=== PATIENT | female | born 1945 | race Caucasian/White ===

== ENCOUNTER → 2022-08-17 | Outpatient (CLI) | payer MEDICARE, OTHER ==
--- NOTE | 2022-08-17 22:17 | MR ---
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 Performed on a separate workstat ion. MRA neck: Multiplanar, multi-sequence imaging as well as [id number] and phase was performed extra cranial vasculature of the neck. 3-D reformatted images and maximum intensity projection reformatted images were submitted for evaluation, these are performed on a separate workstation. IV Contrast: None Findings: Vertebral arteries: The vertebral arteries are patent. The right vertebral artery is dominant. Basilar artery: The basilar artery is intact. The basilar artery bifurcation is normal. Internal Carotid arteries: The cervical, petrous, cavernous and supraclinoid segments are normal. NAGA: Patent with no evidence of aneurysm. ACOM: Present without evidence of aneurysm. MCA: Patent with no evidence of aneurysm. ANTICHECKING IRON WORKER: origin left posterior cerebral artery. PCOM: Hypoplastic right. RIGHT CAROTID SYSTEM: The common carotid artery is patent. The carotid bifurcations that she no evide nce for hemodynamically significant stenosis. The internal carotid arteries patent. The contours of t he vessels are smooth. LEFT CAROTID SYSTEM: The common carotid artery is patent. Bifurcation plaque of the proximal interna l carotid artery with 25-50% stenosis. There The internal carotid arteries patent. The contours of th e vessels are smooth. The origins of the great vessels and vertebral arteries appear unremarkable. The right vertebral art antonio is dominant. The contours of the vessels are smooth. IMPRESSION: 1. No evidence of intracranial aneurysm or significant stenosis. 2. No evidence of fibromuscular dysplasia.. 3. No evidence aneurysm. 4. 25-50% stenosis of the left carotid bifurcation. The right carotid bifurcation is patent without significant stenosis
== END | disposition home or self-care (01) ==
LOC: RADMRIMAIN 20:30
PROVIDERS: ATTEND Neurological Surgery
DX: I67.1 Cerebral aneurysm, nonruptured (principal); I65.23 Occlusion and stenosis of bilateral carotid arteries; I77.3 Arterial fibromuscular dysplasia
CPT/HCPCS: 70544; 70547

== ENCOUNTER → 2023-07-19 | Outpatient (CLI) | payer MEDICARE, OTHER ==
--- NOTE | 2023-07-19 09:57 | CT ---
EXAMINATION TYPE: CT abdomen wo con DATE OF EXAM: 07/19/2023 COMPARISON: None HISTORY: 77-year-old female R10.84, R42 dizziness, I10 HTN, abdominal pain, gas and bloating. TECHNIQUE: Contiguous axial scanning of the abdomen without IV contrast. Coronal and sagittal reconst ructions performed. CT DLP: 599.80 mGycm Automated exposure control for dose reduction was used. FINDINGS: The heart is normal size without pericardial effusion. Lung bases clear without pleural effusion. Mildly diminished attenuation of the liver parenchyma. A couple punctate calcifications may reflect s equela of prior granulomatous disease. Gallbladder is mildly hydropic at 4.3 cm wide but without any surrounding inflammation. Approximately 5 dependent stones are present measuring up to 9 mm. Adrenal glands, kidneys, spleen, and pancreas within normal limits. There is moderate atherosclerotic calcifications infrarenal abdominal aorta and visualized iliac fili santhosh. There is fusiform dilatation of the infrarenal abdominal aorta up to 2.1 cm and then with decrease in caliber down to 1.3 cm and the lumen possibly narrowed down to 4 mm due to atherosclerotic changes. Suspect segmental moderate stenoses bilateral common iliac arteries. No dilated small bowel, free fluid, or free air. No mesenteric or retroperitoneal lymphadenopathy. Mild stool burden. Left-sided colonic diverticulosis, greatest in the sigmoid colon. Minimal pericolo vandana fat stranding here along the mid sigmoid colon may be due to prominent pericolonic vessels. Uterus partially visualized anteverted. Small bilateral ovaries are still visualized. Pelvis not imaged. Bones: Facet arthropathy lower lumbar spine. IMPRESSION: 1. AT LEAST MILD FATTY INFILTRATION OF THE LIVER. 2. CHOLELITHIASIS. MILDLY HYDROPIC GALLBLADDER LIKELY DUE TO FASTING STATE NO SURROUNDING INFLAMMA TION IS SEEN. 3. LEFT-SIDED COLONIC DIVERTICULOSIS, EXTENSIVE IN THE SIGMOID COLON. FAT STRANDING AROUND THE MID SI GMOID COLON FAVORED TO RELATE TO PROMINENT PERICOLONIC VESSELS RATHER THAN MILD ACUTE DIVERTICULITIS. CLINICALLY CORRELATE. 4. FUSIFORM DILATATION OF THE INFRARENAL ABDOMINAL AORTA UP TO 2.1 CM FOLLOWED BY DECREASE IN CALIBER DOWN TO 1.3 CM. ATHEROSCLEROTIC CALCIFICATIONS MAY FURTHER NARROW THE LUMEN DOWN TO 4 MM. CONSIDER F URTHER ASSESSMENT WITH CTA AND POSSIBLE VASCULAR SURGERY REFERRAL.
== END | disposition home or self-care (01) ==
LOC: RADECHMAIN 07:28
PROVIDERS: ATTEND Family Medicine
DX: K76.0 Fatty (change of) liver, not elsewhere classified (principal); K80.20 Calculus of gallbladder without cholecystitis without obstruction; K57.30 Diverticulosis of large intestine without perforation or abscess without bleeding; R42 Dizziness and giddiness; I71.33 Infrarenal abdominal aortic aneurysm, ruptured
CPT/HCPCS: 74150; 93225; 93226

== ENCOUNTER 2024-02-19 12:56 | Inpatient (IN) | payer MEDICARE, OTHER ==
--- NOTE | 2024-02-19 13:31 | ED ---
Abdominal Pain HPI - General Source: patient, RN notes reviewed Mode of arrival: ambulatory Limitations: no limitations <Lavonne Narvaez - Last Filed: 02/19/24 13:30> - General Source: patient, RN notes reviewed, old records reviewed Mode of arrival: ambulatory Limitations: no limitations - History of Present Illness MD Complaint: other Migration to: other Severity: severe Severity scale (1-10): 8 Consistency: constant Improves With: nothing Worsens With: nothing Associated Symptoms: nausea Treatments Prior to Arrival: other (0) <Sebastián Carrillo - Last Filed: 02/25/24 22:35> - General Chief Complaint: Abdominal Pain Stated Complaint: abd pain Time Seen by Provider: 02/19/24 13:30 - History of Present Illness Initial Comments: Quick note: 78-year-old female presented to the ER with a chief complaint of cough and congestion. Patient also is reporting abdominal pain. Patient admits to chronic abdominal pain but states pain has been worse recently. Patient recently treated with a Z-Louis and Tessalon Perles for cough. She denies fevers or chills. (Lavonne Narvaez) This is a 78-year-old female with cough congestion upper respiratory symptoms inability to take a deep breath and wheezing. Patient states she is unimproved with outpatient treatment (Sebastián Carrillo) - Related Data Home Medications Medication Instructions Recorded Confirmed Aspirin EC [Ecotrin Low Dose] 81 mg PO DAILY 02/19/24 02/19/24 Benzonatate [Tessalon Perle] 200 mg PO BID PRN 02/19/24 02/19/24 Gabapentin 300 mg PO TID 02/19/24 02/19/24 Losartan Potassium 100 mg PO DAILY 02/19/24 02/19/24 Metoprolol Tartrate [Lopressor] 50 mg PO BID 02/19/24 02/19/24 Pantoprazole Sodium [Protonix] 20 mg PO DAILY 02/19/24 02/19/24 Triamcinolone 0.025% Cream 1 applic TOPICAL BID PRN 02/19/24 02/19/24 [Kenalog 0.025% Cream] Previous Rx's Medication Instructions Recorded cloNIDine HCL [Catapres] 0.1 mg PO HS #30 tab 02/24/24 Allergies Allergy/AdvReac Type Severity Reaction Status Date / Time bisoprolol [From Ziac] Allergy Unknown Verified 02/19/24 16:22 erythromycin base Allergy Rash/Hives Verified 02/19/24 16:22 [From Erythrocin] hydrochlorothiazide Allergy Unknown Verified 02/19/24 16:22 [From Ziac] iodine Allergy Confusion Verified 02/19/24 16:22 propoxyphene Allergy Dyspnea Verified 02/19/24 16:22 [From Darvocet-N] acetaminophen [From Lortab] AdvReac Itching Verified 02/19/24 16:22 aloe vera AdvReac Itching Verified 02/19/24 16:22 atorvastatin [From Lipitor] AdvReac Unknown Verified 02/19/24 16:22 hydrocodone [From Lortab] AdvReac Itching Verified 02/19/24 16:22 levofloxacin [From Levaquin] AdvReac Itching Verified 02/19/24 16:22 polyethylene glycol 3350 AdvReac Hallucinati Verified 02/22/24 15:25 [From Miralax] ons rofecoxib [From Vioxx] AdvReac Nausea & Verified 02/19/24 16:22 Vomiting Review of Systems ROS Other: All systems not noted in ROS Statement are negative. <Lavonne Narvaez - Last Filed: 02/19/24 13:30> ROS Other: All systems not noted in ROS Statement are negative. <Sebastián Carrillo - Last Filed: 02/25/24 22:35> ROS Statement: Those systems with pertinent positive or pertinent negative responses have been documented in the HPI. Past Medical History Past Medical History: CVA/TIA, GERD/Reflux, Hyperlipidemia, Hypertension History of Any Multi-Drug Resistant Organisms: None Reported Past Surgical History: Appendectomy, Tubal Ligation Additional Past Surgical History / Comment(s): cataract, carpal tunnel, Past Psychological History: No Psychological Hx Reported Smoking Status: Former smoker Past Alcohol Use History: None Reported Past Drug Use History: None Reported <Lavonne Narvaez - Last Filed: 02/19/24 13:30> General Exam Limitations: no limitations <Lavonne Narvaez - Last Filed: 02/19/24 13:30> General appearance: alert, in no apparent distress, anxious, in distress Head exam: Present: atraumatic, normocephalic, normal inspection Eye exam: Present: normal appearance, PERRL, EOMI. Absent: scleral icterus, conjunctival injection, periorbital swelling ENT exam: Present: normal exam, mucous membranes moist Neck exam: Present: normal inspection. Absent: tenderness, meningismus, lymphadenopathy Respiratory exam: Present: normal lung sounds bilaterally. Absent: respiratory distress, wheezes, rales, rhonchi, stridor Cardiovascular Exam: Present: normal rhythm, tachycardia, normal heart sounds. Absent: systolic murmur, diastolic murmur, rubs, gallop, clicks GI/Abdominal exam: Present: soft, normal bowel sounds. Absent: distended, tenderness, guarding, rebound, rigid Extremities exam: Present: normal inspection, full ROM, normal capillary refill. Absent: tenderness, pedal edema, joint swelling, calf tenderness Back exam: Present: normal inspection Neurological exam: Present: alert, oriented X3, CN II-XII intact Psychiatric exam: Present: normal affect, normal mood Skin exam: Present: warm, dry, intact, normal color. Absent: rash <Sebastián Carrillo - Last Filed: 02/25/24 22:35> - General Exam Comments Initial Comments: Visual Physical Exam Vital signs reviewed General: Well-appearing, nontoxic, no acute distress. Head: Normocephalic, atraumatic Eyes: PERRLA, EOMI ENT: Airway patent Chest: Nonlabored breathing Skin: No visual rash, normal skin tone Neuro: Alert and oriented 3 Musculoskeletal: No gross abnormalities (ClevelandaLavonne) Course <Sebastián Carrillo - Last Filed: 02/25/24 22:35> Vital Signs 02/19/24 02/19/24 02/19/24 13:15 16:11 16:19 Temperature 98.2 F Pulse Rate 129 H 80 Respiratory 18 19 19 Rate Blood Pressure 146/69 145/60 O2 Sat by Pulse 96 94 L Oximetry 02/19/24 02/19/24 02/19/24 21:09 21:50 22:50 Temperature 98.5 F Pulse Rate 89 Respiratory 20 Rate Blood Pressure 142/73 O2 Sat by Pulse 89 L 94 L 92 L Oximetry 02/19/24 02/19/24 23:31 23:37 Temperature 98.1 F Pulse Rate 98 98 Respiratory 20 Rate Blood Pressure 136/71 O2 Sat by Pulse 89 L 94 L Oximetry - Reevaluation(s) Reevaluation #1: 02/19/24 19:05 Records reviewed (Sebastián Carrillo) Reevaluation #2: 02/19/24 19:05 Patient symptoms unchanged (Sebastián Carrillo) Reevaluation #3: 02/19/24 19:06 Patient informed of results and questions answered (Sebastián Carrillo) Reevaluation #4: Was pt. sent in by a medical professional or institution (, [facility], RESIZER OPERATOR, urgent care, hospital, or halfway...) When possible be specific @ -no Did you speak to anyone other than the patient for history (EMS, parent, family, police, friend...)? What history was obtained from this source @ -no Did you review nursing and triage notes (agree or disagree)? Why? @ -agree Are old charts reviewed (outside hosp., previous admission, EMS record, old EKG, old radiological studies, urgent care reports/EKG's, halfway records)? Report findings @ -yes Differential Diagnosis (chest pain, altered mental status, abdominal pain women, abdominal pain men, vaginal bleeding, weakness, fever, dyspnea, syncope, headache, dizziness, GI bleed, back pain, seizure, CVA, palpatations, mental health, musculoskeletal)? @ -prior EKG interpreted by me (3pts min.). @ -yes X-rays interpreted by me (1pt min.). @ -yes n the right upper lobe mass CT interpreted by me (1pt min.). @ -Yes positive for right upper lobe mass, cancer U/S interpreted by me (1pt. min.). @ -no What testing was considered but not performed or refused? (CT, X-rays, U/S, la bs)? Why? @ -none What meds were considered but not given or refused? Why? @ -none Did you discuss the management of the patient with other professionals (professionals i.e. [facility] Alex, RESIZER OPERATOR, lab, RT, psych nurse, social media sr strategy manager, belt back operator, teacher, information security officer, adult protective caseworker)? Give summary @ -no Was smoking cessation discussed for >3mins.? @ -no Was critical care preformed (if so, how long)? @ -no Were there social determinants of health that impacted care today? How? (Homelessness, low income, unemployed, alcoholism, drug addiction, transportation, low edu. Level, literacy, decrease access to med. care, snf, rehab)? @ -none Was there de-escalation of care discussed even if they declined (Discuss DNR or withdrawal of care, Hospice)? DNR status @ -no What co-morbidities impacted this encounter? (DM, HTN, Smoking, COPD, CAD, Cancer, CVA, ARF, Chemo, Hep., AIDS, mental health diagnosis, sleep apnea, morbid obesity)? @ -none Was patient admitted / discharged? Hospital course, mention meds given and route, prescriptions, significant lab abnormalities, going to OR and other pertinent info. @ - 78 female to the ER for evaluation of right upper lobe lung cancer, patient will be admitted for oncology evaluation found to have new diagnosis of cancer Admitted Undiagnosed new problem with uncertain prognosis? @ -no Drug Therapy requiring intensive monitoring for toxicity (Heparin, Nitro, Insulin, Cardizem)? @ -no Were any procedures done? @ -no Diagnosis/symptom? @ -Right upper lobe mass, new lung cancer Acute, or Chronic, or Acute on Chronic? @ -Acute Uncomplicated (without systemic symptoms) or Complicated (systemic symptoms)? @ -Complicated Side effects of treatment? @ -no Exacerbation, Progression, or Severe Exacerbation? @ -exacerbation Poses a threat to life or bodily function? How? (Chest pain, USA, ID, pneumonia, PE, COPD, DKA, ARF, appy, cholecystitis, CVA, Diverticulitis, Homicidal, Suicidal, threat to staff... and all critical care pts) @ -yes female patient who diagnosis cancer (Sebastián Carrillo) Reevaluation #5: 06 differential Dyspnea: Coronary syndrome, arrhythmia, tamponade, asthma, COPD, pulmonary embolism, pneumonia, pneumothorax, pulmonary effusion, anaphylaxis, diabetic ketoacidosis, flailed chest, pulmonary contusion, diaphragmatic rupture, anemia, neuromuscular, this is not meant to be an all-inclusive list. (Sebastián Carrillo) - Consultations Consultation #1: With Dr. Bunch who agrees to admit this patient (Sebastián Carrillo) Medical Decision Making <Lavonne Narvaez - Last Filed: 02/19/24 13:30> - Lab Data Result diagrams: 02/20/24 06:43 02/20/24 06:43 - EKG Data -: EKG Interpreted by Me (EKG is sinus 84 WI 167 QRS 83 QTc 423) - Radiology Data Radiology results: report reviewed (CT soft tissue neck chest abdomen pelvis is positive for right upper lobe cancer mass pneumonia), image reviewed <Sebastián Carrillo - Last Filed: 02/25/24 22:35> - Medical Decision Making I performed the quick note portion of this chart. Electronically signed by Lavonne Narvaez PA-C (Lavonne Narvaez) 78 female to the ER for evaluation of right upper lobe lung cancer, patient will be admitted for oncology evaluation found to have new diagnosis of cancer (Sebastián Carrillo) - Lab Data Lab Results 02/19/24 02/19/24 02/19/24 Range/Units 16:47 16:47 16:47 WBC 11.3 H (3.8-10.6) k/uL RBC 4.13 (3.80-5.40) m/uL Hgb 11.4 (11.4-16.0) gm/dL Hct 35.2 (34.0-46.0) % MCV 85.0 (80.0-100.0) fL MCH 27.6 (25.0-35.0) pg MCHC 32.5 (31.0-37.0) g/dL RDW 15.4 (11.5-15.5) % Plt Count 453 H (150-450) k/uL MPV 7.5 Neutrophils % 81 % Lymphocytes % 8 % Monocytes % 6 % Eosinophils % 1 % Basophils % 1 % Neutrophils # 9.2 H (1.3-7.7) k/uL Lymphocytes # 1.0 (1.0-4.8) k/uL Monocytes # 0.7 (0-1.0) k/uL Eosinophils # 0.2 (0-0.7) k/uL Basophils # 0.1 (0-0.2) k/uL PT 10.5 (10.0-12.5) sec INR 1.0 (<1.2) APTT 26.4 (22.0-30.0) sec Sodium (137-145) mmol/L Potassium (3.5-5.1) mmol/L Chloride (98-107) mmol/L Carbon Dioxide (22-30) mmol/L Anion Gap mmol/L BUN (7-17) mg/dL Creatinine (0.52-1.04) mg/dL Est GFR (CKD-EPI)AfAm (>60 ml/min/1.73 sqM) Est GFR (CKD-EPI)NonAf (>60 ml/min/1.73 sqM) Glucose (74-99) mg/dL Plasma Lactic Acid Eusebio 1.3 (0.7-2.0) mmol/L Calcium (8.4-10.2) mg/dL Phosphorus (2.5-4.5) mg/dL Magnesium (1.6-2.3) mg/dL Total Bilirubin (0.2-1.3) mg/dL AST (14-36) U/L ALT (4-34) U/L Alkaline Phosphatase (38-126) U/L Troponin I (0.000-0.034) ng/mL Total Protein (6.3-8.2) g/dL Albumin (3.5-5.0) g/dL 02/19/24 02/19/24 Range/Units 16:47 17:42 WBC (3.8-10.6) k/uL RBC (3.80-5.40) m/uL Hgb (11.4-16.0) gm/dL Hct (34.0-46.0) % MCV (80.0-100.0) fL MCH (25.0-35.0) pg MCHC (31.0-37.0) g/dL RDW (11.5-15.5) % Plt Count (150-450) k/uL MPV Neutrophils % % Lymphocytes % % Monocytes % % Eosinophils % % Basophils % % Neutrophils # (1.3-7.7) k/uL Lymphocytes # (1.0-4.8) k/uL Monocytes # (0-1.0) k/uL Eosinophils # (0-0.7) k/uL Basophils # (0-0.2) k/uL PT (10.0-12.5) sec INR (<1.2) APTT (22.0-30.0) sec Sodium 136 L (137-145) mmol/L Potassium 4.1 (3.5-5.1) mmol/L Chloride 101 (98-107) mmol/L Carbon Dioxide 28 (22-30) mmol/L Anion Gap 7 mmol/L BUN 20 H (7-17) mg/dL Creatinine 0.75 (0.52-1.04) mg/dL Est GFR (CKD-EPI)AfAm 88 (>60 ml/min/1.73 sqM) Est GFR (CKD-EPI)NonAf 77 (>60 ml/min/1.73 sqM) Glucose 102 H (74-99) mg/dL Plasma Lactic Acid Eusebio (0.7-2.0) mmol/L Calcium 9.4 (8.4-10.2) mg/dL Phosphorus 4.5 (2.5-4.5) mg/dL Magnesium 2.1 (1.6-2.3) mg/dL Total Bilirubin 0.7 (0.2-1.3) mg/dL AST 24 (14-36) U/L ALT 11 (4-34) U/L Alkaline Phosphatase 114 (38-126) U/L Troponin I <0.012 (0.000-0.034) ng/mL Total Protein 7.0 (6.3-8.2) g/dL Albumin 3.9 (3.5-5.0) g/dL Critical Care Time Critical Care Time: Yes Total Critical Care Time: 31 <Sebastián Carrillo - Last Filed: 02/25/24 22:35> Disposition <Lavonne Narvaez - Last Filed: 02/19/24 13:30> Is patient prescribed a controlled substance at d/c from ED?: No Time of Disposition: 19:00 <Sebastián Carrillo - Last Filed: 02/25/24 22:35> Clinical Impression: Abdominal pain, Cancer of right lung, Stridor, Dyspnea, Mass of right lung Disposition: ADMITTED IP TO THIS HOSP Condition: Serious
--- NOTE | 2024-02-19 14:05 | XR ---
EXAMINATION TYPE: XR chest 2V DATE OF EXAM: 02/19/2024 COMPARISON: NONE TECHNIQUE: PA and lateral views submitted. HISTORY: Cough FINDINGS: There is a large left upper lobe mass measuring 7 cm. Suspected right suprahilar and left hilar lymph adenopathy. Underlying COPD. No pleural effusion or pneumothorax. Degenerative changes of the spine. IMPRESSION: 1. Large 7 cm left upper lobe mass suspicious for malignancy. Suspect mediastinal and hilar adenopath y.
--- NOTE | 2024-02-19 14:06 | XR ---
EXAMINATION TYPE: XR KUB DATE OF EXAM: 02/19/2024 COMPARISON: NONE HISTORY: Pain TECHNIQUE: One view abdominal series FINDINGS: The osseous structures are intact. The bowel gas pattern is nonspecific. Large left upper lobe lung mass see dictation of chest x-ray report. Underlying COPD. Bilateral hip arthropathy. Degenerative ch anges of the spine.. IMPRESSION: 1. Nonspecific abdomen. No obstruction. 2. Large left upper lobe lung mass with suspected mediastinal and hilar adenopathy.
[2024-02-19 17:08] LABS: Basophils # (A) 0.1 k/uL (0-0.2); Basophils % (A) 1 %; Eosinophils # (A) 0.2 k/uL (0-0.7); Eosinophils % (A) 1 %; HCT 35.2 % (34.0-46.0); HGB 11.4 gm/dL (11.4-16.0); Lymphocytes % (A) 8 %; MCH 27.6 pg (25.0-35.0); MCHC 32.5 g/dL (31.0-37.0); Mean Platelet Volume 7.5; Monocytes # (A) 0.7 k/uL (0-1.0); Monocytes % (A) 6 %; Neutrophils # (A) 9.2 k/uL (1.3-7.7); Neutrophils % (A) 81 %; Platelet Count 453 k/uL (150-450); RBC 4.13 m/uL (3.80-5.40); RDW 15.4 % (11.5-15.5); WBC 11.3 k/uL (3.8-10.6)
[2024-02-19 17:24] LABS: Partial Thromboplastin Time 26.4 sec (22.0-30.0); Prothrombin Time 10.5 sec (10.0-12.5)
[2024-02-19] MEDS: methylPREDNISolone SOD SUCCI 125 MG/2 ML VIAL IV STA (17:57)
[2024-02-19] MEDS: SODIUM CHLORIDE 0.9% 1,000 ML IV STA (17:57)
[2024-02-19] MEDS: FAMOTIDINE 20 MG/2 ML VIAL IV STA (17:58)
[2024-02-19] MEDS: MORPHINE SULFATE 4 MG/ML SYRINGE IV STA (17:58)
[2024-02-19] MEDS: diphenhydrAMINE 50 MG/ML 1 ML VIAL IVP STA (17:58)
[2024-02-19] MEDS: HYDROmorphone 1 MG/ML 1 ML SYRINGE IVP STA (18:07)
[2024-02-19 18:12] LABS: ALT 11 U/L (4-34); AST 24 U/L (14-36); African American GFR (CKD) 88 (>60 ml/min/1.73 sqM); Albumin 3.9 g/dL (3.5-5.0); Alkaline Phosphatase 114 U/L (38-126); Anion Gap 7 mmol/L; Blood Urea Nitrogen 20 mg/dL (7-17); Calcium 9.4 mg/dL (8.4-10.2); Carbon Dioxide 28 mmol/L (22-30); Chloride 101 mmol/L (98-107); Glucose 102 mg/dL (74-99); Magnesium 2.1 mg/dL (1.6-2.3); Non-African American GFR(CKD) 77 (>60 ml/min/1.73 sqM); Phosphorus 4.5 mg/dL (2.5-4.5); Potassium 4.1 mmol/L (3.5-5.1); Sodium 136 mmol/L (137-145); Total Bilirubin 0.7 mg/dL (0.2-1.3)
[2024-02-19] MEDS ORDERED: HYDROmorphone 1 MG/ML 1 ML SYRINGE IVP PRN (18:50)
[2024-02-19] MEDS ORDERED: NALOXONE 0.4 MG/ML 1 ML VIAL IV PRN (18:50)
--- NOTE | 2024-02-19 18:55 | CT ---
EXAMINATION TYPE: CT angio chest DATE OF EXAM: 02/19/2024 COMPARISON: Prior CT chest June 29, 2016 HISTORY: abdominal pain, cough and congestion CT DLP: 1582.8 mGycm. Automated Exposure Control for Dose Reduction was Utilized. CONTRAST: CTA scan of the thorax is performed with IV Contrast, patient injected with 100ml mL of Isovue 370, p ulmonary embolism protocol. MIP Images are created on CT scanner and reviewed. FINDINGS: LUNGS: There is new suspicious 5.8 x 5.1 cm posterior left upper lobe mass concerning for neoplasm ax ial image 75. Some groundglass opacity in the central lingula and left lower lobe is present. Right l jose shows some faint small areas of groundglass opacity with slight nodularity in the periphery of th e right middle lobe. Mild bibasilar linear scarring and/or atelectasis. No pleural effusion or pneumo thorax seen bilaterally.. MEDIASTINUM: There is confluent adenopathy in the mediastinum encasing the ru and central bronchi . Hilar adenopathy extends into the bilateral hilar region and AP window. There are additional enlarg ed lymph nodes in the prevascular space and in the anterior superior mediastinum. Patency of the pulm onary arteries and branches without pulmonary embolism but narrowing from neoplasm or adenopathy in t he left hilar region is noted. Tiny pericardial effusion. No cardiomegaly. OTHER: Please refer to same day CT abdomen and pelvis report for complete details on the upper abdome n. IMPRESSION: 1. There is near 6.0 cm left upper lobe mass strongly suggestive of neoplasm with marked central thor acic adenopathy. 2. Some areas of groundglass opacity and slight nodularity bilaterally could reflect developing acute infectious process. Correlate clinically.
--- NOTE | 2024-02-19 19:00 | CT ---
EXAMINATION TYPE: CT abdomen pelvis w con DATE OF EXAM: 02/19/2024 HISTORY: abdominal pain, cough and congestion CT DLP: 1582.8mGycm Automated Exposure Control for Dose Reduction was Utilized. CONTRAST: CT scan of the abdomen and pelvis is performed with IV Contrast, patient injected with abdominal pain , cough and congestion mL of Isovue 370. COMPARISON: CT abdomen July 19, 2023 FINDINGS: LUNG BASES: Please refer to same-day CT chest report for complete details on the lung bases. LIVER/GB: Internal dependent gallstones redemonstrated. Liver is diffusely low dense consistent with fatty infiltrative hepatocellular disease PANCREAS: No significant abnormality is seen. SPLEEN: No significant abnormality is seen. ADRENALS: No suspicious adrenal masses. KIDNEYS: No significant abnormality is seen. BOWEL: Sigmoid colonic diverticulosis. No CT evidence for acute diverticulitis. A few additional prox imal colonic diverticula. No abnormal small or large bowel dilatation. UTERUS/ADNEXA: Small size anteverted uterus correlates with postmenopausal age. Central hypodense str ipe somewhat prominent for patient of postmenopausal age. LYMPH NODES: No greater than 1cm abdominal or pelvic lymph nodes are appreciated. OSSEOUS STRUCTURES: No significant abnormality is seen. OTHER: Moderate calcified plaque of the abdominal aorta extends into iliac branch vessels. Moderate t o severe narrowing and spurring in both hip joints. IMPRESSION: 1. No acute findings seen to account for patient's symptoms of abdominal pain. Gallstones without CT evidence for acute cholecystitis redemonstrated. Diverticulosis without CT evidence for acute diverti culitis redemonstrated. 2. Some prominence of the central endometrial stripe on CT for postmenopausal female. Advise nonemerg ent pelvic ultrasound follow-up to exclude abnormal endometrial thickening.
--- NOTE | 2024-02-19 19:06 | CT ---
EXAMINATION TYPE: CT soft tissue neck w con DATE OF EXAM: 02/19/2024 HISTORY: abdominal pain, cough and congestion COMPARISON: CT neck June 08, 2014 CT DLP: 1582.8 mGycm. Automated Exposure Control for Dose Reduction was Utilized. TECHNIQUE: CT scan of the neck is performed with IV Contrast, patient injected with 100ml mL of Isov ue 370, axial images are obtained, coronal and sagittal reformatted images are reviewed. FINDINGS: Airway: Abnormal adenopathy in the anterior superior mediastinum extends to the left supraclavicular region. Parotid/submandibular glands: No gross abnormality seen. Carotid/Vascular Structures: Mild plaque right carotid bulb level. More severe plaque left carotid bu lb . Significant stenosis at origin of left internal carotid artery is difficult to exclude. Osseous Structures: Straightening of cervical spine with [id number] multilevel spurring and dis c space narrowing. Other: Apei-gw-txyxintk mucosal thickening inferior left maxillary sinus. Bilateral aphakia is redemo nstrated. Aneurysm clip in the region of the distal right internal carotid artery is noted. Ischemic change in the right brain is of indeterminate age. Correlate clinically. IMPRESSION: 1. Severe focal plaque left carotid bulb. Cannot exclude significant stenosis at origin of the left i nternal carotid artery. Advise carotid ultrasound follow-up to further evaluate. 2. Aneurysm clip at the level of the right anterior aspect [place]. There is age indetermina te ischemia in the right brain. Correlate clinically to determine further investigation with CT or MR I of the brain.
--- NOTE | 2024-02-20 06:12 | P.CNPUL ---
History of Present Illness Consult date: 02/20/24 Requesting physician: Sebastián Carrillo Reason for consult: lung mass Chief complaint: Abdominal discomfort and back pain History of present illness: Patient is a 78-year-old white female with past medical history significant for previous heavy tobacco dependence, smoking 1 to 2 packs/day up until about 5 years ago. Her primary care provider is a Siobhan Samuel, nurse practitioner and out of Dr. Bunch's office. She has been struggling with a persistent cough and wheezing for the last 6 weeks. She was treated outpatient 3 weeks ago for presumptive bronchitis with a Z-Louis and Tessalon Perles. Denies any fevers, chest pain, purulent sputum production, hemoptysis. Also, complains of right- sided thoracic level back pain. No relief with outpatient treatment. She is also had issues with abdominal bloating, flatulence and burping. This has reportedly limited her eating. No significant abdominal pain. She reports a 20 pound, otherwise unexplained weight loss over the last month. Prior personal history of malignancies. Her father may have had lung cancer. Chest x-ray done on arrival to the emergency department identified a large left upper lobe mass, and associated mediastinal and hilar lymphadenopathy suspicious for malignancy. A follow-up chest CTA identified a 6 cm left upper lobe mass, strongly suggestive of neoplasm with marked central thoracic adenopathy. There are some areas of ground glass opacity and slight nodularity bilaterally, which could reflect a superimposed acute infectious process. CT of the abdomen did not show any acute findings explaining the patient's abdominal pain or symptoms. There was gallstones without acute cholecystitis. Some prominence of the central endometrial stripe, recommending follow-up pelvic ultrasound to exclude e ndometrial thickening. Patient also underwent a CT of the soft tissues of the neck with contrast which showed severe focal plaque left carotid bulb. There is an aneurysm clip at the level of the right anterior aspect of the [place]. Age-indeterminate ischemia in the right brain. CBC: WBC count 11.3, hemoglobin 11.4, hematocrit 35.2, platelets 453. Coagulation profile unremarkable. BMP unremarkable. Troponin less than 0.012. She is currently sitting up in bed, on room air, in no acute distress. She well-nourished and seems functional at baseline. She does not have her son for support system. CT scan results discussed with her at length. Review of Systems REVIEW OF SYSTEMS: CONSTITUTIONAL: Reports a unintentional 20 pound weight loss over the last month or so EYES: Denies change in vision. EARS, NOSE, MOUTH, THROAT: Denies headaches, denies sore throat. CARDIOVASCULAR: Denies chest pain, palpitations or syncopal episodes. RESPIRATORY: See HPI. GASTROINTESTINAL: Admits abdominal bloating and increase flatulence and burping. Reduced appetite. Denies nausea and vomiting, or diarrhea. Endorses occasional intermittent constipation GENITOURINARY: Denies hematuria, denies infections. MUSKULOSKELETAL: Denies pain, denies swelling. INTEGUMENTARY: Denies rash, denies eczema. NEUROLOGICAL: Denies recent memory loss, no recent seizure activity. PSYCHIATRIC: Denies anxiety, denies depression. 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, ovarian cysts History of Any Multi-Drug Resistant Organisms: None Reported Past Surgical History: Appendectomy, Tonsillectomy, Tubal Ligation Additional Past Surgical History / Comment(s): cataracts, carpal tunnel, laser e ye surgery, metal coil for brain aneurysm Past Anesthesia/Blood Transfusion Reactions: Postoperative Nausea & Vomiting (PONV) Past Psychological History: No Psychological Hx Reported Smoking Status: Former smoker Past Alcohol Use History: None Reported Past Drug Use History: None Reported Medications and Allergies Home Medications Medication Instructions Recorded Confirmed Type Aspirin EC [Ecotrin Low Dose] 81 mg PO DAILY 02/19/24 02/19/24 History Benzonatate [Tessalon Perle] 200 mg PO BID PRN 02/19/24 02/19/24 History Gabapentin 300 mg PO TID 02/19/24 02/19/24 History Losartan Potassium 100 mg PO DAILY 02/19/24 02/19/24 History Metoprolol Tartrate [Lopressor] 50 mg PO BID 02/19/24 02/19/24 History Pantoprazole Sodium [Protonix] 20 mg PO DAILY 02/19/24 02/19/24 History Triamcinolone 0.025% Cream 1 applic TOPICAL BID PRN 02/19/24 02/19/24 History [Kenalog 0.025% Cream] Allergies Allergy/AdvReac Type Severity Reaction Status Date / Time bisoprolol [From Ziac] Allergy Unknown Verified 02/19/24 16:22 erythromycin base Allergy Rash/Hives Verified 02/19/24 16:22 [From Erythrocin] hydrochlorothiazide Allergy Unknown Verified 02/19/24 16:22 [From Ziac] iodine Allergy Confusion Verified 02/19/24 16:22 propoxyphene Allergy Dyspnea Verified 02/19/24 16:22 [From Darvocet-N] acetaminophen [From Lortab] AdvReac Itching Verified 02/19/24 16:22 aloe vera AdvReac Itching Verified 02/19/24 16:22 atorvastatin [From Lipitor] AdvReac Unknown Verified 02/19/24 16:22 hydrocodone [From Lortab] AdvReac Itching Verified 02/19/24 16:22 levofloxacin [From Levaquin] AdvReac Itching Verified 02/19/24 16:22 rofecoxib [From Vioxx] AdvReac Nausea & Verified 02/19/24 16:22 Vomiting Physical Exam Vitals: Vital Signs Temp Pulse Pulse Resp BP BP Pulse Ox 02/20/24 02:48 18 02/20/24 00:12 98.0 F 100 18 173/93 96 02/19/24 23:37 98.1 F 98 20 136/71 94 L 02/19/24 23:31 98 89 L 02/19/24 22:50 92 L 02/19/24 21:50 94 L 02/19/24 21:09 98.5 F 89 20 142/73 89 L 02/19/24 16:19 19 02/19/24 16:11 80 19 145/60 94 L 02/19/24 13:15 98.2 F 129 H 18 146/69 96 Intake and Output 02/19/24 02/19/24 02/20/24 14:59 22:59 06:59 Other: Voiding Method Toilet Diaper # Voids 1 Weight 73.028 kg 73.028 kg GENERAL EXAM: Alert, 78-year-old white female, sitting at the edge of the bed, comfortable in no apparent distress. HEAD: Normocephalic and atraumatic EYES: Normal reaction of pupils, equal size. NOSE: Clear with pink turbinates. THROAT: No erythema or exudates. NECK: No masses, no JVD. CHEST: No chest wall deformity. LUNGS: Equal air entry with no crackles, wheeze, rhonchi or dullness. On room air. No conversational dyspnea or accessory muscle use.. CVS: S1 and S2 normal with no audible murmur, regular rhythm. No extra heart sounds ABDOMEN: No hepatosplenomegaly, active bowel sounds, no guarding or rigidity. SPINE: No scoliosis or deformity SKIN: No rashes CENTRAL NERVOUS SYSTEM: No focal deficits, tone is normal in all 4 extremities. EXTREMITIES: There is no peripheral edema, clubbing, or cyanosis. Peripheral p ulses are intact. Results - Laboratory Findings CBC and BMP: 02/20/24 06:43 02/20/24 06:43 PT/INR, D-dimer PT 10.5 sec (10.0-12.5) 02/19/24 16:47 INR 1.0 (<1.2) 02/19/24 16:47 Abnormal lab findings: Abnormal Labs 02/19/24 02/19/24 16:47 17:42 WBC 11.3 H Plt Count 453 H Neutrophils # 9.2 H Sodium 136 L BUN 20 H Glucose 102 H - Diagnostic Findings Chest x-ray: image reviewed CT scan - chest: image reviewed Assessment and Plan Assessment: New left upper lobe mass, measuring 5.8 x 5.1 cm in the posterior left upper lobe, concerning for neoplasm. There is associated mediastinal adenopathy including confluent adenopathy in the mediastinum encasing the ru and central bronchi, as well as hilar adenopathy extending into the bilateral hilar region and AP window. Additional enlarged lymph nodes in the prevascular space and anterior superior mediastinum. There are some faint groundglass opacities with slight nodularity in the periphery of the right middle lobe and mild bibasilar linear scarring and/or atelectasis. No definitive infectious process. Recent unexplained 20 pound weight loss Subacute cough History of heavy tobacco dependence, quitting 5 years ago, formally smoking 1 to 2 pack/day for most of her adult life. Abdominal discomfort, no acute intra-abdominal process seen with CT of the abdomen History of hypertension History of hyperlipidemia History of CVA/TIA History of brain aneurysm with previous coiling History of GERD without esophagitis Plan: CT of the chest results discussed with the patient at length. Findings are very concerning for malignancy I have discussed the case with Dr. Licona Patient is currently n.p.o. for possible bronchoscopy with transbronchial biopsies later today. Not on any anticoagulants. Takes an 81 mg strength Aspirin daily. Oncology also asked to see this patient. Will need follow-up outpatient PET scan We will continue to follow, and additional recommendations are forthcoming. I have personally seen and examined the patient, performed the documentation and the assessment and plan as written. Number of minutes spent on the visit:20 This is a joint evaluation that was done along with the nurse practitioner. This patient has been experiencing shortness of breath and cough along with significant weight loss. She is an ex-smoker. She presented to the hospital and chest x-ray was abnormal and showed a lung mass and this was followed up by a CT of the chest that showed extensive bulky mediastinal lymphadenopathy and a 6 cm mass in the left upper lobe highly suggestive of malignancy. Some areas of groundglass opacities and slight nodularity bilaterally was also noted. CAT scan of the abdomen was also completed and it showed no acute intra-abdominal abnormalities. There was evidence of diverticulosis. Labs are stable. Normal renal function. Normal electrolytes. Normal LFTs. The patient is currently on 2 L of oxygen by nasal cannula. Discussed the findings with the patient at length. She understands that this may be potentially a malignant process and the patient has been kept n.p.o. and the patient was agreed. This evaluation was done in >30 min Time with Patient: Greater than 30
[2024-02-20 10:42] LABS: Basophils # (A) 0.04 X 10*3/uL (0.00-0.10); Basophils % (A) 0.4 %; Eosinophils # (A) 0 X 10*3/uL (0.04-0.35); Eosinophils % (A) 0 %; HCT 33.9 % (37.2-46.3); HGB 10.4 g/dL (12.0-15.0); Lymphocytes # (A) 0.64 X 10*3/uL (0.90-5.00); Lymphocytes % (A) 6.9 %; MCH 27.2 pg (27.0-32.0); MCHC 30.7 g/dL (32.0-37.0); MCV 88.7 FL (80.0-97.0); Mean Platelet Volume 9.6 FL (9.5-12.2); Monocytes % (A) 3.2 %; NRBC Per 100 WBC 0 X 10*3/uL (0.00-0.01); Neutrophils # (A) 8.26 X 10*3/uL (1.80-7.70); Neutrophils % (A) 88.9 %; Platelet Count 389 X 10*3/uL (140-440); RBC 3.82 X 10*6/uL (4.10-5.20); RDW 15.1 % (11.5-14.5)
[2024-02-20 10:51] LABS: ALT 9 U/L (8-44); AST 20 U/L (13-35); Albumin 3.8 g/dL (3.8-4.9); Albumin/Globulin Ratio 1.31 Ratio (1.60-3.17); Alkaline Phosphatase 106 U/L (41-126); BUN/Creat Ratio 19.38 Ratio (12.00-20.00); Blood Urea Nitrogen 15.5 mg/dL (9.0-27.0); Calcium 9.3 mg/dL (8.7-10.3); Carbon Dioxide 24.5 mmol/L (21.6-31.8); Chloride 102 mmol/L (96-109); Globulin 2.9 g/dL (1.6-3.3); Glucose 153 mg/dL (70-110); Magnesium 2.2 mg/dL (1.5-2.4); Phosphorus 3.6 mg/dL (2.4-5.1); Potassium 4.8 mmol/L (3.5-5.5); Sodium 139 mmol/L (135-145); Total Bilirubin 0.2 mg/dL (0.3-1.2); Total Protein 6.7 g/dL (6.2-8.2)
[2024-02-20] MEDS: IV FLUID CONTINUATION 1,000 ML IV ONE (14:08)
[2024-02-20] MEDS: ONDANSETRON 4 MG/2 ML VIAL IVP PRN (14:26)
[2024-02-20] MEDS: DEXAMETHASONE SOD PHOSPHATE 4 MG/ML 1 ML VIAL IVP STA (14:28)
[2024-02-20] MEDS ORDERED: MIDAZOLAM 2 MG/2 ML VIAL ONE (14:41)
[2024-02-20] MEDS ORDERED: fentaNYL (PF) 50 MCG/ML 2 ML AMP ONE (14:41)
[2024-02-20] MEDS ORDERED: SUCCINYLCHOLINE CHLORIDE 200 MG/10 ML VIAL IV ONE (14:41)
[2024-02-20] MEDS ORDERED: LIDOCAINE 1% INJ 10MG/ML (20 ML MDV) ONE (14:41)
[2024-02-20] MEDS ORDERED: SUGAMMADEX SODIUM 200 MG/2 ML SDV IV ONE (14:41)
[2024-02-20] MEDS ORDERED: ROCURONIUM 10 MG/ML (5 ML VIAL) IV ONE (14:41)
[2024-02-20] MEDS ORDERED: PROPOFOL 10 MG/ML 20 ML VIAL IV ONE (14:41)
--- NOTE | 2024-02-20 16:52 | P.CONS ---
History of Present Illness - Reason for Consult Consult date: 02/20/24 malignancy Requesting physician: Sebastián Carrillo - Chief Complaint SVC syndrome - History of Present Illness Ms. Davidson is a 78-year-old female patient who we have been asked to see because of a finding of a 6 cm left upper lobe mass, concerns for malignancy. This is associated with mediastinal lymphadenopathy. Patient was complaining of a nagging cough, clear sputum production and some wheezing that started about 4 to 6 weeks ago. She was initially treated for bronchitis with antibiotics and cough suppressants. Patient did not have any fevers. Despite treatment, her symptoms did not improve. She had additional complaints of epigastric discomfort and bloating after eating with excessive eructation and flatulence, this was associated with gas pains that began under the breasts and wraps around to her back. This has caused her to lose about 20 pounds in the past month. She denies any vomiting. Patient denies any personal history of malignancy. She states that her father had cancer, spots in his lung and in his colon. She has a history of smoking, approximately [id number] history, quitting about 4 5 years ago. She has psoriasis, tried treatment with Humira but this was stopped due to intolerance. She is currently admitted because of lack of improvement of her respiratory symptoms despite antibiotic treatment. CXR on admit showed a large left upper lobe mass, mediastinal and hide liver lymphadenopathy. CTA reports 5.8 x 5.1 cm posterior left upper lobe mass, right lung small areas of ground "glass opacities, slight nodularity in the periphery of the right middle lobe. Confluent adenopathy in the mediastinum encasing the ru and the central bronchi. Hilar adenopathy extends into the bilateral hilar region and AP window. Additional enlarged lymph nodes in the prevascular space and in the anterior superior mediastinum. No pulmonary embolism but narrowing from the adenopathy is noted. CT of the abdomen and pelvis reports no significant abnormality, gallstones without evidence for acute cholecystitis, diverticulosis without diverticulitis, prominence of the central endometrial stripe soft tissue neck CT reports abnormal adenopathy in the anterior superior mediastinum extend to the left supraclavicular region plaques are in the carotids, aneurysm clip at the right anterior aspect of the [place] age-indeterminate ischemia in the right brain. Laboratory workup overall unremarkable other then mild anemia. Patient's son lives with her. 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, ovarian cysts History of Any Multi-Drug Resistant Organisms: None Reported Past Surgical History: Appendectomy, Tonsillectomy, Tubal Ligation Additional Past Surgical History / Comment(s): cataracts, carpal tunnel, laser eye surgery, metal coil for brain aneurysm Past Anesthesia/Blood Transfusion Reactions: Postoperative Nausea & Vomiting (PONV) Past Psychological History: No Psychological Hx Reported Smoking Status: Former smoker Past Alcohol Use History: None Reported Past Drug Use History: None Reported Medications and Allergies Home Medications Medication Instructions Recorded Confirmed Type Aspirin EC [Ecotrin Low Dose] 81 mg PO DAILY 02/19/24 02/19/24 History Benzonatate [Tessalon Perle] 200 mg PO BID PRN 02/19/24 02/19/24 History Gabapentin 300 mg PO TID 02/19/24 02/19/24 History Losartan Potassium 100 mg PO DAILY 02/19/24 02/19/24 History Metoprolol Tartrate [Lopressor] 50 mg PO BID 02/19/24 02/19/24 History Pantoprazole Sodium [Protonix] 20 mg PO DAILY 02/19/24 02/19/24 History Triamcinolone 0.025% Cream 1 applic TOPICAL BID PRN 02/19/24 02/19/24 History [Kenalog 0.025% Cream] Allergies Allergy/AdvReac Type Severity Reaction Status Date / Time bisoprolol [From Ziac] Allergy Unknown Verified 02/19/24 16:22 erythromycin base Allergy Rash/Hives Verified 02/19/24 16:22 [From Erythrocin] hydrochlorothiazide Allergy Unknown Verified 02/19/24 16:22 [From Ziac] iodine Allergy Confusion Verified 02/19/24 16:22 propoxyphene Allergy Dyspnea Verified 02/19/24 16:22 [From Darvocet-N] acetaminophen [From Lortab] AdvReac Itching Verified 02/19/24 16:22 aloe vera AdvReac Itching Verified 02/19/24 16:22 atorvastatin [From Lipitor] AdvReac Unknown Verified 02/19/24 16:22 hydrocodone [From Lortab] AdvReac Itching Verified 02/19/24 16:22 levofloxacin [From Levaquin] AdvReac Itching Verified 02/19/24 16:22 rofecoxib [From Vioxx] AdvReac Nausea & Verified 02/19/24 16:22 Vomiting Physical Exam Vitals: Vital Signs Temp Pulse Pulse Resp BP BP Pulse Ox 02/20/24 07:14 98.3 F 96 16 155/76 94 L 02/20/24 02:48 18 02/20/24 00:12 98.0 F 100 18 173/93 96 02/19/24 23:37 98.1 F 98 20 136/71 94 L 02/19/24 23:31 98 89 L 02/19/24 22:50 92 L 02/19/24 21:50 94 L 02/19/24 21:09 98.5 F 89 20 142/73 89 L 02/19/24 16:19 19 02/19/24 16:11 80 19 145/60 94 L 02/19/24 13:15 98.2 F 129 H 18 146/69 96 Intake and Output 02/19/24 02/20/24 02/20/24 22:59 06:59 14:59 Other: Voiding Method Toilet Diaper # Voids 1 Weight 73.028 kg - Constitutional General appearance: average body habitus, cooperative, no acute distress - EENT Eyes: anicteric sclerae, EOMI ENT: hearing grossly normal, normal oropharynx - Neck bilateral anterior cervical, left cervial LAD, no supraclavicular LAD, maybe some fullness, no axillary LN palpated Neck: lymphadenopathy - Respiratory Respiratory: bilateral: CTA - Cardiovascular Rhythm: regular Heart sounds: normal: S1, S2 Abnormal Heart Sounds: no systolic murmur, no diastolic murmur, no rub, no S3 Gallop, no S4 Gallop, no click, no other leg Peripheral Edema: bilateral: None - Gastrointestinal General gastrointestinal: no absent bowel sounds, no decreased bowel sounds, no distended, no hepatomegaly, no hyperactive bowel sounds, normal bowel sounds, no organomegaly, no rigid, no scaphoid, soft, no splenomegaly, no tenderness, no umbilical hernia, no ventral hernia - Integumentary Integumentary: normal - Neurologic Neurologic: CNII-XII intact - Musculoskeletal Musculoskeletal: strength equal bilaterally - Psychiatric Psychiatric: A&O x's 3, appropriate affect, intact judgment & insight Results CBC & Chem 7: 02/20/24 06:43 02/20/24 06:43 Labs: Abnormal Lab Results - Last 24 Hours (Table) 02/19/24 02/19/24 Range/Units 16:47 17:42 WBC 11.3 H (3.8-10.6) k/uL Plt Count 453 H (150-450) k/uL Neutrophils # 9.2 H (1.3-7.7) k/uL Sodium 136 L (137-145) mmol/L BUN 20 H (7-17) mg/dL Glucose 102 H (74-99) mg/dL Comments: CT neck report reviewed Chest x-ray: report reviewed Abdominal x-ray: report reviewed CT scan - abdomen: report reviewed CT scan - chest: report reviewed CT scan - pelvis: report reviewed Assessment and Plan (1) Mass of right lung Current Visit: Yes Status: Acute Priority: High Code(s): R91.8 - OTHER NONSPECIFIC ABNORMAL FINDING OF LUNG FIELD SNOMED Code(s): 013441508 Plan: Mass of the left lung -Presentation and diagnostics as reported in HPI. -Pulmonary is seeing patient, plans for bronchoscopy and biopsy tomorrow. Agree with plan of care. Pending pathology -Imaging is most consistent with at least locally advanced disease. MRI of the brain ordered for staging. PET outpt to complete staging and to clarify nodules in right lung -Discussed with pt concerning findings. She is agreeable to additional work up. All questions answered to the best of my ability at this time -Codeine cough syrup for cough per pt request
[2024-02-20] MEDS ORDERED: TRIAMCINOLONE 0.1% CREAM 80 GM TUBE TOPICAL PRN (19:26)
[2024-02-20] MEDS: METOPROLOL TARTRATE 50 MG TAB PO SCH (21:03)
[2024-02-20] MEDS: GABAPENTIN 300 MG CAP PO SCH (21:03)
--- NOTE | 2024-02-21 00:08 | P.PCN ---
Date of Procedure: 02/20/24 Preoperative Diagnosis: Left upper lobe mass, mediastinal lymphadenopathy Postoperative Diagnosis: Extensive mediastinal lymphadenopathy Extrinsic compression of the distal trachea, ru/main, and bilateral mainstem bronchi with reduction of the lumen of those airways by around 50% Procedure(s) Performed: Flexible bronchoscopy Endobronchial ultrasound Endobronchial ultrasound-guided transbronchial needle aspirate of anterior tracheal and subcarinal and station 7 lymph node. Anesthesia: KTA Surgeon: Valery Licona Estimated Blood Loss (ml): 0 Condition: stable Disposition: floor Operative Findings: This procedure was done in the endoscopy suite. The patient was intubated with a #8 orotracheal tube and placed on mechanical ventilation. Adequate oxygenation and ventilation was established and the intubation process was done by [facility] [employer] Following intubation, the flexor bronchoscope was introduced for airway inspection. Distal trachea was within normal limits. There was some tapering of the distal trachea with some extrinsic compression of the anterior tracheal wall and the bilateral mainstem bronchi were extensively and extrinsically compressed with the lumen of those airways or reduced by around 50% of its normal caliber. Suspect extrinsic compression secondary to extensive media stinal lymphadenopathy. There were inspection was completed and the patient was noted to bilateral mainstem bronchi, right upper lobe bronchus, bronchus intermedius, right middle lobe bronchus and the right lower lobe bronchus and adjacent segments of the right and examination of the left side included the left upper lobe bronchus to the left lower lobe bronchus and the various 8 segments on the left. At this point, the flexor bronchoscope was removed and endobronchial ultrasound was introduced. Examination of the mediastinal adenopathy by endobronchial ultrasound showed extensive mediastinal lymphadenopathy throughout the mediastinum with various stations including the anterior tracheal, right paratracheal, left paratracheal, subcarinal and left hilar regions. The lymph nodes were bulky and the largest lymph nodes were in the subcarinal and the paratracheal area all measuring more than 4 cm in size. Using a 22-gauge VISI shot needle, transbronchial needle aspirates of the anterior tracheal lymph node and subcarinal lymph nodes were obtained and a total of 3 passes were obtained from each side. No complications. No bleeding. The endobronchial ultrasound was removed and the flexible bronchoscope was reintroduced for therapeutic airway suctioning. The flex bronchoscope was removed and the procedure was terminated and the patient was extubated without any complications and transferred to recovery in stable condition.
[2024-02-21] MEDS: LOSARTAN 50 MG TAB PO SCH (07:47)
[2024-02-21] MEDS: PANTOPRAZOLE 40 MG TABLET PO SCH (07:47)
[2024-02-21] MEDS: BENZONATATE 100 MG CAP PO PRN (08:57)
[2024-02-21] MEDS: LORazepam 0.5 MG TAB PO ONE (12:10)
--- NOTE | 2024-02-21 23:22 | PN ---
PROGRESS NOTE DATE OF SERVICE: 02/20/2024 CHIEF COMPLAINT: Left upper lobe lung mass. HISTORY OF PRESENT ILLNESS: This lady is doing well and feels comfortable. She has a slight cough, but no other symptoms. PHYSICAL EXAMINATION: CHEST: Clear. CARDIAC: Normal. ABDOMEN: Soft, nontender. IMPRESSION: Left upper lobe lung mass. PLAN: Continue workup. MMODL / IJN: [id number] /
--- NOTE | 2024-02-21 23:31 | PN ---
PROGRESS NOTE DATE OF SERVICE: 02/21/2024 CHIEF COMPLAINT: Left upper lobe mass. HISTORY OF PRESENT ILLNESS: This lady is doing well. She went for bronchoscopy and biopsy today. Apparently, narrowing of the left mainstem bronchus was seen. Biopsies were obtained. PHYSICAL EXAMINATION: CHEST: Clear. CARDIAC: Normal. ABDOMEN: Soft, nontender. She has a slight cough since the bronchoscopy. IMPRESSION: Left upper lobe lung mass. PLAN: Await results of biopsy. MMODL / IJN: [id number] /
--- NOTE | 2024-02-22 00:01 | HP ---
HISTORY AND PHYSICAL CHIEF COMPLAINT: HISTORY OF PRESENT ILLNESS: This lady presents to the emergency room after having been at the office complaining of symptoms of "bronchitis." She was feeling a discomfort in the anterior chest as well. She has been healthy otherwise. She is also complaining of upper abdominal bloating and discomfort. She came to emergency room where her chest x-ray demonstrated large left upper lobe mass. She has been very healthy and she is a nonsmoker, but did smoke in the past, adding up to about a pack a day for 40 years and quitting in December 2019. She had a hemorrhagic stroke in the past. Otherwise, she has been fairly healthy. She has had no hemoptysis. REVIEW OF SYSTEMS: She denies any headaches, visual changes, nausea, vomiting, hematemesis, melena, jaundice, kidney disease, hematuria, frequency, urgency and dysuria, arthralgias, diabetes, etc. ALLERGIES: Reveal that she is allergic to erythromycin, calcium channel blockers, statins, Levaquin, and Lortab. CURRENT MEDICATIONS: 1. Protonix. 2. Gabapentin. 3. Metoprolol. 4. Systane ophthalmic solution. 5. 81 mg of aspirin. PAST MEDICAL HISTORY, FAMILY HISTORY, AND PERSONAL AND SOCIAL HISTORY: Otherwise essentially unremarkable except as already mentioned. PHYSICAL EXAMINATION: Vital Signs: Normal. HEENT: Head, ears, eyes, nose, mouth and throat are normal. CHEST: Clear. CARDIAC: Normal. ABDOMEN: Soft and nontender. There is no fullness in the upper abdomen or masses. There is no visceromegaly. Bowel sounds are present. EXTREMITIES: Normal. NEUROLOGICAL: She is intact. DIAGNOSIS: She is admitted to the hospital with diagnosis, 1. Left upper lobe lung mass. PLAN: 1. Bedrest. 2. IV fluids. 3. Pulmonology consult. MMODL / IJN: [id number] /
--- NOTE | 2024-02-22 00:13 | P.PN ---
Subjective Progress Note Date: 02/21/24 Patient is a 78-year-old white female with past medical history significant for previous heavy tobacco dependence, smoking 1 to 2 packs/day up until about 5 years ago. Her primary care provider is a Siobhan Samuel, nurse practitioner and out of Dr. Bunch's office. She has been struggling with a persistent cough and wheezing for the last 6 weeks. She was treated outpatient 3 weeks ago for presumptive bronchitis with a Z-Louis and Tessalon Perles. Denies any fevers, chest pain, purulent sputum production, hemoptysis. Also, complains of right- sided thoracic level back pain. No relief with outpatient treatment. She is also had issues with abdominal bloating, flatulence and burping. This has reportedly limited her eating. No significant abdominal pain. She reports a 20 pound, otherwise unexplained weight loss over the last month. Prior personal history of malignancies. Her father may have had lung cancer. Chest x-ray done on arrival to the emergency department identified a large left upper lobe mass, and associated mediastinal and hilar lymphadenopathy suspicious for malignancy. A follow-up chest CTA identified a 6 cm left upper lobe mass, strongly marcano ggestive of neoplasm with marked central thoracic adenopathy. There are some areas of ground glass opacity and slight nodularity bilaterally, which could reflect a superimposed acute infectious process. CT of the abdomen did not show any acute findings explaining the patient's abdominal pain or symptoms. There was gallstones without acute cholecystitis. Some prominence of the central endometrial stripe, recommending follow-up pelvic ultrasound to exclude endometrial thickening. Patient also underwent a CT of the soft tissues of the neck with contrast which showed severe focal plaque left carotid bulb. There is an aneurysm clip at the level of the right anterior aspect of the [place]. Age-indeterminate ischemia in the right brain. CBC: WBC count 11.3, hemoglobin 11.4, hematocrit 35.2, platelets 453. Coagulation profile unremarkable. BMP unremarkable. Troponin less than 0.012. She is currently sitting up in bed, on room air, in no acute distress. She well-nourished and seems functional at baseline. She does not have her son for support system. CT scan results discussed with her at length. 02/22/2024, the patient is being seen for a follow-up. The patient underwent a bronchoscopy yesterday and the patient was found to have extensive mediastinal lymphadenopathy and biopsies were obtained pending further pathologic evaluation. The patient today underwent an MRI of the brain. She is having some swelling in the neck area. No arm swelling. No headaches. No altered mentation. The white cell count is at 9.3. Electrolytes are all stable. No new labs are available from today. The patient is currently on 2 L of oxygen by nasal cannula with a pulse ox of 93%. She is having exertional dyspnea. She is also having cough. No hemoptysis this point in time. Objective - Vital Signs Vital signs: Vital Signs Temp 99.0 F 02/21/24 12:49 Pulse 74 02/21/24 12:49 Resp 20 02/21/24 12:49 BP 145/76 02/21/24 12:49 Pulse Ox 95 02/21/24 12:49 FiO2 Intake & Output 02/20/24 02/21/24 02/21/24 18:59 06:59 18:59 Intake Total 950 Balance 950 Intake: IV 950 Other: Voiding Method Toilet Diaper # Voids 1 1 4 - Exam GENERAL EXAM: Alert, 78-year-old white female, sitting at the edge of the bed, comfortable in no apparent distress. HEAD: Normocephalic and atraumatic EYES: Normal reaction of pupils, equal size. NOSE: Clear with pink turbinates. THROAT: No erythema or exudates. NECK: No masses, no JVD. CHEST: No chest wall deformity. LUNGS: Equal air entry with no crackles, wheeze, rhonchi or dullness. On room air. No conversational dyspnea or accessory muscle use.. CVS: S1 and S2 normal with no audible murmur, regular rhythm. No extra heart sounds ABDOMEN: No hepatosplenomegaly, active bowel sounds, no guarding or rigidity. SPINE: No scoliosis or deformity SKIN: No rashes CENTRAL NERVOUS SYSTEM: No focal deficits, tone is normal in all 4 extremities. EXTREMITIES: There is no peripheral edema, clubbing, or cyanosis. Peripheral pulses are intact. - Labs CBC & Chem 7: 02/20/24 06:43 02/20/24 06:43 Assessment and Plan Assessment: New left upper lobe mass, measuring 5.8 x 5.1 cm in the posterior left upper lobe, concerning for neoplasm. There is associated mediastinal adenopathy including confluent adenopathy in the mediastinum encasing the ru and central bronchi, as well as hilar adenopathy extending into the bilateral hilar region and AP window. Additional enlarged lymph nodes in the prevascular space and anterior superior mediastinum. There are some faint groundglass opacities with slight nodularity in the periphery of the right middle lobe and mild bibasilar linear scarring and/or atelectasis. No definitive infectious process. The patient underwent bronchoscopy, EBUS with transbronchial needle aspirates of the mediastinal lymph nodes/masses. MRI of the brain was ordered as part of metastatic workup. Recent unexplained 20 pound weight loss Subacute cough History of heavy tobacco dependence, quitting 5 years ago, formally smoking 1 to 2 pack/day for most of her adult life. Abdominal discomfort, no acute intra-abdominal process seen with CT of the abdomen History of hypertension History of hyperlipidemia History of CVA/TIA History of brain aneurysm with previous coiling History of GERD without esophagitis Plan: Oncology consultation MRI of the brain Endobronchial ultrasound and biopsy were obtained and pathology is pending Supplement with oxygen to maintain saturation above 90% Will need follow-up outpatient PET scan We will continue to follow, and additional recommendations are forthcoming.
[2024-02-22] MEDS ORDERED: NON FORMULARY DRUG PO SCH (13:00)
[2024-02-22] MEDS: polyethylene glycoL 3350 17 GM POWD.PACK PO SCH (15:21)
--- NOTE | 2024-02-22 18:06 | MR ---
EXAMINATION TYPE: MR brain wo/w con DATE OF EXAM: 02/21/2024 1:38 PM CLINICAL INDICATION:Female, 78 years old with history of lung mass, mediastinal LAD; PHH, Lung cancer , initial staging. COMPARISON: None TECHNIQUE: Multi planar, multi sequence imaging was performed through the brain including: T1, T2, In version recovery, susceptibility weighted imaging and gradient echo imaging and Diffusion weighted im aging. The patient was then given intravenous contrast and multi planar, T1 fat-saturation images wer e obtained. IV Contrast: 7.5 cc Gadavist FINDINGS: Encephalomalacia right occipital lobe. Mild cerebral atrophy with proportional dilation of ventricular system. Diffusion-weighted imaging s hows no evidence of restricted diffusion to suggest acute/subacute infarct. Intracranial arterial rhiannon w voids are maintained. Midline structures show no abnormality. Scattered foci of high T2 signal inte nsity are seen within the periventricular white matter. The susceptibility weighted images do not rev eal any evidence for micro-hemorrhage. After administration of gadolinium, no abnormal enhancement is seen. The bone marrow signal is within normal limits. Paranasal sinuses and mastoid air cells: No significant paranasal sinus disease. Visualized orbits: Orbital contents are intact. IMPRESSION: 1. No evidence of intracranial mass, acute/subacute infarct, or abnormal enhancement. 2. Nonspecific white matter changes, likely related to small vessel ischemic disease. 3. Right occipital lobe remote injury with encephalomalacia.
--- NOTE | 2024-02-22 20:26 | P.PN ---
Subjective Progress Note Date: 02/22/24 Patient is a 78-year-old white female with past medical history significant for previous heavy tobacco dependence, smoking 1 to 2 packs/day up until about 5 years ago. Her primary care provider is a Siobhan Samuel, nurse practitioner and out of Dr. Bunch's office. She has been struggling with a persistent cough and wheezing for the last 6 weeks. She was treated outpatient 3 weeks ago for presumptive bronchitis with a Z-Louis and Tessalon Perles. Denies any fevers, chest pain, purulent sputum production, hemoptysis. Also, complains of right- sided thoracic level back pain. No relief with outpatient treatment. She is also had issues with abdominal bloating, flatulence and burping. This has reportedly limited her eating. No significant abdominal pain. She reports a 20 pound, otherwise unexplained weight loss over the last month. Prior personal history of malignancies. Her father may have had lung cancer. Chest x-ray done on arrival to the emergency department identified a large left upper lobe mass, and associated mediastinal and hilar lymphadenopathy suspicious for malignancy. A follow-up chest CTA identified a 6 cm left upper lobe mass, strongly marcano ggestive of neoplasm with marked central thoracic adenopathy. There are some areas of ground glass opacity and slight nodularity bilaterally, which could reflect a superimposed acute infectious process. CT of the abdomen did not show any acute findings explaining the patient's abdominal pain or symptoms. There was gallstones without acute cholecystitis. Some prominence of the central endometrial stripe, recommending follow-up pelvic ultrasound to exclude endometrial thickening. Patient also underwent a CT of the soft tissues of the neck with contrast which showed severe focal plaque left carotid bulb. There is an aneurysm clip at the level of the right anterior aspect of the [place]. Age-indeterminate ischemia in the right brain. CBC: WBC count 11.3, hemoglobin 11.4, hematocrit 35.2, platelets 453. Coagulation profile unremarkable. BMP unremarkable. Troponin less than 0.012. She is currently sitting up in bed, on room air, in no acute distress. She well-nourished and seems functional at baseline. She does not have her son for support system. CT scan results discussed with her at length. 02/22/2024, the patient is being seen for a follow-up. The patient underwent a bronchoscopy yesterday and the patient was found to have extensive mediastinal lymphadenopathy and biopsies were obtained pending further pathologic evaluation. The patient today underwent an MRI of the brain. She is having some swelling in the neck area. No arm swelling. No headaches. No altered mentation. The white cell count is at 9.3. Electrolytes are all stable. No new labs are available from today. The patient is currently on 2 L of oxygen by nasal cannula with a pulse ox of 93%. She is having exertional dyspnea. She is also having cough. No hemoptysis this point in time. On today's evaluation of 02/22/2024, the patient is having cough and ongoing difficulties with shortness of breath and some neck swelling. She remains on oxygen 3 L/min nasal cannula. Awaiting results of the bronchoscopy and endobronchial ultrasound and transbronchial needle aspirates. MRI of the brain was done and it showed right occipital lobe remote injury/encephalomalacia along with chronic small vessel ischemic changes. No other acute abnormalities. No evidence of any metastatic disease. No new labs are available from today. The patient is resting comfortably in bed. She is on Tessalon Perles and her home medications have been resumed. Medical oncology is on the case. Objective - Vital Signs Vital signs: Vital Signs Temp 99.2 F 02/22/24 07:24 Pulse 77 02/22/24 08:40 Resp 24 02/22/24 08:40 BP 165/79 02/22/24 07:24 Pulse Ox 2 L 02/22/24 07:51 FiO2 Intake & Output 02/21/24 02/22/24 02/22/24 18:59 06:59 18:59 Intake Total 600 Balance 600 Intake: Oral 600 Other: Voiding Method Toilet Toilet Diaper Diaper # Voids 4 2 1 # Bowel Movements 1 - Exam GENERAL EXAM: Alert, 78-year-old white female, sitting at the edge of the bed, comfortable in no apparent distress. HEAD: Normocephalic and atraumatic EYES: Normal reaction of pupils, equal size. NOSE: Clear with pink turbinates. THROAT: No erythema or exudates. NECK: No masses, no JVD. CHEST: No chest wall deformity. LUNGS: Equal air entry with no crackles, wheeze, rhonchi or dullness. On room air. No conversational dyspnea or accessory muscle use.. CVS: S1 and S2 normal with no audible murmur, regular rhythm. No extra heart sounds ABDOMEN: No hepatosplenomegaly, active bowel sounds, no guarding or rigidity. SPINE: No scoliosis or deformity SKIN: No rashes CENTRAL NERVOUS SYSTEM: No focal deficits, tone is normal in all 4 extremities. EXTREMITIES: There is no peripheral edema, clubbing, or cyanosis. Peripheral pulses are intact. - Labs CBC & Chem 7: 02/20/24 06:43 02/20/24 06:43 Assessment and Plan Assessment: New left upper lobe mass, measuring 5.8 x 5.1 cm in the posterior left upper lobe, concerning for neoplasm. There is associated mediastinal adenopathy including confluent adenopathy in the mediastinum encasing the ru and c entral bronchi, as well as hilar adenopathy extending into the bilateral hilar region and AP window. Additional enlarged lymph nodes in the prevascular space and anterior superior mediastinum. There are some faint groundglass opacities with slight nodularity in the periphery of the right middle lobe and mild bibasilar linear scarring and/or atelectasis. No definitive infectious process. The patient underwent bronchoscopy, EBUS with transbronchial needle aspirates of the mediastinal lymph nodes/masses. MRI of the brain showed no evidence of any metastases. No evidence of any altered mentation. Acute hypoxic respiratory failure currently on 2 L of oxygen by nasal cannula Neck swelling, could be related to the bulky mediastinal masses. No clear indication for SVC syndrome. Recent unexplained 20 pound weight loss Subacute cough History of heavy tobacco dependence, quitting 5 years ago, formally smoking 1 to 2 pack/day for most of her adult life. Abdominal discomfort, no acute intra-abdominal process seen with CT of the abdomen History of hypertension History of hyperlipidemia History of CVA/TIA History of brain aneurysm with previous coiling History of GERD without esophagitis Plan: Oncology consultation MRI of the brain was negative for metastases. Endobronchial ultrasound and biopsy were obtained and pathology is pending Supplement with oxygen to maintain saturation above 90% Will need follow-up outpatient PET scan We will continue to follow, and additional recommendations are forthcoming.
[2024-02-22] MEDS: cloNIDine HCL 0.1 MG TAB PO SCH (21:27)
[2024-02-22] MEDS: PSYLLIUM HUSK 100% 6 GM PACKET PO SCH (21:27)
--- NOTE | 2024-02-23 13:46 | P.PN ---
Subjective Progress Note Date: 02/23/24 Patient is a 78-year-old white female with past medical history significant for previous heavy tobacco dependence, smoking 1 to 2 packs/day up until about 5 years ago. Her primary care provider is a Siobhan Samuel, nurse practitioner and out of Dr. Bunch's office. She has been struggling with a persistent cough and wheezing for the last 6 weeks. She was treated outpatient 3 weeks ago for presumptive bronchitis with a Z-Louis and Tessalon Perles. Denies any fevers, chest pain, purulent sputum production, hemoptysis. Also, complains of right- sided thoracic level back pain. No relief with outpatient treatment. She is also had issues with abdominal bloating, flatulence and burping. This has reportedly limited her eating. No significant abdominal pain. She reports a 20 pound, otherwise unexplained weight loss over the last month. Prior personal history of malignancies. Her father may have had lung cancer. Chest x-ray done on arrival to the emergency department identified a large left upper lobe mass, and associated mediastinal and hilar lymphadenopathy suspicious for malignancy. A follow-up chest CTA identified a 6 cm left upper lobe mass, strongly marcano ggestive of neoplasm with marked central thoracic adenopathy. There are some areas of ground glass opacity and slight nodularity bilaterally, which could reflect a superimposed acute infectious process. CT of the abdomen did not show any acute findings explaining the patient's abdominal pain or symptoms. There was gallstones without acute cholecystitis. Some prominence of the central endometrial stripe, recommending follow-up pelvic ultrasound to exclude endometrial thickening. Patient also underwent a CT of the soft tissues of the neck with contrast which showed severe focal plaque left carotid bulb. There is an aneurysm clip at the level of the right anterior aspect of the [place]. Age-indeterminate ischemia in the right brain. CBC: WBC count 11.3, hemoglobin 11.4, hematocrit 35.2, platelets 453. Coagulation profile unremarkable. BMP unremarkable. Troponin less than 0.012. She is currently sitting up in bed, on room air, in no acute distress. She well-nourished and seems functional at baseline. She does not have her son for support system. CT scan results discussed with her at length. 02/22/2024, the patient is being seen for a follow-up. The patient underwent a bronchoscopy yesterday and the patient was found to have extensive mediastinal lymphadenopathy and biopsies were obtained pending further pathologic evaluation. The patient today underwent an MRI of the brain. She is having some swelling in the neck area. No arm swelling. No headaches. No altered mentation. The white cell count is at 9.3. Electrolytes are all stable. No new labs are available from today. The patient is currently on 2 L of oxygen by nasal cannula with a pulse ox of 93%. She is having exertional dyspnea. She is also having cough. No hemoptysis this point in time. On today's evaluation of 02/22/2024, the patient is having cough and ongoing difficulties with shortness of breath and some neck swelling. She remains on oxygen 3 L/min nasal cannula. Awaiting results of the bronchoscopy and endobronchial ultrasound and transbronchial needle aspirates. MRI of the brain was done and it showed right occipital lobe remote injury/encephalomalacia along with chronic small vessel ischemic changes. No other acute abnormalities. No evidence of any metastatic disease. No new labs are available from today. The patient is resting comfortably in bed. She is on Tessalon Perles and her home medications have been resumed. Medical oncology is on the case. On 02/23/2024, resting comfortably in bed and the condition is unchanged. No new labs unavailable from today. The patient remains on oxygen she is currently on 2 L. No headaches. No altered mentation. MRI of the brain was negative for metastases. Medication remains unchanged. Awaiting final pathology. Medical oncology is on the case. Objective - Vital Signs Vital signs: Vital Signs Temp 98.4 F 02/23/24 07:00 Pulse 59 L 02/23/24 08:20 Resp 18 02/23/24 08:20 BP 126/60 02/23/24 07:00 Pulse Ox 93 L 02/23/24 07:00 FiO2 Intake & Output 02/22/24 02/23/24 02/23/24 18:59 06:59 18:59 Other: Voiding Method Toilet Toilet Toilet Diaper # Voids 3 2 1 # Bowel Movements 1 - Exam GENERAL EXAM: Alert, 78-year-old white female, sitting at the edge of the bed, comfortable in no apparent distress. HEAD: Normocephalic and atraumatic EYES: Normal reaction of pupils, equal size. NOSE: Clear with pink turbinates. THROAT: No erythema or exudates. NECK: No masses, no JVD. CHEST: No chest wall deformity. LUNGS: Equal air entry with no crackles, wheeze, rhonchi or dullness. On room air. No conversational dyspnea or accessory muscle use.. CVS: S1 and S2 normal with no audible murmur, regular rhythm. No extra heart sounds ABDOMEN: No hepatosplenomegaly, active bowel sounds, no guarding or rigidity. SPINE: No scoliosis or deformity SKIN: No rashes CENTRAL NERVOUS SYSTEM: No focal deficits, tone is normal in all 4 extremities. EXTREMITIES: There is no peripheral edema, clubbing, or cyanosis. Peripheral pulses are intact. - Labs CBC & Chem 7: 02/20/24 06:43 02/20/24 06:43 Assessment and Plan Assessment: New left upper lobe mass, measuring 5.8 x 5.1 cm in the posterior left upper lobe, concerning for neoplasm. There is associated mediastinal adenopathy including confluent adenopathy in the mediastinum encasing the ru and central bronchi, as well as hilar adenopathy extending into the bilateral hilar region and AP window. Additional enlarged lymph nodes in the prevascular space and anterior superior mediastinum. There are some faint groundglass opacities with slight nodularity in the periphery of the right middle lobe and mild bibasilar linear scarring and/or atelectasis. No definitive infectious process. The patient underwent bronchoscopy, EBUS with transbronchial needle aspirates of the mediastinal lymph nodes/masses. MRI of the brain showed no evidence of any metastases. No evidence of any altered mentation. Acute hypoxic respiratory failure currently on 2 L of oxygen by nasal cannula Neck swelling, could be related to the bulky mediastinal masses. No clear indication for SVC syndrome. Recent unexplained 20 pound weight loss Subacute cough History of heavy tobacco dependence, quitting 5 years ago, formally smoking 1 to 2 pack/day for most of her adult life. Abdominal discomfort, no acute intra-abdominal process seen with CT of the abdomen History of hypertension History of hyperlipidemia History of CVA/TIA History of brain aneurysm with previous coiling History of GERD without esophagitis Plan: No change in condition compared to yesterday the patient remains on oxygen at 2 L/min nasal cannula. Awaiting results of the biopsy. Oncology consultation MRI of the brain was negative for metastases. Endobronchial ultrasound and biopsy were obtained and pathology is pending Supplement with oxygen to maintain saturation above 90% Will need follow-up outpatient PET scan We will continue to follow, and additional recommendations are forthcoming.
--- NOTE | 2024-02-23 22:43 | PN ---
PROGRESS NOTE DATE OF SERVICE: 02/22/2024 CHIEF COMPLAINT: Left lung mass. HISTORY OF PRESENT ILLNESS: This lady is having a little bit of discomfort in the left anterior chest. We await the results of the biopsy taken at her bronchoscopy. Her blood pressure is slightly high. She has noticed a nodule in the base of the neck on the left. PHYSICAL EXAMINATION: HEENT: Head ears, eyes, nose, mouth and throat are normal. CHEST: Clear. CARDIAC: Normal. ABDOMEN: Soft, nontender. LYMPHATICS: There is a palpable node just above the clavicle in the left. IMPRESSION: 1. 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 2. Hypertension. PLAN: Add 0.1 mg of Catapres h.s. MMODL / IJN: [id number] /
--- NOTE | 2024-02-23 23:04 | PN ---
PROGRESS NOTE DATE OF SERVICE: 02/23/2024 CHIEF COMPLAINT: CA of the left lung. HISTORY OF PRESENT ILLNESS: This lady is aggravated by the hep lock in her left wrist and this will be removed. She has apparently had trouble with stool softeners and cathartics. PHYSICAL EXAMINATION: CHEST: Clear. CARDIAC: Normal. ABDOMEN: Soft, nontender. IMPRESSION: Left upper lung mass with probable metastases to the mediastinum and cervical nodes. PLAN: 1. Remove the hep well from the left wrist. 2. Await tissue diagnosis for treatment. MMODL / IJN: [id number] /
[2024-02-24 13:33] VITALS: BP 107/63; PULSE 71; RESP 18; TEMP 99.1
[2024-02-24 13:40] VITALS: BMI 27.6
--- NOTE | 2024-02-24 13:50 | P.PN ---
Subjective Progress Note Date: 02/24/24 Patient is a 78-year-old white female with past medical history significant for previous heavy tobacco dependence, smoking 1 to 2 packs/day up until about 5 years ago. Her primary care provider is a Siobhan Samuel, nurse practitioner and out of Dr. Bunch's office. She has been struggling with a persistent cough and wheezing for the last 6 weeks. She was treated outpatient 3 weeks ago for presumptive bronchitis with a Z-Louis and Tessalon Perles. Denies any fevers, chest pain, purulent sputum production, hemoptysis. Also, complains of right- sided thoracic level back pain. No relief with outpatient treatment. She is also had issues with abdominal bloating, flatulence and burping. This has reportedly limited her eating. No significant abdominal pain. She reports a 20 pound, otherwise unexplained weight loss over the last month. Prior personal history of malignancies. Her father may have had lung cancer. Chest x-ray done on arrival to the emergency department identified a large left upper lobe mass, and associated mediastinal and hilar lymphadenopathy suspicious for malignancy. A follow-up chest CTA identified a 6 cm left upper lobe mass, strongly suggestive of neoplasm with marked central thoracic adenopathy. There are some areas of ground glass opacity and slight nodularity bilaterally, which could reflect a superimposed acute infectious process. CT of the abdomen did not show any acute findings explaining the patient's abdominal pain or symptoms. There was gallstones without acute cholecystitis. Some prominence of the central endometrial stripe, recommending follow-up pelvic ultrasound to exclude endometrial thickening. Patient also underwent a CT of the soft tissues of the neck with contrast which showed severe focal plaque left carotid bulb. There is an aneurysm clip at the level of the right anterior aspect of the burns paiute of Melo. Age-indeterminate ischemia in the right brain. CBC: WBC count 11.3, hemoglobin 11.4, hematocrit 35.2, platelets 453. Coagulation profile unremarkable. BMP unremarkable. Troponin less than 0.012. She is currently si tting up in bed, on room air, in no acute distress. She well-nourished and seems functional at baseline. She does not have her son for support system. CT scan results discussed with her at length. 02/22/2024, the patient is being seen for a follow-up. The patient underwent a bronchoscopy yesterday and the patient was found to have extensive mediastinal lymphadenopathy and biopsies were obtained pending further pathologic evaluation. The patient today underwent an MRI of the brain. She is having some swelling in the neck area. No arm swelling. No headaches. No altered mentation. The white cell count is at 9.3. Electrolytes are all stable. No new labs are available from today. The patient is currently on 2 L of oxygen by nasal cannula with a pulse ox of 93%. She is having exertional dyspnea. She is also having cough. No hemoptysis this point in time. On today's evaluation of 02/22/2024, the patient is having cough and ongoing difficulties with shortness of breath and some neck swelling. She remains on oxygen 3 L/min nasal cannula. Awaiting results of the bronchoscopy and endobronchial ultrasound and transbronchial needle aspirates. MRI of the brain was done and it showed right occipital lobe remote injury/encephalomalacia along with chronic small vessel ischemic changes. No other acute abnormalities. No evidence of any metastatic disease. No new labs are available from today. The patient is resting comfortably in bed. She is on Tessalon Perles and her home medications have been resumed. Medical oncology is on the case. On 02/23/2024, resting comfortably in bed and the condition is unchanged. No new labs unavailable from today. The patient remains on oxygen she is currently on 2 L. No headaches. No altered mentation. MRI of the brain was negative for metastases. Medication remains unchanged. Awaiting final pathology. Medical oncology is on the case. The patient is seen today February 24, 2024 in follow-up on the regular medical floor. She is currently resting in bed. Awake and alert in no acute distress. Maintaining O2 saturations in the 90s on 2 L/min per nasal cannula. She denies any worsening shortness of breath, cough or congestion. She does have flecks of blood in her sputum but no hemoptysis. Biopsy results are pending. MRI of the brain revealed no evidence of mass, infarct or abnormal enhancement. Objective - Vital Signs Vital signs: Vital Signs Temp 99.1 F 02/24/24 13:32 Pulse 71 02/24/24 13:32 Resp 18 02/24/24 13:32 BP 107/63 02/24/24 13:32 Pulse Ox 94 L 02/24/24 13:32 FiO2 Intake & Output 02/23/24 02/24/24 02/24/24 18:59 06:59 18:59 Weight 73.028 kg Other: Voiding Method Toilet Toilet # Voids 1 2 - Exam GENERAL EXAM: Alert, pleasant 78-year-old female, resting in bed, on 2 L nasal cannula, comfortable in no apparent distress. HEAD: Normocephalic. EYES: Normal reaction of pupils, equal size. NOSE: Clear with pink turbinates. THROAT: No erythema or exudates. NECK: No masses, no JVD. CHEST: No chest wall deformity. LUNGS: Equal air entry with bilateral scattered rhonchi left greater than right. CVS: S1 and S2 normal with no audible murmur, regular rhythm. ABDOMEN: No hepatosplenomegaly, normal bowel sounds, no guarding or rigidity. SPINE: No scoliosis or deformity SKIN: No rashes CENTRAL NERVOUS SYSTEM: No focal deficits, tone is normal in all 4 extremities. EXTREMITIES: There is no peripheral edema. No clubbing, no cyanosis. Peripheral pulses are intact. - Labs CBC & Chem 7: 02/20/24 06:43 02/20/24 06:43 Assessment and Plan Assessment: New left upper lobe mass, measuring 5.8 x 5.1 cm in the posterior left upper lobe, concerning for neoplasm. There is associated mediastinal adenopathy including confluent adenopathy in the mediastinum encasing the ru and central bronchi, as well as hilar adenopathy extending into the bilateral hilar region and AP window. Additional enlarged lymph nodes in the prevascular space and anterior superior mediastinum. There are some faint groundglass opacities with slight nodularity in the periphery of the right middle lobe and mild bibasilar linear scarring and/or atelectasis. No definitive infectious process. The patient underwent bronchoscopy with biopsies of the mediastinal lymph nodes/masses. MRI of the brain showed no evidence of any metastases. No evidence of any altered mentation. Acute hypoxic respiratory failure secondary to above currently on 2 L of oxygen by nasal cannula Neck swelling, could be related to the bulky mediastinal masses. No clear indication for SVC syndrome. Recent unexplained 20 pound weight loss Subacute cough History of heavy tobacco dependence, quitting 5 years ago, formally smoking 1 to 2 pack/day for most of her adult life Abdominal discomfort, no acute intra-abdominal process seen with CT of the abdomen History of hypertension History of hyperlipidemia History of CVA/TIA History of brain aneurysm with previous coiling History of GERD without esophagitis Plan: The patient was seen and evaluated Medications reviewed Biopsy results pending Could be discharged to home Evaluate for possible home oxygen To follow up closely with medical oncology I have personally seen and examined the patient, performed the documentation and the assessment and plan as written. Number of minutes spent on the visit: 10.
--- NOTE | 2024-02-24 23:40 | DS ---
DISCHARGE SUMMARY CHIEF COMPLAINT: Shortness of breath, left upper anterior chest discomfort. HISTORY OF PRESENT ILLNESS AND PHYSICAL EXAMINATION: Details of this lady's history and physical can be found in the initial workup. LABORATORY STUDIES: While she is in the hospital, she had laboratory studies, details of which can be found in the laboratory section of her chart. COURSE IN THE HOSPITAL: After admission, she was placed on bedrest, started on intravenous fluids and she was found to have a large left upper lobe lung mass with mediastinal adenopathy. Workup was begun and she underwent bronchoscopy, which demonstrated a collapse of the left mainstem bronchus. Biopsies were obtained, but were not back at the time of this dictation. She is doing fairly well and it was felt that nothing further would be done while she was in the hospital and arrangements were made for her to go home. She was set up with home O2 and hospital bed. Once the reports were back, Oncology will attempt a line-up treatment program. FINAL DIAGNOSIS: Left upper lobe lung mass with metastases to mediastinal nodes. OPERATIONS: Bronchoscopy. CONSULTATIONS: Pulmonology and Oncology. MMODL / IJN: [id number] /
--- NOTE | 2024-02-27 15:23 | CDI ---
Documentation Clarification Form Date: 02/27/2024 02:54:59 PM From: Silvia Cain RN, CCDS Phone: [phone] Admit Date: 02/19/2024 06:50:00 PM Patient Name: Yanet Davidson Visit Number: [id number] Discharge Date: 02/24/2024 07:31:00 PM ATTENTION: The Clinical Documentation Specialists (CDI) and [facility] Coding Staff appreciate your assistance in clarifying documentation. Please respond to the clarification below the line at the bottom and electronically sign. The CDI & [facility] Coding staff will review the response and follow-up if needed. Please note: Queries are made part of the Legal Health Record. If you have any questions, please contact the author of this message via ITS. Dr. Mil Bunch The final diagnosis of the pathology report slides examined from parts A and B show fragments of a high-grade malignant neoplasm comprised of discohesive basophilic cells with crush artifact. Coding guidelines do not allow coding professionals to code based on pathology results; therefore, clarification is requested. History/risk factors: Clinical Indicators: Lung mass, mediastinal adenopathy. Bronchoscopy. Per EMR: 5.8 x 5.1 cm posterior left upper lobe mass, adenopathy. Pathology report: A. 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 B. Station 7, fine needle aspirate: features consistent with poorly differentiated neuroendocrine carcinoma (small cell carcinoma). Treatment: Monitor O2 Sat"s (titrate) Tessalon Perles 200 MG PO BID, Decadron 4 MG IVP Once, Solu-Medrol 125 MG IVP Once Please clarify if you agree with the pathology report diagnosis of positive results, poorly differentiated neuroendocrine carcinoma (small cell carcinoma: [ ] Yes [ ] No [ ] Other (please specify) [ ] Unable to determine (Template Last Revised: November 2020) MTDD
--- NOTE | 2024-03-23 10:39 | CDI ---
Documentation Clarification Form Date: 02/27/2024 02:54:00 PM From: Silvia Cain RN, CCDS Phone: [phone] Admit Date: 02/19/2024 06:50:00 PM Patient Name: Yanet Davidson Visit Number: [id number] Discharge Date: 02/24/2024 07:31:00 PM ATTENTION: The Clinical Documentation Specialists (CDI) and [facility] Coding Staff appreciate your assistance in clarifying documentation. Please respond to the clarification below the line at the bottom and electronically sign. The CDI & [facility] Coding staff will review the response and follow-up if needed. Please note: Queries are made part of the Legal Health Record. If you have any questions, please contact the author of this message via ITS. Dr. Mil Bunch The final diagnosis of the pathology report slides examined from parts A and B show fragments of a high-grade malignant neoplasm comprised of discohesive basophilic cells with crush artifact. Coding guidelines do not allow coding professionals to code based on pathology results; therefore, clarification is requested. History/risk factors: Clinical Indicators: Lung mass, mediastinal adenopathy. Bronchoscopy. Per EMR: 5.8 x 5.1 cm posterior left upper lobe mass, adenopathy. Pathology report: A. 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 B. 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
--- NOTE | 2024-03-30 01:46 | MISC ---
MISCELLANOUS REPORT small cell carcinoma, the answer is yes. MMODL / IJN: [id number] /
== END 2024-02-24 19:31 | disposition home health service (06) | DRG 166 ==
LOC: EC 12:56 → 5NMEDONC 18:50
PROVIDERS: ADMIT Family Medicine; ATTEND Family Medicine
PROC: 0BBG8ZX Excision of Left Upper Lung Lobe, Via Natural or Artificial Opening Endoscopic, Diagnostic (ICD-10-PCS; principal; 2024-02-21)
PROC: 07974ZX Drainage of Thorax Lymphatic, Percutaneous Endoscopic Approach, Diagnostic (ICD-10-PCS; 2024-02-21)
DX: C34.12 Malignant neoplasm of upper lobe, left bronchus or lung (principal); J96.01 Acute respiratory failure with hypoxia; C77.1 Secondary and unspecified malignant neoplasm of intrathoracic lymph nodes; R10.9 Unspecified abdominal pain; E78.5 Hyperlipidemia, unspecified; G89.29 Other chronic pain; I10 Essential (primary) hypertension; K80.20 Calculus of gallbladder without cholecystitis without obstruction; Z88.1 Allergy status to other antibiotic agents; Z88.8 Allergy status to other drugs, medicaments and biological substances; Z91.041 Radiographic dye allergy status; Z86.73 Personal history of transient ischemic attack (TIA), and cerebral infarction without residual deficits; K21.9 Gastro-esophageal reflux disease without esophagitis; Z87.891 Personal history of nicotine dependence
CPT/HCPCS: 31629; 31652; 36415; 70491; 70553; 71046; 71275; 74018; 74177; 80053; 83605; 83735; 84100; 84484; 85025; 85610; 85730; 88305; 88341; 88342; 93005; 94760; 96361; 96374; 96375; 99285

== ENCOUNTER 2024-03-06 18:32 | Inpatient (IN) | payer MEDICARE, OTHER ==
--- NOTE | 2024-03-06 18:52 | ED ---
Allergic Reaction HPI - General Chief complaint: Allergic Reaction Stated complaint: Allergic reaction Time Seen by Provider: 03/06/24 18:51 Source: patient, RN notes reviewed, old records reviewed Mode of arrival: ambulatory Limitations: no limitations - History of Present Illness Initial Comments: This is a 78-year-old female who presents today for evaluation regards to significant dyspnea, patient comes from outpatient testing as she was unable to complete PET scan secondary to tachycardia low oxygen level and inability to lay down flat. Patient's symptoms have progressed MD Complaint: other (There was concern. Patient may have had allergic reaction although that does not appear to be the case here in the emergency department) -: days(s) Severity: severe Treatment Prior to Arrival: none Previous Allergy History: none - Related Data Home Medications Medication Instructions Recorded Confirmed Aspirin EC [Ecotrin Low Dose] 81 mg PO DAILY 02/19/24 03/07/24 Benzonatate [Tessalon Perle] 200 mg PO BID PRN 02/19/24 03/07/24 Gabapentin 300 mg PO TID 02/19/24 03/07/24 Losartan Potassium 100 mg PO DAILY 02/19/24 03/07/24 Metoprolol Tartrate [Lopressor] 50 mg PO BID 02/19/24 03/07/24 Pantoprazole Sodium [Protonix] 20 mg PO DAILY 02/19/24 03/07/24 Triamcinolone 0.025% Cream 1 applic TOPICAL BID PRN 02/19/24 03/07/24 [Kenalog 0.025% Cream] Previous Rx's Medication Instructions Recorded cloNIDine HCL [Catapres] 0.1 mg PO HS #30 tab 02/24/24 Metoclopramide [Reglan] 5 mg PO ACHS #90 tab 03/11/24 Allergies Allergy/AdvReac Type Severity Reaction Status Date / Time bisoprolol [From Ziac] Allergy Unknown Verified 03/07/24 09:22 erythromycin base Allergy Rash/Hives Verified 03/07/24 09:22 [From Erythrocin] hydrochlorothiazide Allergy Unknown Verified 03/07/24 09:22 [From Ziac] iodine Allergy Confusion Verified 03/07/24 09:22 propoxyphene Allergy Dyspnea Verified 03/07/24 09:22 [From Darvocet-N] acetaminophen [From Lortab] AdvReac Itching Verified 03/07/24 09:22 aloe vera AdvReac Itching Verified 03/07/24 09:22 atorvastatin [From Lipitor] AdvReac Unknown Verified 03/07/24 09:22 hydrocodone [From Lortab] AdvReac Itching Verified 03/07/24 09:22 levofloxacin [From Levaquin] AdvReac Itching Verified 03/07/24 09:22 polyethylene glycol 3350 AdvReac Hallucinati Verified 03/07/24 09:22 [From Miralax] ons rofecoxib [From Vioxx] AdvReac Nausea & Verified 03/07/24 09:22 Vomiting Review of Systems ROS Statement: Those systems with pertinent positive or pertinent negative responses have been documented in the HPI. ROS Other: All systems not noted in ROS Statement are negative. 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, ovarian cysts History of Any Multi-Drug Resistant Organisms: None Reported Past Surgical History: Appendectomy, Tonsillectomy, Tubal Ligation Additional Past Surgical History / Comment(s): cataracts, carpal tunnel, laser eye surgery, metal coil for brain aneurysm, lung cancer Past Anesthesia/Blood Transfusion Reactions: Postoperative Nausea & Vomiting (PONV) Past Psychological History: No Psychological Hx Reported Smoking Status: Former smoker Past Alcohol Use History: None Reported Past Drug Use History: None Reported General Exam Limitations: no limitations General appearance: alert, in no apparent distress, anxious Head exam: Present: atraumatic, normocephalic, normal inspection Eye exam: Present: normal appearance, PERRL, EOMI. Absent: scleral icterus, conjunctival injection, periorbital swelling ENT exam: Present: normal exam, mucous membranes moist Neck exam: Present: normal inspection. Absent: tenderness, meningismus, lymphadenopathy Respiratory exam: Present: respiratory distress, wheezes, decreased breath sounds, prolonged expiratory. Absent: rales, rhonchi, stridor Cardiovascular Exam: Present: normal rhythm, tachycardia, normal heart sounds. Absent: systolic murmur, diastolic murmur, rubs, gallop, clicks GI/Abdominal exam: Present: soft, normal bowel sounds. Absent: distended, tenderness, guarding, rebound, rigid Extremities exam: Present: normal inspection, full ROM, normal capillary refill. Absent: tenderness, pedal edema, joint swelling, calf tenderness Back exam: Present: normal inspection Neurological exam: Present: alert, oriented X3, CN II-XII intact Psychiatric exam: Present: normal affect, normal mood Skin exam: Present: warm, dry, intact, normal color. Absent: rash Course Vital Signs 03/06/24 03/06/24 03/06/24 18:40 19:36 19:57 Temperature 97.4 F L Pulse Rate 104 H 100 98 Respiratory 20 23 23 Rate Blood Pressure 129/71 132/68 O2 Sat by Pulse 95 95 94 L Oximetry 03/06/24 03/06/24 03/06/24 20:10 20:19 21:10 Temperature Pulse Rate 92 91 95 Respiratory 26 H 22 Rate Blood Pressure 118/66 125/65 O2 Sat by Pulse 93 L 92 L Oximetry 03/06/24 22:40 Temperature Pulse Rate 91 Respiratory 21 Rate Blood Pressure 141/70 O2 Sat by Pulse 96 Oximetry - Reevaluation(s) Reevaluation #1: 03/06/24 21:31 Medical records reviewed Reevaluation #2: 03/06/24 21:31 Patient symptoms unchanged Reevaluation #3: 03/06/24 21:31 Patient informed of results questions answered Reevaluation #4: Was pt. sent in by a medical professional or institution (Dr. PA, MANAGER MATERIAL, urgent care, hospital, or custodial...) When possible be specific @ -no Did you speak to anyone other than the patient for history (EMS, parent, family, police, friend...)? What history was obtained from this source @ -no Did you review nursing and triage notes (agree or disagree)? Why? @ -agree Are old charts reviewed (outside hosp., previous admission, EMS record, old EKG, old radiological studies, urgent care reports/EKG's, custodial records)? Report findings @ -yes Differential Diagnosis (chest pain, altered mental status, abdominal pain women, abdominal pain men, vaginal bleeding, weakness, fever, dyspnea, syncope, headache, dizziness, GI bleed, back pain, seizure, CVA, palpatations, mental health, musculoskeletal)? @ -prior EKG interpreted by me (3pts min.). @ -yes X-rays interpreted by me (1pt min.). @ -yes negative for acute disease CT interpreted by me (1pt min.). @ -no U/S interpreted by me (1pt. min.). @ -no What testing was considered but not performed or refused? (CT, X-rays, U/S, labs)? Why? @ -none What meds were considered but not given or refused? Why? @ -none Did you discuss the management of the patient with other professionals (professionals i.e. DrJen, PA, MANAGER MATERIAL, lab, RT, psych nurse, social work instructor, general ledger accountant, teacher, digital marketing officer, case management social worker)? Give summary @ -no Was smoking cessation discussed for >3mins.? @ -no Was critical care preformed (if so, how long)? @ -yes31 Were there social determinants of health that impacted care today? How? (Homelessness, low income, unemployed, alcoholism, drug addiction, trans portation, low edu. Level, literacy, decrease access to med. care, usp, rehab)? @ -none Was there de-escalation of care discussed even if they declined (Discuss DNR or withdrawal of care, Hospice)? DNR status @ -no What co-morbidities impacted this encounter? (DM, HTN, Smoking, COPD, CAD, Cancer, CVA, ARF, Chemo, Hep., AIDS, mental health diagnosis, sleep apnea, morbid obesity)? @ -none Was patient admitted / discharged? Hospital course, mention meds given and route, prescriptions, significant lab abnormalities, going to OR and other pertinent info. @ - 78 female to the ER for evaluation today. Patient presents today for evaluation of significant shortness of breath dyspnea especially with lying down flat. History of lung cancer and stridor, patient will admit for breathing treatments and need for further evaluation of hypoxia Admitted Undiagnosed new problem with uncertain prognosis? @ -no Drug Therapy requiring intensive monitoring for toxicity (Heparin, Nitro, Insulin, Cardizem)? @ -no Were any procedures done? @ -no Diagnosis/symptom? @ -Dyspnea lung cancer hypoxia and stridor Acute, or Chronic, or Acute on Chronic? @ -Acute Uncomplicated (without systemic symptoms) or Complicated (systemic symptoms)? @ -Complicated Side effects of treatment? @ -no Exacerbation, Progression, or Severe Exacerbation? @ -exacerbation Poses a threat to life or bodily function? How? (Chest pain, [place], [place], pneumonia, PE, COPD, DKA, ARF, appy, cholecystitis, CVA, Diverticulitis, Homicidal, Suicidal, threat to staff... and all critical care pts) @ -yes extremes of age, cancer Reevaluation #5: Differential Dyspnea: Coronary syndrome, arrhythmia, tamponade, asthma, COPD, pulmonary embolism, pneumonia, pneumothorax, pulmonary effusion, anaphylaxis, diabetic ketoacidosis, flailed chest, pulmonary contusion, diaphragmatic rupture, anemia, neuromuscular , this is not meant to be an all-inclusive list. - Consultations Consultation #1: Spoke with Dr. Bunch who is aware of this patient Medical Decision Making - Medical Decision Making 78 female to the ER for evaluation today. Patient presents today for evaluation of significant shortness of breath dyspnea especially with lying down flat. History of lung cancer and stridor, patient will admit for breathing treatments and need for further evaluation of hypoxia - Lab Data Result diagrams: 03/13/24 04:00 03/13/24 04:10 Lab Results 03/06/24 03/06/24 03/06/24 Range/Units 19:17 19:17 19:17 WBC 13.6 H (3.8-10.6) k/uL RBC 4.32 (3.80-5.40) m/uL Hgb 11.8 (11.4-16.0) gm/dL Hct 37.8 (34.0-46.0) % MCV 87.6 (80.0-100.0) fL MCH 27.4 (25.0-35.0) pg MCHC 31.2 (31.0-37.0) g/dL RDW 15.9 H (11.5-15.5) % Plt Count 428 (150-450) k/uL MPV 7.6 Neutrophils % 92 % Lymphocytes % 3 % Monocytes % 4 % Eosinophils % 0 % Basophils % 0 % Neutrophils # 12.5 H (1.3-7.7) k/uL Lymphocytes # 0.4 L (1.0-4.8) k/uL Monocytes # 0.6 (0-1.0) k/uL Eosinophils # 0.1 (0-0.7) k/uL Basophils # 0.0 (0-0.2) k/uL Hypochromasia Slight PT 11.7 (10.0-12.5) sec INR 1.1 (<1.2) APTT 24.8 (22.0-30.0) sec Sodium 137 (137-145) mmol/L Potassium 4.0 (3.5-5.1) mmol/L Chloride 99 (98-107) mmol/L Carbon Dioxide 29 (22-30) mmol/L Anion Gap 9 mmol/L BUN 19 H (7-17) mg/dL Creatinine 0.77 (0.52-1.04) mg/dL Est GFR (CKD-EPI)AfAm 86 (>60 ml/min/1.73 sqM) Est GFR (CKD-EPI)NonAf 74 (>60 ml/min/1.73 sqM) Glucose 147 H (74-99) mg/dL Lactic Ac Sepsis Rflx Plasma Lactic Acid Eusebio (0.7-2.0) mmol/L Calcium 9.6 (8.4-10.2) mg/dL Phosphorus 4.2 (2.5-4.5) mg/dL Magnesium 1.9 (1.6-2.3) mg/dL Total Bilirubin 1.4 H (0.2-1.3) mg/dL AST 41 H (14-36) U/L ALT 24 (4-34) U/L Alkaline Phosphatase 121 (38-126) U/L Troponin I (0.000-0.034) ng/mL NT-Pro-B Natriuret Pep 1250 pg/mL Total Protein 6.8 (6.3-8.2) g/dL Albumin 4.0 (3.5-5.0) g/dL 03/06/24 03/06/24 03/06/24 Range/Units 19:17 19:17 19:43 WBC (3.8-10.6) k/uL RBC (3.80-5.40) m/uL Hgb (11.4-16.0) gm/dL Hct (34.0-46.0) % MCV (80.0-100.0) fL MCH (25.0-35.0) pg MCHC (31.0-37.0) g/dL RDW (11.5-15.5) % Plt Count (150-450) k/uL MPV Neutrophils % % Lymphocytes % % Monocytes % % Eosinophils % % Basophils % % Neutrophils # (1.3-7.7) k/uL Lymphocytes # (1.0-4.8) k/uL Monocytes # (0-1.0) k/uL Eosinophils # (0-0.7) k/uL Basophils # (0-0.2) k/uL Hypochromasia PT (10.0-12.5) sec INR (<1.2) APTT (22.0-30.0) sec Sodium (137-145) mmol/L Potassium (3.5-5.1) mmol/L Chloride (98-107) mmol/L Carbon Dioxide (22-30) mmol/L Anion Gap mmol/L BUN (7-17) mg/dL Creatinine (0.52-1.04) mg/dL Est GFR (CKD-EPI)AfAm (>60 ml/min/1.73 sqM) Est GFR (CKD-EPI)NonAf (>60 ml/min/1.73 sqM) Glucose (74-99) mg/dL Lactic Ac Sepsis Rflx Y Plasma Lactic Acid Eusebio 2.1 H* (0.7-2.0) mmol/L Calcium (8.4-10.2) mg/dL Phosphorus (2.5-4.5) mg/dL Magnesium (1.6-2.3) mg/dL Total Bilirubin (0.2-1.3) mg/dL AST (14-36) U/L ALT (4-34) U/L Alkaline Phosphatase (38-126) U/L Troponin I 0.017 (0.000-0.034) ng/mL NT-Pro-B Natriuret Pep pg/mL Total Protein (6.3-8.2) g/dL Albumin (3.5-5.0) g/dL - EKG Data -: EKG Interpreted by Me (EKG sinus 97 AR 167 QRS 86 QTc 417) - Radiology Data Radiology results: report reviewed (Chest x-ray is negative for acute changes), image reviewed Critical Care Time Critical Care Time: Yes Total Critical Care Time: 31 Disposition Clinical Impression: Allergic reaction, Hypoxia, Cancer of right lung, Stridor, Mass of right lung, Dyspnea Disposition: ADMITTED IP TO THIS HOSP Condition: Fair Is patient prescribed a controlled substance at d/c from ED?: No Time of Disposition: 21:30
[2024-03-06 19:28] LABS: Basophils % (A) 0 %; Eosinophils # (A) 0.1 k/uL (0-0.7); Eosinophils % (A) 0 %; HCT 37.8 % (34.0-46.0); HGB 11.8 gm/dL (11.4-16.0); Hypochromasia Slight; Lymphocytes # (A) 0.4 k/uL (1.0-4.8); Lymphocytes % (A) 3 %; MCH 27.4 pg (25.0-35.0); MCHC 31.2 g/dL (31.0-37.0); MCV 87.6 fL (80.0-100.0); Mean Platelet Volume 7.6; Monocytes # (A) 0.6 k/uL (0-1.0); Monocytes % (A) 4 %; Neutrophils # (A) 12.5 k/uL (1.3-7.7); Neutrophils % (A) 92 %; Platelet Count 428 k/uL (150-450); RBC 4.32 m/uL (3.80-5.40); RDW 15.9 % (11.5-15.5); WBC 13.6 k/uL (3.8-10.6)
[2024-03-06 19:35] LABS: Carbon Dioxide 29 mmol/L (22-30); Chloride 99 mmol/L (98-107); Glucose 147 mg/dL (74-99); INR 1.1 (<1.2); Partial Thromboplastin Time 24.8 sec (22.0-30.0); Prothrombin Time 11.7 sec (10.0-12.5); Sodium 137 mmol/L (137-145)
[2024-03-06 19:36] LABS: ALT 24 U/L (4-34); AST 41 U/L (14-36); African American GFR (CKD) 86 (>60 ml/min/1.73 sqM); Alkaline Phosphatase 121 U/L (38-126); Anion Gap 9 mmol/L; Blood Urea Nitrogen 19 mg/dL (7-17); Calcium 9.6 mg/dL (8.4-10.2); Magnesium 1.9 mg/dL (1.6-2.3); Non-African American GFR(CKD) 74 (>60 ml/min/1.73 sqM); Phosphorus 4.2 mg/dL (2.5-4.5); Total Bilirubin 1.4 mg/dL (0.2-1.3); Total Protein 6.8 g/dL (6.3-8.2)
[2024-03-06 19:43] LABS: NT-Pro-B-Type Natriuretic Pept 1250 pg/mL
[2024-03-06] MEDS: diphenhydrAMINE 50 MG/ML 1 ML VIAL IVP STA (19:43)
[2024-03-06] MEDS: SODIUM CHLORIDE 0.9% 1,000 ML IV STA (19:44)
[2024-03-06] MEDS: FAMOTIDINE 20 MG/2 ML VIAL IV STA (19:50)
[2024-03-06] MEDS: methylPREDNISolone SOD SUCCI 125 MG/2 ML VIAL IV STA (19:53)
[2024-03-06] MEDS: IPRATROPIUM-ALBUTEROL 3 ML NEB INHALATION STA (20:10)
--- NOTE | 2024-03-06 20:29 | XR ---
EXAMINATION TYPE: XR chest 2V DATE OF EXAM: 03/06/2024 7:38 PM CLINICAL INDICATION:Female, 78 years old with history of sob; [facility] COMPARISON: Chest x-ray 03/02/2024 and earlier studies TECHNIQUE: XR chest 2V. Frontal and lateral views of the chest.. FINDINGS: Lines/Tubes/Devices: EKG leads overlie the chest. No indwelling lines are seen. Heart/mediastinum: Heart appears mildly enlarged. Stable configuration of the cardiomediastinal cont our, consistent with known adenopathy and hilar region masses/metastatic adenopathy. Some narrowing o f the distal trachea and mainstem bronchi, was better seen on CT. Partially calcified aorta. Pulmonary vascularity: Not increased, Lungs/Pleura: Large mass of the left upper lobe measuring up to at least 6 cm redemonstrated, without apparent radiographic change. Atelectatic change of the RML again suggested. No new or worsening con solidation. Stable blunting of the right costophrenic angle, could indicate small effusion or atelect atic changes. No visualized pneumothorax. Musculoskeletal: No acute osseous abnormality demonstrated in the limits of the exam. Degenerative c hanges of the spine and shoulders. Other findings: Similar mild asymmetric elevation right hemidiaphragm. IMPRESSION: 1. Overall similar lung findings compared to prior, with no acute superimposed process. 2. Left upper lobe lung mass with mediastinal and hilar adenopathy.
[2024-03-06] MEDS ORDERED: MORPHINE SULFATE 4 MG/ML SYRINGE IV PRN (21:27)
[2024-03-06] MEDS ORDERED: NALOXONE 0.4 MG/ML 1 ML VIAL IV PRN (21:27)
[2024-03-06] MEDS ORDERED: ONDANSETRON 4 MG/2 ML VIAL IVP PRN (21:27)
[2024-03-07 05:34] LABS: Anisocytosis Slight; Basophils # (A) 0.1 k/uL (0-0.2); Basophils % (A) 1 %; Eosinophils % (A) 0 %; HCT 32.1 % (34.0-46.0); HGB 10.1 gm/dL (11.4-16.0); Hypochromasia Slight; Lymphocytes # (A) 0.3 k/uL (1.0-4.8); Lymphocytes % (A) 4 %; MCHC 31.4 g/dL (31.0-37.0); MCV 89.3 fL (80.0-100.0); Mean Platelet Volume 7.4; Monocytes # (A) 0.3 k/uL (0-1.0); Monocytes % (A) 3 %; Neutrophils # (A) 8.3 k/uL (1.3-7.7); Neutrophils % (A) 93 %; Platelet Count 348 k/uL (150-450); RBC 3.59 m/uL (3.80-5.40); WBC 8.9 k/uL (3.8-10.6)
[2024-03-07 05:51] LABS: ALT 20 U/L (4-34); AST 30 U/L (14-36); African American GFR (CKD) >90 (>60 ml/min/1.73 sqM); Albumin 3.3 g/dL (3.5-5.0); Alkaline Phosphatase 95 U/L (38-126); Anion Gap 9 mmol/L; Blood Urea Nitrogen 17 mg/dL (7-17); Calcium 8.9 mg/dL (8.4-10.2); Carbon Dioxide 25 mmol/L (22-30); Chloride 103 mmol/L (98-107); Glucose 146 mg/dL (74-99); Non-African American GFR(CKD) 89 (>60 ml/min/1.73 sqM); Phosphorus 4.3 mg/dL (2.5-4.5); Potassium 4.1 mmol/L (3.5-5.1); Sodium 137 mmol/L (137-145); Total Bilirubin 0.5 mg/dL (0.2-1.3); Total Protein 5.8 g/dL (6.3-8.2)
--- NOTE | 2024-03-07 08:29 | P.CNPUL ---
History of Present Illness Consult date: 03/07/24 Requesting physician: Mil Bunch Reason for consult: dyspnea, hypoxemia, lung mass, abnormal CXR/CT, other Chief complaint: Allergic reaction. History of present illness: Pulmonary consult dated March 07, 2024. 78-year-old female with a recent diagnosis of small cell lung cancer. The patient had a biopsy in mid February, by my partner, and was discovered to have small cell lung cancer. She has thoracic and mediastinal adenopathy, as well as a large mass in the left upper lobe. The patient has not started chemotherapy as yet. The patient apparently was sent for a PET scan. She apparently had a reaction to the dye given at the time of the PET scan, and developed chills, and fever, and generally just not feeling well. For that reason she came into the emergency room to be evaluated. She was seen there and admitted to the hospital. We are seeing her today, and 523. She is currently on 4 L of oxygen. No IV fluids. Currently, she is feeling back to baseline. Her white count is 8.9, hemoglobin 10.1, hematocrit 32.1, and a platelet count of 348,000. Coagulation studies were normal. Electrolyte profile was essentially normal. Glucose was 146. Albumin 3.3. She was tested for influenza, RSV and coronavirus, and tested negative. Chest x-ray shows a left upper lobe lung mass, with Mediastinal Adenopathy. Brain MRI, was negative for intracranial metastasis. Review of Systems REVIEW OF SYSTEMS: CONSTITUTIONAL: Chills. NEUROLOGIC: Dizziness. HEENT: [ Negative.] CARDIAC: Tachycardia. PULMONARY: Shortness of breath. GI: [Negative.] : [Negative.] RHEUMATOLOGIC: [ Negative.] IMMUNOLOGIC: [ Negative.] ENDOCRINE: [Negative. 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, ovarian cysts History of Any Multi-Drug Resistant Organisms: None Reported Past Surgical History: Appendectomy, Tonsillectomy, Tubal Ligation Additional Past Surgical History / Comment(s): cataracts, carpal tunnel, laser eye surgery, metal coil for brain aneurysm, lung cancer Past Anesthesia/Blood Transfusion Reactions: Postoperative Nausea & Vomiting (PONV) Past Psychological History: No Psychological Hx Reported Smoking Status: Former smoker Past Alcohol Use History: None Reported Past Drug Use History: None Reported Medications and Allergies Home Medications Medication Instructions Recorded Confirmed Type Aspirin EC [Ecotrin Low Dose] 81 mg PO DAILY 02/19/24 02/19/24 History Benzonatate [Tessalon Perle] 200 mg PO BID PRN 02/19/24 02/19/24 History Gabapentin 300 mg PO TID 02/19/24 02/19/24 History Losartan Potassium 100 mg PO DAILY 02/19/24 02/19/24 History Metoprolol Tartrate [Lopressor] 50 mg PO BID 02/19/24 02/19/24 History Pantoprazole Sodium [Protonix] 20 mg PO DAILY 02/19/24 02/19/24 History Triamcinolone 0.025% Cream 1 applic TOPICAL BID PRN 02/19/24 02/19/24 History [Kenalog 0.025% Cream] cloNIDine HCL [Catapres] 0.1 mg PO HS #30 tab 02/24/24 Rx Allergies Allergy/AdvReac Type Severity Reaction Status Date / Time bisoprolol [From Ziac] Allergy Unknown Verified 03/06/24 18:43 erythromycin base Allergy Rash/Hives Verified 03/06/24 18:43 [From Erythrocin] hydrochlorothiazide Allergy Unknown Verified 03/06/24 18:43 [From Ziac] iodine Allergy Confusion Verified 03/06/24 18:43 propoxyphene Allergy Dyspnea Verified 03/06/24 18:43 [From Darvocet-N] acetaminophen [From Lortab] AdvReac Itching Verified 03/06/24 18:43 aloe vera AdvReac Itching Verified 03/06/24 18:43 atorvastatin [From Lipitor] AdvReac Unknown Verified 03/06/24 18:43 hydrocodone [From Lortab] AdvReac Itching Verified 03/06/24 18:43 levofloxacin [From Levaquin] AdvReac Itching Verified 03/06/24 18:43 polyethylene glycol 3350 AdvReac Hallucinati Verified 03/06/24 18:43 [From Miralax] ons rofecoxib [From Vioxx] AdvReac Nausea & Verified 03/06/24 18:43 Vomiting Physical Exam Osteopathic Statement: *. No significant issues noted on an osteopathic structural exam other than those noted in the History and Physical/Consult. Vitals: Vital Signs Temp Pulse Pulse Resp BP BP Pulse Ox 03/07/24 01:42 98.0 F 89 28 H 137/83 90 L 03/06/24 23:24 97.7 F 90 16 155/81 96 03/06/24 22:40 91 21 141/70 96 03/06/24 21:10 95 22 125/65 92 L 03/06/24 20:19 91 03/06/24 20:10 92 26 H 118/66 93 L 03/06/24 19:57 98 23 94 L 03/06/24 19:36 100 23 132/68 95 03/06/24 18:40 97.4 F L 104 H 20 129/71 95 Intake and Output 03/06/24 03/07/24 03/07/24 22:59 06:59 14:59 Intake Total 590 Balance 590 Intake: Oral 590 Other: # Voids 3 Weight 71.214 kg 71.214 kg No acute distress, oriented 3. Currently on 4 L of oxygen. Saturations are 96%. HEENT examination is grossly unremarkable. Mucous membranes are moist. No oral lesions. Neck supple. Full range of motion. No adenopathy thyromegaly or neck vein distention. Cardiovascular examination reveals regular rhythm rate. S1-S2 normal. No S3 or S4. No discernible murmur noted. Heart rate 89 bpm. Lungs reveal clear breath sounds. Breath sounds are equal bilaterally. No adventitious lung sounds including wheezes rhonchi or crackles. Abdomen soft bowel sounds are heard. No masses or tenderness. Extremities are intact. No cyanosis clubbing or edema. Skin is without rash or lesion. Neurologic examination is brief but nonfocal. Results - Laboratory Findings CBC and BMP: 03/07/24 05:03 03/07/24 05:03 PT/INR, D-dimer PT 11.7 sec (10.0-12.5) 03/06/24 19:17 INR 1.1 (<1.2) 03/06/24 19:17 Abnormal lab findings: Abnormal Labs 03/06/24 03/06/24 03/06/24 19:17 19:17 19:17 WBC 13.6 H RBC Hgb Hct RDW 15.9 H Neutrophils # 12.5 H Lymphocytes # 0.4 L BUN 19 H Glucose 147 H Plasma Lactic Acid Eusebio 2.1 H* Total Bilirubin 1.4 H AST 41 H Total Protein Albumin 03/07/24 03/07/24 05:03 05:03 WBC RBC 3.59 L Hgb 10.1 L Hct 32.1 L RDW 16.0 H Neutrophils # 8.3 H Lymphocytes # 0.3 L BUN Glucose 146 H Plasma Lactic Acid Eusebio Total Bilirubin AST Total Protein 5.8 L Albumin 3.3 L - Diagnostic Findings Chest x-ray: image reviewed Assessment and Plan Assessment: Allergic reaction, apparently to dye, given to her, at the time of PET scan. Recent diagnosis of small cell lung cancer. Left upper lobe mass. History of hypertension. History of hyperlipidemia. History of CVA/TIA. History of gastroesophageal reflux disease. Previous history of tobacco use. Plan: Plan dated March 07, 2024. The patient was admitted to the hospital, after being seen in the emergency department. She apparently went for a PET scan, could not lay flat, and apparently developed allergic reaction to the dye. The patient is currently back to baseline. She is currently on 4 L. Saturations are in the mid to low 90s. The patient was recently diagnosed as having small cell lung cancer. The patient has not started treatment as yet. She had a biopsy, here, from my partner, in mid February. Labs, x-rays, medications are reviewed. Prognosis is guarded. Time with Patient: Greater than 30
--- NOTE | 2024-03-07 12:25 | P.CONS ---
History of Present Illness - Reason for Consult Consult date: 03/07/24 Small Cell Lung Cancer - History of Present Illness The patient is a 78-year-old white female, recently seen in consult on 02/20/2024, during her prior admission. She had been admitted with progressive shortness of breath, cough and wheezing. She was found to have a large left upper lobe mass, as well as mediastinal adenopathy. She had a bronchoscopy during that admission, with pathology positive for small cell lung cancer. She had been complaining of upper abdominal pain, but CT abdomen pelvis was negative for any abdominal findings. MRI of the brain was negative. The patient was then seen in the office, and was recommended a PET scan, as it was felt that she could be a candidate for concurrent chemoradiation, if PET was negative for evidence of distant disease. She was supposed to have the PET scan done on 03/06/2024, but apparently could not lay flat for it. She subsequently developed symptoms of nausea, dizziness and chills, apparently concerning for a reaction to the PET scan dye. She therefore came into the emergency room, and was admitted for further management. Since admission, nausea and chills have resolved. She is still quite short of breath, with some mild improvement. Review of Systems Constitutional: Reports poor appetite, Reports weakness, Reports weight loss Eyes: denies blurred vision, denies pain Ears: deny: decreased hearing, ear discharge, earache, tinnitus Ears, nose, mouth and throat: Denies headache, Denies sore throat Cardiovascular: Reports shortness of breath Respiratory: Reports cough with sputum, Reports dyspnea Gastrointestinal: Reports abdominal pain, Reports constipation Genitourinary: Denies dysuria, Denies hematuria Menstruation: Reports postmenopausal Musculoskeletal: Reports muscle weakness Integumentary: Denies pruritus, Denies rash Neurological: Reports weakness Psychiatric: Reports anxiety Endocrine: Reports fatigue, Reports weight change Hematologic/Lymphatic: Reports as per HPI 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, ovarian cysts History of Any Multi-Drug Resistant Organisms: None Reported Past Surgical History: Appendectomy, Tonsillectomy, Tubal Ligation Additional Past Surgical History / Comment(s): cataracts, carpal tunnel, laser eye surgery, metal coil for brain aneurysm, lung cancer Past Anesthesia/Blood Transfusion Reactions: Postoperative Nausea & Vomiting (PONV) Past Psychological History: No Psychological Hx Reported Smoking Status: Former smoker Past Alcohol Use History: None Reported Past Drug Use History: None Reported Medications and Allergies Home Medications Medication Instructions Recorded Confirmed Type Aspirin EC [Ecotrin Low Dose] 81 mg PO DAILY 02/19/24 03/07/24 History Benzonatate [Tessalon Perle] 200 mg PO BID PRN 02/19/24 03/07/24 History Gabapentin 300 mg PO TID 02/19/24 03/07/24 History Losartan Potassium 100 mg PO DAILY 02/19/24 03/07/24 History Metoprolol Tartrate [Lopressor] 50 mg PO BID 02/19/24 03/07/24 History Pantoprazole Sodium [Protonix] 20 mg PO DAILY 02/19/24 03/07/24 History Triamcinolone 0.025% Cream 1 applic TOPICAL BID PRN 02/19/24 03/07/24 History [Kenalog 0.025% Cream] cloNIDine HCL [Catapres] 0.1 mg PO HS #30 tab 02/24/24 03/07/24 Rx Allergies Allergy/AdvReac Type Severity Reaction Status Date / Time bisoprolol [From Ziac] Allergy Unknown Verified 03/07/24 09:22 erythromycin base Allergy Rash/Hives Verified 03/07/24 09:22 [From Erythrocin] hydrochlorothiazide Allergy Unknown Verified 03/07/24 09:22 [From Ziac] iodine Allergy Confusion Verified 03/07/24 09:22 propoxyphene Allergy Dyspnea Verified 03/07/24 09:22 [From Darvocet-N] acetaminophen [From Lortab] AdvReac Itching Verified 03/07/24 09:22 aloe vera AdvReac Itching Verified 03/07/24 09:22 atorvastatin [From Lipitor] AdvReac Unknown Verified 03/07/24 09:22 hydrocodone [From Lortab] AdvReac Itching Verified 03/07/24 09:22 levofloxacin [From Levaquin] AdvReac Itching Verified 03/07/24 09:22 polyethylene glycol 3350 AdvReac Hallucinati Verified 03/07/24 09:22 [From Miralax] ons rofecoxib [From Vioxx] AdvReac Nausea & Verified 03/07/24 09:22 Vomiting Physical Exam Vitals: Vital Signs Temp Pulse Pulse Resp BP BP Pulse Ox 03/07/24 08:40 80 16 03/07/24 07:44 97.4 F L 80 16 143/80 93 L 03/07/24 01:42 98.0 F 89 28 H 137/83 90 L 03/06/24 23:24 97.7 F 90 16 155/81 96 03/06/24 22:40 91 21 141/70 96 03/06/24 21:10 95 22 125/65 92 L 03/06/24 20:19 91 03/06/24 20:10 92 26 H 118/66 93 L 03/06/24 19:57 98 23 94 L 03/06/24 19:36 100 23 132/68 95 03/06/24 18:40 97.4 F L 104 H 20 129/71 95 Intake and Output 03/06/24 03/07/24 03/07/24 22:59 06:59 14:59 Intake Total 590 Balance 590 Intake: Oral 590 Other: Voiding Method Toilet # Voids 3 Weight 71.214 kg 71.214 kg - Constitutional General appearance: mild distress - EENT Eyes: EOMI, PERRLA ENT: hearing grossly normal, normal oropharynx - Neck Neck: no lymphadenopathy Thyroid: bilateral: normal size - Respiratory Respiratory: left: diminished - Cardiovascular Rhythm: regular Heart sounds: normal: S1, S2 - Gastrointestinal General gastrointestinal: normal bowel sounds, soft - Integumentary Integumentary: normal - Neurologic Neurologic: CNII-XII intact - Musculoskeletal Musculoskeletal: generalized weakness, strength equal bilaterally - Psychiatric Psychiatric: A&O x's 3 Results CBC & Chem 7: 03/07/24 05:03 03/07/24 05:03 Labs: Abnormal Lab Results - Last 24 Hours (Table) 03/06/24 03/06/24 03/06/24 Range/Units 19:17 19:17 19:17 WBC 13.6 H (3.8-10.6) k/uL RBC (3.80-5.40) m/uL Hgb (11.4-16.0) gm/dL Hct (34.0-46.0) % RDW 15.9 H (11.5-15.5) % Neutrophils # 12.5 H (1.3-7.7) k/uL Lymphocytes # 0.4 L (1.0-4.8) k/uL BUN 19 H (7-17) mg/dL Glucose 147 H (74-99) mg/dL Plasma Lactic Acid Eusebio 2.1 H* (0.7-2.0) mmol/L Total Bilirubin 1.4 H (0.2-1.3) mg/dL AST 41 H (14-36) U/L Total Protein (6.3-8.2) g/dL Albumin (3.5-5.0) g/dL 03/07/24 03/07/24 Range/Units 05:03 05:03 WBC (3.8-10.6) k/uL RBC 3.59 L (3.80-5.40) m/uL Hgb 10.1 L (11.4-16.0) gm/dL Hct 32.1 L (34.0-46.0) % RDW 16.0 H (11.5-15.5) % Neutrophils # 8.3 H (1.3-7.7) k/uL Lymphocytes # 0.3 L (1.0-4.8) k/uL BUN (7-17) mg/dL Glucose 146 H (74-99) mg/dL Plasma Lactic Acid Eusebio (0.7-2.0) mmol/L Total Bilirubin (0.2-1.3) mg/dL AST (14-36) U/L Total Protein 5.8 L (6.3-8.2) g/dL Albumin 3.3 L (3.5-5.0) g/dL Comments: EKG image reviewed Chest x-ray: report reviewed Assessment and Plan (1) Small cell lung cancer, left upper lobe Narrative/Plan: Based on the CT scan, the patient appears to have just limited disease, with large left upper lobe mass, and mediastinal adenopathy. She was seen in the office last week, and PET scan was scheduled to see if she could be treated curatively. However she was unable to have the scan, as detailed. -The patient feels that she would be unable to lay down for the PET scan, even if we reattempted. I will therefore order a bone scan. If the bone scan is negative, then the plan would be to treat her as first as limited disease, on the CT results. The limitations of this approach were discussed with her. She is willing for the same. Current Visit: Yes Status: Acute Code(s): C34.12 - MALIGNANT NEOPLASM OF UPPER LOBE, LEFT BRONCHUS OR LUNG SNOMED Code(s): 392535462 (2) Dyspnea Narrative/Plan: The patient's dyspnea has been slowly progressive. There was significant worsening with attempts to lay flat. She has improved partially. Case has been discussed with pulmonary medicine, Dr. Licona. He has been concerned about aggressive volume loss in the lung due to the tumor. Therefore if the patient is not showing significant improvement during this admission, to be able to be discharged home, we will tentatively plan on starting chemotherapy in the hospital itself for cycle 1. Current Visit: Yes Status: Acute Code(s): R06.00 - DYSPNEA, UNSPECIFIED SNOMED Code(s): 245764971 Plan: From the symptoms described, I do not feel that she had a reaction to the PET scan dye. Most likely this was a vasovagal type reaction due to mass effect of the tumor, when she was attempting to lay down.
[2024-03-07] MEDS ORDERED: TRIAMCINOLONE 0.1% CREAM 80 GM TUBE TOPICAL PRN (12:53)
[2024-03-07] MEDS ORDERED: BENZONATATE 100 MG CAP PO PRN (12:53)
[2024-03-07] MEDS: GABAPENTIN 300 MG CAP PO SCH (13:23)
[2024-03-07] MEDS: METOPROLOL TARTRATE 50 MG TAB PO SCH (20:24)
[2024-03-07] MEDS: cloNIDine HCL 0.1 MG TAB PO SCH (20:24)
[2024-03-08] MEDS: PANTOPRAZOLE 40 MG TABLET PO SCH (08:22)
[2024-03-08] MEDS: ASPIRIN 81 MG PO SCH (08:22)
[2024-03-08] MEDS: LOSARTAN 50 MG TAB PO SCH (08:22)
--- NOTE | 2024-03-08 10:11 | P.PN ---
Subjective Progress Note Date: 03/08/24 78-year-old female with a recent diagnosis of small cell lung cancer. The patient had a biopsy in mid February, by my partner, and was discovered to have small cell lung cancer. She has thoracic and mediastinal adenopathy, as well as a large mass in the left upper lobe. The patient has not started chemotherapy as yet. The patient apparently was sent for a PET scan. She apparently had a reaction to the dye given at the time of the PET scan, and developed chills, and fever, and generally just not feeling well. For that reason she came into the emergency room to be evaluated. She was seen there and admitted to the hospital. We are seeing her today, and 523. She is currently on 4 L of oxygen. No IV fluids. Currently, she is feeling back to baseline. Her white count is 8.9, hemoglobin 10.1, hematocrit 32.1, and a platelet count of 348,000. Coagulation studies were normal. Electrolyte profile was essentially normal. Glucose was 146. Albumin 3.3. She was tested for influenza, RSV and c oronavirus, and tested negative. Chest x-ray shows a left upper lobe lung mass, with Mediastinal Adenopathy. Brain MRI, was negative for intracranial metastasis. The patient is seen today March 08, 2024 in follow-up on the regular medical floor. She is currently sitting up in the bedside. Awake and alert in no acute distress. Maintaining O2 saturations in the 90s on 4 L/min per nasal cannula. She denies any worsening shortness of breath, cough or congestion. She did have an episode of dizziness last evening. She has been seen by medical oncology. Bone scan is pending. May initiate chemotherapy while here. Objective - Vital Signs Vital signs: Vital Signs Temp 98.1 F 03/08/24 07:31 Pulse 85 03/08/24 08:15 Resp 16 03/08/24 08:15 BP 151/72 03/08/24 07:31 Pulse Ox 95 03/08/24 07:31 FiO2 Intake & Output 03/07/24 03/08/24 03/08/24 18:59 06:59 18:59 Intake Total 1080 710 240 Balance 1080 710 240 Weight 71.214 kg Intake: Oral 1080 710 240 Other: Voiding Method Toilet Toilet Toilet # Voids 5 2 2 - Exam GENERAL EXAM: Alert, pleasant 78-year-old female, on 4 L nasal cannula, fairly comfortable in no apparent distress. HEAD: Normocephalic. EYES: Normal reaction of pupils, equal size. NOSE: Clear with pink turbinates. THROAT: No erythema or exudates. NECK: No masses, no JVD. CHEST: No chest wall deformity. LUNGS: Equal air entry with few scattered rhonchi. CVS: S1 and S2 normal with no audible murmur, regular rhythm. ABDOMEN: No hepatosplenomegaly, normal bowel sounds, no guarding or rigidity. SPINE: No scoliosis or deformity SKIN: No rashes CENTRAL NERVOUS SYSTEM: No focal deficits, tone is normal in all 4 extremities. EXTREMITIES: There is no peripheral edema. No clubbing, no cyanosis. Peripheral pulses are intact. - Labs CBC & Chem 7: 03/07/24 05:03 03/07/24 05:03 Assessment and Plan Assessment: Allergic reaction, apparently to dye, given to her, at the time of PET scan. Recent diagnosis of small cell lung cancer. Left upper lobe mass. History of hypertension. History of hyperlipidemia. History of CVA/TIA. History of gastroesophageal reflux disease. Previous history of tobacco use. Plan: The patient was seen and evaluated Medications reviewed Currently on 4 L nasal cannula Bone scan pending Oncology may initiate inpatient chemotherapy We will continue to follow I have personally seen and examined the patient, performed the documentation and the assessment and plan as written. Number of minutes spent on the visit: 10.
[2024-03-08] MEDS: MAG HYDROX/AL HYDROX/SIMETH 30 ML CUP PO SCH (12:58)
[2024-03-08] MEDS: IPRATROPIUM-ALBUTEROL 3 ML NEB INHALATION PRN (22:11)
--- NOTE | 2024-03-09 11:29 | NM ---
EXAMINATION TYPE: NM bone scan whole body DATE OF EXAM: 03/09/2024 COMPARISON: None CLINICAL INDICATION: Female, 78 years old with history of Staging small cell lung cancer; TECHNIQUE: Delayed whole-body scanning was performed following the injection of 21.3 mCi Tc 99m MDP. Images acquired 3 hours post injection. FINDINGS: There is some mild degenerative change at the shoulders and left hip. No suspicious distribution of a ctivity to suggest osseous metastatic disease. IMPRESSION: No scintigraphic evidence for osseous metastatic disease.
--- NOTE | 2024-03-09 19:53 | P.PN ---
Subjective Progress Note Date: 03/09/24 Principal diagnosis: SCLC, limited stage disease In follow-up today patient is sitting at the bedside. She does have orthopnea, she cannot lay flat, she cannot lay back for sleep either. She is short of breath currently and requesting a respiratory treatment. Objective - Vital Signs Vital signs: Vital Signs Temp 97.5 F L 03/09/24 12:23 Pulse 72 03/09/24 12:23 Resp 18 03/09/24 12:23 BP 117/73 03/09/24 12:23 Pulse Ox 96 03/09/24 12:23 FiO2 Intake & Output 03/08/24 03/09/24 03/09/24 18:59 06:59 18:59 Intake Total 240 240 Balance 240 240 Intake: Oral 240 240 Other: Voiding Method Toilet Toilet # Voids 1 2 1 # Bowel Movements 2 - Constitutional General appearance: Present: average body habitus, cooperative, mild distress - EENT Eyes: Present: anicteric sclerae, EOMI ENT: Present: hearing grossly normal - Respiratory Respiratory: bilateral: wheezing - Cardiovascular Rhythm: regular - Peripheral edema leg Peripheral Edema: bilateral: None - Integumentary Integumentary: Present: normal - Neurologic Neurologic: Present: CNII-XII intact - Musculoskeletal Musculoskeletal: Present: generalized weakness, strength equal bilaterally - Psychiatric Psychiatric: Present: A&O x's 3, appropriate affect, intact judgment & insight - Labs CBC & Chem 7: 03/07/24 05:03 03/07/24 05:03 - Imaging and Cardiology Nuclear medicine bone scan report reviewed Assessment and Plan Plan: Small cell lung cancer, limited stage disease -Patient unable to tolerate staging PET scan. -Dr. Castañeda and the patient had a conversation about moving forward with treatment because of patient's symptoms. Without the staging PET scan she is aware of the limitations on treatment decision making. -Nuclear medicine bone scan was done. Reviewed the results with pt, no evidence of bony lesions. MRI of the brain previously was negative. [id number] SOB, orthopnea -2/2 SCLC -Progressive -Case previously disussed with pulmonary medicine, Dr. Licona. He has been concerned about aggressive volume loss in the lung due to the tumor. -Pt has not shown much improvements -Plan is to start chemo inpt -This was discussed with pt and she is agreeable. We did discuss common side effects and self care. All questions answered to her satisfaction at this time. -Chemo orders sent -Treatment tomorrow -Plan to sched pt to see Rad Onc for definitive treatment and add XRT with cycle 2 Time with Patient: Greater than 30
[2024-03-09] MEDS ORDERED: ONDANSETRON 4 MG/2 ML VIAL IVP PRN (19:54)
[2024-03-09] MEDS: SALT AND SODA MOUTHWASH 1,000 ML PO SCH (21:09)
[2024-03-09] MEDS: ZINC OXIDE PASTE (Z-GUARD) 1 APPLIC TOPICAL PRN (21:09)
--- NOTE | 2024-03-09 22:20 | P.PN ---
Subjective Progress Note Date: 03/09/24 78-year-old female with a recent diagnosis of small cell lung cancer. The patient had a biopsy in mid February, by my partner, and was discovered to have small cell lung cancer. She has thoracic and mediastinal adenopathy, as well as a large mass in the left upper lobe. The patient has not started chemotherapy as yet. The patient apparently was sent for a PET scan. She apparently had a reaction to the dye given at the time of the PET scan, and developed chills, and fever, and generally just not feeling well. For that reason she came into the emergency room to be evaluated. She was seen there and admitted to the hospital. We are seeing her today, and 523. She is currently on 4 L of oxygen. No IV fluids. Currently, she is feeling back to baseline. Her white count is 8.9, hemoglobin 10.1, hematocrit 32.1, and a platelet count of 348,000. Coagulation studies were normal. Electrolyte profile was essentially normal. Glucose was 146. Albumin 3.3. She was tested for influenza, RSV and coronavirus, and tested negative. Chest x-ray shows a left upper lobe lung mass, with Mediastinal Adenopathy. Brain MRI, was negative for intracranial metastasis. The patient is seen today March 08, 2024 in follow-up on the regular medical floor. She is currently sitting up in the bedside. Awake and alert in no acute distress. Maintaining O2 saturations in the 90s on 4 L/min per nasal cannula. She denies any worsening shortness of breath, cough or congestion. She did have an episode of dizziness last evening. She has been seen by medical oncology. Bone scan is pending. May initiate chemotherapy while here. 03/09/2024, the patient is experiencing shortness of breath and the patient is unable to lay down flat because of increased dyspnea. As mentioned, the patient has small cell lung cancer likely extensive stage. Unable to complete the PET scan because of shortness of breath and unable to lay down flat. The patient panic and she also experienced some nausea and dizziness and she was unable to complete the study. Discussed the case with medical oncology. The patient will be starting a systemic chemotherapy during her hospital stay. No hemoptysis. No pleurisy. Labs from the time of admission was noted. Objective - Vital Signs Vital signs: Vital Signs Temp 97.5 F L 03/09/24 12:23 Pulse 72 03/09/24 12:23 Resp 18 03/09/24 12:23 BP 117/73 03/09/24 12:23 Pulse Ox 96 03/09/24 12:23 FiO2 Intake & Output 03/08/24 03/09/24 03/09/24 18:59 06:59 18:59 Intake Total 240 240 Balance 240 240 Intake: Oral 240 240 Other: Voiding Method Toilet Toilet # Voids 1 2 1 # Bowel Movements 2 - Exam GENERAL EXAM: Alert, pleasant 78-year-old female, on 4 L nasal cannula, fairly comfortable in no apparent distress. HEAD: Normocephalic. EYES: Normal reaction of pupils, equal size. NOSE: Clear with pink turbinates. THROAT: No erythema or exudates. NECK: No masses, no JVD. CHEST: No chest wall deformity. LUNGS: Equal air entry with few scattered rhonchi. CVS: S1 and S2 normal with no audible murmur, regular rhythm. ABDOMEN: No hepatosplenomegaly, normal bowel sounds, no guarding or rigidity. SPINE: No scoliosis or deformity SKIN: No rashes CENTRAL NERVOUS SYSTEM: No focal deficits, tone is normal in all 4 extremities. EXTREMITIES: There is no peripheral edema. No clubbing, no cyanosis. Peripheral pulses are intact. - Labs CBC & Chem 7: 03/07/24 05:03 03/07/24 05:03 Assessment and Plan Plan: small cell lung cancer likely extensive stage with bulky disease involving the mediastinum and a large left upper lobe mass. Awaiting systemic chemotherapy. Unable to complete the PET scan because of increased shortness of breath and inability to lay down flat. Bone scan is negative for skeletal metastases. Left upper lobe mass. History of hypertension. History of hyperlipidemia. History of CVA/TIA. History of gastroesophageal reflux disease. Previous history of tobacco use. Plan: Currently on 4 L nasal cannula Bone scan is negative Oncology will initiate inpatient chemotherapy We will continue to follow
--- NOTE | 2024-03-10 01:37 | HP ---
HISTORY AND PHYSICAL CHIEF COMPLAINT: Acute shortness of breath. HISTORY OF PRESENT ILLNESS: This is another recent admission for this 78-year-old white female who was just found to have a large small cell neoplasm in the left lung. She was apparently given dye for her PET scan when she became acutely dyspneic and was brought to the hospital. She denies any chest pain, hemoptysis, fever, chills, etc. She is feeling better now. REVIEW OF SYSTEMS: Otherwise unremarkable. PAST MEDICAL HISTORY, FAMILY HISTORY, PERSONAL AND SOCIAL HISTORY: Otherwise unremarkable or noncontributory or unchanged. PHYSICAL EXAMINATION: VITAL SIGNS: Normal. HEENT: Head, ears, eyes, nose, mouth, and throat are normal. CHEST: Demonstrates decreased breath sounds in the left posterior upper chest. CARDIAC: Normal. ABDOMEN: Soft, nontender. EXTREMITIES: Normal. IMPRESSION: 1. Left upper lobe small cell carcinoma. 2. Acute shortness of breath, possibly related to reaction to PET scan dye. PLAN: 1. Bed rest. 2. IV fluids. 3. Nasal O2. 4. Consult with pulmonology and Oncology. MMODL / IJN: [id number] /
--- NOTE | 2024-03-10 01:45 | PN ---
PROGRESS NOTE DATE OF SERVICE: 03/08/2024 CHIEF COMPLAINT: Small cell neoplasm of the lung. HISTORY OF PRESENT ILLNESS: This lady is doing a little bit better. She is complaining of some indigestion. PHYSICAL EXAMINATION: CHEST: Demonstrates good breath sounds bilaterally. CARDIAC: Normal. ABDOMEN: Soft, nontender. IMPRESSION: 1. Acute dyspnea secondary to contrast material. 2. Carcinoma of the left lung. 3. Gastritis or esophagitis. PLAN: 1. Maalox. 2. Change her diet to regular diet at her request. 3. Continue workup and await for proposed treatment from Oncology. MMODL / IJN: [id number] /
--- NOTE | 2024-03-10 06:22 | PN ---
PROGRESS NOTE DATE OF SERVICE: 03/09/2024 CHIEF COMPLAINT: Small cell carcinoma of the left lung. HISTORY OF PRESENT ILLNESS: This lady is doing a little bit better. She is still short of breath, but she feels like she is improving. PHYSICAL EXAMINATION: LUNGS: Breath sounds are somewhat diminished in the left upper, anterior, and posterior chest. CARDIAC: Normal. ABDOMEN: Soft, nontender. IMPRESSION: Small cell carcinoma of the left lung. PLAN: Progress her activity and diet and await for management by Oncology. MMODL / IJN: [id number] /
[2024-03-10 07:39] LABS: Basophils % (A) 0 %; Eosinophils % (A) 0 %; HCT 35.4 % (34.0-46.0); HGB 10.6 gm/dL (11.4-16.0); Hypochromasia Marked; Lymphocytes # (A) 0.7 k/uL (1.0-4.8); Lymphocytes % (A) 5 %; MCH 27.6 pg (25.0-35.0); MCHC 29.9 g/dL (31.0-37.0); MCV 92.2 fL (80.0-100.0); Mean Platelet Volume 7.6; Monocytes # (A) 0.9 k/uL (0-1.0); Monocytes % (A) 6 %; Neutrophils # (A) 12.7 k/uL (1.3-7.7); Neutrophils % (A) 87 %; Platelet Count 402 k/uL (150-450); RBC 3.84 m/uL (3.80-5.40); RDW 15.7 % (11.5-15.5); WBC 14.7 k/uL (3.8-10.6)
[2024-03-10 07:59] LABS: ALT 23 U/L (4-34); AST 31 U/L (14-36); African American GFR (CKD) >90 (>60 ml/min/1.73 sqM); Albumin 3.4 g/dL (3.5-5.0); Albumin/Globulin Ratio 1.3; Alkaline Phosphatase 112 U/L (38-126); Anion Gap 4 mmol/L; Blood Urea Nitrogen 16 mg/dL (7-17); Calcium 8.8 mg/dL (8.4-10.2); Carbon Dioxide 35 mmol/L (22-30); Chloride 99 mmol/L (98-107); Globulin 2.6 g/dL; Glucose 122 mg/dL (74-99); Non-African American GFR(CKD) 89 (>60 ml/min/1.73 sqM); Potassium 4.1 mmol/L (3.5-5.1); Sodium 138 mmol/L (137-145); Total Bilirubin 0.7 mg/dL (0.2-1.3)
[2024-03-10] MEDS ORDERED: ZOLPIDEM 5 MG TAB PO PRN (10:35)
--- NOTE | 2024-03-10 11:33 | P.PN ---
Subjective Progress Note Date: 03/10/24 Principal diagnosis: SCLC, limited stage disease In follow-up today patient is sitting up, c/o significant gas after any oral intake, not heartburn but feels indigestion like, not nausea, denies vomiting- this is why she is not eating. She remains severely orthopneic. She feels like she has to have a BM but cannot, no abd cramping at this time. Due to start 1st cycle of chemo today. Objective - Vital Signs Vital signs: Vital Signs Temp 98.4 F 03/10/24 07:32 Pulse 92 03/10/24 11:17 Resp 20 03/10/24 07:32 BP 137/75 03/10/24 07:32 Pulse Ox 90 L 03/10/24 07:49 FiO2 Intake & Output 03/09/24 03/10/24 03/10/24 18:59 06:59 18:59 Other: Voiding Method Toilet # Voids 1 1 - Constitutional General appearance: Present: average body habitus, cooperative, mild distress - EENT Eyes: Present: anicteric sclerae, EOMI ENT: Present: hearing grossly normal - Respiratory Respiratory: bilateral: other (bronchial breath sounds in periphery, increased RR) - Cardiovascular Rhythm: regular Heart sounds: normal: S1, S2 Abnormal Heart Sounds: Absent: systolic murmur, diastolic murmur, rub, S3 Gallop, S4 Gallop, click, other - Peripheral edema leg Peripheral Edema: bilateral: 1+ - Gastrointestinal General gastrointestinal: Present: normal bowel sounds, soft. Absent: absent bowel sounds, decreased bowel sounds, distended, hepatomegaly, hyperactive bowel sounds, organomegaly, rigid, scaphoid, splenomegaly, tenderness, umbilical h ernia, ventral hernia - Neurologic Neurologic: Present: CNII-XII intact - Musculoskeletal Musculoskeletal: Present: generalized weakness - Psychiatric Psychiatric: Present: A&O x's 3, appropriate affect, intact judgment & insight - Labs CBC & Chem 7: 03/10/24 06:49 03/10/24 06:49 Labs: Abnormal Lab Results - Last 24 Hours (Table) 03/10/24 03/10/24 Range/Units 06:49 06:49 WBC 14.7 H (3.8-10.6) k/uL Hgb 10.6 L (11.4-16.0) gm/dL MCHC 29.9 L (31.0-37.0) g/dL RDW 15.7 H (11.5-15.5) % Neutrophils # 12.7 H (1.3-7.7) k/uL Lymphocytes # 0.7 L (1.0-4.8) k/uL Carbon Dioxide 35 H (22-30) mmol/L Glucose 122 H (74-99) mg/dL Total Protein 6.0 L (6.3-8.2) g/dL Albumin 3.4 L (3.5-5.0) g/dL Assessment and Plan (1) Dyspnea Current Visit: Yes Status: Acute Priority: High Code(s): R06.00 - DYSPNEA, UNSPECIFIED SNOMED Code(s): 051251667 (2) Small cell lung cancer, left upper lobe Current Visit: Yes Status: Acute Priority: High Code(s): C34.12 - MALIGNANT NEOPLASM OF UPPER LOBE, LEFT BRONCHUS OR LUNG SNOMED Code(s): 032983988 Plan: Small cell lung cancer, limited stage disease -Patient unable to tolerate staging PET scan. -Dr. Castañeda and the patient had a conversation about moving forward with treatment because of patient's symptoms. Without the staging PET scan she is aware of the limitations on treatment decision making. -Nuclear medicine bone scan was done. Reviewed the results with pt, no evidence of bony lesions. MRI of the brain previously was negative. -1st cycle of chemo to start today. Resp symptoms are progressive -Consult Rad Onc for definitive treatment and add XRT with cycle 2 SOB, orthopnea -2/2 SCLC -Progressive -Case previously discussed with pulmonary medicine, Dr. Licona. He has been concerned about aggressive volume loss in the lung due to the tumor. -Pt has not shown much improvements -Plan is to start chemo inpt. This was discussed with pt and she is agreeable. We did discuss common side effects and self care. All questions answered to her satisfaction at this time. Medications for treatment of gas and constipation ordered. Will reevaluate tomorrow.
[2024-03-10] MEDS: METOCLOPRAMIDE 5 MG TAB PO SCH (12:20)
[2024-03-10] MEDS: GLYCERIN ADULT SUPPOSITORY 1 EACH RECTAL STA (12:21)
[2024-03-10] MEDS: SODIUM CHLORIDE 0.9% 1,000 ML IV SCH (12:21)
[2024-03-10] MEDS: ALPRAZolam 0.25 MG TAB PO PRN (13:35)
[2024-03-10] MEDS: FAMOTIDINE 20 MG/2 ML VIAL IV SCH (13:36)
[2024-03-10] MEDS: DEXAMETHASONE SOD PHOSPHATE 10 MG/ML 1 ML VIAL IV SCH (13:36)
[2024-03-10] MEDS: ONDANSETRON 16 MG in SODIUM CHLORIDE 0.9% 50 ML IVPB SCH (13:36)
[2024-03-10] MEDS: CARBOPLATIN IV ONE (14:04)
[2024-03-10] MEDS: SODIUM CHLORIDE 0.9% IV ONE (14:04)
[2024-03-10] MEDS: ETOPOSIDE 180 MG in SODIUM CHLORIDE 0.9% 500 ML 500 ML IV SCH (15:43)
--- NOTE | 2024-03-10 18:42 | P.PN ---
Subjective Progress Note Date: 03/10/24 78-year-old female with a recent diagnosis of small cell lung cancer. The patient had a biopsy in mid February, by my partner, and was discovered to have small cell lung cancer. She has thoracic and mediastinal adenopathy, as well as a large mass in the left upper lobe. The patient has not started chemotherapy as yet. The patient apparently was sent for a PET scan. She apparently had a reaction to the dye given at the time of the PET scan, and developed chills, and fever, and generally just not feeling well. For that reason she came into the emergency room to be evaluated. She was seen there and admitted to the hospital. We are seeing her today, and 523. She is currently on 4 L of oxygen. No IV fluids. Currently, she is feeling back to baseline. Her white count is 8.9, hemoglobin 10.1, hematocrit 32.1, and a platelet count of 348,000. Coagulation studies were normal. Electrolyte profile was essentially normal. Glucose was 146. Albumin 3.3. She was tested for influenza, RSV and coronavirus, and tested negative. Chest x-ray shows a left upper lobe lung mass, with Mediastinal Adenopathy. Brain MRI, was negative for intracranial metastasis. The patient is seen today March 08, 2024 in follow-up on the regular medical floor. She is currently sitting up in the bedside. Awake and alert in no acute distress. Maintaining O2 saturations in the 90s on 4 L/min per nasal cannula. She denies any worsening shortness of breath, cough or congestion. She did have an episode of dizziness last evening. She has been seen by medical oncology. Bone scan is pending. May initiate chemotherapy while here. 03/09/2024, the patient is experiencing shortness of breath and the patient is unable to lay down flat because of increased dyspnea. As mentioned, the patient has small cell lung cancer likely extensive stage. Unable to complete the PET scan because of shortness of breath and unable to lay down flat. The patient panic and she also experienced some nausea and dizziness and she was unable to complete the study. Discussed the case with medical oncology. The patient will be starting a systemic chemotherapy during her hospital stay. No hemoptysis. No pleurisy. Labs from the time of admission was noted. 03/10/2024, no complaints and the patient was started onPrimary chemotherapyThe patient is receivingCarboplatin and COUNTER SERVER-16.She is resting comfortably in bed. No significant complaints otherwise for now.Hemoglobin is 14.7 with a white cell count of 10.610.6 with a hemoglobin of 14.7.Electrolytes are stable. The patient has no specific complaints.Remains on oxygenAnd she is currently on4 L with a pulse ox of 92%. Objective - Vital Signs Vital signs: Vital Signs Temp 98.4 F 03/10/24 07:32 Pulse 92 03/10/24 11:17 Resp 20 03/10/24 07:32 BP 137/75 03/10/24 07:32 Pulse Ox 90 L 03/10/24 07:49 FiO2 Intake & Output 03/09/24 03/10/24 03/10/24 18:59 06:59 18:59 Other: Voiding Method Toilet # Voids 1 1 - Exam GENERAL EXAM: Alert, pleasant 78-year-old female, on 4 L nasal cannula, fairly comfortable in no apparent distress. HEAD: Normocephalic. EYES: Normal reaction of pupils, equal size. NOSE: Clear with pink turbinates. THROAT: No erythema or exudates. NECK: No masses, no JVD. CHEST: No chest wall deformity. LUNGS: Equal air entry with few scattered rhonchi. CVS: S1 and S2 normal with no audible murmur, regular rhythm. ABDOMEN: No hepatosplenomegaly, normal bowel sounds, no guarding or rigidity. SPINE: No scoliosis or deformity SKIN: No rashes CENTRAL NERVOUS SYSTEM: No focal deficits, tone is normal in all 4 extremities. EXTREMITIES: There is no peripheral edema. No clubbing, no cyanosis. Anabelle pheral pulses are intact. - Labs CBC & Chem 7: 03/10/24 06:49 03/10/24 06:49 Labs: Abnormal Lab Results - Last 24 Hours (Table) 03/10/24 03/10/24 Range/Units 06:49 06:49 WBC 14.7 H (3.8-10.6) k/uL Hgb 10.6 L (11.4-16.0) gm/dL MCHC 29.9 L (31.0-37.0) g/dL RDW 15.7 H (11.5-15.5) % Neutrophils # 12.7 H (1.3-7.7) k/uL Lymphocytes # 0.7 L (1.0-4.8) k/uL Carbon Dioxide 35 H (22-30) mmol/L Glucose 122 H (74-99) mg/dL Total Protein 6.0 L (6.3-8.2) g/dL Albumin 3.4 L (3.5-5.0) g/dL Assessment and Plan Plan: small cell lung cancer likely extensive stage with bulky disease involving the mediastinum and a large left upper lobe mass. Awaiting systemic chemotherapy. Unable to complete the PET scan because of increased shortness of breath and inability to lay down flat. Bone scan is negative for skeletal metastases. The patient was started on systemic chemotherapy with carboplatinum and 2016. Left upper lobe mass. History of hypertension. History of hyperlipidemia. History of CVA/TIA. History of gastroesophageal reflux disease. Previous history of tobacco use. Plan: Currently on 4 L nasal cannula Bone scan is negative Systemic chemotherapy has been started. Monitor hematologic profile Respiratory status is stable We will continue to follow
[2024-03-11] MEDS: FUROSEMIDE 10 MG/ML 4 ML VIAL IV STA (05:43)
--- NOTE | 2024-03-11 06:28 | PN ---
PROGRESS NOTE DATE OF SERVICE: 03/10/2024 CHIEF COMPLAINT: Chest pain and shortness of breath. HISTORY OF PRESENT ILLNESS: This lady is doing fairly well, but she is complaining of constipation. She is also quite anxious. PHYSICAL EXAMINATION: Breath sounds are diminished on the left side. Cardiac exam is normal. Abdomen is soft, nontender. IMPRESSION: 1. Small cell carcinoma of the left lung. 2. Constipation. 3. Gastroesophageal reflux disease. 4. Anxiety. PLAN: 1. Start her on senna and MiraLAX. 2. Start p.r.n. She is waiting for her chemotherapy to be started. MMODL / IJN: [id number] /
--- NOTE | 2024-03-11 07:34 | XR ---
EXAM: XR Chest, 1 View CLINICAL HISTORY: Shortness of breath TECHNIQUE: Frontal view of the chest. COMPARISON: 03/06/24 FINDINGS: Lungs: Left upper lung mass again seen, not significant changed in appearance when compared to the prior exam. There is increased atelectasis or consolidation in both lower lobes. Mildly prominent interstitial markings may be associated with mild pulmonary edema as well. Pleural space: No evidence of pneumothorax. There are small bilateral pleural effusions, right greater than left. Heart: Stable cardiac silhouette. Mediastinum: No mediastinal shift. Bones/joints: No acute osseous abnormality. IMPRESSION: Increased atelectasis or consolidation in both lung bases, with possible underlying bilateral lower lobe pneumonia. Bilateral pleural effusions, right greater than left. Questionable mild pulmonary edema. Again seen is a left upper lobe lung mass, grossly unchanged. .
[2024-03-11 08:46] LABS: AST 52 U/L (14-36); African American GFR (CKD) >90 (>60 ml/min/1.73 sqM); Albumin 3.5 g/dL (3.5-5.0); Albumin/Globulin Ratio 1.3; Blood Urea Nitrogen 20 mg/dL (7-17); Carbon Dioxide 34 mmol/L (22-30); Globulin 2.6 g/dL; Glucose 108 mg/dL (74-99); Non-African American GFR(CKD) 86 (>60 ml/min/1.73 sqM); Total Bilirubin 0.5 mg/dL (0.2-1.3); Total Protein 6.1 g/dL (6.3-8.2)
[2024-03-11 08:47] LABS: Basophils % (A) 0 %; Eosinophils % (A) 0 %; HCT 31.9 % (34.0-46.0); HGB 10.1 gm/dL (11.4-16.0); Hypochromasia Marked; Lymphocytes # (A) 0.4 k/uL (1.0-4.8); Lymphocytes % (A) 3 %; MCH 28.7 pg (25.0-35.0); MCHC 31.6 g/dL (31.0-37.0); MCV 90.8 fL (80.0-100.0); Monocytes # (A) 0.9 k/uL (0-1.0); Monocytes % (A) 5 %; Neutrophils # (A) 14.8 k/uL (1.3-7.7); Neutrophils % (A) 90 %; Platelet Count 365 k/uL (150-450); RBC 3.52 m/uL (3.80-5.40); RDW 15.9 % (11.5-15.5); WBC 16.4 k/uL (3.8-10.6)
[2024-03-11 08:49] LABS: ALT 37 U/L (4-34); Alkaline Phosphatase 119 U/L (38-126); Anion Gap 5 mmol/L; Calcium 8.8 mg/dL (8.4-10.2); Chloride 100 mmol/L (98-107); Potassium 4.5 mmol/L (3.5-5.1); Sodium 139 mmol/L (137-145)
--- NOTE | 2024-03-11 15:03 | PN ---
PROGRESS NOTE DATE OF SERVICE: 03/11/2024 SUBJECTIVE: This is a 78-year-old woman, who was admitted after a small cell lung cancer with the left upper lobe lesion, also complaining of shortness of breath. No chest pain. No palpitation. Chest x-ray was reviewed, showed bilateral pleural effusion and increased atelectasis and consolidation of the right lung base. PAST MEDICAL HISTORY: Reviewed. REVIEW OF SYSTEMS: A 14-point review is negative except as mentioned earlier. CURRENT MEDICATIONS: Reviewed include DuoNeb. Rest of medications noted. PHYSICAL EXAMINATION: VITAL SIGNS: Pulse is 78, blood pressure 160/84, respirations 18. CHEST: Bilateral scattered rhonchi and expiratory wheezing. ABDOMEN: Soft. NERVOUS SYSTEM: Nonfocal. LABORATORY DATA: WBC 16.4. ASSESSMENT: 1. Small-cell lung cancer with the left upper lobe lesion. 2. Chronic obstructive pulmonary disease acute exacerbation. 3. Elevated WBC. 4. On chemotherapy. 5. Hypertension. 6. Hyperlipidemia. 7. History of stroke. 8. Multiple complex medical issues. RECOMMENDATIONS AND DISCUSSION: This 78-year-old woman presented with multiple complex medical issues. At this time, I recommend to continue with intensive bronchodilators, steroids, and chemotherapy per Oncology. Closely follow. I would recommend repeat labs and further recommendations to follow. See orders for details. COVID-19 is negative. MMODL / IJN: [id number] /
[2024-03-11] MEDS: IPRATROPIUM-ALBUTEROL 3 ML NEB INHALATION SCH (15:59)
--- NOTE | 2024-03-11 16:29 | P.CONS ---
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 She was hospitalized after having difficulty lying flat for her PET/CT. The patient was initially hospitalized on 02/19/2024. At the time, she was concerned about having a bronchitis. However, chest x-ray was suspicious for underlying mass. A CTA of the chest performed on February 18 revealed a 5.8 x 5.1 cm left upper lobe mass with confluence mediastinal adenopathy including the bilateral hilum, subcarinal, AP window and superior mediastinum. CT of the abdomen and pelvis was read as unremarkable. CT of the neck similarly. On February 20, the patient underwent bronchoscopy with EBUS. This did reveal extrinsic compression along the bilateral mainstem bronchi from the patient's adenopathy. No airway disease was appreciated. However, there was at least 50% compression of the bilateral mainstem bronchi. EBUS showed bulky mediastinal disease, and biopsy was consistent with small cell lung cancer. The patient underwent an MRI of the brain on February 20 was also unremarkable. The patient was discharged for outpatient workup. Unfortunately, the patient was unable to undergo her PET/CT on March 06. She had become increasingly dyspneic and was unable to lie flat. She re-presented to the hospital, and is currently requiring 6 L of oxygen. She reports still feeling dyspneic and tired. She was started on Cis/VP16 yesterday and will finish the 3 day cycle on March 12. Of note, the patient also had a bone scan on March 09 which was unremarkable. Review of Systems Constitutional: Denies chills, Denies fever Eyes: denies decreased vision Ears, nose, mouth and throat: Denies headache Cardiovascular: Reports dyspnea on exertion, Reports edema Respiratory: Reports as per HPI Gastrointestinal: Reports bloating, Reports dyspepsia Genitourinary: Denies flank pain Musculoskeletal: Denies fractures Integumentary: Denies rash Neurological: Denies aphasia, Denies confusion Psychiatric: Denies anxiety 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, ovarian cysts History of Any Multi-Drug Resistant Organisms: None Reported Past Surgical History: Appendectomy, Tonsillectomy, Tubal Ligation Additional Past Surgical History / Comment(s): cataracts, carpal tunnel, laser eye surgery, metal coil for brain aneurysm, lung cancer Past Anesthesia/Blood Transfusion Reactions: Postoperative Nausea & Vomiting (PONV) Past Psychological History: No Psychological Hx Reported Smoking Status: Former smoker Past Alcohol Use History: None Reported Past Drug Use History: None Reported Medications and Allergies Home Medications Medication Instructions Recorded Confirmed Type Aspirin EC [Ecotrin Low Dose] 81 mg PO DAILY 02/19/24 03/07/24 History Benzonatate [Tessalon Perle] 200 mg PO BID PRN 02/19/24 03/07/24 History Gabapentin 300 mg PO TID 02/19/24 03/07/24 History Losartan Potassium 100 mg PO DAILY 02/19/24 03/07/24 History Metoprolol Tartrate [Lopressor] 50 mg PO BID 02/19/24 03/07/24 History Pantoprazole Sodium [Protonix] 20 mg PO DAILY 02/19/24 03/07/24 History Triamcinolone 0.025% Cream 1 applic TOPICAL BID PRN 02/19/24 03/07/24 History [Kenalog 0.025% Cream] cloNIDine HCL [Catapres] 0.1 mg PO HS #30 tab 02/24/24 03/07/24 Rx Metoclopramide [Reglan] 5 mg PO ACHS #90 tab 03/11/24 Rx Allergies Allergy/AdvReac Type Severity Reaction Status Date / Time bisoprolol [From Ziac] Allergy Unknown Verified 03/07/24 09:22 erythromycin base Allergy Rash/Hives Verified 03/07/24 09:22 [From Erythrocin] hydrochlorothiazide Allergy Unknown Verified 03/07/24 09:22 [From Ziac] iodine Allergy Confusion Verified 03/07/24 09:22 propoxyphene Allergy Dyspnea Verified 03/07/24 09:22 [From Darvocet-N] acetaminophen [From Lortab] AdvReac Itching Verified 03/07/24 09:22 aloe vera AdvReac Itching Verified 03/07/24 09:22 atorvastatin [From Lipitor] AdvReac Unknown Verified 03/07/24 09:22 hydrocodone [From Lortab] AdvReac Itching Verified 03/07/24 09:22 levofloxacin [From Levaquin] AdvReac Itching Verified 03/07/24 09:22 polyethylene glycol 3350 AdvReac Hallucinati Verified 03/07/24 09:22 [From Miralax] ons rofecoxib [From Vioxx] AdvReac Nausea & Verified 03/07/24 09:22 Vomiting Physical Exam Vitals: Vital Signs Temp Pulse Pulse Resp BP BP Pulse Ox 03/11/24 15:51 98.1 F 84 18 141/79 93 L 03/11/24 15:27 84 03/11/24 15:17 88 03/11/24 14:11 97.6 F 85 17 138/78 94 L 03/11/24 11:20 82 03/11/24 11:11 86 03/11/24 08:40 78 18 03/11/24 08:00 98.4 F 78 18 165/84 91 L 03/11/24 07:40 92 03/11/24 07:35 80 98 03/11/24 07:28 96.4 F L 81 16 169/80 98 03/11/24 04:00 98.1 F 81 16 131/70 92 L 03/11/24 00:47 98.1 F 84 16 137/67 91 L 03/10/24 20:00 98.3 F 106 H 18 170/72 90 L 03/10/24 19:57 87 03/10/24 19:46 87 03/10/24 16:39 86 03/10/24 16:27 90 Intake and Output 03/11/24 03/11/24 03/11/24 06:59 14:59 22:59 Other: Voiding Method Toilet # Voids 3 Weight 28.5 kg - Constitutional General appearance: no acute distress - EENT Eyes: EOMI, PERRLA ENT: hearing grossly normal - Neck Neck: no lymphadenopathy - Respiratory Respiratory: right: diminished, left: CTA - Cardiovascular Rhythm: regular - Gastrointestinal General gastrointestinal: no distended, no tenderness - Integumentary Integumentary: no cyanotic - Neurologic Neurologic: CNII-XII intact - Psychiatric Psychiatric: A&O x's 3, appropriate affect Results CBC & Chem 7: 03/11/24 08:07 03/11/24 08:07 Labs: Abnormal Lab Results - Last 24 Hours (Table) 03/11/24 03/11/24 Range/Units 08:07 08:07 WBC 16.4 H (3.8-10.6) k/uL RBC 3.52 L (3.80-5.40) m/uL Hgb 10.1 L (11.4-16.0) gm/dL Hct 31.9 L (34.0-46.0) % RDW 15.9 H (11.5-15.5) % Neutrophils # 14.8 H (1.3-7.7) k/uL Lymphocytes # 0.4 L (1.0-4.8) k/uL Carbon Dioxide 34 H (22-30) mmol/L BUN 20 H (7-17) mg/dL Glucose 108 H (74-99) mg/dL AST 52 H (14-36) U/L ALT 37 H (4-34) U/L Total Protein 6.1 L (6.3-8.2) g/dL CT scan - abdomen: report reviewed, image reviewed CT scan - chest: report reviewed, image reviewed CT scan - pelvis: report reviewed, image reviewed MRI - head: report reviewed, image reviewed Assessment and Plan Assessment: The patient is a 78-year-old female with a history of a 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 She was hospitalized after having difficulty lying flat for her PET/CT. Plan: 1. New diagnosis of small-cell lung cancer: As detailed above, the patient was undergoing workup for her diagnosis but unfortunately was unable to complete her PET/CT. She has since initiated chemotherapy secondary to her worsening dyspnea. I have reviewed the patient's imaging. Although her radiology reports do not show clear evidence of metastatic disease, I had her CT of the pelvis reviewed with Dr. Barajas. She does appear to have a suspicious area involving the right sacrum. This did not seem to have abnormal activity on the bone scan. I would consider IR biopsy of this if possible, may consider MRI if radiology thinks this would be helpful. However, the lesion appeared fairly suspicious on PET CT. If positive, this would make her disease extensive stage. I discussed with the patient that there was no role for radiotherapy in her care at this time. We will await to see if she improved symptomatically from chemo. If she is not found to have elsewhere disease, we could consider initiating radiotherapy with her second cycle of chemotherapy. At this time, the patient is unable to lie flat and would struggle even with palliative radiation. 2. Dyspnea: Secondary to the above - mass effect on the airways from adenopathy. We are hoping the patient will have a robust chemotherapy response and hopefully improved breathing. Time with Patient: Greater than 30
[2024-03-11] MEDS: HEPARIN SODIUM,PORCINE 5,000 UNIT/ML 1 ML VIAL SQ SCH (16:42)
--- NOTE | 2024-03-11 17:16 | P.PN ---
Subjective Progress Note Date: 03/11/24 Principal diagnosis: SCLC, limited stage disease In follow-up today patient is sitting up at the bedside. Nursing reports that patient was combative and confused this morning. About 11:00 when I saw patient she was pleasant, she knew that she was getting chemo for cancer, she did not have any terrible side effects to report, she even reported that she might be breathing a little bit easier. She still has gas and early satiety with oral intake, after starting Reglan she thinks this might be a little bit better. Patient also ended up having a bowel movement yesterday. She remains moderate to severely orthopneic. She requires the head of bed to be in high Fowlers pos ition to sleep. She feels strangulated, SOB if the head of bed is not >45 degrees. Objective - Vital Signs Vital signs: Vital Signs Temp 98.1 F 03/11/24 15:51 Pulse 84 03/11/24 15:51 Resp 18 03/11/24 15:51 BP 141/79 03/11/24 15:51 Pulse Ox 93 L 03/11/24 15:51 FiO2 Intake & Output 03/10/24 03/11/24 03/11/24 18:59 06:59 18:59 Weight 71.214 kg 28.5 kg Other: Voiding Method Toilet # Voids 1 3 # Bowel Movements 1 - Constitutional General appearance: Present: average body habitus, cooperative, mild distress - EENT Eyes: Present: anicteric sclerae, EOMI ENT: Present: hearing grossly normal - Respiratory Respiratory: bilateral: other (Harsh air entry throughout consistent with COPD) - Cardiovascular Rhythm: regular Heart sounds: normal: S1, S2 Abnormal Heart Sounds: Absent: systolic murmur, diastolic murmur, rub, S3 Gallop, S4 Gallop, click, other - Peripheral edema leg Peripheral Edema: bilateral: 1+, Pitting - Gastrointestinal General gastrointestinal: Present: normal bowel sounds, soft - Neurologic Neurologic: Present: CNII-XII intact - Musculoskeletal Musculoskeletal: Present: generalized weakness, strength equal bilaterally - Psychiatric Psychiatric: Present: A&O x's 3, appropriate affect, intact judgment & insight - Labs CBC & Chem 7: 03/11/24 08:07 03/11/24 08:07 Labs: Abnormal Lab Results - Last 24 Hours (Table) 03/11/24 03/11/24 Range/Units 08:07 08:07 WBC 16.4 H (3.8-10.6) k/uL RBC 3.52 L (3.80-5.40) m/uL Hgb 10.1 L (11.4-16.0) gm/dL Hct 31.9 L (34.0-46.0) % RDW 15.9 H (11.5-15.5) % Neutrophils # 14.8 H (1.3-7.7) k/uL Lymphocytes # 0.4 L (1.0-4.8) k/uL Carbon Dioxide 34 H (22-30) mmol/L BUN 20 H (7-17) mg/dL Glucose 108 H (74-99) mg/dL AST 52 H (14-36) U/L ALT 37 H (4-34) U/L Total Protein 6.1 L (6.3-8.2) g/dL - Imaging and Cardiology Chest x-ray: report reviewed Assessment and Plan (1) Dyspnea Current Visit: Yes Status: Acute Priority: High Code(s): R06.00 - DYSPNEA, UNSPECIFIED SNOMED Code(s): 127614072 (2) Small cell lung cancer, left upper lobe Current Visit: Yes Status: Acute Priority: High Code(s): C34.12 - MALIGNANT NEOPLASM OF UPPER LOBE, LEFT BRONCHUS OR LUNG SNOMED Code(s): 193906185 Plan: Small cell lung cancer, limited stage disease -Patient unable to tolerate staging PET scan. -Dr. Castañeda and the patient had a conversation about moving forward with treatment because of patient's symptoms. Without the staging PET scan she is aware of the limitations on treatment decision making. -Nuclear medicine bone scan was done. Reviewed the results with pt, no evidence of bony lesions. MRI of the brain previously was negative. Consulted Rad Onc for definitive treatment to add XRT with cycle 2Case discussed with Rad Onc. Concerns for a sacral lesion. He will see pt today and talk with her. May consider biopsy to confirm. Will await his assessment and recommendations -1st cycle of chemo, carbo/PHARMACOLOGY PROFESSOR, continues, day 2/3. SOB, orthopnea -2/2 SCLC -Stable at this time. Pt cannot sleep with head of bed lower then 45 degrees, if it is lower she becomes hypoxic, panicked and severely SOB. She has to sit at near 90 degree angle to sleep. She will need an adjustable bed to get any rest. Discussed with manager stylist -Case previously discussed with pulmonary medicine, Dr. Licona. He has been concerned about aggressive volume loss in the lung due to the tumor. -Pt has not shown much improvements, not progressive at this time Medications for treatment of gas helped some-reglan. Rx sent. She did not need meds for constipation as she had a BM on her own. Ordered compression socks for 1-2+ pedal edema, 2/2 large fluid volumes from chemo. Daily weights. May consider a dose of lasix if wt increases too much.
[2024-03-11] MEDS: FUROSEMIDE 10 MG/ML 4 ML VIAL IV SCH (17:28)
--- NOTE | 2024-03-11 18:57 | P.PN ---
Subjective Progress Note Date: 03/11/24 78-year-old female with a recent diagnosis of small cell lung cancer. The patient had a biopsy in mid February, by my partner, and was discovered to have small cell lung cancer. She has thoracic and mediastinal adenopathy, as well as a large mass in the left upper lobe. The patient has not started chemotherapy as yet. The patient apparently was sent for a PET scan. She apparently had a reaction to the dye given at the time of the PET scan, and developed chills, and fever, and generally just not feeling well. For that reason she came into the emergency room to be evaluated. She was seen there and admitted to the hospital. We are seeing her today, and 523. She is currently on 4 L of oxygen. No IV fluids. Currently, she is feeling back to baseline. Her white count is 8.9, hemoglobin 10.1, hematocrit 32.1, and a platelet count of 348,000. Coagulation studies were normal. Electrolyte profile was essentially normal. Glucose was 146. Albumin 3.3. She was tested for influenza, RSV and coronavirus, and tested negative. Chest x-ray shows a left upper lobe lung mass, with Mediastinal Adenopathy. Brain MRI, was negative for intracranial metastasis. The patient is seen today March 08, 2024 in follow-up on the regular medical floor. She is currently sitting up in the bedside. Awake and alert in no acute distress. Maintaining O2 saturations in the 90s on 4 L/min per nasal cannula. She denies any worsening shortness of breath, cough or congestion. She did have an episode of dizziness last evening. She has been seen by medical oncology. Bone scan is pending. May initiate chemotherapy while here. 03/09/2024, the patient is experiencing shortness of breath and the patient is unable to lay down flat because of increased dyspnea. As mentioned, the patient has small cell lung cancer likely extensive stage. Unable to complete the PET scan because of shortness of breath and unable to lay down flat. The patient panic and she also experienced some nausea and dizziness and she was unable to complete the study. Discussed the case with medical oncology. The patient will be starting a systemic chemotherapy during her hospital stay. No hemoptysis. No pleurisy. Labs from the time of admission was noted. 03/10/2024, no complaints and the patient was started onPrimary chemotherapyThe patient is receivingCarboplatin and CREDIT ANALYSIS MANAGER-16.She is resting comfortably in bed. No significant complaints otherwise for now.Hemoglobin is 14.7 with a white cell count of 10.610.6 with a hemoglobin of 14.7.Electrolytes are stable. The patient has no specific complaints.Remains on oxygenAnd she is currently on4 L with a pulse ox of 92%. On 03/11/2024, the patient is being seen for a follow-up. Continue to have difficulty in breathing and the patient is having difficulty laying down flat. Overnight, the patient became more short of breath. Chest x-ray was done which showed increased atelectatic changes in the lung bases and possibly a component of pulm vascular congestion/edema. There is also development of pleural effusion suspected bilaterally right more than left with mild pulmonary edema. Based on that, the patient was given Lasix and she has responded and she seems to be less short of breath. Suggest continuing the Lasix for now. Meanwhile, the patient is completing her systemic chemotherapy and the patient is currently on etoposide per protocol regarding her small cell lung cancer. No other new complaints otherwise for now. She is weak. Mental status is appropriate. The white cell count is 16.4 with a hemoglobin of 10.1 and a platelet count of 365. Electrolytes are stable with a BUN of 20 and a creatinine of 0.6. Currently she is on 40s of oxygen by nasal cannula. She is also on Decadron. She is to be Decadron IV 10 mg every 24 hours. Rest of the medications are essentially unchanged. Oncology is on the case. Objective - Vital Signs Vital signs: Vital Signs Temp 98.1 F 03/11/24 15:51 Pulse 84 03/11/24 15:51 Resp 18 03/11/24 15:51 BP 141/79 03/11/24 15:51 Pulse Ox 93 L 03/11/24 15:51 FiO2 Intake & Output 03/10/24 03/11/24 03/11/24 18:59 06:59 18:59 Weight 71.214 kg 28.5 kg Other: Voiding Method Toilet # Voids 1 3 # Bowel Movements 1 - Exam GENERAL EXAM: Alert, pleasant 78-year-old female, on 4 L nasal cannula, fairly comfortable in no apparent distress. HEAD: Normocephalic. EYES: Normal reaction of pupils, equal size. NOSE: Clear with pink turbinates. THROAT: No erythema or exudates. NECK: No masses, no JVD. CHEST: No chest wall deformity. LUNGS: Equal air entry with few scattered rhonchi. CVS: S1 and S2 normal with no audible murmur, regular rhythm. ABDOMEN: No hepatosplenomegaly, normal bowel sounds, no guarding or rigidity. SPINE: No scoliosis or deformity SKIN: No rashes CENTRAL NERVOUS SYSTEM: No focal deficits, tone is normal in all 4 extremities. EXTREMITIES: There is no peripheral edema. No clubbing, no cyanosis. Peripheral pulses are intact. - Labs CBC & Chem 7: 03/11/24 08:07 03/11/24 08:07 Labs: Abnormal Lab Results - Last 24 Hours (Table) 03/11/24 03/11/24 Range/Units 08:07 08:07 WBC 16.4 H (3.8-10.6) k/uL RBC 3.52 L (3.80-5.40) m/uL Hgb 10.1 L (11.4-16.0) gm/dL Hct 31.9 L (34.0-46.0) % RDW 15.9 H (11.5-15.5) % Neutrophils # 14.8 H (1.3-7.7) k/uL Lymphocytes # 0.4 L (1.0-4.8) k/uL Carbon Dioxide 34 H (22-30) mmol/L BUN 20 H (7-17) mg/dL Glucose 108 H (74-99) mg/dL AST 52 H (14-36) U/L ALT 37 H (4-34) U/L Total Protein 6.1 L (6.3-8.2) g/dL Assessment and Plan Plan: small cell lung cancer likely extensive stage with bulky disease involving the mediastinum and a large left upper lobe mass. Awaiting systemic chemotherapy. Unable to complete the PET scan because of increased shortness of breath and inability to lay down flat. Bone scan is negative for skeletal metastases. The patient was started on systemic chemotherapy with carboplatinum and etoposide and the patient is completing her treatment course. Acute on chronic hypoxic respiratory failure, chronic, related to her extensive small cell lung cancer the patient has bulky disease and atelectatic changes and may have a component of pulmonary edema and the patient was started on diuretics with adequate response Lower extremity edema History of hypertension. History of hyperlipidemia. History of CVA/TIA. History of gastroesophageal reflux disease. Previous history of tobacco use. Plan: Currently on 4 L nasal cannula Bone scan is negative Systemic chemotherapy has been started. Continue the course of systemic chemotherapy and the patient is currently on carboplatin and etoposide Give the patient additional dose of Lasix 40 mg IV every 12 hours x 2 more doses. Monitor hematologic profile Respiratory status is stable We will continue to follow
[2024-03-12 10:06] LABS: ALT 33 U/L (8-44); AST 28 U/L (13-35); Albumin 3.5 g/dL (3.8-4.9); Alkaline Phosphatase 111 U/L (41-126); BUN/Creat Ratio 30.78 Ratio (12.00-20.00); Blood Urea Nitrogen 27.7 mg/dL (9.0-27.0); Calcium 8.9 mg/dL (8.7-10.3); Carbon Dioxide 34.6 mmol/L (21.6-31.8); Chloride 96 mmol/L (96-109); Globulin 2.5 g/dL (1.6-3.3); Glucose 110 mg/dL (70-110); Potassium 4.8 mmol/L (3.5-5.5); Sodium 142 mmol/L (135-145); Total Bilirubin 0.2 mg/dL (0.3-1.2)
[2024-03-12 11:05] LABS: Basophils # (A) 0.01 X 10*3/uL (0.00-0.10); Basophils % (A) 0.1 %; Eosinophils # (A) 0.01 X 10*3/uL (0.04-0.35); Eosinophils % (A) 0.1 %; HCT 32.8 % (37.2-46.3); HGB 9.8 g/dL (12.0-15.0); Lymphocytes # (A) 0.59 X 10*3/uL (0.90-5.00); Lymphocytes % (A) 4.5 %; MCH 27.5 pg (27.0-32.0); MCHC 29.9 g/dL (32.0-37.0); MCV 91.9 FL (80.0-97.0); Mean Platelet Volume 10.2 FL (9.5-12.2); Monocytes # (A) 0.39 X 10*3/uL (0.20-1.00); NRBC Per 100 WBC 0 X 10*3/uL (0.00-0.01); Neutrophils # (A) 11.94 X 10*3/uL (1.80-7.70); Neutrophils % (A) 91.8 %; Platelet Count 438 X 10*3/uL (140-440); RBC 3.57 X 10*6/uL (4.10-5.20); RDW 16.1 % (11.5-14.5)
[2024-03-12] MEDS: PANTOPRAZOLE 40 MG/10 ML VIAL IVP SCH (13:24)
--- NOTE | 2024-03-12 17:28 | PN ---
PROGRESS NOTE DATE OF SERVICE: 03/12/2024 SUBJECTIVE: This is a 78-year-old woman, who was admitted with small cell lung cancer, is on chemotherapy. The patient has some vomiting. No chest pain. No palpitation. PHYSICAL EXAMINATION: VITAL SIGNS: Pulse 87 and blood pressure 112/70. RESPIRATION: Few scattered rhonchi and rales. ABDOMEN: Soft. NERVOUS SYSTEM: Nonfocal. LABORATORY DATA: WBC 13. The rest of the labs are noted. ASSESSMENT: 1. Small cell lung cancer with left upper lobe lesion. 2. Vomiting, possible acute gastritis. 3. Chronic obstructive pulmonary disease acute exacerbation. 4. Elevated WBC. 5. On chemotherapy. 6. Hypertension. 7. Hyperlipidemia. 8. Multiple medical issues. RECOMMENDATIONS: I recommend to continue current medical management and symptomatic treatment. Continue with etoposide per Hematology/Oncology. Guarded prognosis. Further recommendations to follow. [id number] / AN: [id number] /
--- NOTE | 2024-03-12 17:36 | P.PN ---
Subjective Progress Note Date: 03/12/24 78-year-old female with a recent diagnosis of small cell lung cancer. The patient had a biopsy in mid February, by my partner, and was discovered to have small cell lung cancer. She has thoracic and mediastinal adenopathy, as well as a large mass in the left upper lobe. The patient has not started chemotherapy as yet. The patient apparently was sent for a PET scan. She apparently had a reaction to the dye given at the time of the PET scan, and developed chills, and fever, and generally just not feeling well. For that reason she came into the emergency room to be evaluated. She was seen there and admitted to the hospital. We are seeing her today, and 523. She is currently on 4 L of oxygen. No IV fluids. Currently, she is feeling back to baseline. Her white count is 8.9, hemoglobin 10.1, hematocrit 32.1, and a platelet count of 348,000. Coagulation studies were normal. Electrolyte profile was essentially normal. Glucose was 146. Albumin 3.3. She was tested for influenza, RSV and coronavirus, and tested negative. Chest x-ray shows a left upper lobe lung mass, with Mediastinal Adenopathy. Brain MRI, was negative for intracranial metastasis. The patient is seen today March 08, 2024 in follow-up on the regular medical floor. She is currently sitting up in the bedside. Awake and alert in no acute distress. Maintaining O2 saturations in the 90s on 4 L/min per nasal cannula. She denies any worsening shortness of breath, cough or congestion. She did have an episode of dizziness last evening. She has been seen by medical oncology. Bone scan is pending. May initiate chemotherapy while here. 03/09/2024, the patient is experiencing shortness of breath and the patient is unable to lay down flat because of increased dyspnea. As mentioned, the patient has small cell lung cancer likely extensive stage. Unable to complete the PET scan because of shortness of breath and unable to lay down flat. The patient panic and she also experienced some nausea and dizziness and she was unable to complete the study. Discussed the case with medical oncology. The patient will be starting a systemic chemotherapy during her hospital stay. No hemoptysis. No pleurisy. Labs from the time of admission was noted. 03/10/2024, no complaints and the patient was started onPrimary chemotherapyThe patient is receivingCarboplatin and READING RECOVERY TEACHER-16.She is resting comfortably in bed. No significant complaints otherwise for now.Hemoglobin is 14.7 with a white cell count of 10.610.6 with a hemoglobin of 14.7.Electrolytes are stable. The patient has no specific complaints.Remains on oxygenAnd she is currently on4 L with a pulse ox of 92%. On 03/11/2024, the patient is being seen for a follow-up. Continue to have difficulty in breathing and the patient is having difficulty laying down flat. Overnight, the patient became more short of breath. Chest x-ray was done which showed increased atelectatic changes in the lung bases and possibly a component of pulm vascular congestion/edema. There is also development of pleural effusion suspected bilaterally right more than left with mild pulmonary edema. Based on that, the patient was given Lasix and she has responded and she seems to be less short of breath. Suggest continuing the Lasix for now. Meanwhile, the patient is completing her systemic chemotherapy and the patient is currently on etoposide per protocol regarding her small cell lung cancer. No other new complaints otherwise for now. She is weak. Mental status is appropriate. The white cell count is 16.4 with a hemoglobin of 10.1 and a platelet count of 365. Electrolytes are stable with a BUN of 20 and a creatinine of 0.6. Currently she is on 40s of oxygen by nasal cannula. She is also on Decadron. She is to be Decadron IV 10 mg every 24 hours. Rest of the medications are essentially unchanged. Oncology is on the case. On 03/12/2024, no new complaints and the patient is completing her etoposide regimen for small cell lung cancer. Remains on oxygen at 4 L/min nasal cannula. No new complaints for now. White cell count is at 13 with a hemoglobin 9.8 and a platelet count of 438. BUN is 27 with a creatinine of 0.9 and sodium is at 142. No altered mentation. Medications remain unchanged. She is diuresing well with IV Lasix and the patient is still having edema lower extremities bilaterally. Objective - Vital Signs Vital signs: Vital Signs Temp 97.7 F 03/12/24 16:06 Pulse 99 03/12/24 16:06 Resp 20 03/12/24 16:06 BP 108/61 03/12/24 16:06 Pulse Ox 93 L 03/12/24 16:06 FiO2 Intake & Output 03/11/24 03/12/24 03/12/24 18:59 06:59 18:59 Weight 73.6 kg 71.8 kg Other: Voiding Method Toilet Bedside Commode Bedside Commode # Voids 1 3 1 - Exam GENERAL EXAM: Alert, pleasant 78-year-old female, on 4 L nasal cannula, fairly comfortable in no apparent distress. HEAD: Normocephalic. EYES: Normal reaction of pupils, equal size. NOSE: Clear with pink turbinates. THROAT: No erythema or exudates. NECK: No masses, no JVD. CHEST: No chest wall deformity. LUNGS: Equal air entry with few scattered rhonchi. CVS: S1 and S2 normal with no audible murmur, regular rhythm. ABDOMEN: No hepatosplenomegaly, normal bowel sounds, no guarding or rigidity. SPINE: No scoliosis or deformity SKIN: No rashes CENTRAL NERVOUS SYSTEM: No focal deficits, tone is normal in all 4 extremities. EXTREMITIES: There is no peripheral edema. No clubbing, no cyanosis. Peripheral pulses are intact. - Labs CBC & Chem 7: 03/12/24 06:35 03/12/24 06:35 Labs: Abnormal Lab Results - Last 24 Hours (Table) 03/12/24 03/12/24 Range/Units 06:35 06:35 WBC 13.00 H (4.50-10.00) X 10*3/uL RBC 3.57 L (4.10-5.20) X 10*6/uL Hgb 9.8 L (12.0-15.0) g/dL Hct 32.8 L (37.2-46.3) % MCHC 29.9 L (32.0-37.0) g/dL RDW 16.1 H (11.5-14.5) % Immature Gran # 0.06 H (0.00-0.04) X 10*3/uL Neutrophils # 11.94 H (1.80-7.70) X 10*3/uL Lymphocytes # 0.59 L (0.90-5.00) X 10*3/uL Eosinophils # 0.01 L (0.04-0.35) X 10*3/uL Carbon Dioxide 34.6 H (21.6-31.8) mmol/L BUN 27.7 H (9.0-27.0) mg/dL BUN/Creatinine Ratio 30.78 H (12.00-20.00) Ratio Total Bilirubin 0.2 L (0.3-1.2) mg/dL Total Protein 6.0 L (6.2-8.2) g/dL Albumin 3.5 L (3.8-4.9) g/dL Albumin/Globulin Ratio 1.40 L (1.60-3.17) Ratio Assessment and Plan Plan: small cell lung cancer likely extensive stage with bulky disease involving the mediastinum and a large left upper lobe mass. Awaiting systemic chemotherapy. Unable to complete the PET scan because of increased shortness of breath and inability to lay down flat. Bone scan is negative for skeletal metastases. The patient was started on systemic chemotherapy with carboplatinum and etoposide and the patient is completing her treatment course. Acute on chronic hypoxic respiratory failure, chronic, related to her extensive small cell lung cancer the patient has bulky disease and atelectatic changes and may have a component of pulmonary edema and the patient was started on diuretics with adequate response, currently diuresed with IV Lasix Lower extremity edema History of hypertension. History of hyperlipidemia. History of CVA/TIA. History of gastroesophageal reflux disease. Previous history of tobacco use. Plan: Condition is stable as the patient is completing her systemic chemotherapy Currently on 4 L nasal cannula Bone scan is negative Systemic chemotherapy has been started. Continue the course of systemic chemotherapy and the patient is currently on carboplatin and etoposide Will continue IV Lasix 20 mg every 12 hours Monitor hematologic profile Respiratory status is stable We will continue to follow
[2024-03-12] MEDS: FUROSEMIDE 10 MG/ML 2 ML VIAL IV SCH (20:59)
[2024-03-13 04:35] LABS: Basophils % (A) 0 %; Eosinophils # (A) 0.1 k/uL (0-0.7); Eosinophils % (A) 1 %; HCT 34.3 % (34.0-46.0); HGB 10.5 gm/dL (11.4-16.0); Hypochromasia Moderate; Lymphocytes # (A) 0.6 k/uL (1.0-4.8); Lymphocytes % (A) 7 %; MCH 27.4 pg (25.0-35.0); MCHC 30.5 g/dL (31.0-37.0); MCV 89.8 fL (80.0-100.0); Mean Platelet Volume 8.6; Monocytes # (A) 0.6 k/uL (0-1.0); Monocytes % (A) 6 %; Neutrophils # (A) 7.6 k/uL (1.3-7.7); Neutrophils % (A) 85 %; Platelet Count 418 k/uL (150-450); RBC 3.83 m/uL (3.80-5.40); RDW 15.8 % (11.5-15.5)
[2024-03-13 10:32] LABS: Blood Urea Nitrogen 27.6 mg/dL (9.0-27.0); Calcium 8.9 mg/dL (8.7-10.3); Carbon Dioxide 27.8 mmol/L (21.6-31.8); Chloride 92 mmol/L (96-109); Glucose 134 mg/dL (70-110); Potassium 4.5 mmol/L (3.5-5.5); Sodium 138 mmol/L (135-145)
--- NOTE | 2024-03-13 15:02 | P.PN ---
Subjective Progress Note Date: 03/13/24 78-year-old female with a recent diagnosis of small cell lung cancer. The patient had a biopsy in mid February, by my partner, and was discovered to have small cell lung cancer. She has thoracic and mediastinal adenopathy, as well as a large mass in the left upper lobe. The patient has not started chemotherapy as yet. The patient apparently was sent for a PET scan. She apparently had a reaction to the dye given at the time of the PET scan, and developed chills, and fever, and generally just not feeling well. For that reason she came into the emergency room to be evaluated. She was seen there and admitted to the hospital. We are seeing her today, and 523. She is currently on 4 L of oxygen. No IV fluids. Currently, she is feeling back to baseline. Her white count is 8.9, hemoglobin 10.1, hematocrit 32.1, and a platelet count of 348,000. Coagulation studies were normal. Electrolyte profile was essentially normal. Glucose was 146. Albumin 3.3. She was tested for influenza, RSV and coronavirus, and tested negative. Chest x-ray shows a left upper lobe lung mass, with Mediastinal Adenopathy. Brain MRI, was negative for intracranial metastasis. The patient is seen today March 08, 2024 in follow-up on the regular medical floor. She is currently sitting up in the bedside. Awake and alert in no acute distress. Maintaining O2 saturations in the 90s on 4 L/min per nasal cannula. She denies any worsening shortness of breath, cough or congestion. She did have an episode of dizziness last evening. She has been seen by medical oncology. Bone scan is pending. May initiate chemotherapy while here. 03/09/2024, the patient is experiencing shortness of breath and the patient is unable to lay down flat because of increased dyspnea. As mentioned, the patient has small cell lung cancer likely extensive stage. Unable to complete the PET scan because of shortness of breath and unable to lay down flat. The patient panic and she also experienced some nausea and dizziness and she was unable to complete the study. Discussed the case with medical oncology. The patient will be starting a systemic chemotherapy during her hospital stay. No hemoptysis. No pleurisy. Labs from the time of admission was noted. 03/10/2024, no complaints and the patient was started onPrimary chemotherapyThe patient is receivingCarboplatin and SMALL ENGINE TRAINER-16.She is resting comfortably in bed. No significant complaints otherwise for now.Hemoglobin is 14.7 with a white cell count of 10.610.6 with a hemoglobin of 14.7.Electrolytes are stable. The patient has no specific complaints.Remains on oxygenAnd she is currently on4 L with a pulse ox of 92%. On 03/11/2024, the patient is being seen for a follow-up. Continue to have difficulty in breathing and the patient is having difficulty laying down flat. Overnight, the patient became more short of breath. Chest x-ray was done which showed increased atelectatic changes in the lung bases and possibly a component of pulm vascular congestion/edema. There is also development of pleural effusion suspected bilaterally right more than left with mild pulmonary edema. Based on that, the patient was given Lasix and she has responded and she seems to be less short of breath. Suggest continuing the Lasix for now. Meanwhile, the patient is completing her systemic chemotherapy and the patient is currently on etoposide per protocol regarding her small cell lung cancer. No other new complaints otherwise for now. She is weak. Mental status is appropriate. The white cell count is 16.4 with a hemoglobin of 10.1 and a platelet count of 365. Electrolytes are stable with a BUN of 20 and a creatinine of 0.6. Currently she is on 40s of oxygen by nasal cannula. She is also on Decadron. She is to be Decadron IV 10 mg every 24 hours. Rest of the medications are essentially unchanged. Oncology is on the case. On 03/12/2024, no new complaints and the patient is completing her etoposide regimen for small cell lung cancer. Remains on oxygen at 4 L/min nasal cannula. No new complaints for now. White cell count is at 13 with a hemoglobin 9.8 and a platelet count of 438. BUN is 27 with a creatinine of 0.9 and sodium is at 142. No altered mentation. Medications remain unchanged. She is diuresing well with IV Lasix and the patient is still having edema lower extremities bilaterally. On 03/13/2024, the patient has completed his systemic chemotherapy. Overall respiratory status is unchanged. She continues to have difficulty with monica athing especially when she lays down flat. No facial swelling. No arm swelling. No feve. She remains on 4l oxygen nasal cannula and the patient remains on Lasix 20 mg IV every 12 hours. She is in a negative fluid balance as the patient is diuresing well and the lower extremity edema seems to be improving for now. The bone scan was negative for any bony metastases. Radiation oncology has also evaluated the patient and their input is appreciated. Objective - Vital Signs Vital signs: Vital Signs Temp 97.9 F 03/13/24 12:28 Pulse 83 03/13/24 12:28 Resp 18 03/13/24 12:28 BP 107/66 03/13/24 12:28 Pulse Ox 97 03/13/24 12:28 FiO2 Intake & Output 03/12/24 03/13/24 03/13/24 18:59 06:59 18:59 Weight 71.8 kg 71.7 kg Other: Voiding Method Bedside Commode Bedside Commode Bedside Commode # Voids 1 2 1 # Bowel Movements 1 - Exam GENERAL EXAM: Alert, pleasant 78-year-old female, on 4 L nasal cannula, fairly comfortable in no apparent distress. HEAD: Normocephalic. EYES: Normal reaction of pupils, equal size. NOSE: Clear with pink turbinates. THROAT: No erythema or exudates. NECK: No masses, no JVD. CHEST: No chest wall deformity. LUNGS: Equal air entry with few scattered rhonchi. CVS: S1 and S2 normal with no audible murmur, regular rhythm. ABDOMEN: No hepatosplenomegaly, normal bowel sounds, no guarding or rigidity. SPINE: No scoliosis or deformity SKIN: No rashes CENTRAL NERVOUS SYSTEM: No focal deficits, tone is normal in all 4 extremities. EXTREMITIES: There is no peripheral edema. No clubbing, no cyanosis. Periph eral pulses are intact. - Labs CBC & Chem 7: 03/13/24 04:00 03/13/24 04:10 Labs: Abnormal Lab Results - Last 24 Hours (Table) 03/13/24 03/13/24 Range/Units 04:00 04:10 Hgb 10.5 L (11.4-16.0) gm/dL MCHC 30.5 L (31.0-37.0) g/dL RDW 15.8 H (11.5-15.5) % Lymphocytes # 0.6 L (1.0-4.8) k/uL Chloride 92 L (96-109) mmol/L Anion Gap 18.20 H (4.00-12.00) mmol/L BUN 27.6 H (9.0-27.0) mg/dL Est GFR (CKD-EPI) 58 L (>=60) BUN/Creatinine Ratio 27.60 H (12.00-20.00) Ratio Glucose 134 H (70-110) mg/dL Assessment and Plan Plan: small cell lung cancer likely extensive stage with bulky disease involving the mediastinum and a large left upper lobe mass. Awaiting systemic chemotherapy. Unable to complete the PET scan because of increased shortness of breath and inability to lay down flat. Bone scan is negative for skeletal metastases. The patient completed systemic chemotherapy with carboplatinum and etoposide. Bone scan is negative. Acute on chronic hypoxic respiratory failure, chronic, related to her extensive small cell lung cancer the patient has bulky disease and atelectatic changes and may have a component of pulmonary edema and the patient was started on diuretics with adequate response, currently diuresed with IV Lasix, responding well to diuresis Lower extremity edema, improving History of hypertension. History of hyperlipidemia. History of CVA/TIA. History of gastroesophageal reflux disease. Previous history of tobacco use. Plan: Condition is stable Currently on 4 L nasal cannula Bone scan is negative Systemic chemotherapy carboplatin and etoposide, completed for another 24 hours Will continue IV Lasix 20 mg every 12 hours Monitor hematologic profile Respiratory status is stable We will continue to follow
[2024-03-14 11:22] LABS: Basophils % (A) 0 %; Eosinophils # (A) 0.1 k/uL (0-0.7); Eosinophils % (A) 1 %; HCT 34.9 % (34.0-46.0); HGB 10.6 gm/dL (11.4-16.0); Hypochromasia Moderate; Lymphocytes # (A) 0.6 k/uL (1.0-4.8); Lymphocytes % (A) 9 %; MCH 27.5 pg (25.0-35.0); MCHC 30.3 g/dL (31.0-37.0); MCV 90.9 fL (80.0-100.0); Monocytes # (A) 0.1 k/uL (0-1.0); Monocytes % (A) 1 %; Neutrophils # (A) 5.7 k/uL (1.3-7.7); Neutrophils % (A) 88 %; Platelet Count 450 k/uL (150-450); RBC 3.84 m/uL (3.80-5.40); RDW 15.9 % (11.5-15.5); WBC 6.5 k/uL (3.8-10.6)
[2024-03-14 11:33] LABS: African American GFR (CKD) 65 (>60 ml/min/1.73 sqM); Blood Urea Nitrogen 27 mg/dL (7-17); Calcium 8.2 mg/dL (8.4-10.2); Chloride 93 mmol/L (98-107); Glucose 112 mg/dL (74-99); Non-African American GFR(CKD) 56 (>60 ml/min/1.73 sqM); Potassium 3.8 mmol/L (3.5-5.1); Sodium 138 mmol/L (137-145)
[2024-03-14 11:39] LABS: Anion Gap 6 mmol/L
[2024-03-14 11:47] LABS: Carbon Dioxide 39 mmol/L (22-30)
--- NOTE | 2024-03-14 12:53 | P.PN ---
Subjective Progress Note Date: 03/14/24 78-year-old female with a recent diagnosis of small cell lung cancer. The patient had a biopsy in mid February, by my partner, and was discovered to have small cell lung cancer. She has thoracic and mediastinal adenopathy, as well as a large mass in the left upper lobe. The patient has not started chemotherapy as yet. The patient apparently was sent for a PET scan. She apparently had a reaction to the dye given at the time of the PET scan, and developed chills, and fever, and generally just not feeling well. For that reason she came into the emergency room to be evaluated. She was seen there and admitted to the hospital. We are seeing her today, and 523. She is currently on 4 L of oxygen. No IV fluids. Currently, she is feeling back to baseline. Her white count is 8.9, hemoglobin 10.1, hematocrit 32.1, and a platelet count of 348,000. Coagulation studies were normal. Electrolyte profile was essentially normal. Glucose was 146. Albumin 3.3. She was tested for influenza, RSV and coronavirus, and tested negative. Chest x-ray shows a left upper lobe lung mass, with Mediastinal Adenopathy. Brain MRI, was negative for intracranial metastasis. The patient is seen today March 08, 2024 in follow-up on the regular medical floor. She is currently sitting up in the bedside. Awake and alert in no acute distress. Maintaining O2 saturations in the 90s on 4 L/min per nasal cannula. She denies any worsening shortness of breath, cough or congestion. She did have an episode of dizziness last evening. She has been seen by medical oncology. Bone scan is pending. May initiate chemotherapy while here. 03/09/2024, the patient is experiencing shortness of breath and the patient is unable to lay down flat because of increased dyspnea. As mentioned, the patient has small cell lung cancer likely extensive stage. Unable to complete the PET scan because of shortness of breath and unable to lay down flat. The patient panic and she also experienced some nausea and dizziness and she was unable to complete the study. Discussed the case with medical oncology. The patient will be starting a systemic chemotherapy during her hospital stay. No hemoptysis. No pleurisy. Labs from the time of admission was noted. 03/10/2024, no complaints and the patient was started onPrimary chemotherapyThe patient is receivingCarboplatin and BACTERIOLOGIST FISHERY-16.She is resting comfortably in bed. No significant complaints otherwise for now.Hemoglobin is 14.7 with a white cell count of 10.610.6 with a hemoglobin of 14.7.Electrolytes are stable. The patient has no specific complaints.Remains on oxygenAnd she is currently on4 L with a pulse ox of 92%. On 03/11/2024, the patient is being seen for a follow-up. Continue to have difficulty in breathing and the patient is having difficulty laying down flat. Overnight, the patient became more short of breath. Chest x-ray was done which showed increased atelectatic changes in the lung bases and possibly a component of pulm vascular congestion/edema. There is also development of pleural effusion suspected bilaterally right more than left with mild pulmonary edema. Based on that, the patient was given Lasix and she has responded and she seems to be less short of breath. Suggest continuing the Lasix for now. Meanwhile, the patient is completing her systemic chemotherapy and the patient is currently on etoposide per protocol regarding her small cell lung cancer. No other new complaints otherwise for now. She is weak. Mental status is appropriate. The white cell count is 16.4 with a hemoglobin of 10.1 and a platelet count of 365. Electrolytes are stable with a BUN of 20 and a creatinine of 0.6. Currently she is on 40s of oxygen by nasal cannula. She is also on Decadron. She is to be Decadron IV 10 mg every 24 hours. Rest of the medications are essentially unchanged. Oncology is on the case. On 03/12/2024, no new complaints and the patient is completing her etoposide regimen for small cell lung cancer. Remains on oxygen at 4 L/min nasal cannula. No new complaints for now. White cell count is at 13 with a hemoglobin 9.8 and a platelet count of 438. BUN is 27 with a creatinine of 0.9 and sodium is at 142. No altered mentation. Medications remain unchanged. She is diuresing well with IV Lasix and the patient is still having edema lower extremities bilaterally. On 03/13/2024, the patient has completed his systemic chemotherapy. Overall respiratory status is unchanged. She continues to have difficulty with monica athing especially when she lays down flat. No facial swelling. No arm swelling. No feve. She remains on 4l oxygen nasal cannula and the patient remains on Lasix 20 mg IV every 12 hours. She is in a negative fluid balance as the patient is diuresing well and the lower extremity edema seems to be improving for now. The bone scan was negative for any bony metastases. Radiation oncology has also evaluated the patient and their input is appreciated. 03/14/2024, the patient is stable. No new complaints on 40s of oxygen by nasal cannula. Completed systemic chemotherapy. Remains on IV Lasix. Weight is stable. Limited lower extremity edema. No other complaints otherwise for now. She is on Lasix 20 mg IV every 12 hours. No interval worsening shortness of breath. Condition is stable. Objective - Vital Signs Vital signs: Vital Signs Temp 98.3 F 03/14/24 07:59 Pulse 91 03/14/24 07:59 Resp 20 03/14/24 07:59 BP 127/67 03/14/24 07:59 Pulse Ox 94 L 03/14/24 07:59 FiO2 Intake & Output 03/13/24 03/14/24 03/14/24 18:59 06:59 18:59 Weight 72.1 kg Other: Voiding Method Bedside Commode Bedside Commode # Voids 5 1 # Bowel Movements 1 0 - Exam GENERAL EXAM: Alert, pleasant 78-year-old female, on 4 L nasal cannula, fairly comfortable in no apparent distress. HEAD: Normocephalic. EYES: Normal reaction of pupils, equal size. NOSE: Clear with pink turbinates. THROAT: No erythema or exudates. NECK: No masses, no JVD. CHEST: No chest wall deformity. LUNGS: Equal air entry with few scattered rhonchi. CVS: S1 and S2 normal with no audible murmur, regular rhythm. ABDOMEN: No hepatosplenomegaly, normal bowel sounds, no guarding or rigidity. SPINE: No scoliosis or deformity SKIN: No rashes CENTRAL NERVOUS SYSTEM: No focal deficits, tone is normal in all 4 extremities. EXTREMITIES: There is no peripheral edema. No clubbing, no cyanosis. Peripheral pulses are intact. - Labs CBC & Chem 7: 03/14/24 11:07 03/14/24 11:07 Assessment and Plan Plan: small cell lung cancer likely extensive stage with bulky disease involving the mediastinum and a large left upper lobe mass. Awaiting systemic chemotherapy. Unable to complete the PET scan because of increased shortness of breath and inability to lay down flat. Bone scan is negative for skeletal metastases. The patient completed systemic chemotherapy with carboplatinum and etoposide. Bone scan is negative. Acute on chronic hypoxic respiratory failure, chronic, related to her extensive small cell lung cancer the patient has bulky disease and atelectatic changes and may have a component of pulmonary edema and the patient was started on diuretics with adequate response, currently diuresed with IV Lasix, responding well to diuresis Lower extremity edema, improving History of hypertension. History of hyperlipidemia. History of CVA/TIA. History of gastroesophageal reflux disease. Previous history of tobacco use. Plan: Condition is stable Currently on 4 L nasal cannula Bone scan is negative Systemic chemotherapy carboplatin and etoposide, completed for another 24 hours Will switch this patient to oral Lasix, discharge. Monitor hematologic profile Respiratory status is stable We will continue to follow Discharge planning his progress. Prognosis poor based on above comorbidities in addition to the bulky lung cancer/small cell lung cancer.
--- NOTE | 2024-03-14 14:08 | P.PN ---
Subjective Progress Note Date: 03/14/24 Principal diagnosis: Small cell lung cancer -Afebrile, no acute events overnight -Sitting up and eating lunch today with improved breathing -She denies any nausea, vomiting, diarrhea, or constipation -She feels she has come to terms with her diagnosis Objective - Vital Signs Vital signs: Vital Signs Temp 98.3 F 03/14/24 07:59 Pulse 88 03/14/24 11:23 Resp 20 03/14/24 08:30 BP 127/67 03/14/24 07:59 Pulse Ox 94 L 03/14/24 07:59 FiO2 Intake & Output 03/13/24 03/14/24 03/14/24 18:59 06:59 18:59 Weight 72.1 kg Other: Voiding Method Bedside Commode Bedside Commode Bedside Commode # Voids 5 1 # Bowel Movements 1 0 - Constitutional General appearance: Present: cooperative, no acute distress - EENT Eyes: Present: EOMI - Respiratory Respiratory: bilateral: wheezing (Mild and expiratory wheezing heard in the bilateral upper and mid right lung saleh) - Cardiovascular Rhythm: regular - Gastrointestinal General gastrointestinal: Present: soft. Absent: distended - Integumentary Integumentary Comment(s): Ecchymosis on the arms bilaterally Integumentary: Absent: rash - Neurologic Neurologic: Present: CNII-XII intact. Absent: focal deficits - Psychiatric Psychiatric: Present: A&O x's 3, appropriate affect - Labs CBC & Chem 7: 03/14/24 11:07 03/14/24 11:07 Labs: Abnormal Lab Results - Last 24 Hours (Table) 03/14/24 03/14/24 Range/Units 11:07 11:07 Hgb 10.6 L (11.4-16.0) gm/dL MCHC 30.3 L (31.0-37.0) g/dL RDW 15.9 H (11.5-15.5) % Lymphocytes # 0.6 L (1.0-4.8) k/uL Chloride 93 L (98-107) mmol/L Carbon Dioxide 39 H (22-30) mmol/L BUN 27 H (7-17) mg/dL Glucose 112 H (74-99) mg/dL Calcium 8.2 L (8.4-10.2) mg/dL Assessment and Plan (1) Anemia associated with chemotherapy Current Visit: Yes Status: Acute Code(s): D64.81 - ANEMIA DUE TO ANTINEOPLASTIC CHEMOTHERAPY; T45.1X5A - ADVERSE EFFECT OF ANTINEOPLASTIC AND IMMUNOSUP DRUGS, INIT SNOMED Code(s): 572001016623684 (2) Dyspnea Current Visit: Yes Status: Acute Priority: High Code(s): R06.00 - DYSPNEA, UNSPECIFIED SNOMED Code(s): 235032931 (3) Hypoxia Current Visit: Yes Status: Acute Code(s): R09.02 - HYPOXEMIA SNOMED Code(s): 941872953 (4) Small cell lung cancer, left upper lobe Current Visit: Yes Status: Acute Priority: High Code(s): C34.12 - MALIGNANT NEOPLASM OF UPPER LOBE, LEFT BRONCHUS OR LUNG SNOMED Code(s): 293794528 Plan: #Small cell lung cancer, limited stage disease -Patient unable to tolerate staging PET scan. -Dr. Castañeda and the patient had a conversation about moving forward with treatment because of patient's symptoms. Without the staging PET scan she is aware of the limitations on treatment decision making. -Nuclear medicine bone scan was done. Reviewed the results with pt, no evidence of bony lesions. MRI of the brain previously was negative. Consulted Rad Onc for definitive treatment to add XRT with cycle 2Case discussed with Rad Onc. Concerns for a sacral lesion. He will see pt today and talk with her. May consider biopsy to confirm. Will further discuss this with radiation oncology -Completed cycle 1 of carboplatin/etoposide on 03/12/2024 and is currently at day 5 of cycle 1 -I did discuss with her that she appears to have limited stage disease -In addition to adding radiation therapy to second cycle of treatment, I did discuss the potential of maintenance immunotherapy per the recent ADRIATIC trial presented at [facility] 2023 if there was no evidence of disease progression after 4 rounds of concurrent chemoradiotherapy #Anemia -Secondary to treatment with carboplatin/etoposide chemotherapy -CBC on today's blood draw is stable at 10.6 -Continue CBC daily while inpatient -Transfuse for hemoglobin less than 7 #SOB, orthopnea -2/2 SCLC -She is currently on 3 L nasal cannula with significant symptomatic improvement in her breathing -She may need home oxygen on discharge #Disposition -Notes she would like to be discharged home and [facility] -It does not appear she would be amenable to discharge to subacute rehab facility -Will continue to discuss this with the case management team as well as other providers taking care for Lilibeth Clay MD
--- NOTE | 2024-03-15 08:41 | P.PN ---
Subjective Progress Note Date: 03/13/24 78-year-old female with a recent diagnosis of small cell lung cancer. The patient had a biopsy in mid February, by my partner, and was discovered to have small cell lung cancer. She has thoracic and mediastinal adenopathy, as well as a large mass in the left upper lobe. The patient has not started chemotherapy as yet. The patient apparently was sent for a PET scan. She apparently had a reaction to the dye given at the time of the PET scan, and developed chills, and fever, and generally just not feeling well. For that reason she came into the emergency room to be evaluated. She was seen there and admitted to the hospital. We are seeing her today, and 523. She is currently on 4 L of oxygen. No IV fluids. Currently, she is feeling back to baseline. Her white count is 8.9, hemoglobin 10.1, hematocrit 32.1, and a platelet count of 348,000. Coagulation studies were normal. Electrolyte profile was essentially normal. Glucose was 146. Albumin 3.3. She was tested for influenza, RSV and c oronavirus, and tested negative. Chest x-ray shows a left upper lobe lung mass, with Mediastinal Adenopathy. Brain MRI, was negative for intracranial metastasis. Objective - Vital Signs Vital signs: Vital Signs Temp 97.9 F 03/13/24 12:28 Pulse 83 03/13/24 12:28 Resp 18 03/13/24 12:28 BP 107/66 03/13/24 12:28 Pulse Ox 97 03/13/24 12:28 FiO2 Intake & Output 03/12/24 03/13/24 03/13/24 18:59 06:59 18:59 Weight 71.8 kg 71.7 kg Other: Voiding Method Bedside Commode Bedside Commode Bedside Commode # Voids 1 2 1 # Bowel Movements 1 - Exam GENERAL EXAM: Alert, pleasant 78-year-old female, on 4 L nasal cannula, fairly comfortable in no apparent distress. HEAD: Normocephalic. EYES: Normal reaction of pupils, equal size. CHEST: No chest wall deformity. LUNGS: Equal air entry with few scattered rhonchi. CVS: S1 and S2 normal with no audible murmur, regular rhythm. ABDOMEN: No hepatosplenomegaly, normal bowel sounds, no guarding or rigidity. CENTRAL NERVOUS SYSTEM: No focal deficits, tone is normal in all 4 extremities. EXTREMITIES: There is no peripheral edema. No clubbing, no cyanosis. Peripheral pulses are intact. - Labs CBC & Chem 7: 03/14/24 11:07 03/14/24 11:07 Labs: Abnormal Lab Results - Last 24 Hours (Table) 03/13/24 03/13/24 Range/Units 04:00 04:10 Hgb 10.5 L (11.4-16.0) gm/dL MCHC 30.5 L (31.0-37.0) g/dL RDW 15.8 H (11.5-15.5) % Lymphocytes # 0.6 L (1.0-4.8) k/uL Chloride 92 L (96-109) mmol/L Anion Gap 18.20 H (4.00-12.00) mmol/L BUN 27.6 H (9.0-27.0) mg/dL Est GFR (CKD-EPI) 58 L (>=60) BUN/Creatinine Ratio 27.60 H (12.00-20.00) Ratio Glucose 134 H (70-110) mg/dL Assessment and Plan Assessment: 1. Small cell lung cancer likely extensive stage with bulky disease involving the mediastinum and a large left upper lobe mass. -- Patient has been initiated on systemic chemotherapy. Unable to complete the PET scan because of increased shortness of breath and inability to lay down flat. Bone scan is negative for skeletal metastases. The patient was started on systemic chemotherapy with carboplatinum and etoposide and the patient is completing her treatment course. 2. Acute on chronic hypoxic respiratory failure, chronic, related to her extensive small cell lung cancer the patient has bulky disease and atelectatic changes and may have a component of pulmonary edema and the patient was started on diuretics with adequate response, currently diuresed with IV Lasix 3. Hypertension 4. Hyperlipidemia 5. History of CVA/TIA. 6. History of gastroesophageal reflux disease.
--- NOTE | 2024-03-15 08:44 | P.PN ---
Subjective Progress Note Date: 03/14/24 78-year-old female with a recent diagnosis of small cell lung cancer. The patient had a biopsy in mid February, by my partner, and was discovered to have small cell lung cancer. She has thoracic and mediastinal adenopathy, as well as a large mass in the left upper lobe. The patient has not started chemotherapy as yet. The patient apparently was sent for a PET scan. She apparently had a reaction to the dye given at the time of the PET scan, and developed chills, and fever, and generally just not feeling well. For that reason she came into the emergency room to be evaluated. She was seen there and admitted to the hospital. We are seeing her today, and 523. She is currently on 4 L of oxygen. No IV fluids. Currently, she is feeling back to baseline. Her white count is 8.9, hemoglobin 10.1, hematocrit 32.1, and a platelet count of 348,000. Coagulation studies were normal. Electrolyte profile was essentially normal. Glucose was 146. Albumin 3.3. She was tested for influenza, RSV and c oronavirus, and tested negative. Chest x-ray shows a left upper lobe lung mass, with Mediastinal Adenopathy. Brain MRI, was negative for intracranial metastasis. 24-hour interval change 03/14/2024; patient indicated that she might not proceed with chemotherapy anymore; patient encouraged to discuss with primary oncologist the patient is seen and evaluated in room at bedside; remains stable. No new complaints on 40s of oxygen by nasal cannula. Completed systemic chemotherapy. Remains on IV Lasix. Weight is stable. Limited lower extremity edema. No other complaints otherwise for now. She is on Lasix 20 mg IV every 12 hours. No interval worsening shortness of breath. Condition is stable. Bone scan is negative Systemic chemotherapy carboplatin and etoposide, completed for another 24 hours Will switch this patient to oral Lasix, discharge. Monitor hematologic profile Respiratory status is stable Objective - Vital Signs Vital signs: Vital Signs Temp 96.8 F L 03/14/24 15:03 Pulse 84 03/14/24 15:08 Resp 18 03/14/24 15:03 BP 95/57 03/14/24 15:03 Pulse Ox 99 03/14/24 15:03 FiO2 Intake & Output 03/13/24 03/14/24 03/14/24 18:59 06:59 18:59 Weight 72.1 kg Other: Voiding Method Bedside Commode Bedside Commode Bedside Commode # Voids 5 1 # Bowel Movements 1 0 - Exam GENERAL EXAM: Alert, pleasant 78-year-old female, on 4 L nasal cannula, fairly comfortable in no apparent distress. HEAD: Normocephalic. EYES: Normal reaction of pupils, equal size. CHEST: No chest wall deformity. LUNGS: Equal air entry with few scattered rhonchi. CVS: S1 and S2 normal with no audible murmur, regular rhythm. ABDOMEN: No hepatosplenomegaly, normal bowel sounds, no guarding or rigidity. CENTRAL NERVOUS SYSTEM: No focal deficits, tone is normal in all 4 extremities. EXTREMITIES: There is no peripheral edema. No clubbing, no cyanosis. Peripheral pulses are intact. - Labs CBC & Chem 7: 03/14/24 11:07 03/14/24 11:07 Labs: Abnormal Lab Results - Last 24 Hours (Table) 03/14/24 03/14/24 Range/Units 11:07 11:07 Hgb 10.6 L (11.4-16.0) gm/dL MCHC 30.3 L (31.0-37.0) g/dL RDW 15.9 H (11.5-15.5) % Lymphocytes # 0.6 L (1.0-4.8) k/uL Chloride 93 L (98-107) mmol/L Carbon Dioxide 39 H (22-30) mmol/L BUN 27 H (7-17) mg/dL Glucose 112 H (74-99) mg/dL Calcium 8.2 L (8.4-10.2) mg/dL Assessment and Plan Assessment: 1. Small cell lung cancer likely extensive stage with bulky disease involving the mediastinum and a large left upper lobe mass. -- Patient has been initiated on systemic chemotherapy. Unable to complete the PET scan because of increased shortness of breath and inability to lay down flat. Bone scan is negative for skeletal metastases. The patient was started on systemic chemotherapy with carboplatinum and etoposide and the patient is completing her treatment course. 2. Acute on chronic hypoxic respiratory failure, chronic, related to her extensive small cell lung cancer the patient has bulky disease and atelectatic changes and may have a component of pulmonary edema and the patient was started on diuretics with adequate response, currently diuresed with IV Lasix 3. Hypertension 4. Hyperlipidemia 5. History of CVA/TIA. 6. History of gastroesophageal reflux disease.
[2024-03-15 09:56] LABS: Basophils # (A) 0.03 X 10*3/uL (0.00-0.10); Basophils % (A) 0.5 %; Eosinophils # (A) 0.04 X 10*3/uL (0.04-0.35); Eosinophils % (A) 0.6 %; HCT 31.4 % (37.2-46.3); HGB 9.5 g/dL (12.0-15.0); Lymphocytes # (A) 0.85 X 10*3/uL (0.90-5.00); Lymphocytes % (A) 12.9 %; MCH 27.5 pg (27.0-32.0); MCHC 30.3 g/dL (32.0-37.0); MCV 90.8 FL (80.0-97.0); Mean Platelet Volume 9.7 FL (9.5-12.2); Monocytes # (A) 0.05 X 10*3/uL (0.20-1.00); Monocytes % (A) 0.8 %; NRBC Per 100 WBC 0 X 10*3/uL (0.00-0.01); Neutrophils # (A) 5.56 X 10*3/uL (1.80-7.70); Neutrophils % (A) 84.6 %; Platelet Count 353 X 10*3/uL (140-440); RBC 3.46 X 10*6/uL (4.10-5.20); RDW 16.3 % (11.5-14.5); WBC 6.57 X 10*3/uL (4.50-10.00)
[2024-03-15 10:26] LABS: BUN/Creat Ratio 22.88 Ratio (12.00-20.00); Blood Urea Nitrogen 18.3 mg/dL (9.0-27.0); Carbon Dioxide 33.4 mmol/L (21.6-31.8); Chloride 95 mmol/L (96-109); Glucose 104 mg/dL (70-110); Sodium 140 mmol/L (135-145)
[2024-03-15 10:27] LABS: Calcium 8.4 mg/dL (8.7-10.3)
--- NOTE | 2024-03-15 13:10 | P.PN ---
Subjective Progress Note Date: 03/15/24 78-year-old female with a recent diagnosis of small cell lung cancer. The patient had a biopsy in mid February, by my partner, and was discovered to have small cell lung cancer. She has thoracic and mediastinal adenopathy, as well as a large mass in the left upper lobe. The patient has not started chemotherapy as yet. The patient apparently was sent for a PET scan. She apparently had a reaction to the dye given at the time of the PET scan, and developed chills, and fever, and generally just not feeling well. For that reason she came into the emergency room to be evaluated. She was seen there and admitted to the hospital. We are seeing her today, and 523. She is currently on 4 L of oxygen. No IV fluids. Currently, she is feeling back to baseline. Her white count is 8.9, hemoglobin 10.1, hematocrit 32.1, and a platelet count of 348,000. Coagulation studies were normal. Electrolyte profile was essentially normal. Glucose was 146. Albumin 3.3. She was tested for influenza, RSV and coronavirus, and tested negative. Chest x-ray shows a left upper lobe lung mass, with Mediastinal Adenopathy. Brain MRI, was negative for intracranial metastasis. The patient is seen today March 08, 2024 in follow-up on the regular medical floor. She is currently sitting up in the bedside. Awake and alert in no acute distress. Maintaining O2 saturations in the 90s on 4 L/min per nasal cannula. She denies any worsening shortness of breath, cough or congestion. She did have an episode of dizziness last evening. She has been seen by medical oncology. Bone scan is pending. May initiate chemotherapy while here. 03/09/2024, the patient is experiencing shortness of breath and the patient is unable to lay down flat because of increased dyspnea. As mentioned, the patient has small cell lung cancer likely extensive stage. Unable to complete the PET scan because of shortness of breath and unable to lay down flat. The patient panic and she also experienced some nausea and dizziness and she was unable to complete the study. Discussed the case with medical oncology. The patient will be starting a systemic chemotherapy during her hospital stay. No hemoptysis. No pleurisy. Labs from the time of admission was noted. 03/10/2024, no complaints and the patient was started onPrimary chemotherapyThe patient is receivingCarboplatin and SCI[employer] CONSULTANT-16.She is resting comfortably in bed. No significant complaints otherwise for now.Hemoglobin is 14.7 with a white cell count of 10.610.6 with a hemoglobin of 14.7.Electrolytes are stable. The patient has no specific complaints.Remains on oxygenAnd she is currently on4 L with a pulse ox of 92%. On 03/11/2024, the patient is being seen for a follow-up. Continue to have difficulty in breathing and the patient is having difficulty laying down flat. Overnight, the patient became more short of breath. Chest x-ray was done which showed increased atelectatic changes in the lung bases and possibly a component of pulm vascular congestion/edema. There is also development of pleural effusion suspected bilaterally right more than left with mild pulmonary edema. Based on that, the patient was given Lasix and she has responded and she seems to be less short of breath. Suggest continuing the Lasix for now. Meanwhile, the patient is completing her systemic chemotherapy and the patient is currently on etoposide per protocol regarding her small cell lung cancer. No other new complaints otherwise for now. She is weak. Mental status is appropriate. The white cell count is 16.4 with a hemoglobin of 10.1 and a platelet count of 365. Electrolytes are stable with a BUN of 20 and a creatinine of 0.6. Currently she is on 40s of oxygen by nasal cannula. She is also on Decadron. She is to be Decadron IV 10 mg every 24 hours. Rest of the medications are essentially unchanged. Oncology is on the case. On 03/12/2024, no new complaints and the patient is completing her etoposide regimen for small cell lung cancer. Remains on oxygen at 4 L/min nasal cannula. No new complaints for now. White cell count is at 13 with a hemoglobin 9.8 and a platelet count of 438. BUN is 27 with a creatinine of 0.9 and sodium is at 142. No altered mentation. Medications remain unchanged. She is diuresing well with IV Lasix and the patient is still having edema lower extremities bilaterally. On 03/13/2024, the patient has completed his systemic chemotherapy. Overall respiratory status is unchanged. She continues to have difficulty with monica athing especially when she lays down flat. No facial swelling. No arm swelling. No feve. She remains on 4l oxygen nasal cannula and the patient remains on Lasix 20 mg IV every 12 hours. She is in a negative fluid balance as the patient is diuresing well and the lower extremity edema seems to be improving for now. The bone scan was negative for any bony metastases. Radiation oncology has also evaluated the patient and their input is appreciated. 03/14/2024, the patient is stable. No new complaints on 40s of oxygen by nasal cannula. Completed systemic chemotherapy. Remains on IV Lasix. Weight is stable. Limited lower extremity edema. No other complaints otherwise for now. She is on Lasix 20 mg IV every 12 hours. No interval worsening shortness of breath. Condition is stable. On 03/15/2024, no new complaints and the patient's condition essentially unchanged and the patient is completing her systemic chemotherapy, first round. She is currently on 3 to the electrolyte nasal cannula. She remains on Lasix 20 mg IV every 12 hours. Lower extremity edema improving. The white cell count at 6.5 with a hemoglobin 9.5 with a platelet count of 353. Electrolytes are all stable . Objective - Vital Signs Vital signs: Vital Signs Temp 98.3 F 03/15/24 07:14 Pulse 92 03/15/24 09:00 Resp 16 03/15/24 07:14 BP 127/73 03/15/24 07:14 Pulse Ox 98 03/15/24 08:52 FiO2 Intake & Output 03/14/24 03/15/24 03/15/24 18:59 06:59 18:59 Weight 71.4 kg Other: Voiding Method Bedside Commode Bedside Commode # Voids 3 6 1 # Bowel Movements 1 5 1 - Exam GENERAL EXAM: Alert, pleasant 78-year-old female, on 4 L nasal cannula, fairly comfortable in no apparent distress. HEAD: Normocephalic. EYES: Normal reaction of pupils, equal size. NOSE: Clear with pink turbinates. THROAT: No erythema or exudates. NECK: No masses, no JVD. CHEST: No chest wall deformity. LUNGS: Equal air entry with few scattered rhonchi. CVS: S1 and S2 normal with no audible murmur, regular rhythm. ABDOMEN: No hepatosplenomegaly, normal bowel sounds, no guarding or rigidity. SPINE: No scoliosis or deformity SKIN: No rashes CENTRAL NERVOUS SYSTEM: No focal deficits, tone is normal in all 4 extremities. EXTREMITIES: There is no peripheral edema. No clubbing, no cyanosis. Peripheral pulses are intact. - Labs CBC & Chem 7: 03/15/24 05:55 03/15/24 05:55 Labs: Abnormal Lab Results - Last 24 Hours (Table) 03/14/24 03/14/24 03/15/24 Range/Units 11:07 11:07 05:55 RBC 3.46 L (4.10-5.20) X 10*6/uL Hgb 10.6 L 9.5 L (11.4-16.0) gm/dL Hct 31.4 L (37.2-46.3) % MCHC 30.3 L 30.3 L (31.0-37.0) g/dL RDW 15.9 H 16.3 H (11.5-15.5) % Lymphocytes # 0.6 L 0.85 L (1.0-4.8) k/uL Monocytes # 0.05 L (0.20-1.00) X 10*3/uL Chloride 93 L (98-107) mmol/L Carbon Dioxide 39 H (22-30) mmol/L BUN 27 H (7-17) mg/dL BUN/Creatinine Ratio (12.00-20.00) Ratio Glucose 112 H (74-99) mg/dL Calcium 8.2 L (8.4-10.2) mg/dL 03/15/24 Range/Units 05:55 RBC (4.10-5.20) X 10*6/uL Hgb (11.4-16.0) gm/dL Hct (37.2-46.3) % MCHC (31.0-37.0) g/dL RDW (11.5-15.5) % Lymphocytes # (1.0-4.8) k/uL Monocytes # (0.20-1.00) X 10*3/uL Chloride 95 L (98-107) mmol/L Carbon Dioxide 33.4 H (22-30) mmol/L BUN (7-17) mg/dL BUN/Creatinine Ratio 22.88 H (12.00-20.00) Ratio Glucose (74-99) mg/dL Calcium 8.4 L (8.4-10.2) mg/dL Assessment and Plan Plan: small cell lung cancer likely extensive stage with bulky disease involving the mediastinum and a large left upper lobe mass. Awaiting systemic chemotherapy. Unable to complete the PET scan because of increased shortness of breath and inability to lay down flat. Bone scan is negative for skeletal metastases. The patient completed systemic chemotherapy with carboplatinum and etoposide. Bone scan is negative. Acute on chronic hypoxic respiratory failure, chronic, related to her extensive small cell lung cancer the patient has bulky disease and atelectatic changes and may have a component of pulmonary edema and the patient was started on diuretics with adequate response, currently diuresed with IV Lasix, responding well to diuresis Lower extremity edema, improving History of hypertension. History of hyperlipidemia. History of CVA/TIA. History of gastroesophageal reflux disease. Previous history of tobacco use. Plan: Condition is stable Currently on 3 L nasal cannula Bone scan is negative Systemic chemotherapy carboplatin and etoposide, completed, first cycle Will switch this patient to oral Lasix Monitor hematologic profile Respiratory status is stable We will continue to follow Discharge planning his progress. Prognosis poor based on above comorbidities in addition to the bulky lung cancer/small cell lung cancer.
[2024-03-15] MEDS: FUROSEMIDE 40 MG TAB PO SCH (14:02)
--- NOTE | 2024-03-16 05:36 | P.PN ---
Subjective Progress Note Date: 03/15/24 78-year-old female with a recent diagnosis of small cell lung cancer. The patient had a biopsy in mid February, by my partner, and was discovered to have small cell lung cancer. She has thoracic and mediastinal adenopathy, as well as a large mass in the left upper lobe. The patient has not started chemotherapy as yet. The patient apparently was sent for a PET scan. She apparently had a reaction to the dye given at the time of the PET scan, and developed chills, and fever, and generally just not feeling well. For that reason she came into the emergency room to be evaluated. She was seen there and admitted to the hospital. We are seeing her today, and 523. She is currently on 4 L of oxygen. No IV fluids. Currently, she is feeling back to baseline. Her white count is 8.9, hemoglobin 10.1, hematocrit 32.1, and a platelet count of 348,000. Coagulation studies were normal. Electrolyte profile was essentially normal. Glucose was 146. Albumin 3.3. She was tested for influenza, RSV and c oronavirus, and tested negative. Chest x-ray shows a left upper lobe lung mass, with Mediastinal Adenopathy. Brain MRI, was negative for intracranial metastasis. 24-hour interval change 03/14/2024; patient indicated that she might not proceed with chemotherapy anymore; patient encouraged to discuss with primary oncologist the patient is seen and evaluated in room at bedside; remains stable. No new complaints on 40s of oxygen by nasal cannula. Completed systemic chemotherapy. Remains on IV Lasix. Weight is stable. Limited lower extremity edema. No other complaints otherwise for now. She is on Lasix 20 mg IV every 12 hours. No interval worsening shortness of breath. Condition is stable. Bone scan is negative Systemic chemotherapy carboplatin and etoposide, completed for another 24 hours Will switch this patient to oral Lasix, discharge. Monitor hematologic profile Respiratory status is stable 03/15/2024 Patient is seen and evaluated sitting up in bed eating breakfast; no new complaints and the patient's condition essentially unchanged and the patient is completing her systemic chemotherapy, first round. Patient reports she wants to stop chemotherapy what her family wants to keep, --she is currently on 3 to the electrolyte nasal cannula. -She remains on Lasix 20 mg IV every 12 hours. Lower extremity edema improving. - The white cell count at 6.5 with a hemoglobin 9.5 with a platelet count of 353. Electrolytes are all stable. Objective - Vital Signs Vital signs: Vital Signs Temp 98.3 F 03/15/24 07:14 Pulse 88 03/15/24 07:14 Resp 16 03/15/24 07:14 BP 127/73 03/15/24 07:14 Pulse Ox 99 03/15/24 02:17 FiO2 Intake & Output 03/14/24 03/15/24 03/15/24 18:59 06:59 18:59 Weight 71.4 kg Other: Voiding Method Bedside Commode Bedside Commode # Voids 3 6 # Bowel Movements 1 5 - Exam GENERAL EXAM: Alert, pleasant 78-year-old female, on 4 L nasal cannula, fairly comfortable in no apparent distress. HEAD: Normocephalic. EYES: Normal reaction of pupils, equal size. CHEST: No chest wall deformity. LUNGS: Equal air entry with few scattered rhonchi. CVS: S1 and S2 normal with no audible murmur, regular rhythm. ABDOMEN: No hepatosplenomegaly, normal bowel sounds, no guarding or rigidity. CENTRAL NERVOUS SYSTEM: No focal deficits, tone is normal in all 4 extremities. EXTREMITIES: There is no peripheral edema. No clubbing, no cyanosis. Peripheral pulses are intact. - Labs CBC & Chem 7: 03/15/24 05:55 03/15/24 05:55 Labs: Abnormal Lab Results - Last 24 Hours (Table) 03/14/24 03/14/24 Range/Units 11:07 11:07 Hgb 10.6 L (11.4-16.0) gm/dL MCHC 30.3 L (31.0-37.0) g/dL RDW 15.9 H (11.5-15.5) % Lymphocytes # 0.6 L (1.0-4.8) k/uL Chloride 93 L (98-107) mmol/L Carbon Dioxide 39 H (22-30) mmol/L BUN 27 H (7-17) mg/dL Glucose 112 H (74-99) mg/dL Calcium 8.2 L (8.4-10.2) mg/dL Assessment and Plan Assessment: 1. Small cell lung cancer likely extensive stage with bulky disease involving the mediastinum and a large left upper lobe mass. -- Patient has been initiated on systemic chemotherapy. Unable to complete the PET scan because of increased shortness of breath and inability to lay down flat. Bone scan is negative for skeletal metastases. The patient was started o n systemic chemotherapy with carboplatinum and etoposide and the patient is completing her treatment course. 2. Acute on chronic hypoxic respiratory failure, chronic, related to her extensive small cell lung cancer the patient has bulky disease and atelectatic changes and may have a component of pulmonary edema and the patient was started on diuretics with adequate response, currently diuresed with IV Lasix 3. Hypertension 4. Hyperlipidemia 5. History of CVA/TIA. 6. History of gastroesophageal reflux disease.
[2024-03-16 09:29] LABS: African American GFR (CKD) >90 (>60 ml/min/1.73 sqM); Anion Gap 4 mmol/L; Blood Urea Nitrogen 13 mg/dL (7-17); Calcium 8.1 mg/dL (8.4-10.2); Carbon Dioxide 37 mmol/L (22-30); Chloride 94 mmol/L (98-107); Glucose 137 mg/dL (74-99); Non-African American GFR(CKD) 88 (>60 ml/min/1.73 sqM); Potassium 3.7 mmol/L (3.5-5.1); Sodium 135 mmol/L (137-145)
[2024-03-16 10:18] LABS: Basophils % (A) 0 %; Eosinophils % (A) 1 %; HCT 30.7 % (34.0-46.0); Hypochromasia Moderate; Lymphocytes # (A) 0.6 k/uL (1.0-4.8); Lymphocytes % (A) 15 %; MCHC 29.7 g/dL (31.0-37.0); MCV 90.9 fL (80.0-100.0); Mean Platelet Volume 7.2; Monocytes % (A) 1 %; Neutrophils % (A) 82 %; Platelet Count 275 k/uL (150-450); RBC 3.37 m/uL (3.80-5.40); RDW 15.8 % (11.5-15.5); WBC 3.6 k/uL (3.8-10.6)
[2024-03-16 10:35] LABS: HGB 9.1 gm/dL (11.4-16.0)
[2024-03-16] MEDS: POTASSIUM CHLORIDE ER 10 MEQ TAB.ER.PRT PO STA (12:47)
--- NOTE | 2024-03-16 13:16 | P.PN ---
Subjective Progress Note Date: 03/16/24 78-year-old female with a recent diagnosis of small cell lung cancer. The patient had a biopsy in mid February, by my partner, and was discovered to have small cell lung cancer. She has thoracic and mediastinal adenopathy, as well as a large mass in the left upper lobe. The patient has not started chemotherapy as yet. The patient apparently was sent for a PET scan. She apparently had a reaction to the dye given at the time of the PET scan, and developed chills, and fever, and generally just not feeling well. For that reason she came into the emergency room to be evaluated. She was seen there and admitted to the hospital. We are seeing her today, and 523. She is currently on 4 L of oxygen. No IV fluids. Currently, she is feeling back to baseline. Her white count is 8.9, hemoglobin 10.1, hematocrit 32.1, and a platelet count of 348,000. Coagulation studies were normal. Electrolyte profile was essentially normal. Glucose was 146. Albumin 3.3. She was tested for influenza, RSV and c oronavirus, and tested negative. Chest x-ray shows a left upper lobe lung mass, with Mediastinal Adenopathy. Brain MRI, was negative for intracranial metastasis. The patient is seen today March 08, 2024 in follow-up on the regular medical floor. She is currently sitting up in the bedside. Awake and alert in no acute distress. Maintaining O2 saturations in the 90s on 4 L/min per nasal cannula. She denies any worsening shortness of breath, cough or congestion. She did have an episode of dizziness last evening. She has been seen by medical oncology. Bone scan is pending. May initiate chemotherapy while here. 03/09/2024, the patient is experiencing shortness of breath and the patient is unable to lay down flat because of increased dyspnea. As mentioned, the patient has small cell lung cancer likely extensive stage. Unable to complete the PET scan because of shortness of breath and unable to lay down flat. The patient panic and she also experienced some nausea and dizziness and she was unable to complete the study. Discussed the case with medical oncology. The patient will be starting a systemic chemotherapy during her hospital stay. No hemoptysis. No pleurisy. Labs from the time of admission was noted. 03/10/2024, no complaints and the patient was started onPrimary chemotherapyThe patient is receivingCarboplatin and [employer]NAGER-16.She is resting comfortably in bed. No significant complaints otherwise for now.Hemoglobin is 14.7 with a white cell count of 10.610.6 with a hemoglobin of 14.7.Electrolytes are stable. The patient has no specific complaints.Remains on oxygenAnd she is currently on4 L with a pulse ox of 92%. On 03/11/2024, the patient is being seen for a follow-up. Continue to have difficulty in breathing and the patient is having difficulty laying down flat. Overnight, the patient became more short of breath. Chest x-ray was done which showed increased atelectatic changes in the lung bases and possibly a component of pulm vascular congestion/edema. There is also development of pleural effusion suspected bilaterally right more than left with mild pulmonary edema. Based on that, the patient was given Lasix and she has responded and she seems to be less short of breath. Suggest continuing the Lasix for now. Meanwhile, the patient is completing her systemic chemotherapy and the patient is currently on etoposide per protocol regarding her small cell lung cancer. No other new complaints otherwise for now. She is weak. Mental status is appropriate. The white cell count is 16.4 with a hemoglobin of 10.1 and a platelet count of 365. Electrolytes are stable with a BUN of 20 and a creatinine of 0.6. Currently she is on 40s of oxygen by nasal cannula. She is also on Decadron. She is to be Decadron IV 10 mg every 24 hours. Rest of the medications are essentially unchanged. Oncology is on the case. On 03/12/2024, no new complaints and the patient is completing her etoposide regimen for small cell lung cancer. Remains on oxygen at 4 L/min nasal cannula. No new complaints for now. White cell count is at 13 with a hemoglobin 9.8 and a platelet count of 438. BUN is 27 with a creatinine of 0.9 and sodium is at 142. No altered mentation. Medications remain unchanged. She is diuresing well with IV Lasix and the patient is still having edema lower extremities bilaterally. On 03/13/2024, the patient has completed his systemic chemotherapy. Overall respiratory status is unchanged. She continues to have difficulty with dave thing especially when she lays down flat. No facial swelling. No arm swelling. No feve. She remains on 4l oxygen nasal cannula and the patient remains on Lasix 20 mg IV every 12 hours. She is in a negative fluid balance as the patient is diuresing well and the lower extremity edema seems to be improving for now. The bone scan was negative for any bony metastases. Radiation oncology has also evaluated the patient and their input is appreciated. 03/14/2024, the patient is stable. No new complaints on 40s of oxygen by nasal cannula. Completed systemic chemotherapy. Remains on IV Lasix. Weight is stable. Limited lower extremity edema. No other complaints otherwise for now. She is on Lasix 20 mg IV every 12 hours. No interval worsening shortness of breath. Condition is stable. On 03/15/2024, no new complaints and the patient's condition essentially unchanged and the patient is completing her systemic chemotherapy, first round. She is currently on 3 to the electrolyte nasal cannula. She remains on Lasix 20 mg IV every 12 hours. Lower extremity edema improving. The white cell count at 6.5 with a hemoglobin 9.5 with a platelet count of 353. Electrolytes are all stable. The patient is seen today March 16, 2024 in follow-up on the regular medical floor. She is currently sitting up at the bedside. Awake and alert in no acute distress. She is maintaining O2 saturations up to 100% on oxygen at 4 L/min per nasal cannula. White count 3.6. Hemoglobin 9.1. Platelets 275. Sodium 135. Potassium 3.7. Bicarb 37. BUN 13. Creatinine 0.60. Glucose 137. She remains on bronchodilators. Oral diuretics. Heparin for DVT prophylaxis. Objective - Vital Signs Vital signs: Vital Signs Temp 98.4 F 03/16/24 11:51 Pulse 76 03/16/24 11:51 Resp 16 03/16/24 11:51 BP 106/69 03/16/24 11:51 Pulse Ox 98 03/16/24 11:51 FiO2 Intake & Output 03/15/24 03/16/24 03/16/24 18:59 06:59 18:59 Intake Total 240 Balance 240 Weight 71.1 kg Intake: Oral 240 Other: Voiding Method Bedside Commode Bedside Commode # Voids 2 1 # Bowel Movements 2 1 1 - Exam GENERAL EXAM: Alert, 78-year-old female, on 4 L nasal cannula, comfortable in no apparent distress. HEAD: Normocephalic. EYES: Normal reaction of pupils, equal size. NOSE: Clear with pink turbinates. THROAT: No erythema or exudates. NECK: No masses, no JVD. CHEST: No chest wall deformity. LUNGS: Equal air entry with few scattered rhonchi. CVS: S1 and S2 normal with no audible murmur, regular rhythm. ABDOMEN: No hepatosplenomegaly, normal bowel sounds, no guarding or rigidity. SPINE: No scoliosis or deformity SKIN: No rashes CENTRAL NERVOUS SYSTEM: No focal deficits, tone is normal in all 4 extremities. EXTREMITIES: There is no peripheral edema. No clubbing, no cyanosis. Peripheral pulses are intact. - Labs CBC & Chem 7: 03/16/24 08:03/16/24 08:01 Labs: Abnormal Lab Results - Last 24 Hours (Table) 03/16/24 03/16/24 Range/Units 08:01 08:01 WBC 3.6 L (3.8-10.6) k/uL RBC 3.37 L (3.80-5.40) m/uL Hgb 9.1 L D (11.4-16.0) gm/dL Hct 30.7 L (34.0-46.0) % MCHC 29.7 L (31.0-37.0) g/dL RDW 15.8 H (11.5-15.5) % Lymphocytes # 0.6 L (1.0-4.8) k/uL Sodium 135 L (137-145) mmol/L Chloride 94 L (98-107) mmol/L Carbon Dioxide 37 H (22-30) mmol/L Glucose 137 H (74-99) mg/dL Calcium 8.1 L (8.4-10.2) mg/dL Assessment and Plan Assessment: Allergic reaction, apparently to dye, given to her at the time of PET scan Recent diagnosis of small cell lung cancer likely extensive stage with bulky disease involving the mediastinum and a large left upper lobe mass. Completed the first cycle of systemic chemotherapy with carboplatin and etoposide Left upper lobe mass History of hypertension History of hyperlipidemia History of CVA/TIA History of gastroesophageal reflux disease Previous history of tobacco use Plan: The patient was seen and evaluated Medications and labs reviewed Completed the first cycle of systemic chemotherapy with carboplatin and etoposide Currently on 4 L nasal cannula Plan is for home with home care I have personally seen and examined the patient, performed the documentation and the assessment and plan as written. Number of minutes spent on the visit: 10.
[2024-03-16] MEDS ORDERED: ONDANSETRON 4 MG/2 ML VIAL IVP PRN (14:32)
--- NOTE | 2024-03-16 21:13 | P.PN ---
Subjective Progress Note Date: 03/16/24 Patient is evaluated today in follow up on the medical floor. Has completed chemotherapy. Continues to report feelings of indigestion and also reports having multiple loose bowel movements overnight x 6 and has multiple x 2 already today. She has not been able to tolerate much oral intake. We will check her for C.Dif otherwise she can be considered for discharge once her diarrhea slows down. Review of Systems Constitutional: Denied any fatigue denied any fever. Cardio vascular: denied any chest pain, palpitations Gastrointestinal: denied any nausea, vomiting. Reports diarrhea and indigestion. Pulmonary: Denied any shortness of breath cough Neurologic denied any new focal deficits All inpatient medications were reviewed and appropriate changes in these medications as dictated in the interval history and assessment and plan. PHYSICAL EXAMINATION: GENERAL: The patient is alert and oriented x3, not in any acute distress. Well developed, well nourished. HEENT: Pupils are round and equally reacting to light. EOMI. No scleral icterus. No conjunctival pallor. Normocephalic, atraumatic. No pharyngeal erythema. No thyromegaly. CARDIOVASCULAR: S1 and S2 present. No murmurs, rubs, or gallops. PULMONARY: Chest is clear to auscultation, no wheezing or crackles. ABDOMEN: Soft, nontender, nondistended, normoactive bowel sounds. No palpable organomegaly. MUSCULOSKELETAL: No joint swelling or deformity. EXTREMITIES: No cyanosis, clubbing, or pedal edema. NEUROLOGICAL: Gross neurological examination did not reveal any focal deficits. Generalized weakness SKIN: No rashes. Assessment and plan -Small cell lung cancer likely extensive stage with bulky disease involving the mediastinum and a large left upper lobe mass. -- Patient has been initiated on systemic chemotherapy. Unable to complete the PET scan because of increased shortness of breath and inability to lay down flat. Bone scan is negative for skeletal metastases. The patient was started on systemic chemotherapy with carboplatinum and etoposide and has completed the 5 day course. -Diarrhea likely chemotherapy related we will check the patient for C.Dif if negative can be started on questran and considered for DC once her diarrhea improves. -Nausea and poor oral intake. continue protonix and zofran PRN. -Acute on chronic hypoxic respiratory failure, chronic, related to her extensive small cell lung cancer the patient has bulky disease and atelectatic changes and may have a component of pulmonary edema and the patient was started on diuretics with adequate response, has been transitioned from IV lasix to oral lasix. -Hypertension -Hyperlipidemia -History of CVA/TIA. -History of gastroesophageal reflux disease. GI prophylaxis DVT prophylaxis Full Code The impression and plan of care has been dictated by Tessy Joaquin, Nurse Practitioner as directed. Dr. Erin MD I have performed a history and physical examination and medical decision making of this patient, discussed the same with the dictator, and agree with the dictators assessment and plan as written, documented as a scribe. Based on total visit time, I have performed more than 50% of this visit. Objective - Vital Signs Vital signs: Vital Signs Temp 98.5 F 03/16/24 19:20 Pulse 76 03/16/24 20:48 Resp 19 03/16/24 19:20 BP 113/68 03/16/24 19:20 Pulse Ox 97 03/16/24 19:20 FiO2 Intake & Output 03/16/24 03/16/24 03/17/24 06:59 18:59 06:59 Weight 71.1 kg Other: Voiding Method Bedside Commode # Voids 1 1 1 # Bowel Movements 1 1 - Labs CBC & Chem 7: 03/16/24 08:01 03/16/24 08:01 Labs: Abnormal Lab Results - Last 24 Hours (Table) 03/16/24 03/16/24 Range/Units 08:01 08:01 WBC 3.6 L (3.8-10.6) k/uL RBC 3.37 L (3.80-5.40) m/uL Hgb 9.1 L D (11.4-16.0) gm/dL Hct 30.7 L (34.0-46.0) % MCHC 29.7 L (31.0-37.0) g/dL RDW 15.8 H (11.5-15.5) % Lymphocytes # 0.6 L (1.0-4.8) k/uL Sodium 135 L (137-145) mmol/L Chloride 94 L (98-107) mmol/L Carbon Dioxide 37 H (22-30) mmol/L Glucose 137 H (74-99) mg/dL Calcium 8.1 L (8.4-10.2) mg/dL Assessment and Plan Time with Patient: Less than 30
--- NOTE | 2024-03-16 22:31 | P.PN ---
Subjective Progress Note Date: 03/16/24 Patient reporting increased diarrhea, 9 episodes of diarrhea over the last 24 hours. C. difficile has been ordered. Counts stable, pt afebrile. Objective - Vital Signs Vital signs: Vital Signs Temp 98.4 F 03/16/24 11:51 Pulse 76 03/16/24 11:51 Resp 16 03/16/24 11:51 BP 106/69 03/16/24 11:51 Pulse Ox 98 03/16/24 11:51 FiO2 Intake & Output 03/15/24 03/16/24 03/16/24 18:59 06:59 18:59 Intake Total 240 Balance 240 Weight 71.1 kg Intake: Oral 240 Other: Voiding Method Bedside Commode Bedside Commode # Voids 2 1 # Bowel Movements 2 1 1 - Constitutional General appearance: Present: no acute distress - EENT Eyes: Present: anicteric sclerae, EOMI ENT: Present: hearing grossly normal - Respiratory Details: breathing is even and unlabored - Cardiovascular Details: skin warm and dry - Gastrointestinal General gastrointestinal: Present: soft. Absent: tenderness - Musculoskeletal Musculoskeletal: Present: strength equal bilaterally - Psychiatric Psychiatric: Present: A&O x's 3 - Labs CBC & Chem 7: 03/16/24 08:01 03/16/24 08:01 Labs: Abnormal Lab Results - Last 24 Hours (Table) 03/16/24 03/16/24 Range/Units 08:01 08:01 WBC 3.6 L (3.8-10.6) k/uL RBC 3.37 L (3.80-5.40) m/uL Hgb 9.1 L D (11.4-16.0) gm/dL Hct 30.7 L (34.0-46.0) % MCHC 29.7 L (31.0-37.0) g/dL RDW 15.8 H (11.5-15.5) % Lymphocytes # 0.6 L (1.0-4.8) k/uL Sodium 135 L (137-145) mmol/L Chloride 94 L (98-107) mmol/L Carbon Dioxide 37 H (22-30) mmol/L Glucose 137 H (74-99) mg/dL Calcium 8.1 L (8.4-10.2) mg/dL Assessment and Plan (1) Anemia associated with chemotherapy Current Visit: Yes Status: Acute Priority: High Code(s): D64.81 - ANEMIA DUE TO ANTINEOPLASTIC CHEMOTHERAPY; T45.1X5A - ADVERSE EFFECT OF ANTINEOPLASTIC AND IMMUNOSUP DRUGS, INIT SNOMED Code(s): 219632810712583 (2) Dyspnea Current Visit: Yes Status: Acute Priority: High Code(s): R06.00 - DYSPNEA, UNSPECIFIED SNOMED Code(s): 899160308 (3) Small cell lung cancer, left upper lobe Current Visit: Yes Status: Acute Priority: High Code(s): C34.12 - MALIGNANT NEOPLASM OF UPPER LOBE, LEFT BRONCHUS OR LUNG SNOMED Code(s): 726248807 Plan: #Small cell lung cancer, limited stage disease -Patient unable to tolerate staging PET scan. -Dr. Castañeda and the patient had a conversation about moving forward with treatment because of patient's symptoms. Without the staging PET scan she is aware of the limitations on treatment decision making. -Nuclear medicine bone scan was done. Reviewed the results with pt, no evidence of bony lesions. MRI of the brain previously was negative. Consulted Rad Onc for definitive treatment to add XRT with cycle 2Case discussed with Rad Onc. Concerns for a sacral lesion. He will see pt today and talk with her. May consider biopsy to confirm. Will further discuss this with radiation oncology -Completed cycle 1 of carboplatin/etoposide on 03/12/2024 -I did discuss with her that she appears to have limited stage disease -In addition to adding radiation therapy to second cycle of treatment, I did discuss the potential of maintenance immunotherapy per the recent ADRIATIC trial presented at [facility] 2023 if there was no evidence of disease progression after 4 rounds of concurrent chemoradiotherapy -Clinic f/u will be scheduled upon discharge #Anemia -Secondary to treatment with carboplatin/etoposide chemotherapy -CBC on today's blood draw is stable at 9.1 -Continue CBC daily while inpatient -Transfuse for hemoglobin less than 7 #SOB, orthopnea -2/2 SCLC -She is currently on 4 L nasal cannula with significant symptomatic improvement in her breathing -She may need home oxygen on discharge #Disposition -Notes she would like to be discharged home and has assistance with multiple family members -It does not appear she would be amenable to discharge to subacute rehab facility -Will continue to discuss this with the case management team as well with other providers
[2024-03-17] MEDS: LOSARTAN 50 MG TAB PO SCH (08:56)
[2024-03-17 10:32] LABS: HCT 29.5 % (37.2-46.3); HGB 8.9 g/dL (12.0-15.0); MCH 27.3 pg (27.0-32.0); MCHC 30.2 g/dL (32.0-37.0); MCV 90.5 FL (80.0-97.0); Mean Platelet Volume 9.7 FL (9.5-12.2); NRBC Per 100 WBC 0 X 10*3/uL (0.00-0.01); Platelet Count 237 X 10*3/uL (140-440); RBC 3.26 X 10*6/uL (4.10-5.20); RDW 16.1 % (11.5-14.5); WBC 2.08 X 10*3/uL (4.50-10.00)
[2024-03-17 10:54] LABS: BUN/Creat Ratio 16.43 Ratio (12.00-20.00); Blood Urea Nitrogen 11.5 mg/dL (9.0-27.0); Calcium 8.1 mg/dL (8.7-10.3); Chloride 96 mmol/L (96-109); Glucose 75 mg/dL (70-110); Potassium 3.8 mmol/L (3.5-5.5); Sodium 137 mmol/L (135-145)
[2024-03-17 11:14] LABS: Basophils # (M) 0 X 10*3/uL (0.00-0.10); Eosinophils # (M) 0 X 10*3/uL (0.04-0.35); Lymphocytes # (M) 0.96 X 10*3/uL (0.90-5.00); Monocytes # (M) 0 X 10*3/uL (0.20-1.00); Neutrophils # (M) 1.12 X 10*3/uL (1.80-7.70); Neutrophils % (M) 54 %; RBC Morphology Normal (Normal)
[2024-03-17 11:45] VITALS: BMI 26.6
[2024-03-17] MEDS: SUCRALFATE 1 GM TAB PO SCH (12:52)
--- NOTE | 2024-03-17 13:30 | P.PN ---
Subjective Progress Note Date: 03/17/24 78-year-old female with a recent diagnosis of small cell lung cancer. The patient had a biopsy in mid February, by my partner, and was discovered to have small cell lung cancer. She has thoracic and mediastinal adenopathy, as well as a large mass in the left upper lobe. The patient has not started chemotherapy as yet. The patient apparently was sent for a PET scan. She apparently had a reaction to the dye given at the time of the PET scan, and developed chills, and fever, and generally just not feeling well. For that reason she came into the emergency room to be evaluated. She was seen there and admitted to the hospital. We are seeing her today, and 523. She is currently on 4 L of oxygen. No IV fluids. Currently, she is feeling back to baseline. Her white count is 8.9, hemoglobin 10.1, hematocrit 32.1, and a platelet count of 348,000. Coagulation studies were normal. Electrolyte profile was essentially normal. Glucose was 146. Albumin 3.3. She was tested for influenza, RSV and c oronavirus, and tested negative. Chest x-ray shows a left upper lobe lung mass, with Mediastinal Adenopathy. Brain MRI, was negative for intracranial metastasis. The patient is seen today March 08, 2024 in follow-up on the regular medical floor. She is currently sitting up in the bedside. Awake and alert in no acute distress. Maintaining O2 saturations in the 90s on 4 L/min per nasal cannula. She denies any worsening shortness of breath, cough or congestion. She did have an episode of dizziness last evening. She has been seen by medical oncology. Bone scan is pending. May initiate chemotherapy while here. 03/09/2024, the patient is experiencing shortness of breath and the patient is unable to lay down flat because of increased dyspnea. As mentioned, the patient has small cell lung cancer likely extensive stage. Unable to complete the PET scan because of shortness of breath and unable to lay down flat. The patient panic and she also experienced some nausea and dizziness and she was unable to complete the study. Discussed the case with medical oncology. The patient will be starting a systemic chemotherapy during her hospital stay. No hemoptysis. No pleurisy. Labs from the time of admission was noted. 03/10/2024, no complaints and the patient was started onPrimary chemotherapyThe patient is receivingCarboplatin and HOSPITALITY INTERN-16.She is resting comfortably in bed. No significant complaints otherwise for now.Hemoglobin is 14.7 with a white cell count of 10.610.6 with a hemoglobin of 14.7.Electrolytes are stable. The patient has no specific complaints.Remains on oxygenAnd she is currently on4 L with a pulse ox of 92%. On 03/11/2024, the patient is being seen for a follow-up. Continue to have difficulty in breathing and the patient is having difficulty laying down flat. Overnight, the patient became more short of breath. Chest x-ray was done which showed increased atelectatic changes in the lung bases and possibly a component of pulm vascular congestion/edema. There is also development of pleural effusion suspected bilaterally right more than left with mild pulmonary edema. Based on that, the patient was given Lasix and she has responded and she seems to be less short of breath. Suggest continuing the Lasix for now. Meanwhile, the patient is completing her systemic chemotherapy and the patient is currently on etoposide per protocol regarding her small cell lung cancer. No other new complaints otherwise for now. She is weak. Mental status is appropriate. The white cell count is 16.4 with a hemoglobin of 10.1 and a platelet count of 365. Electrolytes are stable with a BUN of 20 and a creatinine of 0.6. Currently she is on 40s of oxygen by nasal cannula. She is also on Decadron. She is to be Decadron IV 10 mg every 24 hours. Rest of the medications are essentially unchanged. Oncology is on the case. On 03/12/2024, no new complaints and the patient is completing her etoposide regimen for small cell lung cancer. Remains on oxygen at 4 L/min nasal cannula. No new complaints for now. White cell count is at 13 with a hemoglobin 9.8 and a platelet count of 438. BUN is 27 with a creatinine of 0.9 and sodium is at 142. No altered mentation. Medications remain unchanged. She is diuresing well with IV Lasix and the patient is still having edema lower extremities bilaterally. On 03/13/2024, the patient has completed his systemic chemotherapy. Overall respiratory status is unchanged. She continues to have difficulty with dave thing especially when she lays down flat. No facial swelling. No arm swelling. No feve. She remains on 4l oxygen nasal cannula and the patient remains on Lasix 20 mg IV every 12 hours. She is in a negative fluid balance as the patient is diuresing well and the lower extremity edema seems to be improving for now. The bone scan was negative for any bony metastases. Radiation oncology has also evaluated the patient and their input is appreciated. 03/14/2024, the patient is stable. No new complaints on 40s of oxygen by nasal cannula. Completed systemic chemotherapy. Remains on IV Lasix. Weight is stable. Limited lower extremity edema. No other complaints otherwise for now. She is on Lasix 20 mg IV every 12 hours. No interval worsening shortness of breath. Condition is stable. On 03/15/2024, no new complaints and the patient's condition essentially unchanged and the patient is completing her systemic chemotherapy, first round. She is currently on 3 to the electrolyte nasal cannula. She remains on Lasix 20 mg IV every 12 hours. Lower extremity edema improving. The white cell count at 6.5 with a hemoglobin 9.5 with a platelet count of 353. Electrolytes are all stable. The patient is seen today March 16, 2024 in follow-up on the regular medical floor. She is currently sitting up at the bedside. Awake and alert in no acute distress. She is maintaining O2 saturations up to 100% on oxygen at 4 L/min per nasal cannula. White count 3.6. Hemoglobin 9.1. Platelets 275. Sodium 135. Potassium 3.7. Bicarb 37. BUN 13. Creatinine 0.60. Glucose 137. She remains on bronchodilators. Oral diuretics. Heparin for DVT prophylaxis. The patient is seen today March 17, 2024 in follow-up on the regular medical floor. She is currently sitting up in a chair. Awake and alert in no acute distress. She remains quite weak however. She denies any worsening shortness o f breath, cough or congestion. She is maintaining O2 saturation in the high 90s on 4 L/min per nasal cannula. She remains on DuoNeb inhalations. Heparin for DVT prophylaxis. On oral diuretics. Tessalon Perles for her cough.. Hemoglobin 8.9. Platelets 237. Sodium 137. Potassium 3.8. Bicarb 31. BUN 12. Creatinine 0.7. Glucose 75. Objective - Vital Signs Vital signs: Vital Signs Temp 98.4 F 03/17/24 07:44 Pulse 80 07/09/24 12:07 Resp 20 03/17/24 07:44 BP 115/70 03/17/24 07:44 Pulse Ox 99 03/17/24 07:44 FiO2 Intake & Output 03/16/24 03/17/24 03/17/24 18:59 06:59 18:59 Weight 70.5 kg 70.5 kg Other: Voiding Method Bedside Commode Bedside Commode # Voids 1 2 1 # Bowel Movements 1 1 - Exam GENERAL EXAM: Alert, weak 78-year-old female, up in a chair, on 4 L nasal cannula, in no apparent distress. HEAD: Normocephalic. EYES: Normal reaction of pupils, equal size. NOSE: Clear with pink turbinates. THROAT: No erythema or exudates. NECK: No masses, no JVD. CHEST: No chest wall deformity. LUNGS: Equal air entry with few scattered rhonchi. CVS: S1 and S2 normal with no audible murmur, regular rhythm. ABDOMEN: No hepatosplenomegaly, normal bowel sounds, no guarding or rigidity. SPINE: No scoliosis or deformity SKIN: No rashes CENTRAL NERVOUS SYSTEM: No focal deficits, tone is normal in all 4 extremities. EXTREMITIES: There is no peripheral edema. No clubbing, no cyanosis. Peripheral pulses are intact. - Labs CBC & Chem 7: 03/17/24 06:39 03/17/24 06:39 Labs: Abnormal Lab Results - Last 24 Hours (Table) 03/17/24 03/17/24 Range/Units 06:39 06:39 WBC 2.08 L (4.50-10.00) X 10*3/uL RBC 3.26 L (4.10-5.20) X 10*6/uL Hgb 8.9 L (12.0-15.0) g/dL Hct 29.5 L (37.2-46.3) % MCHC 30.2 L (32.0-37.0) g/dL RDW 16.1 H (11.5-14.5) % Neutrophils # (Manual) 1.12 L (1.80-7.70) X 10*3/uL Monocytes # (Manual) 0 L (0.20-1.00) X 10*3/uL Eosinophils # (Manual) 0 L (0.04-0.35) X 10*3/uL Calcium 8.1 L (8.7-10.3) mg/dL Assessment and Plan Assessment: Allergic reaction, apparently to contrast, given to her at the time of PET scan Recent diagnosis of small cell lung cancer likely extensive stage with bulky disease involving the mediastinum and a large left upper lobe mass. Completed the first cycle of systemic chemotherapy with carboplatin and etoposide Left upper lobe mass History of hypertension History of hyperlipidemia History of CVA/TIA History of gastroesophageal reflux disease Previous history of tobacco use Plan: The patient was seen and evaluated Medications and labs reviewed Evaluate for possible home oxygen Plan is for home with home care at discharge I have personally seen and examined the patient, performed the documentation and the assessment and plan as written. Number of minutes spent on the visit: 10.
--- NOTE | 2024-03-17 17:41 | P.PN ---
Subjective Progress Note Date: 03/17/24 Principal diagnosis: SCLC, limited stage disease, with possible oligometastatic dz (1 bone lesion) In follow-up today patient is sitting up in the chair, she continues on oxygen but is no longer mouth breathing, does not have to position herself when sitting up to breathe comfortably. Patient reports that she feels her breathing is more comfortable though she still requires the head of the bed to be in high Fowlers position for her to rest and not experience significant orthopnea. She feels strangulated, SOB if the head of bed is not >45 degrees. She is tolerating oral intake, mild nausea no documented vomiting she is still having significant belching and flatus, her symptoms are described as burning in the middle of the chest. Bilateral lower extremity edema is now limited to just the feet. Patient's counts are good considering recent chemotherapy. Patient's daughter was on the phone and we had a long discussion about patient diagnosis, prognosis, treatment plans. Objective - Vital Signs Vital signs: Vital Signs Temp 98.4 F 03/17/24 07:44 Pulse 80 03/17/24 12:07 Resp 20 03/17/24 07:44 BP 115/70 03/17/24 07:44 Pulse Ox 99 03/17/24 07:44 FiO2 Intake & Output 03/16/24 03/17/24 03/17/24 18:59 06:59 18:59 Weight 70.5 kg 70.5 kg Other: Voiding Method Bedside Commode Bedside Commode # Voids 1 2 1 # Bowel Movements 1 1 - Constitutional General appearance: Present: average body habitus, cooperative, no acute distress - EENT Eyes: Present: anicteric sclerae, EOMI ENT: Present: hearing grossly normal, normal oropharynx - Respiratory Respiratory: bilateral: CTA, diminished - Cardiovascular Rhythm: regular Heart sounds: normal: S1, S2 Abnormal Heart Sounds: Absent: systolic murmur, diastolic murmur, rub, S3 Gallop, S4 Gallop, click, other - Peripheral edema foot Peripheral Edema: bilateral: 1+, Pitting - Gastrointestinal General gastrointestinal: Present: normal bowel sounds, soft - Integumentary Integumentary: Present: normal - Neurologic Neurologic: Present: CNII-XII intact - Musculoskeletal Musculoskeletal: Present: generalized weakness, strength equal bilaterally - Psychiatric Psychiatric: Present: A&O x's 3, appropriate affect, intact judgment & insight - Labs CBC & Chem 7: 03/17/24 06:39 03/17/24 06:39 Labs: Abnormal Lab Results - Last 24 Hours (Table) 03/17/24 03/17/24 Range/Units 06:39 06:39 WBC 2.08 L (4.50-10.00) X 10*3/uL RBC 3.26 L (4.10-5.20) X 10*6/uL Hgb 8.9 L (12.0-15.0) g/dL Hct 29.5 L (37.2-46.3) % MCHC 30.2 L (32.0-37.0) g/dL RDW 16.1 H (11.5-14.5) % Neutrophils # (Manual) 1.12 L (1.80-7.70) X 10*3/uL Monocytes # (Manual) 0 L (0.20-1.00) X 10*3/uL Eosinophils # (Manual) 0 L (0.04-0.35) X 10*3/uL Calcium 8.1 L (8.7-10.3) mg/dL Assessment and Plan (1) Dyspnea Current Visit: Yes Status: Acute Priority: High Code(s): R06.00 - DYSPNEA, UNSPECIFIED SNOMED Code(s): 535742294 (2) Small cell lung cancer, left upper lobe Current Visit: Yes Status: Acute Priority: High Code(s): C34.12 - MALIGNANT NEOPLASM OF UPPER LOBE, LEFT BRONCHUS OR LUNG SNOMED Code(s): 188249813 Plan: Small cell lung cancer, limited stage disease -Patient unable to tolerate staging PET scan. -Dr. Castañeda and the patient had a conversation about moving forward with treatment because of patient's symptoms. Without the staging PET scan she is aware of the limitations on treatment decision making. -Nuclear medicine bone scan was done. Reviewed the results with pt, no evidence of bony lesions. MRI of the brain previously was negative. Consulted Rad Onc for definitive treatment to add XRT with cycle 2. -Rad Onc has concerns for a sacral lesion. Asymptomatic. 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 -Patient overall did well with treatment. SOB, orthopnea -2/2 SCLC -Slightly better at this time. Patient is able to sit up and speak without significant dyspnea. Unfortunately, pt cannot sleep with head of bed lower then 45 degrees, if it is lower she becomes hypoxic, panicked and severely SOB. She has to sit at near 90 degree angle to sleep. She will need an adjustable bed to get any rest. Discussed with jewelry store manager Medications for treatment of gas helped some but, then patient began to experience diarrhea. This has been discontinued. Carafate added today Patient is no longer needing her compression socks. Fluid overload from treatment is nearly resolved, she only has some mild pedal edema at this time. All of the patient and her daughter's questions about treatment were answered to the best of my ability and to their satisfaction Time with Patient: Greater than 30
--- NOTE | 2024-03-17 23:18 | PN ---
PROGRESS NOTE DATE OF SERVICE: 03/17/2024 CHIEF COMPLAINT: Carcinoma of the left lung. HISTORY OF PRESENT ILLNESS: This lady is about the same. She still feels quite weak. Apparently, chemotherapy was started and stopped for reasons that she does not know. PHYSICAL EXAMINATION: GENERAL: She does appear to be chronically ill. CHEST: Breath sounds are diminished in the left anterior chest. CARDIAC: Normal. IMPRESSION: Carcinoma of the left lung. PLAN: Await recommendations from Oncology regarding treatment and discharge. MMODL / IJN: [id number] /
--- NOTE | 2024-03-18 12:53 | P.PN ---
Subjective Progress Note Date: 03/18/24 78-year-old female with a recent diagnosis of small cell lung cancer. The patient had a biopsy in mid February, by my partner, and was discovered to have small cell lung cancer. She has thoracic and mediastinal adenopathy, as well as a large mass in the left upper lobe. The patient has not started chemotherapy as yet. The patient apparently was sent for a PET scan. She apparently had a reaction to the dye given at the time of the PET scan, and developed chills, and fever, and generally just not feeling well. For that reason she came into the emergency room to be evaluated. She was seen there and admitted to the hospital. We are seeing her today, and 523. She is currently on 4 L of oxygen. No IV fluids. Currently, she is feeling back to baseline. Her white count is 8.9, hemoglobin 10.1, hematocrit 32.1, and a platelet count of 348,000. Coagulation studies were normal. Electrolyte profile was essentially normal. Glucose was 146. Albumin 3.3. She was tested for influenza, RSV and c oronavirus, and tested negative. Chest x-ray shows a left upper lobe lung mass, with Mediastinal Adenopathy. Brain MRI, was negative for intracranial metastasis. The patient is seen today March 08, 2024 in follow-up on the regular medical floor. She is currently sitting up in the bedside. Awake and alert in no acute distress. Maintaining O2 saturations in the 90s on 4 L/min per nasal cannula. She denies any worsening shortness of breath, cough or congestion. She did have an episode of dizziness last evening. She has been seen by medical oncology. Bone scan is pending. May initiate chemotherapy while here. 03/09/2024, the patient is experiencing shortness of breath and the patient is unable to lay down flat because of increased dyspnea. As mentioned, the patient has small cell lung cancer likely extensive stage. Unable to complete the PET scan because of shortness of breath and unable to lay down flat. The patient panic and she also experienced some nausea and dizziness and she was unable to complete the study. Discussed the case with medical oncology. The patient will be starting a systemic chemotherapy during her hospital stay. No hemoptysis. No pleurisy. Labs from the time of admission was noted. 03/10/2024, no complaints and the patient was started onPrimary chemotherapyThe patient is receivingCarboplatin and WEATHER STRIPPER-16.She is resting comfortably in bed. No significant complaints otherwise for now.Hemoglobin is 14.7 with a white cell count of 10.610.6 with a hemoglobin of 14.7.Electrolytes are stable. The patient has no specific complaints.Remains on oxygenAnd she is currently on4 L with a pulse ox of 92%. On 03/11/2024, the patient is being seen for a follow-up. Continue to have difficulty in breathing and the patient is having difficulty laying down flat. Overnight, the patient became more short of breath. Chest x-ray was done which showed increased atelectatic changes in the lung bases and possibly a component of pulm vascular congestion/edema. There is also development of pleural effusion suspected bilaterally right more than left with mild pulmonary edema. Based on that, the patient was given Lasix and she has responded and she seems to be less short of breath. Suggest continuing the Lasix for now. Meanwhile, the patient is completing her systemic chemotherapy and the patient is currently on etoposide per protocol regarding her small cell lung cancer. No other new complaints otherwise for now. She is weak. Mental status is appropriate. The white cell count is 16.4 with a hemoglobin of 10.1 and a platelet count of 365. Electrolytes are stable with a BUN of 20 and a creatinine of 0.6. Currently she is on 40s of oxygen by nasal cannula. She is also on Decadron. She is to be Decadron IV 10 mg every 24 hours. Rest of the medications are essentially unchanged. Oncology is on the case. On 03/12/2024, no new complaints and the patient is completing her etoposide regimen for small cell lung cancer. Remains on oxygen at 4 L/min nasal cannula. No new complaints for now. White cell count is at 13 with a hemoglobin 9.8 and a platelet count of 438. BUN is 27 with a creatinine of 0.9 and sodium is at 142. No altered mentation. Medications remain unchanged. She is diuresing well with IV Lasix and the patient is still having edema lower extremities bilaterally. On 03/13/2024, the patient has completed his systemic chemotherapy. Overall respiratory status is unchanged. She continues to have difficulty with dave thing especially when she lays down flat. No facial swelling. No arm swelling. No feve. She remains on 4l oxygen nasal cannula and the patient remains on Lasix 20 mg IV every 12 hours. She is in a negative fluid balance as the patient is diuresing well and the lower extremity edema seems to be improving for now. The bone scan was negative for any bony metastases. Radiation oncology has also evaluated the patient and their input is appreciated. 03/14/2024, the patient is stable. No new complaints on 40s of oxygen by nasal cannula. Completed systemic chemotherapy. Remains on IV Lasix. Weight is stable. Limited lower extremity edema. No other complaints otherwise for now. She is on Lasix 20 mg IV every 12 hours. No interval worsening shortness of breath. Condition is stable. On 03/15/2024, no new complaints and the patient's condition essentially unchanged and the patient is completing her systemic chemotherapy, first round. She is currently on 3 to the electrolyte nasal cannula. She remains on Lasix 20 mg IV every 12 hours. Lower extremity edema improving. The white cell count at 6.5 with a hemoglobin 9.5 with a platelet count of 353. Electrolytes are all stable. The patient is seen today March 16, 2024 in follow-up on the regular medical floor. She is currently sitting up at the bedside. Awake and alert in no acute distress. She is maintaining O2 saturations up to 100% on oxygen at 4 L/min per nasal cannula. White count 3.6. Hemoglobin 9.1. Platelets 275. Sodium 135. Potassium 3.7. Bicarb 37. BUN 13. Creatinine 0.60. Glucose 137. She remains on bronchodilators. Oral diuretics. Heparin for DVT prophylaxis. The patient is seen today March 17, 2024 in follow-up on the regular medical floor. She is currently sitting up in a chair. Awake and alert in no acute distress. She remains quite weak however. She denies any worsening shortness o f breath, cough or congestion. She is maintaining O2 saturation in the high 90s on 4 L/min per nasal cannula. She remains on DuoNeb inhalations. Heparin for DVT prophylaxis. On oral diuretics. Tessalon Perles for her cough.. Hemoglobin 8.9. Platelets 237. Sodium 137. Potassium 3.8. Bicarb 31. BUN 12. Creatinine 0.7. Glucose 75. The patient is seen today March 18, 2024 in follow-up on the regular medical floor. She is sitting up in bed. Awake and alert in no acute distress. Feelin g stronger each day. No worsening shortness of breath, cough or congestion. She is maintaining good O2 saturations in the 90s on 4 L nasal cannula. She did qualify for home oxygen. She remains on DuoNeb inhalations. Heparin for DVT prophylaxis. On oral diuretics. Objective - Vital Signs Vital signs: Vital Signs Temp 98.7 F 03/18/24 07:28 Pulse 89 03/18/24 11:30 Resp 17 03/18/24 08:40 BP 123/73 03/18/24 07:28 Pulse Ox 99 03/18/24 08:07 FiO2 Intake & Output 03/17/24 03/18/24 03/18/24 18:59 06:59 18:59 Weight 70.5 kg 71.4 kg Other: Voiding Method Bedside Commode Bedside Commode Bedside Commode # Voids 1 # Bowel Movements 1 1 - Exam GENERAL EXAM: Alert, pleasant 78-year-old female, sitting up in bed, on 4 L nasal cannula, in no apparent distress. HEAD: Normocephalic. EYES: Normal reaction of pupils, equal size. NOSE: Clear with pink turbinates. THROAT: No erythema or exudates. NECK: No masses, no JVD. CHEST: No chest wall deformity. LUNGS: Equal air entry with few scattered rhonchi. CVS: S1 and S2 normal with no audible murmur, regular rhythm. ABDOMEN: No hepatosplenomegaly, normal bowel sounds, no guarding or rigidity. SPINE: No scoliosis or deformity SKIN: No rashes CENTRAL NERVOUS SYSTEM: No focal deficits, tone is normal in all 4 extremities. EXTREMITIES: There is no peripheral edema. No clubbing, no cyanosis. Peripheral pulses are intact. - Labs CBC & Chem 7: 03/17/24 06:39 03/17/24 06:39 Assessment and Plan Assessment: Allergic reaction, apparently to the contrast given to her at the time of PET scan Recent diagnosis of small cell lung cancer likely extensive stage with bulky disease involving the mediastinum and a large left upper lobe mass. Completed the first cycle of systemic chemotherapy with carboplatin and etoposide Left upper lobe mass History of hypertension History of hyperlipidemia History of CVA/TIA History of gastroesophageal reflux disease Previous history of tobacco use Plan: The patient was seen and evaluated Medications reviewed Patient is now requesting subacute rehabilitation banking management consulting manager is working on placement Did qualify for home oxygen Continued on bronchodilators This patient was seen independently by the pulmonary nurse practitioner addressing pulmonary issues I have personally seen and examined the patient, performed the documentation and the assessment and plan as written. Number of minutes spent on the visit: 23.
--- NOTE | 2024-03-18 16:42 | P.PN ---
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 Breathing is stable, her belching, indigestion, c/o "burning" in the middle of chest is better after starting carafate. No fevers, N,V, she is reporting that she has an appetite today. She still requires the head of the bed to be in high Fowlers position for her to rest and not experience significant orthopnea. Bilateral lower extremity edema is now limited to just the feet and is mild. Plans for rehab Objective - Vital Signs Vital signs: Vital Signs Temp 97.5 F L 03/18/24 12:38 Pulse 90 03/18/24 15:32 Resp 19 03/18/24 12:38 BP 95/57 03/18/24 12:38 Pulse Ox 98 03/18/24 12:38 FiO2 Intake & Output 03/17/24 03/18/24 03/18/24 18:59 06:59 18:59 Weight 70.5 kg 71.4 kg Other: Voiding Method Bedside Commode Bedside Commode Bedside Commode # Voids 1 # Bowel Movements 1 1 - Constitutional General appearance: Present: average body habitus, cooperative, no acute distress - EENT Eyes: Present: anicteric sclerae, EOMI ENT: Present: hearing grossly normal, normal oropharynx - Respiratory Respiratory: bilateral: diminished - Cardiovascular Rhythm: regular Heart sounds: normal: S1, S2 Abnormal Heart Sounds: Absent: systolic murmur, diastolic murmur, rub, S3 Gallop, S4 Gallop, click, other - Peripheral edema foot Peripheral Edema: bilateral: Trace - Gastrointestinal General gastrointestinal: Present: soft - Integumentary Integumentary: Present: normal - Neurologic Neurologic: Present: CNII-XII intact - Musculoskeletal Musculoskeletal: Present: generalized weakness - Psychiatric Psychiatric: Present: A&O x's 3, appropriate affect, intact judgment & insight - Labs CBC & Chem 7: 03/17/24 06:39 03/17/24 06:39 Assessment and Plan (1) Dyspnea Current Visit: Yes Status: Acute Priority: High Code(s): R06.00 - DYSPNEA, UNSPECIFIED SNOMED Code(s): 404958341 (2) Small cell lung cancer, left upper lobe Current Visit: Yes Status: Acute Priority: High Code(s): C34.12 - MAL IGNANT NEOPLASM OF UPPER LOBE, LEFT BRONCHUS OR LUNG SNOMED Code(s): 010500273 Plan: Small cell lung cancer, limited stage disease -Patient unable to tolerate staging PET scan. -Dr. Castañeda and the patient had a conversation about moving forward with treatment because of patient's symptoms. Without the staging PET scan she is aware of the limitations on treatment decision making. -Nuclear medicine bone scan was done. Reviewed the results with pt, no evidence of bony lesions. MRI of the brain previously was negative. Consulted Rad Onc for definitive treatment to add XRT with cycle 2. -Rad Onc has concerns for a sacral lesion. Asymptomatic. This is going to be monitored for now -S/P 1st cycle of chemo, carbo/COTTON BALL BAGGER, minimal SE reported, mild heme toxicities at this time. -Patient overall did well with treatment. -Treatment will be on hold until pt is released from rehab and back home SOB, orthopnea -2/2 SCLC -Much better last 2 days. Patient is able to sit up and speak without SOB. She still is unable to sleep with head of bed lower then 45 degrees, if it is lower she becomes hypoxic, panicked and severely SOB. She has to sit at near 90 degree angle to sleep. She will need an adjustable bed to get any rest. Discussed with linen manager Medications for treatment of gas helped some but, then patient began to experience diarrhea. This has been discontinued. Carafate added yesterday and pt has done will with this. Will send Rx and continue Patient is no longer needing her compression socks. Fluid overload from treatment is nearly resolved, she only has some mild pedal edema at this time.
[2024-03-18] MEDS: PANTOPRAZOLE 40 MG TABLET PO SCH (17:45)
--- NOTE | 2024-03-19 01:39 | PN ---
PROGRESS NOTE DATE OF SERVICE: 03/18/2024 CHIEF COMPLAINT: Small cell carcinoma. HISTORY OF PRESENT ILLNESS: This lady is doing fairly well and awaits treatment plan. Apparently, they may go ahead with radiation therapy. She feels that she can manage things at home. Her son lives with her. Laboratory studies reveal white count to be just over 2000. Hemoglobin is 8.9. PHYSICAL EXAMINATION: HEENT: Head, ears, eyes, nose, mouth, and throat are normal. CHEST: Clear. CARDIAC: Normal. ABDOMEN: Soft, nontender. IMPRESSION: 1. Small cell carcinoma of the left lung. 2. Bone marrow suppression. PLAN: Await chemo and/or radiation and then discharge home. MMODL / IJN: [id number] /
[2024-03-19 08:04] VITALS: RESP 16
--- NOTE | 2024-03-19 12:39 | P.PN ---
Subjective Progress Note Date: 03/19/24 78-year-old female with a recent diagnosis of small cell lung cancer. The patient had a biopsy in mid February, by my partner, and was discovered to have small cell lung cancer. She has thoracic and mediastinal adenopathy, as well as a large mass in the left upper lobe. The patient has not started chemotherapy as yet. The patient apparently was sent for a PET scan. She apparently had a reaction to the dye given at the time of the PET scan, and developed chills, and fever, and generally just not feeling well. For that reason she came into the emergency room to be evaluated. She was seen there and admitted to the hospital. We are seeing her today, and 523. She is currently on 4 L of oxygen. No IV fluids. Currently, she is feeling back to baseline. Her white count is 8.9, hemoglobin 10.1, hematocrit 32.1, and a platelet count of 348,000. Coagulation studies were normal. Electrolyte profile was essentially normal. Glucose was 146. Albumin 3.3. She was tested for influenza, RSV and c oronavirus, and tested negative. Chest x-ray shows a left upper lobe lung mass, with Mediastinal Adenopathy. Brain MRI, was negative for intracranial metastasis. The patient is seen today March 08, 2024 in follow-up on the regular medical floor. She is currently sitting up in the bedside. Awake and alert in no acute distress. Maintaining O2 saturations in the 90s on 4 L/min per nasal cannula. She denies any worsening shortness of breath, cough or congestion. She did have an episode of dizziness last evening. She has been seen by medical oncology. Bone scan is pending. May initiate chemotherapy while here. 03/09/2024, the patient is experiencing shortness of breath and the patient is unable to lay down flat because of increased dyspnea. As mentioned, the patient has small cell lung cancer likely extensive stage. Unable to complete the PET scan because of shortness of breath and unable to lay down flat. The patient panic and she also experienced some nausea and dizziness and she was unable to complete the study. Discussed the case with medical oncology. The patient will be starting a systemic chemotherapy during her hospital stay. No hemoptysis. No pleurisy. Labs from the time of admission was noted. 03/10/2024, no complaints and the patient was started onPrimary chemotherapyThe patient is receivingCarboplatin and FRACTIONATING STILL OPERATOR-16.She is resting comfortably in bed. No significant complaints otherwise for now.Hemoglobin is 14.7 with a white cell count of 10.610.6 with a hemoglobin of 14.7.Electrolytes are stable. The patient has no specific complaints.Remains on oxygenAnd she is currently on4 L with a pulse ox of 92%. On 03/11/2024, the patient is being seen for a follow-up. Continue to have difficulty in breathing and the patient is having difficulty laying down flat. Overnight, the patient became more short of breath. Chest x-ray was done which showed increased atelectatic changes in the lung bases and possibly a component of pulm vascular congestion/edema. There is also development of pleural effusion suspected bilaterally right more than left with mild pulmonary edema. Based on that, the patient was given Lasix and she has responded and she seems to be less short of breath. Suggest continuing the Lasix for now. Meanwhile, the patient is completing her systemic chemotherapy and the patient is currently on etoposide per protocol regarding her small cell lung cancer. No other new complaints otherwise for now. She is weak. Mental status is appropriate. The white cell count is 16.4 with a hemoglobin of 10.1 and a platelet count of 365. Electrolytes are stable with a BUN of 20 and a creatinine of 0.6. Currently she is on 40s of oxygen by nasal cannula. She is also on Decadron. She is to be Decadron IV 10 mg every 24 hours. Rest of the medications are essentially unchanged. Oncology is on the case. On 03/12/2024, no new complaints and the patient is completing her etoposide regimen for small cell lung cancer. Remains on oxygen at 4 L/min nasal cannula. No new complaints for now. White cell count is at 13 with a hemoglobin 9.8 and a platelet count of 438. BUN is 27 with a creatinine of 0.9 and sodium is at 142. No altered mentation. Medications remain unchanged. She is diuresing well with IV Lasix and the patient is still having edema lower extremities bilaterally. On 03/13/2024, the patient has completed his systemic chemotherapy. Overall respiratory status is unchanged. She continues to have difficulty with dave thing especially when she lays down flat. No facial swelling. No arm swelling. No feve. She remains on 4l oxygen nasal cannula and the patient remains on Lasix 20 mg IV every 12 hours. She is in a negative fluid balance as the patient is diuresing well and the lower extremity edema seems to be improving for now. The bone scan was negative for any bony metastases. Radiation oncology has also evaluated the patient and their input is appreciated. 03/14/2024, the patient is stable. No new complaints on 40s of oxygen by nasal cannula. Completed systemic chemotherapy. Remains on IV Lasix. Weight is stable. Limited lower extremity edema. No other complaints otherwise for now. She is on Lasix 20 mg IV every 12 hours. No interval worsening shortness of breath. Condition is stable. On 03/15/2024, no new complaints and the patient's condition essentially unchanged and the patient is completing her systemic chemotherapy, first round. She is currently on 3 to the electrolyte nasal cannula. She remains on Lasix 20 mg IV every 12 hours. Lower extremity edema improving. The white cell count at 6.5 with a hemoglobin 9.5 with a platelet count of 353. Electrolytes are all stable. The patient is seen today March 16, 2024 in follow-up on the regular medical floor. She is currently sitting up at the bedside. Awake and alert in no acute distress. She is maintaining O2 saturations up to 100% on oxygen at 4 L/min per nasal cannula. White count 3.6. Hemoglobin 9.1. Platelets 275. Sodium 135. Potassium 3.7. Bicarb 37. BUN 13. Creatinine 0.60. Glucose 137. She remains on bronchodilators. Oral diuretics. Heparin for DVT prophylaxis. The patient is seen today March 17, 2024 in follow-up on the regular medical floor. She is currently sitting up in a chair. Awake and alert in no acute distress. She remains quite weak however. She denies any worsening shortness o f breath, cough or congestion. She is maintaining O2 saturation in the high 90s on 4 L/min per nasal cannula. She remains on DuoNeb inhalations. Heparin for DVT prophylaxis. On oral diuretics. Tessalon Perles for her cough.. Hemoglobin 8.9. Platelets 237. Sodium 137. Potassium 3.8. Bicarb 31. BUN 12. Creatinine 0.7. Glucose 75. The patient is seen today March 18, 2024 in follow-up on the regular medical floor. She is sitting up in bed. Awake and alert in no acute distress. Feelin g stronger each day. No worsening shortness of breath, cough or congestion. She is maintaining good O2 saturations in the 90s on 4 L nasal cannula. She did qualify for home oxygen. She remains on DuoNeb inhalations. Heparin for DVT prophylaxis. On oral diuretics. The patient is seen today March 19, 2024 in follow-up on the regular medical floor. She is currently sitting up in a chair having breakfast. Awake and alert in no acute distress. Feeling a bit stronger today compared to yesterday. Maintaining O2 saturations up to 99% on 4 L/min per nasal cannula. She is continued on, Tessalon Perles. Heparin for DVT prophylaxis. Remains on oral diuretics. Objective - Vital Signs Vital signs: Vital Signs Temp 97.7 F 03/19/24 08:02 Pulse 82 03/19/24 11:48 Resp 16 03/19/24 08:02 BP 112/64 03/19/24 08:02 Pulse Ox 99 03/19/24 08:35 FiO2 Intake & Output 03/18/24 03/19/24 03/19/24 18:59 06:59 18:59 Weight 69.9 kg Other: Voiding Method Bedside Commode Bedside Commode Bedside Commode # Voids 5 2 # Bowel Movements 2 - Exam GENERAL EXAM: Alert, 78-year-old female, sitting up in a chair, on 4 L nasal cannula, in no apparent distress. HEAD: Normocephalic. EYES: Normal reaction of pupils, equal size. NOSE: Clear with pink turbinates. THROAT: No erythema or exudates. NECK: No masses, no JVD. CHEST: No chest wall deformity. LUNGS: Equal air entry with few scattered rhonchi. CVS: S1 and S2 normal with no audible murmur, regular rhythm. ABDOMEN: No hepatosplenomegaly, normal bowel sounds, no guarding or rigidity. SPINE: No scoliosis or deformity SKIN: No rashes CENTRAL NERVOUS SYSTEM: No focal deficits, tone is normal in all 4 extremities. EXTREMITIES: There is no peripheral edema. No clubbing, no cyanosis. Periphera l pulses are intact. - Labs CBC & Chem 7: 03/17/24 06:39 03/17/24 06:39 Assessment and Plan Assessment: Allergic reaction, apparently to the contrast given to her at the time of PET scan Recent diagnosis of small cell lung cancer likely extensive stage with bulky disease involving the mediastinum and a large left upper lobe mass. Completed the first cycle of systemic chemotherapy with carboplatin and etoposide Left upper lobe mass History of hypertension History of hyperlipidemia History of CVA/TIA History of gastroesophageal reflux disease Previous history of tobacco use Plan: The patient was seen and evaluated Medications reviewed Qualified for home oxygen Continued on bronchodilators Plan is for subacute rehab at [facility] This patient was seen independently by the pulmonary nurse practitioner addressing pulmonary issues I have personally seen and examined the patient, performed the documentation and the assessment and plan as written. Number of minutes spent on the visit: 24.
[2024-03-19 13:12] VITALS: BP 88/55; PULSE 99; TEMP 98.3
--- NOTE | 2024-03-19 13:36 | DS ---
DISCHARGE SUMMARY CHIEF COMPLAINT: Shortness of breath and small cell carcinoma of the left lung. HISTORY OF PRESENT ILLNESS AND PHYSICAL EXAMINATION: Details of this lady's history and physical can be found in the initial workup. LABORATORY STUDIES: While she was in the hospital, she had laboratory studies, details of which can be found in the laboratory section of her chart. COURSE IN THE HOSPITAL: After admission, she was placed on bedrest, started on intravenous fluids and analgesics. She was seen by Oncology. Her initial event was that she reacted to the dye for her PET scan. While in the hospital, decisions were made by oncology as still whether not to treat and with what drugs and how often and that they did not have the PET scan to go by to rule out distant metastases, finally determine that they would to go ahead and start treatment, but she could be discharged and arrangements were made for her to go to [facility]. FINAL DIAGNOSES: 1. Small cell carcinoma of the left lung. 2. Reaction to PET scan dye. 3. Hypertension. OPERATIONS: None. CONSULTATIONS: Oncology. MMDUSTIN / AN: [id number] /
--- NOTE | 2024-03-19 17:21 | P.PN ---
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 No fevers, N,V, she is wanting to eat, notes some foods give her stomach symptoms more then others. Still requires the head of the bed to be in high Fowlers position for her to rest and not experience significant orthopnea. Bilateral lower extremity edema is resolved. She is excited to go to rehab and get moving more. Objective - Vital Signs Vital signs: Vital Signs Temp 98.3 F 03/19/24 13:11 Pulse 99 03/19/24 13:11 Resp 16 03/19/24 13:11 BP 88/55 03/19/24 13:11 Pulse Ox 100 03/19/24 13:11 FiO2 Intake & Output 03/18/24 03/19/24 03/19/24 18:59 06:59 18:59 Weight 69.9 kg Other: Voiding Method Bedside Commode Bedside Commode Bedside Commode # Voids 5 2 # Bowel Movements 2 - Constitutional General appearance: Present: average body habitus, cooperative, no acute distress - EENT Eyes: Present: anicteric sclerae, EOMI ENT: Present: hearing grossly normal, normal oropharynx - Respiratory Respiratory: bilateral: diminished - Cardiovascular Rhythm: regular Heart sounds: normal: S1, S2 Abnormal Heart Sounds: Absent: systolic murmur, diastolic murmur, rub, S3 Gallop, S4 Gallop, click, other - Peripheral edema foot Peripheral Edema: bilateral: Trace - Gastrointestinal General gastrointestinal: Present: normal bowel sounds, soft - Integumentary Integumentary: Present: normal - Neurologic Neurologic: Present: CNII-XII intact - Musculoskeletal Musculoskeletal: Present: generalized weakness, strength equal bilaterally - Psychiatric Psychiatric: Present: A&O x's 3, appropriate affect, intact judgment & insight - Labs CBC & Chem 7: 03/17/24 06:39 03/17/24 06:39 Assessment and Plan (1) Dyspnea Status: Acute Priority: High Code(s): R06.00 - DYSPNEA, UNSPECIFIED SNOMED Code(s): 023796714 (2) Small cell lung cancer, left upper lobe Status: Acute Priority: High Code(s): C34.12 - MALIGNANT NEOPLASM OF UPPER LOBE, LEFT BRONCHUS OR LUNG SNOMED Code(s): 512114814 Plan: Small cell lung cancer, limited stage disease -Patient unable to tolerate staging PET scan. -Dr. Castañeda and the patient had a conversation about moving forward with treatment because of patient's symptoms. Without the staging PET scan she is aware of the limitations on treatment decision making. -Nuclear medicine bone scan was done. Reviewed the results with pt, no evidence of bony lesions. MRI of the brain previously was negative. Consulted Rad Onc for definitive treatment to add XRT with cycle 2. -Rad Onc has concerns for a sacral lesion. Asymptomatic. 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 -Treatment will be on hold until pt is released from rehab and back home SOB, orthopnea -2/2 SCLC -Much improved since admit. Patient is able to sit up and speak without SOB. She still is unable to sleep with head of bed lower then 45 degrees, if it is lower she becomes hypoxic, panicked and severely SOB. She has to sit at near 90 degree angle to sleep. She will need an adjustable bed to get any rest. Medications for treatment of gas helped some but, then patient began to experience diarrhea. This has been discontinued. Carafate added and pt has done will with this. She reported some stomach symptoms today after eating. She described what she ate-recommended that pt pay attention to what she is eating, may have to avoid greasy foods Recommended that she cont carafate for now, she agreed Follow up with Medical Oncologist before starting next treatment, plans for XRT concurrently. All treatment on hold until pt has completed rehab and is back home.
== END 2024-03-19 14:42 | DRG 189 ==
LOC: EC 18:32 → 5NMEDONC 21:29
PROVIDERS: ADMIT Family Medicine; ATTEND Family Medicine
PROC: 05HA33Z Insertion of Infusion Device into Left Brachial Vein, Percutaneous Approach (ICD-10-PCS; principal; 2024-03-11 15:35)
DX: J96.21 Acute and chronic respiratory failure with hypoxia (principal); C34.12 Malignant neoplasm of upper lobe, left bronchus or lung; J44.1 Chronic obstructive pulmonary disease with (acute) exacerbation; J98.11 Atelectasis; D64.81 Anemia due to antineoplastic chemotherapy; T50.8X5A Adverse effect of diagnostic agents, initial encounter; E78.5 Hyperlipidemia, unspecified; F41.9 Anxiety disorder, unspecified; R68.81 Early satiety; I10 Essential (primary) hypertension; K21.00 Gastro-esophageal reflux disease with esophagitis, without bleeding; K29.70 Gastritis, unspecified, without bleeding; L40.0 Psoriasis vulgaris; R59.0 Localized enlarged lymph nodes; K59.00 Constipation, unspecified; T45.1X5A Adverse effect of antineoplastic and immunosuppressive drugs, initial encounter; Z79.82 Long term (current) use of aspirin; Z79.899 Other long term (current) drug therapy; Z86.73 Personal history of transient ischemic attack (TIA), and cerebral infarction without residual deficits; Z95.828 Presence of other vascular implants and grafts; Z20.822 Contact with and (suspected) exposure to COVID-19; Z86.61 Personal history of infections of the central nervous system; Z88.1 Allergy status to other antibiotic agents; Z88.5 Allergy status to narcotic agent; Z88.8 Allergy status to other drugs, medicaments and biological substances
CPT/HCPCS: 36410; 36415; 71045; 71046; 76937; 78306; 80048; 80053; 83605; 83735; 83880; 84100; 84484; 85025; 85610; 85730; 87636; 93005; 94640; 94760; 96361; 96374; 96375; 99291

== ENCOUNTER → 2024-03-06 | Outpatient (CLI) | payer MEDICARE, OTHER ==
--- NOTE | 2024-03-08 16:30 | PE ---
EXAMINATION TYPE: PET CT fusion skull to thigh DATE OF EXAM: 03/06/2024 CLINICAL INDICATION:Female, 78 years old with history of C34.92 MALIGNANT NEOPLASM OF UNSP PART OF LE FT BRONCHU; TECHNIQUE: Patient was injected with 11.26 mCi of F-18 FDG, no imaging was performed. Glucose level 1 08 mg/dL CT DLP: None mGycm, Automated exposure control for dose reduction was used. COMPARISON: CT None, PET/CT None, MRI: None FINDINGS: No images were performed. IMPRESSION: Patient was not scanned.
== END | disposition home or self-care (01) ==
LOC: RADPETMAIN 14:15
PROVIDERS: ATTEND Internal Medicine Hematology & Oncology
DX: C34.12 Malignant neoplasm of upper lobe, left bronchus or lung (principal); C34.92 Malignant neoplasm of unspecified part of left bronchus or lung; I10 Essential (primary) hypertension; I67.89 Other cerebrovascular disease; M12.9 Arthropathy, unspecified
CPT/HCPCS: 78815; A9552

== ENCOUNTER 2024-03-22 06:08 | Inpatient (IN) | payer MEDICARE, OTHER ==
[2024-03-22] MEDS ORDERED: VANCOMYCIN IV PER PHARMACY 1 EACH MISC MISCELLANE PRN (06:28)
--- NOTE | 2024-03-22 06:33 | ED ---
General Adult HPI <Sebastián Ramon - Last Filed: 03/22/24 11:02> - General Source: patient, EMS, RN notes reviewed Mode of arrival: EMS Limitations: no limitations <Hesham Arias - Last Filed: 03/22/24 11:17> - General Chief complaint: Shortness of Breath Stated complaint: Abn labs Time Seen by Provider: 03/22/24 06:16 - History of Present Illness Initial comments: 78-year-old female presents emergency department from [facility] with chief complaint of abnormal labs and shortness of breath. Patient has lung cancer currently on chemotherapy. Patient was found to have leukopenia a and thrombocytopenia yesterday. Patient does not know when her last treatment was. Patient does admit that she is a DNR. Patient denies knowing of a fever but presented febrile with shortness of breath. Patient denies any chest pain she states she does feel weak, not overall well. She has no complaints of localized abdominal pain. Patient states that her oncologist is Dr. Clay (Hesham Arias) - Related Data Home Medications Medication Instructions Recorded Confirmed Aspirin EC [Ecotrin Low Dose] 81 mg PO DAILY 02/19/24 03/07/24 Benzonatate [Tessalon Perle] 200 mg PO BID PRN 02/19/24 03/07/24 Gabapentin 300 mg PO TID 02/19/24 03/07/24 Metoprolol Tartrate [Lopressor] 50 mg PO BID 02/19/24 03/07/24 Pantoprazole Sodium [Protonix] 20 mg PO DAILY 02/19/24 03/07/24 Triamcinolone 0.025% Cream 1 applic TOPICAL BID PRN 02/19/24 03/07/24 [Kenalog 0.025% Cream] Previous Rx's Medication Instructions Recorded cloNIDine HCL [Catapres] 0.1 mg PO HS #30 tab 02/24/24 Sucralfate [Carafate] 1 gm PO ACHS #120 tablet 03/18/24 Furosemide [Lasix] 40 mg PO DAILY #30 tab 03/19/24 Losartan [Cozaar] 50 mg PO DAILY #30 tab 03/19/24 Sucralfate [Carafate] 1 gm PO ACHS #30 tab 03/19/24 Allergies Allergy/AdvReac Type Severity Reaction Status Date / Time bisoprolol [From Ziac] Allergy Unknown Verified 03/07/24 09:22 erythromycin base Allergy Rash/Hives Verified 03/07/24 09:22 [From Erythrocin] hydrochlorothiazide Allergy Unknown Verified 03/07/24 09:22 [From Ziac] iodine Allergy Confusion Verified 03/07/24 09:22 propoxyphene Allergy Dyspnea Verified 03/07/24 09:22 [From Darvocet-N] acetaminophen [From Lortab] AdvReac Itching Verified 03/07/24 09:22 aloe vera AdvReac Itching Verified 03/07/24 09:22 atorvastatin [From Lipitor] AdvReac Unknown Verified 03/07/24 09:22 hydrocodone [From Lortab] AdvReac Itching Verified 03/07/24 09:22 levofloxacin [From Levaquin] AdvReac Itching Verified 03/07/24 09:22 polyethylene glycol 3350 AdvReac Hallucinati Verified 03/07/24 09:22 [From Miralax] ons rofecoxib [From Vioxx] AdvReac Nausea & Verified 03/07/24 09:22 Vomiting Review of Systems ROS Other: All systems not noted in ROS Statement are negative. <Sebastián Ramon - Last Filed: 03/22/24 11:02> ROS Other: All systems not noted in ROS Statement are negative. <Hesham Arias - Last Filed: 03/22/24 11:17> ROS Statement: Those systems with pertinent positive or pertinent negative responses have been documented in the HPI. 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, ovarian cysts History of Any Multi-Drug Resistant Organisms: None Reported Past Surgical History: Appendectomy, Tonsillectomy, Tubal Ligation Additional Past Surgical History / Comment(s): cataracts, carpal tunnel, laser eye surgery, metal coil for brain aneurysm, lung cancer Past Anesthesia/Blood Transfusion Reactions: Postoperative Nausea & Vomiting (PONV) Past Psychological History: No Psychological Hx Reported Smoking Status: Former smoker Past Alcohol Use History: None Reported Past Drug Use History: None Reported <Hesham Arias - Last Filed: 03/22/24 11:17> General Exam Limitations: no limitations General appearance: alert, in no apparent distress Head exam: Present: atraumatic, normocephalic, normal inspection Eye exam: Present: normal appearance, PERRL, EOMI. Absent: scleral icterus, conjunctival injection, periorbital swelling ENT exam: Present: normal exam, normal oropharynx, mucous membranes moist Neck exam: Present: normal inspection, full ROM. Absent: tenderness, meningismus, lymphadenopathy Respiratory exam: Present: respiratory distress (Mild), wheezes. Absent: normal lung sounds bilaterally, rales, rhonchi, stridor Cardiovascular Exam: Present: normal rhythm, tachycardia, normal heart sounds. Absent: systolic murmur, diastolic murmur, rubs, gallop, clicks GI/Abdominal exam: Present: soft, normal bowel sounds. Absent: distended, tenderness, guarding, rebound, rigid <Hesham Arias - Last Filed: 03/22/24 11:17> Course Vital Signs 03/22/24 03/22/24 03/22/24 06:10 06:30 07:43 Temperature 99.9 F H Pulse Rate 120 H 118 H 113 H Respiratory 24 22 Rate Blood Pressure 104/53 101/37 O2 Sat by Pulse 95 98 Oximetry 03/22/24 03/22/24 03/22/24 07:45 08:00 08:52 Temperature 98.7 F Pulse Rate 113 H 111 H 111 H Respiratory 22 24 Rate Blood Pressure 88/44 96/43 O2 Sat by Pulse 97 94 L Oximetry 03/22/24 03/22/24 09:38 10:35 Temperature Pulse Rate 106 H 115 H Respiratory 22 24 Rate Blood Pressure 64/37 103/55 O2 Sat by Pulse 94 L 96 Oximetry EKG Findings - EKG Comments: EKG Findings:: EKG performed at 6: 31 sinus tachycardia rate of 119 CT 128 QRS 84 QT/QTc 339/410 - EKG Results: EKG: interpreted by ERMD <Hesham Arias - Last Filed: 03/22/24 11:17> Procedures - Central Line Placement Right Femoral Consent Obtained: verbal consent Patient Placed on Monitor/Pulse Ox: Yes MD Prep: mask, gown, gloves Central Line Prep: Chlorhexidine scrub Local Anesthesia Used: Lidocaine 1% Amount of Anesthesia Used (mls): 6 Ultrasound Used for Placement: Yes Central Line Lumen Inserted: triple Central Line Position: good blood return, all ports aspirated, flushed, capped, sutured in place with nylon Dressing Applied: Tegaderm Patient Tolerated Procedure: well Complications: none <Sebastián Ramon - Last Filed: 03/22/24 11:02> - Sepsis Sepsis Focused Exam #1 Time Sepsis Criteria Met: : Sepsis Focused Exam Date: 03/22/24 Sepsis Focused Exam Time: 10:16 Sepsis Focused Exam Complete: Yes Vital Signs & RN Notes Reviewed: Yes Capillary Refill: < 2 Seconds: Fingers, Toes Peripheral Pulses: Weak: Posterior Tibialis (R), Posterior Tibialis (L), Dorsalis Pedis (R), Dorsalis Pedis (L), Normal: Radial (R), Radial (L) Skin Color: Normal for Patient Respiratory Exam: wheezes Cardiovascular Exam: normal rhythm, tachycardia <Hesham Arias - Last Filed: 03/22/24 11:17> Medical Decision Making - Lab Data Result diagrams: 03/22/24 06:20 03/22/24 06:20 <Sebastián Ramon - Last Filed: 03/22/24 11:02> - Lab Data Result diagrams: 03/22/24 06:20 03/22/24 06:20 <Hesham Arias - Last Filed: 03/22/24 11:17> - Medical Decision Making Was pt. sent in by a medical professional or institution ([facility]LOT[facility] Alex, POWER GENERATION EQUIPMENT REPAIRER, urgent c are, hospital, or long term...) When possible be specific @ -[place] Did you speak to anyone other than the patient for history (EMS, parent, family, police, friend...)? What history was obtained from this source @ -[No] Did you review nursing and triage notes (agree or disagree)? Why? @ -[I reviewed and agree with nursing and triage notes] Were old charts reviewed (outside hosp., previous admission, EMS record, old EKG, old radiological studies, urgent care reports/EKG's, long term records)? Report findings @ -[No old charts were reviewed] Differential Diagnosis (chest pain, altered mental status, abdominal pain women, abdominal pain men, vaginal bleeding, weakness, fever, dyspnea, syncope, headache, dizziness, GI bleed, back pain, seizure, CVA, palpatations, mental health, musculoskeletal)? @ -Differential Dyspnea: Coronary syndrome, arrhythmia, tamponade, asthma, COPD, pulmonary embolism, pneumonia, pneumothorax, pulmonary effusion, anaphylaxis, diabetic ketoacidosis, flailed chest, pulmonary contusion, diaphragmatic rupture, anemia, neuromuscular, this is not meant to be an all-inclusive list. EKG interpreted by me (3pts min.). @ -[As above] X-rays interpreted by me (1pt min.). @ -Chest x-ray shows pleural effusion right with left upper lobe mass CT interpreted by me (1pt min.). @ -[None done] U/S interpreted by me (1pt. min.). @ -[None done] What testing was considered but not performed or refused? (CT, X-rays, U/S, labs)? Why? @ -[None] What meds were considered but not given or refused? Why? @ -[None] Did you discuss the management of the patient with other professionals (professionals i.e. , PA, POWER GENERATION EQUIPMENT REPAIRER, lab, RT, psych nurse, social welfare clerk, environmental health physician, teacher, gifts officer, family caseworker)? Give summary @ -Dr. Bunch for admission along with Dr. Ware ICU Was smoking cessation discussed for >3mins.? @ -[No] Was critical care preformed (if so, how long)? @ -35 minutes Were there social determinants of health that impacted care today? How? (Homelessness, low income, unemployed, alcoholism, drug addiction, transportation, low edu. Level, literacy, decrease access to med. care, senior living, rehab)? @ -[No] Was there de-escalation of care discussed even if they declined (Discuss DNR or withdrawal of care, Hospice)? DNR status @ -[No] What co-morbidities impacted this encounter? (DM, HTN, Smoking, COPD, CAD, Cancer, CVA, ARF, Chemo, Hep., AIDS, mental health diagnosis, sleep apnea, morbid obesity)? @ -Lungs CA Was patient admitted / discharged? Hospital course, mention meds given and route, prescriptions, significant lab abnormalities, going to OR and other pertinent info. @ -Admitted patient presented for abnormal labs, dyspnea. Patient does have known lung cancer. Patient is found to have neutropenic fever patient's white count 0.4 patient does have a notable pancytopenia was started on dual antibiotic therapy including cefepime, vancomycin patient was given fluid bolus found to have significant lactic acidosis at 4.2 patient did receive 30 mL/kg along with maintenance fluids at 130 patient continued to have hypotension in which central line was placed by Dr. Ramon. Patient was started on Levophed. Patient will be admitted to the ICU for close monitoring. I did have a long discussion with patient and daughter who was updated by RN regarding patient's CODE STATUS of only medical management she does not want to be intubated or any CPR. Undiagnosed new problem with uncertain prognosis? @ -[No] Drug Therapy requiring intensive monitoring for toxicity (Heparin, Nitro, Insulin, Cardizem)? @ -Levophed Were any procedures done? @ -[No] Diagnosis/symptom? @ -Neutropenic fever, lung cancer, hypomagnesemia, hypokalemia, pancytopenia, Acute, or Chronic, or Acute on Chronic? @ -Acute Uncomplicated (without systemic symptoms) or Complicated (systemic symptoms)? @ -Complicated Side effects of treatment? @ -[No] Exacerbation, Progression, or Severe Exacerbation? @ -[No] Poses a threat to life or bodily function? How? (Chest pain, USA, OR, pneumonia, PE, COPD, DKA, ARF, appy, cholecystitis, CVA, Diverticulitis, Homicidal, Suicidal, threat to staff... and all critical care pts) @ -Yes neutropenic. (Hesham Arias) - Lab Data Lab Results 03/22/24 03/22/24 03/22/24 Range/Units 06:20 06:20 06:20 WBC 0.4 L* (3.8-10.6) k/uL RBC 3.48 L (3.80-5.40) m/uL Hgb 9.8 L (11.4-16.0) gm/dL Hct 29.2 L (34.0-46.0) % MCV 84.1 (80.0-100.0) fL MCH 28.2 (25.0-35.0) pg MCHC 33.6 (31.0-37.0) g/dL RDW 15.8 H (11.5-15.5) % Plt Count 21 L (150-450) k/uL MPV 12.0 Differential Comment Manual Slide Review Performed PT (10.0-12.5) sec INR (<1.2) APTT (22.0-30.0) sec Sodium 130 L (137-145) mmol/L Potassium 3.3 L (3.5-5.1) mmol/L Chloride 87 L (98-107) mmol/L Carbon Dioxide 27 (22-30) mmol/L Anion Gap 16 mmol/L BUN 35 H (7-17) mg/dL Creatinine 1.31 H (0.52-1.04) mg/dL Est GFR (CKD-EPI)AfAm 45 (>60 ml/min/1.73 sqM) Est GFR (CKD-EPI)NonAf 39 (>60 ml/min/1.73 sqM) Glucose 196 H (74-99) mg/dL Lactic Ac Sepsis Rflx Plasma Lactic Acid Eusebio 4.2 H* (0.7-2.0) mmol/L Calcium 8.0 L (8.4-10.2) mg/dL Magnesium 1.4 L (1.6-2.3) mg/dL Total Bilirubin 1.5 H (0.2-1.3) mg/dL AST 26 (14-36) U/L ALT 19 (4-34) U/L Alkaline Phosphatase 79 (38-126) U/L Troponin I (0.000-0.034) ng/mL Total Protein 6.1 L (6.3-8.2) g/dL Albumin 3.4 L (3.5-5.0) g/dL Urine Color Urine Appearance (Clear) Urine pH (5.0-8.0) Ur Specific Baldwin (1.001-1.035) Urine Protein (Negative) Urine Glucose (UA) (Negative) Urine Ketones (Negative) Urine Blood (Negative) Urine Nitrite (Negative) Urine Bilirubin (Negative) Urine Urobilinogen (<2.0) mg/dL Ur Leukocyte Esterase (Negative) Urine RBC (0-5) /hpf Urine WBC (0-5) /hpf Ur Squamous Epith Cells (0-4) /hpf Hyaline Casts (0-2) /lpf Urine Mucus (None) /hpf 03/22/24 03/22/24 03/22/24 Range/Units 06:20 06:20 07:32 WBC (3.8-10.6) k/uL RBC (3.80-5.40) m/uL Hgb (11.4-16.0) gm/dL Hct (34.0-46.0) % MCV (80.0-100.0) fL MCH (25.0-35.0) pg MCHC (31.0-37.0) g/dL RDW (11.5-15.5) % Plt Count (150-450) k/uL MPV Differential Comment Manual Slide Review PT 11.5 (10.0-12.5) sec INR 1.1 (<1.2) APTT 28.9 (22.0-30.0) sec Sodium (137-145) mmol/L Potassium (3.5-5.1) mmol/L Chloride (98-107) mmol/L Carbon Dioxide (22-30) mmol/L Anion Gap mmol/L BUN (7-17) mg/dL Creatinine (0.52-1.04) mg/dL Est GFR (CKD-EPI)AfAm (>60 ml/min/1.73 sqM) Est GFR (CKD-EPI)NonAf (>60 ml/min/1.73 sqM) Glucose (74-99) mg/dL Lactic Ac Sepsis Rflx Y Plasma Lactic Acid Eusebio (0.7-2.0) mmol/L Calcium (8.4-10.2) mg/dL Magnesium (1.6-2.3) mg/dL Total Bilirubin (0.2-1.3) mg/dL AST (14-36) U/L ALT (4-34) U/L Alkaline Phosphatase (38-126) U/L Troponin I 0.033 (0.000-0.034) ng/mL Total Protein (6.3-8.2) g/dL Albumin (3.5-5.0) g/dL Urine Color Urine Appearance (Clear) Urine pH (5.0-8.0) Ur Specific Baldwin (1.001-1.035) Urine Protein (Negative) Urine Glucose (UA) (Negative) Urine Ketones (Negative) Urine Blood (Negative) Urine Nitrite (Negative) Urine Bilirubin (Negative) Urine Urobilinogen (<2.0) mg/dL Ur Leukocyte Esterase (Negative) Urine RBC (0-5) /hpf Urine WBC (0-5) /hpf Ur Squamous Epith Cells (0-4) /hpf Hyaline Casts (0-2) /lpf Urine Mucus (None) /hpf 03/22/24 Range/Units 09:18 WBC (3.8-10.6) k/uL RBC (3.80-5.40) m/uL Hgb (11.4-16.0) gm/dL Hct (34.0-46.0) % MCV (80.0-100.0) fL MCH (25.0-35.0) pg MCHC (31.0-37.0) g/dL RDW (11.5-15.5) % Plt Count (150-450) k/uL MPV Differential Comment Manual Slide Review PT (10.0-12.5) sec INR (<1.2) APTT (22.0-30.0) sec Sodium (137-145) mmol/L Potassium (3.5-5.1) mmol/L Chloride (98-107) mmol/L Carbon Dioxide (22-30) mmol/L Anion Gap mmol/L BUN (7-17) mg/dL Creatinine (0.52-1.04) mg/dL Est GFR (CKD-EPI)AfAm (>60 ml/min/1.73 sqM) Est GFR (CKD-EPI)NonAf (>60 ml/min/1.73 sqM) Glucose (74-99) mg/dL Lactic Ac Sepsis Rflx Plasma Lactic Acid Eusebio (0.7-2.0) mmol/L Calcium (8.4-10.2) mg/dL Magnesium (1.6-2.3) mg/dL Total Bilirubin (0.2-1.3) mg/dL AST (14-36) U/L ALT (4-34) U/L Alkaline Phosphatase (38-126) U/L Troponin I (0.000-0.034) ng/mL Total Protein (6.3-8.2) g/dL Albumin (3.5-5.0) g/dL Urine Color Yellow Urine Appearance Cloudy H (Clear) Urine pH 5.5 (5.0-8.0) Ur Specific Baldwin 1.013 (1.001-1.035) Urine Protein Trace H (Negative) Urine Glucose (UA) Negative (Negative) Urine Ketones Negative (Negative) Urine Blood Small H (Negative) Urine Nitrite Negative (Negative) Urine Bilirubin Negative (Negative) Urine Urobilinogen <2.0 (<2.0) mg/dL Ur Leukocyte Esterase Negative (Negative) Urine RBC 6 H (0-5) /hpf Urine WBC 4 (0-5) /hpf Ur Squamous Epith Cells 1 (0-4) /hpf Hyaline Casts 1 (0-2) /lpf Urine Mucus Rare H (None) /hpf Critical Care Time Critical Care Time: Yes Total Critical Care Time: 35 <Hesham Arias - Last Filed: 03/22/24 11:17> Disposition <Sebastián Ramon - Last Filed: 03/22/24 11:02> Time of Disposition: 10:16 <Hesham Arias - Last Filed: 03/22/24 11:17> Clinical Impression: Neutropenic fever, Lung cancer, Hypoxia, Hypomagnesemia Disposition: ADMITTED IP TO THIS HOSP Condition: Serious Referrals: Mil Bunch MD [Primary Care Provider] - 1-2 days
[2024-03-22] MEDS: SODIUM CHLORIDE 0.9% 500 ML 500 ML IV ONE ×2 (06:48→08:51)
[2024-03-22] MEDS: CEFEPIME 2 GM in SODIUM CHLORIDE 0.9% 100 ML IVPB SCH (06:48)
[2024-03-22] MEDS: ACETAMINOPHEN TAB 500 MG TAB PO STA (07:01)
[2024-03-22 07:02] LABS: ALT 19 U/L (4-34); African American GFR (CKD) 45 (>60 ml/min/1.73 sqM); Albumin 3.4 g/dL (3.5-5.0); Anion Gap 16 mmol/L; Blood Urea Nitrogen 35 mg/dL (7-17); Carbon Dioxide 27 mmol/L (22-30); Chloride 87 mmol/L (98-107); Glucose 196 mg/dL (74-99); Non-African American GFR(CKD) 39 (>60 ml/min/1.73 sqM); Sodium 130 mmol/L (137-145); Total Bilirubin 1.5 mg/dL (0.2-1.3); Total Protein 6.1 g/dL (6.3-8.2)
[2024-03-22] MEDS: CALCIUM CARBONATE 500 MG CHEWABLE PO STA (07:02)
[2024-03-22] MEDS: FAMOTIDINE 20 MG/2 ML VIAL IV STA (07:02)
[2024-03-22 07:11] LABS: AST 26 U/L (14-36); Alkaline Phosphatase 79 U/L (38-126); INR 1.1 (<1.2); Magnesium 1.4 mg/dL (1.6-2.3); Partial Thromboplastin Time 28.9 sec (22.0-30.0); Potassium 3.3 mmol/L (3.5-5.1); Prothrombin Time 11.5 sec (10.0-12.5)
[2024-03-22 07:20] LABS: HCT 29.2 % (34.0-46.0); HGB 9.8 gm/dL (11.4-16.0); MCH 28.2 pg (25.0-35.0); MCHC 33.6 g/dL (31.0-37.0); MCV 84.1 fL (80.0-100.0); RBC 3.48 m/uL (3.80-5.40); RDW 15.8 % (11.5-15.5)
[2024-03-22 07:24] LABS: Platelet Count 21 k/uL (150-450); WBC 0.4 k/uL (3.8-10.6)
[2024-03-22] MEDS: IPRATROPIUM-ALBUTEROL 3 ML NEB INHALATION STA (07:43)
[2024-03-22] MEDS: SODIUM CHLORIDE 0.9% 1,000 ML IV ONE (07:44)
[2024-03-22] MEDS: VANCOMYCIN 1,250 MG in SODIUM CHLORIDE 0.9% 250 ML IVPB STA (08:17)
--- NOTE | 2024-03-22 08:25 | XR ---
EXAMINATION TYPE: XR chest 2V DATE OF EXAM: 03/22/2024 COMPARISON: 03/11/2024 HISTORY: Shortness of breath TECHNIQUE: Frontal and lateral views of the chest are obtained. FINDINGS: Scattered senescent parenchymal changes noted. Hyperinflation compatible with COPD. Masslike opacity left upper lobe persists. There is persistent pulmonary venous congestion with subpu lmonic effusion noted on the right. Overall appearance is slightly improved relative to the prior armani dy. Continued follow-up is recommended. Heart size is stable. Mediastinal structures are stable and grossly unremarkable. No evidence for hilar prominence. Degenerative changes dorsal spine. IMPRESSION: 1. Masslike opacity left upper lobe persists. There is persistent pulmonary venous congestion with marcano bpulmonic effusion noted on the right. Overall appearance is slightly improved relative to the prior study. Continued follow-up is recommended.
[2024-03-22] MEDS: SODIUM CHLORIDE 0.9% 1,000 ML IV SCH (08:50)
[2024-03-22 09:30] LABS: Appearance,Urine Cloudy (Clear); Bilirubin,Urine Negative (Negative); Blood,Urine Small (Negative); Color,Urine Yellow; Glucose,Urine (UA) Negative (Negative); Hyaline Casts,Urine 1 /lpf (0-2); Ketones,Urine Negative (Negative); Leukocyte Esterase,Urine Negative (Negative); Mucus,Urine Rare /hpf; Nitrite,Urine Negative (Negative); PH, Urine 5.5 (5.0-8.0); Protein,Urine Trace (Negative); RBC,Urine 6 /hpf (0-5); Specific Gravity,Urine 1.013 (1.001-1.035); Squamous Epithelial Cell,Urine 1 /hpf (0-4); Urobilinogen,Urine <2.0 mg/dL (<2.0); WBC,Urine 4 /hpf (0-5)
[2024-03-22] MEDS: IBUPROFEN 600 MG TAB PO STA (09:39)
[2024-03-22] MEDS: NOREPINEPHRINE 32 MG in SODIUM CHLORIDE 0.9% 218 ML IV ONE (10:15)
[2024-03-22] MEDS: NOREPINEPHRINE 4 MG in SODIUM CHLORIDE 0.9% 250 ML IV ONE ×2 (10:16→10:17)
[2024-03-22] MEDS: MAGNESIUM OXIDE 400 MG TAB PO STA (10:38)
[2024-03-22] MEDS: POTASSIUM CHLORIDE ER 20 MEQ TAB.ER PO STA (10:38)
[2024-03-22] MEDS ORDERED: ACETAMINOPHEN TAB 325 MG TAB PO PRN (11:05)
[2024-03-22] MEDS ORDERED: NALOXONE 0.4 MG/ML 1 ML VIAL IV PRN (11:05)
[2024-03-22] MEDS ORDERED: IBUPROFEN 400 MG TAB PO PRN (11:05)
--- NOTE | 2024-03-22 13:50 | P.CNPUL ---
History of Present Illness Consult date: 03/22/24 Requesting physician: Mil Bunch Reason for consult: other (Critical care management) Chief complaint: Fever, weakness History of present illness: This is a 78-year-old female patient with a known history of hypertension, hyperlipidemia, CVA/TIA, gastroesophageal reflux disease, previous tobacco dependence. 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 She had been initiated on carboplatin and etoposide. She was recently admitted after having allergic reaction to the contrast used for her PET scan back on March 06. She was discharged to [facility] for rehabilitation on March 19, 2024. She was brought back to the emergency room early this morning with febrile illness. Masslike opacity in the left upper lobe. Persistent pulmonary venous congestion and subpulmonic effusion noted on the right. Overall appearance is slightly improved compared to previous at discharge. EKG reveals sinus tachycardia, heart rate in the 110s. White count 0.4. Hemoglobin 9.8. Platelets 21,000. Sodium 130. Potassium 3.3. Bicarb 27. BUN 35. Creatinine 1.31. Glucose 196. Lactic acid 4.2. Troponin 0.033. She also had significant hypotension while in the emergency department 64/37 with a mean arterial pressure of 46 and was initiated on norepinephrine and given IV fluid resuscita tion. Tmax of 99.9. Current blood pressure 120/71. She is on norepinephrine at 0.08 mcg/kg/min. Normal saline at 130 MLS per hour. She has been initiated on vancomycin and cefepime. The department. She is awake. Currently afebrile. Remains tachycardic. Denies any significant shortness of breath. Maintaining O2 saturations in the 90s on 2 L/min per nasal cannula. She will be admitted to the ICU for closer monitoring. She is a DNR/DNI CODE STATUS. Review of Systems REVIEW OF SYSTEMS: CONSTITUTIONAL: Positive for generalized weakness, fever. Denies any recent significant weight loss or weight gain. EYES: Denies change in vision. EARS, NOSE, MOUTH, THROAT: Denies headaches, denies sore throat. CARDIOVASCULAR: Denies chest pain, palpitations or syncopal episodes. RESPIRATORY: Denies shortness of breath, cough, congestion or hemoptysis. GASTROINTESTINAL: Denies change in appetite, denies abdominal pain GENITOURINARY: Denies hematuria, denies infections. MUSKULOSKELETAL: Denies pain, denies swelling. INTEGUMENTARY: Denies rash, denies eczema. NEUROLOGICAL: Denies recent memory loss, no recent seizure activity. PSYCHIATRIC: Denies anxiety, denies depression. HEMATOLOGIC/LYMPHATIC: Denies anemia, denies enlarged lymph nodes. 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, ovarian cysts History of Any Multi-Drug Resistant Organisms: None Reported Past Surgical History: Appendectomy, Tonsillectomy, Tubal Ligation Additional Past Surgical History / Comment(s): cataracts, carpal tunnel, laser eye surgery, metal coil for brain aneurysm, lung cancer Past Anesthesia/Blood Transfusion Reactions: Postoperative Nausea & Vomiting (PONV) Past Psychological History: No Psychological Hx Reported Smoking Status: Former smoker Past Alcohol Use History: None Reported Past Drug Use History: None Reported Medications and Allergies Home Medications Medication Instructions Recorded Confirmed Type Aspirin EC [Ecotrin Low Dose] 81 mg PO DAILY@0800 02/19/24 03/22/24 History Benzonatate [Tessalon Perle] 200 mg PO BID PRN 02/19/24 03/22/24 History Gabapentin 300 mg PO TID@0800,1200,1700 02/19/24 03/22/24 History Metoprolol Tartrate [Lopressor] 50 mg PO BID@0800,1700 02/19/24 03/22/24 History Pantoprazole Sodium [Protonix] 20 mg PO DAILY@0600 02/19/24 03/22/24 History Triamcinolone 0.025% Cream 1 applic TOPICAL BID PRN 02/19/24 03/22/24 History [Kenalog 0.025% Cream] cloNIDine HCL [Catapres] 0.1 mg PO HS #30 tab 02/24/24 03/22/24 Rx ALPRAZolam [Xanax] 0.25 mg PO BID PRN 03/22/24 03/22/24 History Ensure Clear 237 ml PO TID@0800,1200,1700 03/22/24 03/22/24 History Furosemide [Lasix] 40 mg PO DAILY@0600 03/22/24 03/22/24 History Ipratropium-Albuterol Nebulize 3 ml INHALATION RT-Q6H PRN 03/22/24 03/22/24 History [Duoneb 0.5 mg-3 mg/3 ml Soln] Losartan [Cozaar] 50 mg PO DAILY@0800 03/22/24 03/22/24 History Magnesium Hydroxide [Milk of 7,200 mg PO Q48H PRN 03/22/24 03/22/24 History Magnesia Concentrate] Na Phos,M-B/Na Phos,Di-Ba [Fleet 133 ml RECTAL DAILY PRN 03/22/24 03/22/24 History Adult] Ondansetron [Zofran] 4 mg PO Q6H PRN 03/22/24 03/22/24 History Sucralfate [Carafate] 1 gm PO ACHS@07,11,1630,2130 03/22/24 03/22/24 History bisacodyL [Dulcolax] 10 mg RECTAL DAILY PRN 03/22/24 03/22/24 History Allergies Allergy/AdvReac Type Severity Reaction Status Date / Time bisoprolol [From Ziac] Allergy Unknown Verified 03/07/24 09:22 erythromycin base Allergy Rash/Hives Verified 03/07/24 09:22 [From Erythrocin] hydrochlorothiazide Allergy Unknown Verified 03/07/24 09:22 [From Ziac] iodine Allergy Confusion Verified 03/07/24 09:22 propoxyphene Allergy Dyspnea Verified 03/07/24 09:22 [From Darvocet-N] acetaminophen [From Lortab] AdvReac Itching Verified 03/07/24 09:22 aloe vera AdvReac Itching Verified 03/07/24 09:22 atorvastatin [From Lipitor] AdvReac Unknown Verified 03/07/24 09:22 hydrocodone [From Lortab] AdvReac Itching Verified 03/07/24 09:22 levofloxacin [From Levaquin] AdvReac Itching Verified 03/07/24 09:22 polyethylene glycol 3350 AdvReac Hallucinati Verified 03/07/24 09:22 [From Miralax] ons rofecoxib [From Vioxx] AdvReac Nausea & Verified 03/07/24 09:22 Vomiting Physical Exam Vitals: Vital Signs Temp Pulse Resp BP Pulse Ox 03/22/24 11:50 117 H 26 H 108/61 98 03/22/24 10:35 115 H 24 103/55 96 03/22/24 09:38 106 H 22 64/37 94 L 03/22/24 08:52 98.7 F 111 H 24 96/43 94 L 03/22/24 08:00 111 H 03/22/24 07:45 113 H 22 88/44 97 03/22/24 07:43 113 H 03/22/24 06:30 118 H 22 101/37 98 03/22/24 06:10 99.9 F H 120 H 24 104/53 95 Intake and Output 03/21/24 03/22/24 03/22/24 22:59 06:59 14:59 Intake Total 5.224 Balance 5.224 Intake: Intake, IV Titration 5.224 Amount Norepinephrine 32 mg In 5.224 Sodium Chloride 0.9% 218 ml @ 0.03 MCG/KG/MIN 1. 001 mls/hr IV .Q24H ONE Rx#:[id number] Other: Weight 71.214 kg GENERAL EXAM: Alert, very weak, 78-year-old female, on 2 L nasal cannula, fairly comfortable in no apparent distress. HEAD: Normocephalic. EYES: Normal reaction of pupils, equal size. NOSE: Clear with pink turbinates. THROAT: No erythema or exudates. NECK: No masses, no JVD. CHEST: No chest wall deformity. LUNGS: Equal air entry with few scattered rhonchi. CVS: S1 and S2 normal with no audible murmur, regular rhythm. ABDOMEN: No hepatosplenomegaly, normal bowel sounds, no guarding or rigidity. SPINE: No scoliosis or deformity SKIN: No rashes CENTRAL NERVOUS SYSTEM: No focal deficits, tone is normal in all 4 extremities. EXTREMITIES: Right femoral triple-lumen catheter in place. There is no peripheral edema. No clubbing, no cyanosis. Peripheral pulses are intact. Results - Laboratory Findings CBC and BMP: 03/22/24 06:20 03/22/24 06:20 PT/INR, D-dimer PT 11.5 sec (10.0-12.5) 03/22/24 06:20 INR 1.1 (<1.2) 03/22/24 06:20 Abnormal lab findings: Abnormal Labs 03/22/24 03/22/24 03/22/24 06:20 06:20 06:20 WBC 0.4 L* RBC 3.48 L Hgb 9.8 L Hct 29.2 L RDW 15.8 H Plt Count 21 L Sodium 130 L Potassium 3.3 L Chloride 87 L BUN 35 H Creatinine 1.31 H Glucose 196 H Plasma Lactic Acid Eusebio 4.2 H* Calcium 8.0 L Magnesium 1.4 L Total Bilirubin 1.5 H Total Protein 6.1 L Albumin 3.4 L Urine Appearance Urine Protein Urine Blood Urine RBC Urine Mucus 03/22/24 03/22/24 09:18 12:30 WBC RBC Hgb Hct RDW Plt Count Sodium Potassium Chloride BUN Creatinine Glucose Plasma Lactic Acid Eusebio 2.6 H* Calcium Magnesium Total Bilirubin Total Protein Albumin Urine Appearance Cloudy H Urine Protein Trace H Urine Blood Small H Urine RBC 6 H Urine Mucus Rare H - Diagnostic Findings Chest x-ray: image reviewed Assessment and Plan Assessment: Neutropenic fever with generalized weakness and hypotension secondary to chemotherapy Hypotension requiring norepinephrine Acute kidney injury secondary to hypotension, dehydration Pancytopenia secondary to chemotherapy Recent diagnosis of small cell lung cancer likely extensive stage with bulky disease involving the mediastinum and a large left upper lobe mass. Completed the first cycle of systemic chemotherapy with carboplatin and etoposide History of hypertension History of hyperlipidemia History of CVA/TIA History of gastroesophageal reflux disease Previous history of tobacco use Plan: The patient was seen and evaluated Chest x-ray, labs and medications reviewed Titrate the norepinephrine to keep mean arterial pressure greater than 65 Continue with fluid resuscitation Continue vancomycin and cefepime Prognosis is guarded DNR/DNI CODE STATUS We will continue to follow and make further recommendations based on her clinical status I have personally seen and examined the patient, performed the documentation and the assessment and plan as written. Number of minutes spent on the visit: 20.
[2024-03-22] MEDS: ZINC OXIDE PASTE (Z-GUARD) 1 APPLIC TOPICAL ONE (21:30)
[2024-03-23] MEDS: IPRATROPIUM-ALBUTEROL 3 ML NEB INHALATION PRN (04:15)
[2024-03-23] MEDS: DILTIAZEM 5 MG/ML 5 ML VIAL IVP STA (05:16)
[2024-03-23] MEDS ORDERED: HEPARIN SODIUM 1,000 UN/ML (10ML VL) IV PRN (05:17)
--- NOTE | 2024-03-23 05:23 | ED ---
Medical Decision Making - Medical Decision Making 523am: "A team" was paged on behalf of patient due to tachycardia dysrhythmia. Patient was boarding in the emergency department in room #3. Patient was seen at the bedside had a narrow complex tachycardia dysrhythmia with ranges between 180 and 200. Patient had borderline blood pressure systolics measured approximately 100. Patient was well-appearing. Cardiac pads were placed. EKG was performed showing narrow complex irregular tachycardia dysrhythmia consistent with A-fib with RVR. Patient has central venous catheter placed. Cardizem was given with improved rate control. Levophed had to be restarted for Cardizem related hypotension. - Lab Data Result diagrams: 03/22/24 06:20 03/22/24 06:20 Lab Results 03/22/24 03/22/24 03/22/24 Range/Units 06:20 06:20 06:20 WBC 0.4 L* (3.8-10.6) k/uL RBC 3.48 L (3.80-5.40) m/uL Hgb 9.8 L (11.4-16.0) gm/dL Hct 29.2 L (34.0-46.0) % MCV 84.1 (80.0-100.0) fL MCH 28.2 (25.0-35.0) pg MCHC 33.6 (31.0-37.0) g/dL RDW 15.8 H (11.5-15.5) % Plt Count 21 L (150-450) k/uL MPV 12.0 Differential Comment Manual Slide Review Performed PT (10.0-12.5) sec INR (<1.2) APTT (22.0-30.0) sec Sodium 130 L (137-145) mmol/L Potassium 3.3 L (3.5-5.1) mmol/L Chloride 87 L (98-107) mmol/L Carbon Dioxide 27 (22-30) mmol/L Anion Gap 16 mmol/L BUN 35 H (7-17) mg/dL Creatinine 1.31 H (0.52-1.04) mg/dL Est GFR (CKD-EPI)AfAm 45 (>60 ml/min/1.73 sqM) Est GFR (CKD-EPI)NonAf 39 (>60 ml/min/1.73 sqM) Glucose 196 H (74-99) mg/dL Lactic Ac Sepsis Rflx Plasma Lactic Acid Eusebio 4.2 H* (0.7-2.0) mmol/L Calcium 8.0 L (8.4-10.2) mg/dL Magnesium 1.4 L (1.6-2.3) mg/dL Total Bilirubin 1.5 H (0.2-1.3) mg/dL AST 26 (14-36) U/L ALT 19 (4-34) U/L Alkaline Phosphatase 79 (38-126) U/L Troponin I (0.000-0.034) ng/mL Total Protein 6.1 L (6.3-8.2) g/dL Albumin 3.4 L (3.5-5.0) g/dL Urine Color Urine Appearance (Clear) Urine pH (5.0-8.0) Ur Specific [place] (1.001-1.035) Urine Protein (Negative) Urine Glucose (UA) (Negative) Urine Ketones (Negative) Urine Blood (Negative) Urine Nitrite (Negative) Urine Bilirubin (Negative) Urine Urobilinogen (<2.0) mg/dL Ur Leukocyte Esterase (Negative) Urine RBC (0-5) /hpf Urine WBC (0-5) /hpf Ur Squamous Epith Cells (0-4) /hpf Hyaline Casts (0-2) /lpf Urine Mucus (None) /hpf 03/22/24 03/22/24 03/22/24 Range/Units 06:20 06:20 07:32 WBC (3.8-10.6) k/uL RBC (3.80-5.40) m/uL Hgb (11.4-16.0) gm/dL Hct (34.0-46.0) % MCV (80.0-100.0) fL MCH (25.0-35.0) pg MCHC (31.0-37.0) g/dL RDW (11.5-15.5) % Plt Count (150-450) k/uL MPV Differential Comment Manual Slide Review PT 11.5 (10.0-12.5) sec INR 1.1 (<1.2) APTT 28.9 (22.0-30.0) sec Sodium (137-145) mmol/L Potassium (3.5-5.1) mmol/L Chloride (98-107) mmol/L Carbon Dioxide (22-30) mmol/L Anion Gap mmol/L BUN (7-17) mg/dL Creatinine (0.52-1.04) mg/dL Est GFR (CKD-EPI)AfAm (>60 ml/min/1.73 sqM) Est GFR (CKD-EPI)NonAf (>60 ml/min/1.73 sqM) Glucose (74-99) mg/dL Lactic Ac Sepsis Rflx Y Plasma Lactic Acid Eusebio (0.7-2.0) mmol/L Calcium (8.4-10.2) mg/dL Magnesium (1.6-2.3) mg/dL Total Bilirubin (0.2-1.3) mg/dL AST (14-36) U/L ALT (4-34) U/L Alkaline Phosphatase (38-126) U/L Troponin I 0.033 (0.000-0.034) ng/mL Total Protein (6.3-8.2) g/dL Albumin (3.5-5.0) g/dL Urine Color Urine Appearance (Clear) Urine pH (5.0-8.0) Ur Specific [place] (1.001-1.035) Urine Protein (Negative) Urine Glucose (UA) (Negative) Urine Ketones (Negative) Urine Blood (Negative) Urine Nitrite (Negative) Urine Bilirubin (Negative) Urine Urobilinogen (<2.0) mg/dL Ur Leukocyte Esterase (Negative) Urine RBC (0-5) /hpf Urine WBC (0-5) /hpf Ur Squamous Epith Cells (0-4) /hpf Hyaline Casts (0-2) /lpf Urine Mucus (None) /hpf 03/22/24 Range/Units 09:18 WBC (3.8-10.6) k/uL RBC (3.80-5.40) m/uL Hgb (11.4-16.0) gm/dL Hct (34.0-46.0) % MCV (80.0-100.0) fL MCH (25.0-35.0) pg MCHC (31.0-37.0) g/dL RDW (11.5-15.5) % Plt Count (150-450) k/uL MPV Differential Comment Manual Slide Review PT (10.0-12.5) sec INR (<1.2) APTT (22.0-30.0) sec Sodium (137-145) mmol/L Potassium (3.5-5.1) mmol/L Chloride (98-107) mmol/L Carbon Dioxide (22-30) mmol/L Anion Gap mmol/L BUN (7-17) mg/dL Creatinine (0.52-1.04) mg/dL Est GFR (CKD-EPI)AfAm (>60 ml/min/1.73 sqM) Est GFR (CKD-EPI)NonAf (>60 ml/min/1.73 sqM) Glucose (74-99) mg/dL Lactic Ac Sepsis Rflx Plasma Lactic Acid Eusebio (0.7-2.0) mmol/L Calcium (8.4-10.2) mg/dL Magnesium (1.6-2.3) mg/dL Total Bilirubin (0.2-1.3) mg/dL AST (14-36) U/L ALT (4-34) U/L Alkaline Phosphatase (38-126) U/L Troponin I (0.000-0.034) ng/mL Total Protein (6.3-8.2) g/dL Albumin (3.5-5.0) g/dL Urine Color Yellow Urine Appearance Cloudy H (Clear) Urine pH 5.5 (5.0-8.0) Ur Specific [place] 1.013 (1.001-1.035) Urine Protein Trace H (Negative) Urine Glucose (UA) Negative (Negative) Urine Ketones Negative (Negative) Urine Blood Small H (Negative) Urine Nitrite Negative (Negative) Urine Bilirubin Negative (Negative) Urine Urobilinogen <2.0 (<2.0) mg/dL Ur Leukocyte Esterase Negative (Negative) Urine RBC 6 H (0-5) /hpf Urine WBC 4 (0-5) /hpf Ur Squamous Epith Cells 1 (0-4) /hpf Hyaline Casts 1 (0-2) /lpf Urine Mucus Rare H (None) /hpf Disposition Clinical Impression: Neutropenic fever, Lung cancer, Hypoxia, Hypomagnesemia Disposition: ADMITTED IP TO THIS HOSP Condition: Serious Procedures - Sepsis Sepsis Focused Exam #1 Time Sepsis Criteria Met: 10:14
[2024-03-23] MEDS: DILTIAZEM 125 MG in SODIUM CHLORIDE 0.9% 100 ML IV SCH ×3 (05:24→23:30)
[2024-03-23] MEDS: HEPARIN SOD,PORK IN 0.45% NACL 25,000 UNIT in 0.45% NACL 1 250ML.BAG IV SCH (05:31)
[2024-03-23] MEDS: HEPARIN SODIUM 1,000 UN/ML (10ML VL) IV ONE (05:33)
[2024-03-23] MEDS: SODIUM CHLORIDE 0.9% 1,000 ML IV ONE (05:34)
[2024-03-23] MEDS: PHENYLEPHRINE 40 MG in SODIUM CHLORIDE 0.9% 250 ML IV SCH (05:42)
[2024-03-23 07:37] LABS: Anisocytosis Slight; HCT 26.2 % (34.0-46.0); Hypochromasia Slight; MCH 27.7 pg (25.0-35.0); MCHC 31.7 g/dL (31.0-37.0); MCV 87.3 fL (80.0-100.0); Mean Platelet Volume 8.6; RDW 16.1 % (11.5-15.5)
[2024-03-23 07:38] LABS: ALT 16 U/L (4-34); AST 16 U/L (14-36); African American GFR (CKD) 39 (>60 ml/min/1.73 sqM); Albumin 2.7 g/dL (3.5-5.0); Alkaline Phosphatase 59 U/L (38-126); Anion Gap 11 mmol/L; Blood Urea Nitrogen 39 mg/dL (7-17); Calcium 7.6 mg/dL (8.4-10.2); Carbon Dioxide 22 mmol/L (22-30); Chloride 103 mmol/L (98-107); Glucose 111 mg/dL (74-99); Non-African American GFR(CKD) 34 (>60 ml/min/1.73 sqM); Platelet Count 24 k/uL (150-450); Potassium 2.9 mmol/L (3.5-5.1); Sodium 136 mmol/L (137-145); Total Protein 5.7 g/dL (6.3-8.2); WBC 0.9 k/uL (3.8-10.6)
[2024-03-23 07:39] LABS: HGB 8.3 gm/dL (11.4-16.0)
[2024-03-23] MEDS: NYSTATIN 100,000 UNIT/ML SUSP 500,000 UNIT/5 ML CUP PO SCH (08:20)
[2024-03-23 08:29] LABS: Crenated RBC Present
[2024-03-23] MEDS ORDERED: VANCOMYCIN IV PER PHARMACY 1 EACH MISC MISCELLANE PRN (08:59)
[2024-03-23] MEDS: NOREPINEPHRINE 32 MG in SODIUM CHLORIDE 0.9% 218 ML IV ONE (09:56)
[2024-03-23] MEDS: VANCOMYCIN 1,250 MG in SODIUM CHLORIDE 0.9% 250 ML IVPB SCH (10:11)
[2024-03-23] MEDS: MAG HYDROX/AL HYDROX/SIMETH 30 ML, LIDOCAINE VISCOUS 2% 30 ML, diphenhydrAMINE ELIXIR 7... PO SCH (11:14)
--- NOTE | 2024-03-23 11:15 | P.CONS ---
History of Present Illness - Reason for Consult Consult date: 03/23/24 S/P chemo, neutropenia Requesting physician: Hesham Arias - Chief Complaint SOB - History of Present Illness The patient is a 78-year-old white female, initially seen in consult 02/20/2024. She had been admitted with progressive shortness of breath, cough and wheezing. She was found to have a large left upper lobe mass, as well as mediastinal adenopathy. She had a bronchoscopy during that admission, with pathology positive for small cell lung cancer. She had been complaining of upper abdominal pain, but CT abdomen pelvis was negative for any abdominal findings. MRI of the brain was negative. She was seen in the office, and was recommended staging PET scan, as it was felt that she could be a candidate for definitive treatment with concurrent chemoradiation, if PET was negative for evidence of distant disease. She was supposed to have the PET scan done on 03/06/2024, but apparently could not lay flat for it. She subsequently developed symptoms of nausea, dizziness and chills, apparently concerning for a reaction to the PET scan dye-which it was ultimately felt she did not. She was taken to ER and admitted for further management. Since pt unable to tolerate staging PET scan Dr. Castañeda and the patient had a conversation about moving forward with treatment, because of patient's symptoms. Without the staging PET scan this did limit treatment decision making. Nuclear medicine bone scan was done with no reported evidence of bony lesions. Rad Onc was consulted to see the patient for planning of definitive treatment with radiation to be added with cycle 2. On Rad Onc review of CT pelvis there was concern for a single lesion in the rt sacral area. This area did not have abnormal activity on NM bone scan. Inquiry into IR for biopsy of bone, pt did not end up having a biopsy. There were plans for Rad Onc to follow up with her before cycle 2 (possibly MRI of the scarum?). Pt received her first cycle of carboplatin and etoposide days 1, 2 and 3, completing on March 12. Initially her O2 needs increased then they improved, patient was discharged to rehab on 5 L nasal cannula. She actually had done very well post chemo, no significant side effects, indigestion/heartburn/belching issues were controlled with Carafate and close monitoring of diet. Patient is currently admitted from [facility]. Brought in on the with complaints of abnormal labs and shortness of breath. Patient states she was brought in from home. Patient did not have fever on admission. She is short of breath, oxygen is at 5 L, this is what she was discharged on. Her O2 needs actually improved after chemo treatment, prev on 13 L. She did have a team called tachy dysrhythmia at 530 this morning. She had a CVC placed, Cardizem was given with improved rate control. Levophed started for Cardizem related hypotension. She was also started on a heparin drip, which has been discontinued because of a platelet count of 24,000. Chest x-ray compared to 03/11 reporting left upper lobe mass persists, persistent pulmonary venous congestion with subpulmonic effusion on the right. Reporting that slightly improved compared to the prior study. When inquiring about how patient is feeling she reports sore mouth, denies known fevers, nausea, vomiting, she is not complaining of indigestion or heartburn at this time, she denies dysuria, diarrhea. Review of Systems 10 point review of systems is as stated in HPI, patient is slightly confused. 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, ovarian cysts History of Any Multi-Drug Resistant Organisms: None Reported Past Surgical History: Appendectomy, Tonsillectomy, Tubal Ligation Additional Past Surgical History / Comment(s): cataracts, carpal tunnel, laser eye surgery, metal coil for brain aneurysm, lung cancer Past Anesthesia/Blood Transfusion Reactions: Postoperative Nausea & Vomiting (PONV) Past Psychological History: No Psychological Hx Reported Smoking Status: Former smoker Past Alcohol Use History: None Reported Past Drug Use History: None Reported Medications and Allergies Home Medications Medication Instructions Recorded Confirmed Type Aspirin EC [Ecotrin Low Dose] 81 mg PO DAILY@0800 02/19/24 03/22/24 History Benzonatate [Tessalon Perle] 200 mg PO BID PRN 02/19/24 03/22/24 History Gabapentin 300 mg PO TID@0800,1200,1700 02/19/24 03/22/24 History Metoprolol Tartrate [Lopressor] 50 mg PO BID@0800,1700 02/19/24 03/22/24 History Pantoprazole Sodium [Protonix] 20 mg PO DAILY@0600 02/19/24 03/22/24 History Triamcinolone 0.025% Cream 1 applic TOPICAL BID PRN 02/19/24 03/22/24 History [Kenalog 0.025% Cream] cloNIDine HCL [Catapres] 0.1 mg PO HS #30 tab 02/24/24 03/22/24 Rx ALPRAZolam [Xanax] 0.25 mg PO BID PRN 03/22/24 03/22/24 History Ensure Clear 237 ml PO TID@0800,1200,1700 03/22/24 03/22/24 History Furosemide [Lasix] 40 mg PO DAILY@0603/22/24 03/22/24 History Ipratropium-Albuterol Nebulize 3 ml INHALATION RT-Q6H PRN 03/22/24 03/22/24 History [Duoneb 0.5 mg-3 mg/3 ml Soln] Losartan [Cozaar] 50 mg PO DAILY@0800 03/22/24 03/22/24 History Magnesium Hydroxide [Milk of 7,200 mg PO Q48H PRN 03/22/24 03/22/24 History Magnesia Concentrate] Na Phos,M-B/Na Phos,Di-Ba [Fleet 133 ml RECTAL DAILY PRN 03/22/24 03/22/24 History Adult] Ondansetron [Zofran] 4 mg PO Q6H PRN 03/22/24 03/22/24 History Sucralfate [Carafate] 1 gm PO ACHS@07,11,1630,2130 03/22/24 03/22/24 History bisacodyL [Dulcolax] 10 mg RECTAL DAILY PRN 03/22/24 03/22/24 History Allergies Allergy/AdvReac Type Severity Reaction Status Date / Time bisoprolol [From Ziac] Allergy Unknown Verified 03/07/24 09:22 erythromycin base Allergy Rash/Hives Verified 03/07/24 09:22 [From Erythrocin] hydrochlorothiazide Allergy Unknown Verified 03/07/24 09:22 [From Ziac] iodine Allergy Confusion Verified 03/07/24 09:22 propoxyphene Allergy Dyspnea Verified 06/29/24 09:22 [From Darvocet-N] acetaminophen [From Lortab] AdvReac Itching Verified 03/07/24 09:22 aloe vera AdvReac Itching Verified 03/07/24 09:22 atorvastatin [From Lipitor] AdvReac Unknown Verified 03/07/24 09:22 hydrocodone [From Lortab] AdvReac Itching Verified 03/07/24 09:22 levofloxacin [From Levaquin] AdvReac Itching Verified 03/07/24 09:22 polyethylene glycol 3350 AdvReac Hallucinati Verified 03/07/24 09:22 [From Miralax] ons rofecoxib [From Vioxx] AdvReac Nausea & Verified 03/07/24 09:22 Vomiting Physical Exam Vitals: Vital Signs Temp Pulse Resp BP Pulse Ox 03/23/24 10:32 104 H 18 107/92 90 L 03/23/24 10:20 102 H 22 101/53 91 L 03/23/24 10:15 102 H 18 106/53 91 L 03/23/24 10:10 105 H 20 99/50 91 L 03/23/24 10:05 106 H 22 114/37 91 L 03/23/24 10:01 110 H 18 114/37 91 L 03/23/24 10:00 108 H 18 103/60 91 L 03/23/24 09:55 108 H 20 115/57 90 L 03/23/24 09:50 106 H 20 104/57 89 L 03/23/24 09:45 111 H 18 109/54 88 L 03/23/24 09:40 112 H 18 110/56 89 L 03/23/24 09:35 110 H 20 113/58 90 L 03/23/24 09:30 107 H 20 101/80 86 L 03/23/24 09:20 29 H 99/61 90 L 03/23/24 09:15 99 32 H 103/66 92 L 03/23/24 08:40 93 L 03/23/24 08:10 105 H 20 86/47 90 L 03/23/24 08:05 105 H 20 107/52 88 L 03/23/24 08:00 103 H 20 100/38 90 L 03/23/24 07:55 101 H 20 118/66 88 L 03/23/24 07:50 100 20 106/70 94 L 07/15/24 07:45 99 20 102/69 95 03/23/24 07:40 98 20 110/61 98 03/23/24 07:35 98 20 104/59 100 03/23/24 07:30 98 20 104/57 97 03/23/24 07:25 98 20 106/59 100 03/23/24 07:20 101 H 20 109/57 100 03/23/24 07:15 102 H 20 107/59 100 03/23/24 07:10 104 H 20 82/68 99 03/23/24 07:05 107 H 18 112/62 97 03/23/24 07:00 113 H 18 120/63 95 03/23/24 06:55 110 H 8 L 122/64 96 03/23/24 06:50 113 H 22 106/69 90 L 03/23/24 06:45 112 H 27 H 54/34 94 L 03/23/24 06:40 112 H 28 H 111/55 90 L 03/23/24 06:35 112 H 21 115/55 95 03/23/24 06:30 111 H 42 H 107/54 100 03/23/24 06:25 112 H 25 H 105/49 100 03/23/24 06:20 111 H 64 H 106/55 94 L 03/23/24 06:15 112 H 18 106/61 99 03/23/24 06:10 115 H 24 100/51 99 03/23/24 06:05 113 H 19 95/59 99 03/23/24 06:00 97.8 F 109 H 29 H 98/76 99 03/23/24 05:55 114 H 22 108/56 100 03/23/24 05:50 114 H 32 H 112/60 99 03/23/24 05:45 115 H 26 H 115/56 98 03/23/24 05:40 156 H 29 H 74/49 98 03/23/24 05:35 172 H 33 H 79/50 03/23/24 05:30 168 H 41 H 108/87 96 03/23/24 05:25 163 H 33 H 100/63 85 L 03/23/24 05:20 186 H 31 H 116/90 98 03/23/24 05:15 176 H 29 H 100/63 93 L 03/23/24 05:10 176 H 30 H 125/109 94 L 03/23/24 05:05 227 H 41 H 123/66 96 03/23/24 05:00 141 H 18 125/74 03/23/24 04:55 140 H 22 125/74 98 03/23/24 04:50 141 H 25 H 125/74 97 03/23/24 04:30 135 H 14 123/75 96 03/23/24 04:23 115 H 03/23/24 04:15 110 H 03/23/24 04:10 138 H 25 H 98/63 99 03/23/24 04:00 137 H 17 103/74 96 03/23/24 03:50 138 H 25 H 103/74 94 L 03/23/24 03:30 137 H 45 H 106/62 94 L 03/23/24 03:00 113 H 16 128/74 88 L 03/23/24 02:40 110 H 27 H 121/69 94 L 03/23/24 02:30 109 H 17 115/70 96 03/23/24 02:10 110 H 22 97/56 94 L 03/23/24 02:00 112 H 23 111/69 94 L 03/23/24 01:40 98 22 111/63 95 03/23/24 01:30 111 H 21 78/64 96 03/23/24 01:10 109 H 14 112/69 94 L 03/23/24 01:00 112 H 17 86/53 95 03/23/24 00:40 111 H 14 96/55 96 03/23/24 00:30 108 H 16 95/58 95 03/23/24 00:20 114 H 14 95/58 94 L 03/23/24 00:10 117 H 16 108/64 92 L 03/23/24 00:00 97.9 F 105 H 20 100/52 94 L 03/22/24 23:40 137 H 24 93/54 96 03/22/24 23:30 138 H 15 111/60 96 03/22/24 23:10 142 H 25 H 104/60 96 03/22/24 23:00 115 H 20 115/61 94 L 03/22/24 22:50 117 H 20 115/61 93 L 03/22/24 22:40 114 H 23 126/74 92 L 03/22/24 22:30 112 H 20 127/69 94 L 03/22/24 22:20 114 H 21 127/69 94 L 03/22/24 22:10 98 23 124/68 93 L 03/22/24 22:00 97.8 F 03/22/24 21:50 115 H 46 H 121/67 90 L 03/22/24 21:40 115 H 19 104/68 92 L 03/22/24 21:30 115 H 13 113/67 91 L 03/22/24 21:20 125 H 22 113/67 92 L 03/22/24 21:10 133 H 18 130/76 92 L 03/22/24 21:00 140 H 25 H 125/78 94 L 03/22/24 20:50 112 H 22 125/78 92 L 03/22/24 20:40 113 H 23 126/61 91 L 03/22/24 20:30 113 H 18 131/78 91 L 03/22/24 20:12 114 H 23 121/79 93 L 03/22/24 20:00 97.9 F 113 H 19 121/79 94 L 03/22/24 19:20 109 H 13 105/60 93 L 03/22/24 18:00 111 H 20 112/61 96 03/22/24 17:00 114 H 24 114/64 95 03/22/24 16:00 112 H 24 96/50 96 03/22/24 15:00 114 H 20 101/57 95 03/22/24 13:30 118 H 24 120/71 94 L 03/22/24 11:50 117 H 26 H 108/61 98 03/22/24 10:35 115 H 24 103/55 96 Intake and Output 03/22/24 03/23/24 03/23/24 22:59 06:59 14:59 Intake Total 15.489 44.740 106.472 Output Total 67 Balance -51.511 44.740 106.472 Intake: Intake, IV Titration 15.489 44.740 106.472 Amount Norepinephrine 32 mg In 15.489 12.633 Sodium Chloride 0.9% 218 ml @ 0.03 MCG/KG/MIN 1. 001 mls/hr IV .Q24H ONE Rx#:[id number] Norepinephrine 32 mg In 1.513 Sodium Chloride 0.9% 218 ml @ 0.03 MCG/KG/MIN 1. 001 mls/hr IV .Q24H [facility] Rx#:[id number] Phenylephrine 40 mg In 32.107 104.959 Sodium Chloride 0.9% 250 ml @ 0.5 MCG/KG/MIN 13. 566 mls/hr IV .[id number] [facility] Rx#:[id number] Output: Post Void Residual 67 - Constitutional General appearance: average body habitus, cooperative, mild distress - EENT Mild to moderate oral mucositis from chemotherapy Eyes: anicteric sclerae, EOMI ENT: hearing grossly normal - Respiratory Respiratory: bilateral: diminished - Cardiovascular Rhythm: regular Heart sounds: normal: S1, S2 Abnormal Heart Sounds: no systolic murmur, no diastolic murmur, no rub, no S3 Gallop, no S4 Gallop, no click, no other leg Peripheral Edema: bilateral: None - Gastrointestinal General gastrointestinal: no absent bowel sounds, no decreased bowel sounds, no distended, no hepatomegaly, no hyperactive bowel sounds, normal bowel sounds, no organomegaly, no rigid, no scaphoid, soft, no splenomegaly, no tenderness, no umbilical hernia, no ventral hernia Localized gastrointestinal: tender: LLQ (Mild rebound tenderness) - Integumentary Integumentary: normal - Neurologic Neurologic: CNII-XII intact (Grossly) - Musculoskeletal Musculoskeletal: strength equal bilaterally - Psychiatric Oriented to self. Patient thought she was brought from home, she was brought from [facility]. Patient currently thinks she upstairs on a medical floor in the h [facility]spital Results CBC & Chem 7: 03/23/24 07:04 03/23/24 07:04 Labs: Abnormal Lab Results - Last 24 Hours (Table) 03/22/24 03/23/24 03/23/24 Range/Units 12:30 07:04 07:04 WBC 0.9 L* (3.8-10.6) k/uL RBC 3.00 L (3.80-5.40) m/uL Hgb 8.3 L D (11.4-16.0) gm/dL Hct 26.2 L (34.0-46.0) % RDW 16.1 H (11.5-15.5) % Plt Count 24 L (150-450) k/uL Sodium 136 L (137-145) mmol/L Potassium 2.9 L (3.5-5.1) mmol/L BUN 39 H (7-17) mg/dL Creatinine 1.49 H (0.52-1.04) mg/dL Glucose 111 H (74-99) mg/dL Plasma Lactic Acid Eusebio 2.6 H* (0.7-2.0) mmol/L Calcium 7.6 L (8.4-10.2) mg/dL Total Protein 5.7 L (6.3-8.2) g/dL Albumin 2.7 L (3.5-5.0) g/dL Microbiology - Last 24 Hours (Table) 03/22/24 06:35 Blood Culture Gram Stain - Preliminary Blood Blood Culture - Preliminary Beta Hemolytic Strep Group G 03/22/24 06:50 Blood Culture Gram Stain - Preliminary Blood Blood Culture - Preliminary Beta Hemolytic Strep Group G Molecular ID Chest x-ray: report reviewed Assessment and Plan (1) SCLC (small cell lung carcinoma) Current Visit: Yes Status: Acute Priority: High Code(s): C34.90 - MALIGNANT NEOPLASM OF UNSP PART OF UNSP BRONCHUS OR LUNG SNOMED Code(s): 543692527 (2) Antineoplastic chemotherapy induced pancytopenia Current Visit: Yes Status: Acute Priority: High Code(s): D61.810 - ANTINEOPLASTIC CHEMOTHERAPY INDUCED PANCYTOPENIA; T45.1X5A - ADVERSE EFFECT OF ANTINEOPLASTIC AND IMMUNOSUP DRUGS, INIT SNOMED Code(s): 137226085643975 (3) Neutropenia associated with mucositis due to antineoplastic therapy Current Visit: Yes Status: Acute Priority: High Code(s): D70.1 - AGRANULOCYTOSIS SECONDARY TO CANCER CHEMOTHERAPY; K12.31 - ORAL MUCOSITIS (ULCERATIVE) DUE TO ANTINEOPLASTIC THERAPY; T45.1X5S - ADVERSE EFFECT OF ANTINEOPL AND IMMUNOSUP DRUGS, SEQUELA SNOMED Code(s): 714962482 (4) Neutropenic typhlitis Current Visit: Yes Status: Acute Priority: High Code(s): K37 - UNSPECIFIED APPENDICITIS; D70.9 - NEUTROPENIA, UNSPECIFIED SNOMED Code(s): 5970653 Plan: Small cell lung cancer -Diagnosed February 2024. Unable to stage with PET. Treatment initiated inpt due to progressive resp symptoms. Completed cycle 1 of carbo/RADIO ELECTRICIAN 03/12/24. -Based on CTCAP. NM BS, MRI brain was felt she had limited stage disease, plan was for definitive treatment, XRT to be added with cycle 2. On review of images concern for single bone met in rt sacrum. MRI will be ordered to assess Chemotherapy-induced pancytopenia -G-CSF initiated for a WBC of 0.9. Antibiotics have been ordered empirically. Pancultures pending. Blood cultures positive gram-positive cocci in chains. Infectious disease consulted -Hemoglobin 8.3. Transfuse for hemoglobin less than 7 or if patient is symptomatic -Platelet count 24,000. Heparin drip discontinued. No anticoagulation, aspirin, NSAIDs or antiplatelet therapies at this time. Transfuse for platelet count less than 10,000 or if patient is symptomatic. Chemotherapy-induced mucositis -Cool solution has been ordered -Salt and soda has been ordered Neutropenic colitis -Clear liquid only. -G-CSF has been ordered Case discussed briefly with Critical Care team Doctor attests: I performed a history and physical examination of this patient, developed impression and plan of care. Discussed with dictator. I agree with dictators note, documented as a scribe.
--- NOTE | 2024-03-23 11:15 | P.PN ---
Subjective Progress Note Date: 03/23/24 Principal diagnosis: Hypotension. This is a 78-year-old female patient with a known history of hypertension, hyperlipidemia, CVA/TIA, gastroesophageal reflux disease, previous tobacco dependence. 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 She had been initiated on carboplatin and etoposide. She was recently admitted after having allergic reaction to the contrast used for her PET scan back on March 06. She was discharged to [facility] for [facility] on March 19, 2024. She was brought back to the emergency room early this morning with febrile illness. Masslike opacity in the left upper lobe. Persistent pulmonary venous congestion and subpulmonic effusion noted on the right. Overall appearance is slightly improved compared to previous at discharge. EKG reveals sinus tachycardia, heart rate in the 110s. White count 0.4. Hemoglobin 9.8. Platelets 21,000. Sodium 130. Potassium 3.3. Bicarb 27. BUN 35. Creatinine 1.31. Glucose 196. Lactic acid 4.2. Troponin 0.033. She also had significant hypotension while in the emergency department 64/37 with a mean arterial pressure of 46 and was initiated on norepinephrine and given IV fluid resuscitation. Tmax of 99.9. Current blood pressure 120/71. She is on norepinephrine at 0.08 mcg/kg/min. Normal saline at 130 MLS per hour. She has been initiated on vancomycin and cefepime. The department. She is awake. Currently afebrile. Remains tachycardic. Denies any significant shortness of breath. Maintaining O2 saturations in the 90s on 2 L/min per nasal cannula. She will be admitted to the ICU for closer monitoring. She is a DNR/DNI CODE STATUS. Progress note dated March 23, 2024. 78-year-old female well-known to our service. The patient has a history of recently discovered small cell lung cancer, involving primarily the left upper lobe, with mediastinal involvement. The patient has received chemotherapy, x 3. Currently, she is seen in the emergency department, room #3. She is on 5 L of oxygen. The patient is getting heparin via weight-based protocol, Cardizem drip at 10 mg an hour, and apparently Nigel-Synephrine at 1.1 mcg/kg/min. The patient should be on norepinephrine, and she is switched over to that medication for blood pressure support. The patient is currently awaiting a bed in the intensive care unit. Current labs include a white count of 0.9, hemoglobin 8.3, hematocrit 26.2, and platelet count of 24,000. Sodium 136, potassium 2.9, chlorides 103, CO2 22, BUN 39, creatinine 1.49. Glucose 111. The patient's albumin is 2.7. N-terminal proBNP is 4530. Blood cultures are positive for group G streptococci. Sensitivities are pending. Chest x-ray from yesterday shows a masslike opacity, left upper lobe. In addition, there is evidence of increasing vascular congestion. The patient is currently on cefepime and vancomycin. Objective - Vital Signs Vital signs: Vital Signs Temp 97.8 F 03/23/24 06:00 Pulse 104 H 03/23/24 10:32 Resp 18 03/23/24 10:32 BP 107/92 03/23/24 10:32 Pulse Ox 90 L 03/23/24 10:32 FiO2 Intake & Output 03/22/24 03/23/24 03/23/24 18:59 06:59 18:59 Intake Total 20.297 48.940 114.601 Output Total 67 Balance -46.703 48.940 114.601 Intake: Intake, IV Titration 20.297 48.940 114.601 Amount Norepinephrine 32 mg In 20.297 16.833 Sodium Chloride 0.9% 218 ml @ 0.03 MCG/KG/MIN 1. 001 mls/hr IV .Q24H [facility] Rx#:[id number] Norepinephrine 32 mg In 0.734 Sodium Chloride 0.9% 218 ml @ 0.03 MCG/KG/MIN 1. 001 mls/hr IV .Q24H [facility] Rx#:[id number] Phenylephrine 40 mg In 32.107 113.867 Sodium Chloride 0.9% 250 ml @ 0.5 MCG/KG/MIN 13. 566 mls/hr IV .[id number] [facility] Rx#:[id number] Output: Post Void Residual 67 - Exam No acute distress, oriented 3. Currently on 5 L nasal cannula. HEENT examination is grossly unremarkable. Mucous membranes are moist. No oral lesions. Neck supple. Full range of motion. No adenopathy thyromegaly or neck vein distention. Cardiovascular examination reveals regular rhythm rate. S1-S2 normal. No S3 or S4. No discernible murmur noted. Heart rate 104 bpm. Lungs reveal scattered bilateral rhonchi. Breath sounds are equal bilaterally but diminished throughout. No crackles. Saturations are 90% on 5 L. Abdomen soft bowel sounds are heard. No masses or tenderness. Extremities are intact. No cyanosis clubbing or edema. Skin is without rash or lesion. Neurologic examination is brief but nonfocal. - Labs CBC & Chem 7: 03/23/24 07:04 03/23/24 07:04 Labs: Abnormal Lab Results - Last 24 Hours (Table) 03/22/24 03/23/24 03/23/24 Range/Units 12:30 07:04 07:04 WBC 0.9 L* (3.8-10.6) k/uL RBC 3.00 L (3.80-5.40) m/uL Hgb 8.3 L D (11.4-16.0) gm/dL Hct 26.2 L (34.0-46.0) % RDW 16.1 H (11.5-15.5) % Plt Count 24 L (150-450) k/uL Sodium 136 L (137-145) mmol/L Potassium 2.9 L (3.5-5.1) mmol/L BUN 39 H (7-17) mg/dL Creatinine 1.49 H (0.52-1.04) mg/dL Glucose 111 H (74-99) mg/dL Plasma Lactic Acid Eusebio 2.6 H* (0.7-2.0) mmol/L Calcium 7.6 L (8.4-10.2) mg/dL Total Protein 5.7 L (6.3-8.2) g/dL Albumin 2.7 L (3.5-5.0) g/dL Microbiology - Last 24 Hours (Table) 03/22/24 06:35 Blood Culture Gram Stain - Preliminary Blood Blood Culture - Preliminary Beta Hemolytic Strep Group G 03/22/24 06:50 Blood Culture Gram Stain - Preliminary Blood Blood Culture - Preliminary Beta Hemolytic Strep Group G Molecular ID Assessment and Plan Assessment: Neutropenic fever with generalized weakness and hypotension secondary to chemotherapy. Hypotension, likely secondary to sepsis. Acute kidney injury secondary to hypotension, dehydration. Pancytopenia secondary to chemotherapy. Recent diagnosis of small cell lung cancer likely extensive stage with bulky disease involving the mediastinum and a large left upper lobe mass. Completed the first cycle of systemic chemotherapy with carboplatin and etoposide. History of hypertension. History of hyperlipidemia. History of CVA/TIA. History of gastroesophageal reflux disease. Previous history of tobacco use. Plan: Plan dated March 23, 2024. The patient was seen in the emergency department, room 3. Currently, the patient is on 5 L of oxygen. The patient is on Cardizem drip at 10 mg an hour, and heparin, via weight-based protocol. In addition, for blood pressure support, the patient was found to be on Nigel-Synephrine, but rather, should be on norepinephrine. That changes made. Labs, x-rays, and medications are reviewed. Thankfully, the patient is a no code. The patient's overall prognosis remains extremely poor. We will continue to follow and make recommendations along the way. Time with Patient: Greater than 30
[2024-03-23] MEDS: SALT AND SODA MOUTHWASH 1,000 ML PO SCH (12:15)
[2024-03-23] MEDS: SUCRALFATE 1 GM TAB PO SCH (12:17)
[2024-03-23 16:28] LABS: Glucose,Whole Blood 156 mg/dL (70-110)
[2024-03-23] MEDS ORDERED: Potassium Replacement Protocol 1 EACH MISC MISCELLANE PRN (16:45)
[2024-03-23] MEDS: POTASSIUM CHLORIDE ER 20 MEQ TAB.ER PO SCH (17:01)
[2024-03-23] MEDS: FILGRASTIM-SNDZ 480 MCG/0.8 ML SYRINGE SQ SCH (17:03)
--- NOTE | 2024-03-23 22:52 | HP ---
HISTORY AND PHYSICAL CHIEF COMPLAINT: Coma with pancytopenia. HISTORY OF PRESENT ILLNESS: This is another admission for this 78-year-old white female who is just transferred to [facility]. She has been diagnosed as having small cell carcinoma in the left upper lobe. In [facility], she was complaining of shortness of breath and her blood pressure was dropping and she was found to have a white count of less than 1000 and platelets were 17,000. Hemoglobin was normal. Though she was a DNR, she requested to be brought to the hospital. REVIEW OF SYSTEMS: Unobtainable because she is unarousable. Past medical history, family history, personal and social histories are all presumed unchanged otherwise. She was getting treatment for her malignancy before she went to the long term. She is hypotensive and has tachycardia. PHYSICAL EXAMINATION: HEAD, EARS, EYES, NOSE, MOUTH AND THROAT: Unremarkable except for pallor. LUNGS: Breath sounds were heard bilaterally. CARDIAC: Demonstrated sinus tachycardia ABDOMEN: Soft. EXTREMITIES: Normal. NEUROLOGIC: She is comatose. ASSESSMENT: She is admitted to the hospital with diagnoses of, 1. Acute respiratory failure. 2. Coma. 3. Sepsis. 4. Leukopenia. 5. Thrombocytopenia. 6. Small cell carcinoma of the left lung. PLAN: 1. Bedrest in ICU. 2. IV fluids. 3. Consult with Intensive Medicine, Infectious Disease, and Oncology. MMODL / IJN: [id number] /
[2024-03-23] MEDS: ALPRAZolam 0.25 MG TAB PO STA (23:38)
--- NOTE | 2024-03-24 03:01 | PN ---
PROGRESS NOTE CHIEF COMPLAINT: Sepsis. HISTORY OF PRESENT ILLNESS: This lady is dramatically improved. She is awake and quite alert. She is still on pressors. PHYSICAL EXAMINATION: CHEST: Breath sounds are heard bilaterally. CARDIAC: Normal. ABDOMEN: Soft, nontender. IMPRESSION: 1. Septicemia. 2. Thrombocytopenia. 3. Leukopenia. 4. Small cell carcinoma of the lung. PLAN: Continue with supportive efforts and moved to ICU when bed is available. MMODL / IJN: [id number] /
[2024-03-24 06:36] LABS: Prothrombin Time 11.1 sec (10.0-12.5)
[2024-03-24 06:38] LABS: African American GFR (CKD) 71 (>60 ml/min/1.73 sqM); Anion Gap 10 mmol/L; Blood Urea Nitrogen 33 mg/dL (7-17); Carbon Dioxide 19 mmol/L (22-30); Chloride 111 mmol/L (98-107); Glucose 117 mg/dL (74-99); Non-African American GFR(CKD) 62 (>60 ml/min/1.73 sqM); Sodium 140 mmol/L (137-145)
[2024-03-24 07:22] LABS: Anisocytosis Slight; Basophils % (A) 0 %; Eosinophils % (A) 1 %; HCT 24.7 % (34.0-46.0); HGB 7.8 gm/dL (11.4-16.0); Hypochromasia Slight; Lymphocytes # (A) 0.2 k/uL (1.0-4.8); Lymphocytes % (A) 9 %; MCH 27.5 pg (25.0-35.0); MCHC 31.5 g/dL (31.0-37.0); MCV 87.3 fL (80.0-100.0); Mean Platelet Volume 12.9; Monocytes # (A) 0.1 k/uL (0-1.0); Monocytes % (A) 6 %; Neutrophils # (A) 1.8 k/uL (1.3-7.7); Neutrophils % (A) 79 %; RBC 2.83 m/uL (3.80-5.40); RDW 16.2 % (11.5-15.5); WBC 2.3 k/uL (3.8-10.6)
[2024-03-24 07:23] LABS: Platelet Count 25 k/uL (150-450)
--- NOTE | 2024-03-24 08:43 | P.CONS ---
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 involvement for the patient has been on chemotherapy in the form of carboplatin and etoposide with recent admission to the hospital for allergic reaction to the contrast used for PET scan subsequently transferred to the [facility] for rehabilitation, the patient has been brought back to the hospital concerning for fever and increasing shortness of breath apparently the patient symptom has been getting worse over the last few days has been complaining of mostly shortness of breath patient did have a cough mild to moderate intensity but not bringing up any sputum denies any cardiac chest pain patient did have some nausea but no vomiting no choking on food no abdominal pain and no diarrhea patient on presentation to the hospital did have a low- grade fever of 99.9 F patient was tachycardic and hypotensive requiring pressor support patient is also on supplemental oxygen currently on 5 L nasal cannula p atient workup did include a white count of 0.9 BUN/creatinine has been mildly elevated liver enzymes are normal urine has been negative blood cultures came back positive with gram-positive cocci patient has been treated with cefepime and vancomycin pharmacy to dose infectious disease was consulted for further management of antibiotic therapy patient did have a chest x-ray masslike opacity left upper lobe persists there is persistent pulmonary venous congestion with subpulmonic effusion noted on the right Review of Systems Positive point and negatives has been mentioned in the HPI, complete review of systems was performed and all other systems are negative 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, ovarian cysts History of Any Multi-Drug Resistant Organisms: None Reported Past Surgical History: Appendectomy, Tonsillectomy, Tubal Ligation Additional Past Surgical History / Comment(s): cataracts, carpal tunnel, laser eye surgery, metal coil for brain aneurysm, lung cancer Past Anesthesia/Blood Transfusion Reactions: Postoperative Nausea & Vomiting (PONV) Past Psychological History: No Psychological Hx Reported Smoking Status: Former smoker Past Alcohol Use History: None Reported Past Drug Use History: None Reported Medications and Allergies Home Medications Medication Instructions Recorded Confirmed Type Aspirin EC [Ecotrin Low Dose] 81 mg PO DAILY@0800 02/19/24 03/22/24 History Benzonatate [Tessalon Perle] 200 mg PO BID PRN 02/19/24 03/22/24 History Gabapentin 300 mg PO TID@0800,1200,1700 02/19/24 03/22/24 History Metoprolol Tartrate [Lopressor] 50 mg PO BID@0800,1700 02/19/24 03/22/24 History Pantoprazole Sodium [Protonix] 20 mg PO DAILY@0600 02/19/24 03/22/24 History Triamcinolone 0.025% Cream 1 applic TOPICAL BID PRN 02/19/24 03/22/24 History [Kenalog 0.025% Cream] cloNIDine HCL [Catapres] 0.1 mg PO HS #30 tab 02/24/24 03/22/24 Rx ALPRAZolam [Xanax] 0.25 mg PO BID PRN 03/22/24 03/22/24 History Ensure Clear 237 ml PO TID@0800,1200,1700 03/22/24 03/22/24 History Furosemide [Lasix] 40 mg PO DAILY@59903/22/24 03/22/24 History Ipratropium-Albuterol Nebulize 3 ml INHALATION RT-Q6H PRN 03/22/24 03/22/24 History [Duoneb 0.5 mg-3 mg/3 ml Soln] Losartan [Cozaar] 50 mg PO DAILY@79903/22/24 03/22/24 History Magnesium Hydroxide [Milk of 7,200 mg PO Q48H PRN 03/22/24 03/22/24 History Magnesia Concentrate] Na Phos,M-B/Na Phos,Di-Ba [Fleet 133 ml RECTAL DAILY PRN 03/22/24 03/22/24 History Adult] Ondansetron [Zofran] 4 mg PO Q6H PRN 03/22/24 03/22/24 History Sucralfate [Carafate] 1 gm PO ACHS@07,11,1630,2130 03/22/24 03/22/24 History bisacodyL [Dulcolax] 10 mg RECTAL DAILY PRN 03/22/24 03/22/24 History Allergies Allergy/AdvReac Type Severity Reaction Status Date / Time bisoprolol [From Ziac] Allergy Unknown Verified 03/07/24 09:22 erythromycin base Allergy Rash/Hives Verified 03/07/24 09:22 [From Erythrocin] hydrochlorothiazide Allergy Unknown Verified 03/07/24 09:22 [From Ziac] iodine Allergy Confusion Verified 03/07/24 09:22 propoxyphene Allergy Dyspnea Verified 03/07/24 09:22 [From Darvocet-N] acetaminophen [From Lortab] AdvReac Itching Verified 03/07/24 09:22 aloe vera AdvReac Itching Verified 03/07/24 09:22 atorvastatin [From Lipitor] AdvReac Unknown Verified 03/07/24 09:22 hydrocodone [From Lortab] AdvReac Itching Verified 03/07/24 09:22 levofloxacin [From Levaquin] AdvReac Itching Verified 03/07/24 09:22 polyethylene glycol 3350 AdvReac Hallucinati Verified 03/07/24 09:22 [From Miralax] ons rofecoxib [From Vioxx] AdvReac Nausea & Verified 03/07/24 09:22 Vomiting Physical Exam Vitals: Vital Signs Temp Pulse Resp BP Pulse Ox 03/23/24 10:32 104 H 18 107/92 90 L 03/23/24 10:20 102 H 22 101/53 91 L 03/23/24 10:15 102 H 18 106/53 91 L 03/23/24 10:10 105 H 20 99/50 91 L 03/23/24 10:05 106 H 22 114/37 91 L 03/23/24 10:01 110 H 18 114/37 91 L 03/23/24 10:00 108 H 18 103/60 91 L 03/23/24 09:55 108 H 20 115/57 90 L 03/23/24 09:50 106 H 20 104/57 89 L 03/23/24 09:45 111 H 18 109/54 88 L 03/23/24 09:40 112 H 18 110/56 89 L 03/23/24 09:35 110 H 20 113/58 90 L 03/23/24 09:30 107 H 20 101/80 86 L 03/23/24 09:20 29 H 99/61 90 L 03/23/24 09:15 99 32 H 103/66 92 L 03/23/24 08:40 93 L 03/23/24 08:10 105 H 20 86/47 90 L 03/23/24 08:05 105 H 20 107/52 88 L 03/23/24 08:00 103 H 20 100/38 90 L 03/23/24 07:55 101 H 20 118/66 88 L 03/23/24 07:50 100 20 106/70 94 L 03/23/24 07:45 99 20 102/69 95 03/23/24 07:40 98 20 110/61 98 03/23/24 07:35 98 20 104/59 100 03/23/24 07:30 98 20 104/57 97 03/23/24 07:25 98 20 106/59 100 03/23/24 07:20 101 H 20 109/57 100 03/23/24 07:15 102 H 20 107/59 100 03/23/24 07:10 104 H 20 82/68 99 03/23/24 07:05 107 H 18 112/62 97 03/23/24 07:00 113 H 18 120/63 95 03/23/24 06:55 110 H 8 L 122/64 96 03/23/24 06:50 113 H 22 106/69 90 L 03/23/24 06:45 112 H 27 H 54/34 94 L 03/23/24 06:40 112 H 28 H 111/55 90 L 03/23/24 06:35 112 H 21 115/55 95 03/23/24 06:30 111 H 42 H 107/54 100 03/23/24 06:25 112 H 25 H 105/49 100 03/23/24 06:20 111 H 64 H 106/55 94 L 03/23/24 06:15 112 H 18 106/61 99 03/23/24 06:10 115 H 24 100/51 99 03/23/24 06:05 113 H 19 95/59 99 03/23/24 06:00 97.8 F 109 H 29 H 98/76 99 03/23/24 05:55 114 H 22 108/56 100 03/23/24 05:50 114 H 32 H 112/60 99 03/23/24 05:45 115 H 26 H 115/56 98 03/23/24 05:40 156 H 29 H 74/49 98 03/23/24 05:35 172 H 33 H 79/50 03/23/24 05:30 168 H 41 H 108/87 96 03/23/24 05:25 163 H 33 H 100/63 85 L 03/23/24 05:20 186 H 31 H 116/90 98 03/23/24 05:15 176 H 29 H 100/63 93 L 03/23/24 05:10 176 H 30 H 125/109 94 L 03/23/24 05:05 227 H 41 H 123/66 96 03/23/24 05:00 141 H 18 125/74 03/23/24 04:55 140 H 22 125/74 98 03/23/24 04:50 141 H 25 H 125/74 97 03/23/24 04:30 135 H 14 123/75 96 03/23/24 04:23 115 H 03/23/24 04:15 110 H 03/23/24 04:10 138 H 25 H 98/63 99 03/23/24 04:00 137 H 17 103/74 96 03/23/24 03:50 138 H 25 H 103/74 94 L 03/23/24 03:30 137 H 45 H 106/62 94 L 03/23/24 03:00 113 H 16 128/74 88 L 03/23/24 02:40 110 H 27 H 121/69 94 L 03/23/24 02:30 109 H 17 115/70 96 03/23/24 02:10 110 H 22 97/56 94 L 03/23/24 02:00 112 H 23 111/69 94 L 03/23/24 01:40 98 22 111/63 95 03/23/24 01:30 111 H 21 78/64 96 03/23/24 01:10 109 H 14 112/69 94 L 03/23/24 01:00 112 H 17 86/53 95 03/23/24 00:40 111 H 14 96/55 96 03/23/24 00:30 108 H 16 95/58 95 03/23/24 00:20 114 H 14 95/58 94 L 03/23/24 00:10 117 H 16 108/64 92 L 03/23/24 00:00 97.9 F 105 H 20 100/52 94 L 03/22/24 23:40 137 H 24 93/54 96 03/22/24 23:30 138 H 15 111/60 96 03/22/24 23:10 142 H 25 H 104/60 96 03/22/24 23:00 115 H 20 115/61 94 L 03/22/24 22:50 117 H 20 115/61 93 L 03/22/24 22:40 114 H 23 126/74 92 L 03/22/24 22:30 112 H 20 127/69 94 L 03/22/24 22:20 114 H 21 127/69 94 L 03/22/24 22:10 98 23 124/68 93 L 03/22/24 22:00 97.8 F 07 21:50 115 H 46 H 121/67 90 L 03/22/24 21:40 115 H 19 104/68 92 L 03/22/24 21:30 115 H 13 113/67 91 L 03/22/24 21:20 125 H 22 113/67 92 L 03/22/24 21:10 133 H 18 130/76 92 L 03/22/24 21:00 140 H 25 H 125/78 94 L 03/22/24 20:50 112 H 22 125/78 92 L 03/22/24 20:40 113 H 23 126/61 91 L 03/22/24 20:30 113 H 18 131/78 91 L 03/22/24 20:12 114 H 23 121/79 93 L 03/22/24 20:00 97.9 F 113 H 19 121/79 94 L 03/22/24 19:20 109 H 13 105/60 93 L 03/22/24 18:00 111 H 20 112/61 96 03/22/24 17:00 114 H 24 114/64 95 03/22/24 16:00 112 H 24 96/50 96 03/22/24 15:00 114 H 20 101/57 95 03/22/24 13:30 118 H 24 120/71 94 L 03/22/24 11:50 117 H 26 H 108/61 98 Intake and Output 03/22/24 03/23/24 03/23/24 22:59 06:59 14:59 Intake Total 15.489 44.740 113.471 Output Total 67 Balance -51.511 44.740 113.471 Intake: Intake, IV Titration 15.489 44.740 113.471 Amount Norepinephrine 32 mg In 15.489 12.633 Sodium Chloride 0.9% 218 ml @ 0.03 MCG/KG/MIN 1. 001 mls/hr IV .Q24H ONE Rx#:[id number] Norepinephrine 32 mg In 0.734 Sodium Chloride 0.9% 218 ml @ 0.03 MCG/KG/MIN 1. 001 mls/hr IV .Q24H ONE Rx#:[id number] Phenylephrine 40 mg In 32.107 112.737 Sodium Chloride 0.9% 250 ml @ 0.5 MCG/KG/MIN 13. 566 mls/hr IV .[id number] [facility] Rx#:[id number] Output: Post Void Residual 67 GENERAL DESCRIPTION: Elderly female lying in bed, no distress. No tachypnea or accessory muscle of respiration use. HEENT: Shows Pallor , no scleral icterus. Oral mucous membrane is dry. No pharyngeal erythema or thrush NECK: Trachea central, no thyromegaly. LUNGS: Unlabored breathing. Decreased breath sound at the base no wheeze HEART: S1, S2, regular rate and rhythm. No loud murmur ABDOMEN: Soft, no tenderness , guarding or rigidity EXTREMITIES: No edema of feet. SKIN: No rash, no masses palpable. NEUROLOGICAL: The patient is awake, alert, oriented x3, mood and affect normal. Results CBC & Chem 7: 03/24/24 05:41 03/24/24 05:41 Labs: Abnormal Lab Results - Last 24 Hours (Table) 03/22/24 03/23/24 03/23/24 Range/Units 12:30 07:04 07:04 WBC 0.9 L* (3.8-10.6) k/uL RBC 3.00 L (3.80-5.40) m/uL Hgb 8.3 L D (11.4-16.0) gm/dL Hct 26.2 L (34.0-46.0) % RDW 16.1 H (11.5-15.5) % Plt Count 24 L (150-450) k/uL Sodium 136 L (137-145) mmol/L Potassium 2.9 L (3.5-5.1) mmol/L BUN 39 H (7-17) mg/dL Creatinine 1.49 H (0.52-1.04) mg/dL Glucose 111 H (74-99) mg/dL Plasma Lactic Acid Eusebio 2.6 H* (0.7-2.0) mmol/L Calcium 7.6 L (8.4-10.2) mg/dL Total Protein 5.7 L (6.3-8.2) g/dL Albumin 2.7 L (3.5-5.0) g/dL Microbiology - Last 24 Hours (Table) 03/22/24 06:35 Blood Culture Gram Stain - Preliminary Blood Blood Culture - Preliminary Beta Hemolytic Strep Group G 03/22/24 06:50 Blood Culture Gram Stain - Preliminary Blood Blood Culture - Preliminary Beta Hemolytic Strep Group G Molecular ID Assessment and Plan (1) Pneumonia Current Visit: Yes Status: Acute Code(s): J18.9 - PNEUMONIA, UNSPECIFIED ORGANISM SNOMED Code(s): 563666245 (2) Bacteremia Current Visit: Yes Status: Acute Code(s): R78.81 - BACTEREMIA SNOMED Code(s): 8820974 (3) Sepsis Current Visit: No Status: Acute Code(s): A41.9 - SEPSIS, UNSPECIFIED ORGANISM SNOMED Code(s): 34029912 Plan: 1patient presented to hospital with sepsis in this patient who did have a fever tachycardia hypotension source likely pneumonia and concern for possible pa rapneumonic effusion patient denies having any abdominal pain no tenderness was noticed on abdominal examination clinic suspicious low for typhlitis patient did not have any CT suggestive of the same finding [id number] bacteremia source likely pneumonia 3-mild insufficiency high risk of nephrotoxicity 4-we will continue patient on cefepime and vancomycin while watching kidney function closely while waiting for the ID and sensitivity We will follow on clinical condition and cultures to further adjust medication if needed Thank you for this consultation we will follow the patient along with you Dictation was produced using [employer] dictation software. please excuse any grammatical, word or spelling errors. Time with Patient: Greater than 30
--- NOTE | 2024-03-24 09:30 | XR ---
EXAMINATION TYPE: XR chest 1V portable DATE OF EXAM: 03/24/2024 COMPARISON: 03/22/2024 INDICATION: Dyspnea TECHNIQUE: Single frontal view of the chest is obtained. FINDINGS: The heart size is moderately prominent. The pulmonary vasculature is normal. There is a moderate right pleural effusion. Left upper lobe infiltrate is improving residual remains. Follow-up to clearing is recommended IMPRESSION: 1. Moderate right pleural effusion. 2. Left upper lobe proven infiltrate. Follow-up to clearing recommended
[2024-03-24 09:48] VITALS: TEMP 98
--- NOTE | 2024-03-24 10:15 | CDI ---
Documentation Clarification Form Date: 03/24/2024 From: Kala Granda Phone: [phone] Admit Date: 03/22/2024 11:17:00 AM Patient Name: Yanet Davidson Visit Number: [id number] Discharge Date: ATTENTION: The Clinical Documentation Specialists (CDI) and [facility] Coding Staff appreciate your assistance in clarifying documentation. Please respond to the clarification below the line at the bottom and electronically sign. The CDI & [facility] Coding staff will review the response and follow-up if needed. Please note: Queries are made part of the Legal Health Record. If you have any questions, please contact the author of this message via ITS. Dr. Flavio [place]: There is documentation of possible septic shock in the addendum in the Pulmonology consult 03/22. Additional clarification is requested. History/Risk Factors: 78-year-old female with a history of HTN, HLD and small cell lung cancer with mediastinal metastasis currently on chemotherapy and found to have sepsis, neutropenic fever, NATE and dehydration-had significant hypotension in the ED and started on norepinephrine and fluid resuscitation Clinical Indicators: 03/22 Triage VS: 104/53, 99.9, 120, 24, 95% 3l nasal cannula 03/22 Pulmonology Consult, Addendum: Patient is being admitted with neutropenic fever, sepsis, possible septic shock" HPI: "She also had significant hypotension while in the emergency department 64/37 with a mean arterial pressure of 46 and was initiated on norepinephrine and given IV fluid resuscitation. Tmax of 99.9. Current blood pressure 120/71. She is on norepinephrine at 0.08 mcg/kg/min. Normal saline at 130 MLS per hour. She has been initiated on vancomycin and cefepime." 03/22-03/24 WBC: 0.4, 0.9, 2.3 03/22 Lactic Acid: 4.2, 2.6, 1.6 03/23 Procalcitonin: >100.00 03/22 Blood culture: Beta hemolytic Strep Group G Treatment: Normal Saline IV 1000cc bolus x3 on 03/22 then 130cc/hour start 03/22 Norepinephrine 32mg titrated drip 03/22 stopped on 03/23 Phenylephrine 40mg titrated drip 03/23 Cefepime IV 2gram [id number] start 03/22 Vancomycin IV 1250mg once 03/22, 03/23 Can you please clarify the diagnosis of septic shock? [ X ] Yes, septic shock is a valid diagnosis [ ] Septic shock is ruled out [ ] Other, please specify [ ] Unable to determine MTDD
--- NOTE | 2024-03-24 11:19 | P.PN ---
Subjective Progress Note Date: 03/24/24 Principal diagnosis: Hypotension. This is a 78-year-old female patient with a known history of hypertension, hyperlipidemia, CVA/TIA, gastroesophageal reflux disease, previous tobacco dependence. 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 She had been initiated on carboplatin and etoposide. She was recently admitted after having allergic reaction to the contrast used for her PET scan back on March 06. She was discharged to [facility] for rehabilitation on March 19, 2024. She was brought back to the emergency room early this morning with febrile illness. Masslike opacity in the left upper lobe. Persistent pulmonary venous congestion and subpulmonic effusion noted on the right. Overall appearance is slightly improved compared to previous at discharge. EKG reveals sinus tachycardia, heart rate in the 110s. White count 0.4. Hemoglobin 9.8. Platelets 21,000. Sodium 130. Potassium 3.3. Bicarb 27. BUN 35. Creatinine 1.31. Glucose 196. Lactic acid 4.2. Troponin 0.033. She also had significant hypotension while in the emergency department 64/37 with a mean arterial pressure of 46 and was initiated on norepinephrine and given IV fluid resuscitation. Tmax of 99.9. Current blood pressure 120/71. She is on norepinephrine at 0.08 mcg/kg/min. Normal saline at 130 MLS per hour. She has been initiated on vancomycin and cefepime. The department. She is awake. Currently afebrile. Remains tachycardic. Denies any significant shortness of breath. Maintaining O2 saturations in the 90s on 2 L/min per nasal cannula. She will be admitted to the ICU for closer monitoring. She is a DNR/DNI CODE STATUS. Progress note dated March 23, 2024. 78-year-old female well-known to our service. The patient has a history of recently discovered small cell lung cancer, involving primarily the left upper lobe, with mediastinal involvement. The patient has received chemotherapy, x 3. Currently, she is seen in the emergency department, room #3. She is on 5 L of oxygen. The patient is getting heparin via weight-based protocol, Cardizem drip at 10 mg an hour, and apparently Nigel-Synephrine at 1.1 mcg/kg/min. The patient should be on norepinephrine, and she is switched over to that medication for blood pressure support. The patient is currently awaiting a bed in the intensive care unit. Current labs include a white count of 0.9, hemoglobin 8.3, hematocrit 26.2, and platelet count of 24,000. Sodium 136, potassium 2.9, chlorides 103, CO2 22, BUN 39, creatinine 1.49. Glucose 111. The patient's albumin is 2.7. N-terminal proBNP is 4530. Blood cultures are positive for group G streptococci. Sensitivities are pending. Chest x-ray from yesterday shows a masslike opacity, left upper lobe. In addition, there is evidence of increasing vascular congestion. The patient is currently on cefepime and vancomycin. Progress note dated March 24, 2024. 78-year-old female with a history of recent diagnosis of small cell lung cancer. She has a lesion involving the left upper lobe, with mediastinal involvement. The patient has undergone 3 rounds of chemotherapy. Currently, she is seen in room 258. Family members at the bedside. The patient is very weak, and very short of breath. Her white count is 2.3, hemoglobin 7.8, hematocrit 24.7, platelet count 25,000. Sodium 140, potassium 4, chlorides 111, CO2 19, anion gap 10, BUN 33, creatinine 0.90. Glucose is 117. Calcium is 8. Procalcitonin levels greater than 100. Blood cultures were positive for group G streptococci. Chest x-ray shows moderate right-sided pleural effusion, and left upper lobe infiltrate/mass. Objective - Vital Signs Vital signs: Vital Signs Temp 98.0 F 03/24/24 08:00 Pulse 94 03/24/24 10:00 Resp 35 H 03/24/24 10:00 BP 128/76 03/24/24 10:00 Pulse Ox 92 L 03/24/24 10:00 FiO2 Intake & Output 03/23/24 03/24/24 03/24/24 18:59 06:59 18:59 Intake Total 3043.580 1493.00 720 Output Total 1725 475 160 Balance 3982.259 1707.00 560 Weight 71.214 kg 77.1 kg Intake: IV 1430 520 Sodium Chloride 0.9% 1, 1430 520 000 ml @ 130 mls/hr IV . Q7H42M [facility] Rx#:[id number] Intake, IV Titration 2383.580 63.00 100 Amount Cefepime 2 gm In Sodium 100 100 Chloride 0.9% 100 ml @ 25 mls/hr IVPB Q12H [facility] TO [facility] Rx# :[id number] Diltiazem 125 mg In 152.0 59.25 Sodium Chloride 0.9% 100 ml @ 15 MG/HR 15 mls/hr IV .Q8H20M [facility] Rx#: [id number] Diltiazem 125 mg In 3.75 Sodium Chloride 0.9% 100 ml @ Per Protocol IV .Q0M [facility] Rx#:[id number] Norepinephrine 32 mg In 14.321 Sodium Chloride 0.9% 218 ml @ 0.03 MCG/KG/MIN 1. 001 mls/hr IV .Q24H [facility] Rx#:[id number] Phenylephrine 40 mg In 117.259 Sodium Chloride 0.9% 250 ml @ 0.5 MCG/KG/MIN 13. 566 mls/hr IV .[id number] [facility] TO [facility] Rx#:[id number] Sodium Chloride 0.9% 1, 1000 000 ml @ 130 mls/hr IV . Q7H42M [facility] Rx#:[id number] Sodium Chloride 0.9% 1, 1000 000 ml @ 999 mls/hr IV . Q1H1M [facility] Rx#:[id number] Oral 660 100 Output: Urine 1725 475 160 Uretheral (Ortiz) 950 Other: Voiding Method Indwelling Catheter Indwelling Catheter Indwelling Catheter - Exam No acute distress, oriented 3. Currently on 12 L nasal cannula. HEENT examination is grossly unremarkable. Mucous membranes are moist. No oral lesions. Neck supple. Full range of motion. No adenopathy thyromegaly or neck vein distention. Cardiovascular examination reveals regular rhythm rate. S1-S2 normal. No S3 or S4. No discernible murmur noted. Heart rate 94 bpm. Lungs reveal scattered bilateral rhonchi. Breath sounds are equal bilaterally but diminished throughout. No crackles. Saturations are 92% on 12 L high flow. Abdomen soft bowel sounds are heard. No masses or tenderness. Extremities are intact. No cyanosis clubbing or edema. Skin is without rash or lesion. Neurologic examination is brief but nonfocal. - Labs CBC & Chem 7: 03/24/24 05:41 03/24/24 05:41 Labs: Abnormal Lab Results - Last 24 Hours (Table) 03/23/24 03/23/24 03/24/24 Range/Units 07:04 16:27 05:41 WBC (3.8-10.6) k/uL RBC (3.80-5.40) m/uL Hgb (11.4-16.0) gm/dL Hct (34.0-46.0) % RDW (11.5-15.5) % Plt Count (150-450) k/uL Lymphocytes # (1.0-4.8) k/uL Chloride 111 H (98-107) mmol/L Carbon Dioxide 19 L (22-30) mmol/L BUN 33 H (7-17) mg/dL Glucose 117 H (74-99) mg/dL POC Glucose (mg/dL) 156 H (70-110) mg/dL Calcium 8.0 L (8.4-10.2) mg/dL Procalcitonin >100.00 H (0.02-0.09) ng/mL 03/24/24 Range/Units 05:41 WBC 2.3 L (3.8-10.6) k/uL RBC 2.83 L (3.80-5.40) m/uL Hgb 7.8 L (11.4-16.0) gm/dL Hct 24.7 L (34.0-46.0) % RDW 16.2 H (11.5-15.5) % Plt Count 25 L (150-450) k/uL Lymphocytes # 0.2 L (1.0-4.8) k/uL Chloride (98-107) mmol/L Carbon Dioxide (22-30) mmol/L BUN (7-17) mg/dL Glucose (74-99) mg/dL POC Glucose (mg/dL) (70-110) mg/dL Calcium (8.4-10.2) mg/dL Procalcitonin (0.02-0.09) ng/mL Microbiology - Last 24 Hours (Table) 03/22/24 06:35 Blood Culture Gram Stain - Final Blood Blood Culture - Final Beta Hemolytic Strep Group G 03/22/24 06:50 Blood Culture Gram Stain - Final Blood Blood Culture - Final Beta Hemolytic Strep Group G Molecular ID Assessment and Plan Assessment: Neutropenic fever with generalized weakness and hypotension secondary to chem otherapy. Hypotension, likely secondary to sepsis. Acute kidney injury secondary to hypotension, dehydration. Pancytopenia secondary to chemotherapy. Recent diagnosis of small cell lung cancer likely extensive stage with bulky disease involving the mediastinum and a large left upper lobe mass. Completed 3 cycles of systemic chemotherapy with carboplatin and etoposide. History of hypertension. History of hyperlipidemia. History of CVA/TIA. History of gastroesophageal reflux disease. Previous history of tobacco use. Plan: Plan dated March 23, 2024. The patient was seen in the emergency department, room 3. Currently, the patient is on 5 L of oxygen. The patient is on Cardizem drip at 10 mg an hour, and heparin, via weight-based protocol. In addition, for blood pressure support, the patient was found to be on Nigel-Synephrine, but rather, should be on norepinephrine. That changes made. Labs, x-rays, and medications are reviewed. Thankfully, the patient is a no code. The patient's overall prognosis remains extremely poor. We will continue to follow and make recommendations along the way. Plan dated March 24, 2024. A family member was at the bedside. The patient has decided to have a conversation with hospice. I think that is very appropriate. Her oxygen requirements went up from 5 L, yesterday, up to 12 L high flow oxygen today. The patient continues on saline at 130 cc an hour. The patient is receiving cefepime, for bacteremia secondary to group G streptococci. Labs, x-rays, and all medications are reviewed. Prognosis is poor. The patient is a DO NOT RESUSCITATE patient. Time with Patient: Less than 30
[2024-03-24 12:08] VITALS: BP 117/68; PULSE 95; RESP 13
--- NOTE | 2024-03-25 06:12 | DS ---
DISCHARGE SUMMARY CHIEF COMPLAINTS: Shortness of breath, coma, pancytopenia, and sepsis. HISTORY OF PRESENT ILLNESS AND PHYSICAL EXAMINATION: Details of this lady's history and physical can be found in the initial workup. LABORATORY STUDIES: While she was in the hospital, she had laboratory studies, details of which can be found in the laboratory section of her chart. COURSE IN THE HOSPITAL: After admission, she was placed in ICU and seen and followed by Oncology, Intensive Medicine, and Infectious Disease. After she was resuscitated, she became more awake and alert. Bone marrow was starting to respond. She still was very dyspneic. She is slightly improved. Her situation was discussed with her and she agreed to be evaluated by hospice. Apparently, the decision was made at that point that she would transfer to hospice care. FINAL DIAGNOSES: 1. Septicemia. 2. Pancytopenia. 3. Small cell carcinoma of the left lung. 4. Coma. OPERATIONS: None. CONSULTATIONS: Intensive Medicine, Infectious Disease, and Oncology as well as hospice. MMODL / IJN: [id number] /
--- NOTE | 2024-03-25 07:56 | P.PN ---
Subjective Progress Note Date: 03/24/24 Principal diagnosis: Reason for follow-up is sepsis and pneumonia Patient is a 78-year-old female with a past medical history significant for hypertension hyperlipidemia reflux CVA TIA history of tobacco use has been recently diagnosed with small cell lung cancer on chemotherapy has been brought to the hospital for evaluation of fever and increasing shortness of breath patient has been diagnosed with sepsis related to pneumonia and did have evidence of group G bacteremia. On today's evaluation that is 03/24/2024,the patient did have resolution of her fever and is afebrile this morning, patient did have slight worsening of her respiratory status and currently on a nonrebreather patient slightly more awake denies having any chest pain no worsening cough or sputum production no vomiting or diarrhea has been reported. Patient white count is up to 2.3 creatinine 0.90 blood culture with group B strep sputum not collected Objective - Vital Signs Vital signs: Vital Signs Temp 98.0 F 03/24/24 08:00 Pulse 95 03/24/24 12:00 Resp 13 03/24/24 12:00 BP 117/68 03/24/24 12:00 Pulse Ox 95 03/24/24 12:00 FiO2 Intake & Output 03/23/24 03/24/24 03/24/24 18:59 06:59 18:59 Intake Total 3043.580 1493.00 720 Output Total 1725 475 160 Balance 4470.241 1902.00 560 Weight 71.214 kg 77.1 kg Intake: IV 1430 520 Sodium Chloride 0.9% 1, 1430 520 000 ml @ 130 mls/hr IV . Q7H42M [facility] Rx#:[id number] Intake, IV Titration 2383.580 63.00 100 Amount Cefepime 2 gm In Sodium 100 100 Chloride 0.9% 100 ml @ 25 mls/hr IVPB Q12H [facility] Rx# :[id number] Diltiazem 125 mg In 152.0 59.25 Sodium Chloride 0.9% 100 ml @ 15 MG/HR 15 mls/hr IV .Q8H20M [facility] Rx#: [id number] Diltiazem 125 mg In 3.75 Sodium Chloride 0.9% 100 ml @ Per Protocol IV .Q0M [facility] Rx#:[id number] Norepinephrine 32 mg In 14.321 Sodium Chloride 0.9% 218 ml @ 0.03 MCG/KG/MIN 1. 001 mls/hr IV .Q24H [facility] Rx#:[id number] Phenylephrine 40 mg In 117.259 Sodium Chloride 0.9% 250 ml @ 0.5 MCG/KG/MIN 13. 566 mls/hr IV .[id number] [facility] Rx#:[id number] Sodium Chloride 0.9% 1, 1000 000 ml @ 130 mls/hr IV . Q7H42M [facility] Rx#:[id number] Sodium Chloride 0.9% 1, 1000 000 ml @ 999 mls/hr IV . Q1H1M [facility] Rx#:[id number] Oral 660 100 Output: Urine 1725 475 160 Uretheral (Ortiz) 950 Other: Voiding Method Indwelling Catheter Indwelling Catheter Indwelling Catheter - Exam GENERAL DESCRIPTION: An elderly female lying in bed in no distress RESPIRATORY SYSTEM: Unlabored breathing , coarse breath sounds left side HEART: S1 S2 regular rate and rhythm , ABDOMEN: Soft , no tenderness EXTREMITIES: No edema feet - Labs CBC & Chem 7: 03/24/24 05:41 03/24/24 05:41 Labs: Abnormal Lab Results - Last 24 Hours (Table) 03/23/24 03/23/24 03/24/24 Range/Units 07:04 16:27 05:41 WBC (3.8-10.6) k/uL RBC (3.80-5.40) m/uL Hgb (11.4-16.0) gm/dL Hct (34.0-46.0) % RDW (11.5-15.5) % Plt Count (150-450) k/uL Lymphocytes # (1.0-4.8) k/uL Chloride 111 H (98-107) mmol/L Carbon Dioxide 19 L (22-30) mmol/L BUN 33 H (7-17) mg/dL Glucose 117 H (74-99) mg/dL POC Glucose (mg/dL) 156 H (70-110) mg/dL Calcium 8.0 L (8.4-10.2) mg/dL Procalcitonin >100.00 H (0.02-0.09) ng/mL 03/24/24 Range/Units 05:41 WBC 2.3 L (3.8-10.6) k/uL RBC 2.83 L (3.80-5.40) m/uL Hgb 7.8 L (11.4-16.0) gm/dL Hct 24.7 L (34.0-46.0) % RDW 16.2 H (11.5-15.5) % Plt Count 25 L (150-450) k/uL Lymphocytes # 0.2 L (1.0-4.8) k/uL Chloride (98-107) mmol/L Carbon Dioxide (22-30) mmol/L BUN (7-17) mg/dL Glucose (74-99) mg/dL POC Glucose (mg/dL) (70-110) mg/dL Calcium (8.4-10.2) mg/dL Procalcitonin (0.02-0.09) ng/mL Microbiology - Last 24 Hours (Table) 03/22/24 06:35 Blood Culture Gram Stain - Final Blood Blood Culture - Final Beta Hemolytic Strep Group G 03/22/24 06:50 Blood Culture Gram Stain - Final Blood Blood Culture - Final Beta Hemolytic Strep Group G Molecular ID Assessment and Plan (1) Pneumonia Status: Acute Code(s): J18.9 - PNEUMONIA, UNSPECIFIED ORGANISM SNOMED Code(s): 469535093 (2) Bacteremia Status: Acute Code(s): R78.81 - BACTEREMIA SNOMED Code(s): 9780592 (3) Sepsis Status: Acute Code(s): A41.9 - SEPSIS, UNSPECIFIED ORGANISM SNOMED Code(s): 62393688 Plan: 1patient presented to hospital with sepsis in this patient who did have a fever tachycardia hypotension source likely pneumonia and concern for possible parapneumonic effusion patient denies having any abdominal pain no tenderness was noticed on abdominal examination clinic suspicious low for typhlitis patient did not have any CT suggestive of the same finding 2-group G strep bacteremia source likely pneumonia 3-patient to continue with cefepime vancomycin has been discontinued overall prognosis guarded pulmonary discussing hospice with the patient Family at the bedside questions answered Dictation was produced using [employer] dictation software. please excuse any grammatical, word or spelling errors. Time with Patient: Less than 30
== END 2024-03-24 14:13 | disposition hospice, inpatient (51) | DRG 871 ==
LOC: EC 06:08 → 2SICU 11:17
PROVIDERS: ADMIT Family Medicine; ATTEND Family Medicine
PROC: 02HV33Z Insertion of Infusion Device into Superior Vena Cava, Percutaneous Approach (ICD-10-PCS; principal; 2024-03-22)
PROC: 3E043XZ Introduction of Vasopressor into Central Vein, Percutaneous Approach (ICD-10-PCS; 2024-03-22)
DX: A41.9 Sepsis, unspecified organism (principal); D61.810 Antineoplastic chemotherapy induced pancytopenia; R40.20 Unspecified coma; J18.9 Pneumonia, unspecified organism; J96.01 Acute respiratory failure with hypoxia; R65.21 Severe sepsis with septic shock; C34.12 Malignant neoplasm of upper lobe, left bronchus or lung; J90 Pleural effusion, not elsewhere classified; N17.9 Acute kidney failure, unspecified; D70.1 Agranulocytosis secondary to cancer chemotherapy; E78.5 Hyperlipidemia, unspecified; I10 Essential (primary) hypertension; E83.42 Hypomagnesemia; K21.9 Gastro-esophageal reflux disease without esophagitis; E86.0 Dehydration; T45.1X5A Adverse effect of antineoplastic and immunosuppressive drugs, initial encounter; Z51.5 Encounter for palliative care; Z66 Do not resuscitate; K12.31 Oral mucositis (ulcerative) due to antineoplastic therapy; K52.89 Other specified noninfective gastroenteritis and colitis; R50.81 Fever presenting with conditions classified elsewhere; Z79.82 Long term (current) use of aspirin; Z79.899 Other long term (current) drug therapy; Z86.73 Personal history of transient ischemic attack (TIA), and cerebral infarction without residual deficits; Z87.891 Personal history of nicotine dependence; Z28.310 Unvaccinated for COVID-19; Z96.89 Presence of other specified functional implants; Z86.69 Personal history of other diseases of the nervous system and sense organs; L40.0 Psoriasis vulgaris
CPT/HCPCS: 36415; 36556; 51702; 51798; 71045; 71046; 80048; 80053; 80202; 81001; 83605; 83735; 83880; 84132; 84145; 84484; 85025; 85610; 85730; 87040; 87077; 87186; 93005; 94640; 94760; 96361; 96365; 96366; 96367; 96368; 96375; 99291

== ENCOUNTER 2024-03-24 14:01 | Inpatient (IN) | payer MEDICAID ==
[2024-03-24] MEDS ORDERED: ATROPINE OPHTH SOLN 1% 5ML BTL SUBLINGUAL PRN (14:07)
[2024-03-24] MEDS ORDERED: ACETAMINOPHEN TAB 325 MG TAB PO PRN (14:07)
[2024-03-24] MEDS ORDERED: ARTIFICIAL TEARS-HYPROMELLOSE DROPS 15 ML BTL BOTH EYES PRN (14:07)
[2024-03-24] MEDS ORDERED: GLYCOPYRROLATE 0.2 MG/ML 2 ML VIAL IVP PRN (14:07)
[2024-03-24] MEDS ORDERED: ONDANSETRON 4 MG/2 ML VIAL IVP PRN (14:07)
[2024-03-24] MEDS ORDERED: DRY MOUTH SPRAY 44.3 SPRAY/44.3 ML SPRAY MUCOUS MEM PRN (14:07)
[2024-03-24] MEDS: MORPHINE SULFATE 4 MG/ML SYRINGE IV PRN (14:47)
[2024-03-24] MEDS: SCOPOLAMINE 1 MG/72 HR PATCH TRANSDERM SCH (16:03)
[2024-03-24] MEDS ORDERED: MORPHINE SULFATE (100 MG/2 ML) 100 MG in SODIUM CHLORIDE 0.9% 100 ML IV SCH (16:45)
[2024-03-24] MEDS: LORazepam 2 MG/ML INJ IV PRN ×2 (17:25→18:46)
[2024-03-24 22:23] VITALS: RESP 12
[2024-03-24] MEDS: DOCUSATE 100 MG CAP PO SCH (23:03)
== END 2024-03-24 23:55 | disposition expired | DRG 951 ==
LOC: 2SICU 14:13 → 5NMEDONC 19:05
PROVIDERS: ADMIT Family Medicine; ATTEND Family Medicine
DX: Z51.5 Encounter for palliative care (principal); J96.01 Acute respiratory failure with hypoxia; R40.20 Unspecified coma; C34.12 Malignant neoplasm of upper lobe, left bronchus or lung; D69.6 Thrombocytopenia, unspecified; Z66 Do not resuscitate